=== PATIENT | female | born 1950 | race Caucasian/White ===

== ENCOUNTER → 2017-07-27 14:19 | Outpatient (CLI) | payer MEDICARE, OTHER, SELFPAY ==
[2017-07-27 16:43] LABS: Erythrocyte Sedimentation Rate 9 mm/hr (0-30)
== END ==
PROVIDERS: PCP Physician Assistant; Visit Provider Physician Assistant
DX: R51 Headache (principal)
CPT/HCPCS: 36415; 85651

== ENCOUNTER 2017-08-27 15:01 | Emergency (ER) | payer MEDICARE, OTHER, SELFPAY ==
[2017-08-27 15:06] VITALS: BP 140/91; PULSE 61; RESP 18; TEMP 36.7; O2SAT 97; BMI 26.8
--- NOTE | 2017-08-27 17:52 | HMH.EDGENADL ---
ED Disposition Clinical Impression: Arora's cyst of knee Disposition: Home, Self-Care Condition on Discharge: Fair Additional Instructions: 1- rest. 2- ice. 3- elevation. 4- mobic 5- follow up with zoila on tuesday08/30/17 as scheduled. Prescriptions: Meloxicam [Mobic 7.5mg Tab] 7.5 mg PO BID #15 tab Referrals: Zoila Rose PA [Primary Care Provider] - - Critical Care Critical Care Time: No Attestation: On 08/27/17, the high probability of a clinically significant, sudden or life threatening deterioration of the following system(s) required my full and direct attention, intervention and personal management. The time I documented below is in addition to time spent performing reported procedures but includes the following listed in this critical care notation. Medical Decision Making - Medical Records Medical records reviewed: Yes: I reviewed the patient's medical records. Vital Signs: 08/27/17 15:06 Temperature 98.0 F Temperature Source Oral Pulse Rate [Right Brachial] 61 Respiratory Rate 18 Blood Pressure [Right Arm] 140/91 Blood Pressure Mean [Right Arm] 107 Blood Pressure Source [Right Arm] Automatic Cuff Blood Pressure Position [Right Arm] Sitting 02 Sat by Pulse Oximetry 97 Oxygen Delivery Method Room Air - Jose Inquiry Pt receiving controlled substance: No Jose was queried for this patient: No Medical Decision Making Narrative: I contacted her primary care physician Zoila rose is working the urgent care today. She agrees with my primary impression. She will follow her up as scheduled on Tuesday. General Adult HPI - General Chief complaint: PAIN Stated complaint: AO 2.7.18 Left Leg Injury Mode of Arrival: Ambulatory Limitations: No Limitations Description of Symptoms (Recalled from ER Triage Doc. by RN): swollen area behind knee on left leg - History of Present Illness HPI narrative: 67 years old white female with osteoarthritis of the knees she has been standing up on her feet lately the result of a progressive swelling on the back of the knee 'popliteal fossa'. She wanted to come and be checked. Denies having chest pain palpitations shortness of breath nausea vomiting. As having calf pain dilated veins redness or swelling. Onset (ago): week(s) (Progressive for 1 week.) Radiation: non-radiation Severity: moderate Severity scale (1-10): 5 Consistency: intermittent (It gets better with rest. ) Relieving factors: rest Exacerbating factors: movement Associated symptoms: denies other symptoms Treatments prior to arrival: none - Related Data Home Medications Medication Instructions Recorded Confirmed aspirin 81 mg tablet,delayed 81 mg PO QDAY 07/22/17 release bisoprolol fumarate 5 mg tablet 10 mg PO QDAY 07/22/17 ergocalciferol (vitamin D2) 50,000 50,000 unit PO QWEEK 07/22/17 unit capsule levothyroxine 50 mcg capsule 50 mcg PO QDAY cap 07/22/17 oxybutynin chloride 5 mg tablet 5 mg PO BID 07/22/17 ropinirole 1 mg tablet 1 mg PO QHS tab 07/22/17 Previous Rx's Medication Instructions Recorded citalopram 40 mg tablet 40 mg PO QDAY 90 Days #90 tab 07/27/17 ranitidine 150 mg capsule 300 mg PO QHS 90 Days #180 cap 07/27/17 tramadol 50 mg tablet 50 mg PO TID 90 Days #90 tab 07/27/17 Meloxicam [Mobic 7.5mg Tab] 7.5 mg PO BID #15 tab 08/27/17 Allergies Allergy/AdvReac Type Severity Reaction Status Date / Time No Known Allergies Allergy Unverified 07/27/17 13:24 [facility] [place] History I have reviewed the patient's past medical history: Yes Medical History: Reports:: Hyperlipidemia, Hypertension Denies:: Cancer, Diabetes Mellitus Type 1, Diabetes Mellitus Type 2, MRSA Other Medical History: Reports: Hypothyroidism Laterality Cases: Bilateral: Tonsillectomy Other Surgeries: Yes: Cancer Surgery, Colonoscopy, Tubal Ligation, Other Amputation: No Fractures: No - *Social History Smoking Status: Never smoker Tobacco Type: cig
--- NOTE | 2017-08-27 17:55 | ED_ITS ---
ED Disposition Clinical Impression: Arora's cyst of knee Disposition: Home, Self-Care Condition on Discharge: Fair Additional Instructions: 1- rest. 2- ice. 3- elevation. 4- mobic 5- follow up with zoila on tuesday08/30/17 as scheduled. Prescriptions: Meloxicam [Mobic 7.5mg Tab] 7.5 mg PO BID #15 tab Referrals: Zoila Rose PA [Primary Care Provider] - - Critical Care Critical Care Time: No Attestation: On 08/27/17, the high probability of a clinically significant, sudden or life threatening deterioration of the following system(s) required my full and direct attention, intervention and personal management. The time I documented below is in addition to time spent performing reported procedures but includes the following listed in this critical care notation. Medical Decision Making - Medical Records Medical records reviewed: Yes: I reviewed the patient's medical records. Vital Signs: 08/27/17 15:06 Temperature 98.0 F Temperature Source Oral Pulse Rate [Right Brachial] 61 Respiratory Rate 18 Blood Pressure [Right Arm] 140/91 Blood Pressure Mean [Right Arm] 107 Blood Pressure Source [Right Arm] Automatic Cuff Blood Pressure Position [Right Arm] Sitting 02 Sat by Pulse Oximetry 97 Oxygen Delivery Method Room Air - Jose Inquiry Pt receiving controlled substance: No Jose was queried for this patient: No Medical Decision Making Narrative: I contacted her primary care physician Zoila rose is working the urgent care today. She agrees with my primary impression. She will follow her up as scheduled on Tuesday. General Adult HPI - General Chief complaint: PAIN Stated complaint: AO 2.7.18 Left Leg Injury Mode of Arrival: Ambulatory Limitations: No Limitations Description of Symptoms (Recalled from ER Triage Doc. by RN): swollen area behind knee on left leg - History of Present Illness HPI narrative: 67 years old white female with osteoarthritis of the knees she has been standing up on her feet lately the result of a progressive swelling on the back of the knee 'popliteal fossa'. She wanted to come and be checked. Denies having chest pain palpitations shortness of breath nausea vomiting. As having calf pain dilated veins redness or swelling. Onset (ago): week(s) (Progressive for 1 week.) Radiation: non-radiation Severity: moderate Severity scale (1-10): 5 Consistency: intermittent (It gets better with rest. ) Relieving factors: rest Exacerbating factors: movement Associated symptoms: denies other symptoms Treatments prior to arrival: none - Related Data Home Medications Medication Instructions Recorded Confirmed aspirin 81 mg tablet,delayed 81 mg PO QDAY 07/22/17 release bisoprolol fumarate 5 mg tablet 10 mg PO QDAY 07/22/17 ergocalciferol (vitamin D2) 50,000 50,000 unit PO QWEEK 07/22/17 unit capsule levothyroxine 50 mcg capsule 50 mcg PO QDAY cap 07/22/17 oxybutynin chloride 5 mg tablet 5 mg PO BID 07/22/17 ropinirole 1 mg tablet 1 mg PO QHS tab 07/22/17 Previous Rx's Medication Instructions Recorded citalopram 40 mg tablet 40 mg PO QDAY 90 Days #90 tab 07/27/17 ranitidine 150 mg capsule 300 mg PO QHS 90 Days #180 cap 07/27/17 tramadol 50 mg tablet 50 mg PO TID 90 Days #90 tab 07/27/17
[2017-08-27 18:08] VITALS: BP 133/72; PULSE 85; RESP 18; TEMP 36.7; O2SAT 97
== END 2017-08-27 18:07 | disposition home or self-care (01) ==
PROVIDERS: Emergency Provider Emergency Medicine; PCP Physician Assistant
DX: M71.22 Synovial cyst of popliteal space [Baker], left knee (principal); F32.9 Major depressive disorder, single episode, unspecified; E78.5 Hyperlipidemia, unspecified; I10 Essential (primary) hypertension; E11.9 Type 2 diabetes mellitus without complications
CPT/HCPCS: 99282

== ENCOUNTER → 2017-08-30 10:06 | Outpatient (REF) | payer MEDICARE, OTHER, SELFPAY ==
[2017-08-30 13:44] LABS: Basophils # 0.1 K/mm3 (0-0.2); Basophils % 1.3 % (0.1-2.0); Eosinophils # 0.3 K/mm3 (0.0-0.4); Eosinophils % 7.7 % (0.1-12.0); Hematocrit 39.6 % (37.0-47.0); Hemoglobin 13.1 g/dL (12.2-16.2); Lymphocytes # 1.2 K/mm3 (0.7-4.5); Lymphocytes % 28.9 K/mm3 (10-50); Mean Corpuscular Hemoglobin 30.5 pg (27.0-31.2); Mean Corpuscular Volume 92.3 fl (81-99); Mean Platelet Volume 8.3 fl (7.4-10.4); Monocytes # 0.3 K/mm3 (0.1-1.0); Monocytes % 7.3 % (1.7-9.3); Neutrophils # 2.3 K/mm3 (1.8-7.8); Neutrophils % 54.9 % (37.0-80.0); Platelet Count 191 K/mm3 (142-424); Red Blood Count 4.29 M/mm3 (4.20-5.40); Red Cell Distribution Width 12.7 % (11.5-17.5); White Blood Count 4.2 K/mm3 (4.8-10.8)
[2017-08-30 14:25] LABS: Alanine Aminotransferase 23 U/L (12-78); Albumin Level 3.8 gm/dL (3.4-5.0); Albumin/Globulin Ratio 1.5 (1.1-1.8); Alkaline Phosphatase 92 U/L (46-116); Anion Gap 10.8 mEq/L (5-15); Aspartate Amino Transferase 13 U/L (15-37); Bilirubin,Total 0.4 mg/dL (0.2-1.0); Blood Urea Nitrogen 15 mg/dL (7-18); Calcium 8.8 mg/dL (8.5-10.1); Carbon Dioxide 29 mmol/L (21.0-32.0); Chloride 105 mmol/L (98-107); Chol/HDL Ratio 3.5 (1-3.5); Cholesterol 177 mg/dL (140-200); Estimated Glomerular Filt Rate 50 ml/min (>60); GFR (African American) 60 ML/MIN (>60); Globulin 2.5 gm/dl (1.3-3.2); Glucose 110 mg/dL (74-106); HDL Cholesterol 50 mg/dL (29-89); LDL Cholesterol 107 mg/dL (0-130); Potassium 4.8 mmoL/L (3.5-5.1); Sodium 140 mmol/L (136-145); T4 (Thyroxine) 7.3 ug/dl (4.7-13.3); Thyroid Stimulating Hormone 2.15 uIU/ml (0.358-3.740); Total Protein,Serum 6.3 gm/dL (6.4-8.2); Triglycerides 100 mg/dL (30-200); VLDL Cholesterol 20 mg/dL (0-40)
[2017-08-30 16:45] LABS: Erythrocyte Sedimentation Rate 8 mm/hr (0-30)
[2017-08-31 08:26] LABS: RA Latex Turbid. <10.0 IU/mL (0.0-13.9)
[2017-08-31 12:16] LABS: Anti-Jo-1 <0.2 AI (0.0-0.9); Anti-Smith Antibody <0.2 AI (0.0-0.9); Antichromatin Antibodies <0.2 AI (0.0-0.9); Antiscleroderma-70 Antibodies <0.2 AI (0.0-0.9); RNP Antibodies 0.2 AI (0.0-0.9); Sjogren's Anti-SS-A <0.2 AI (0.0-0.9); Sjogren's Anti-SS-B <0.2 AI (0.0-0.9)
[2017-09-02 12:03] LABS: Anti-Centromere B Antibodies <0.2 AI (0.0-0.9); Anti-DNA (DS) Ab Qn 1 IU/mL (0-9); Folate 13.8 ng/mL (>3.0); Vitamin B12 374 pg/mL (232-1245)
[2017-09-02 12:04] LABS: Anti-Cyclic Citrullinated Pept 2 units (0-19); Vitamin D 25 Hydroxy 19.4 ng/mL (30.0-100.0)
== END ==
LOC: LAB 10:06
PROVIDERS: Visit Provider Physician Assistant
DX: M79.7 Fibromyalgia (principal); I10 Essential (primary) hypertension
CPT/HCPCS: 80053; 80061; 82607; 82652; 82746; 84436; 84443; 85025; 85651; 86038; 86200; 86431

== ENCOUNTER → 2017-10-19 10:54 | Outpatient (REF) | payer MEDICARE, OTHER, SELFPAY ==
[2017-10-19 19:56] LABS: Basophils # 0.1 K/mm3 (0-0.2); Basophils % 1.4 % (0.1-2.0); Eosinophils # 0.4 K/mm3 (0.0-0.4); Eosinophils % 10.6 % (0.1-12.0); Hematocrit 42.5 % (37.0-47.0); Hemoglobin 13.8 g/dL (12.2-16.2); Lymphocytes # 1.2 K/mm3 (0.7-4.5); Lymphocytes % 30.7 K/mm3 (10-50); Mean Corpuscular HGB Conc 32.5 g/dL (31.8-35.4); Mean Corpuscular Hemoglobin 30.7 pg (27.0-31.2); Mean Corpuscular Volume 94.3 fl (81-99); Mean Platelet Volume 8.7 fl (7.4-10.4); Monocytes # 0.3 K/mm3 (0.1-1.0); Monocytes % 7.7 % (1.7-9.3); Neutrophils % 49.7 % (37.0-80.0); Platelet Count 184 K/mm3 (142-424); Red Blood Count 4.51 M/mm3 (4.20-5.40); Red Cell Distribution Width 12.7 % (11.5-17.5)
[2017-10-19 20:47] LABS: Alanine Aminotransferase 19 U/L (12-78); Albumin/Globulin Ratio 1.5 (1.1-1.8); Alkaline Phosphatase 94 U/L (46-116); Anion Gap 13.1 mEq/L (5-15); Aspartate Amino Transferase 16 U/L (15-37); Bilirubin,Total 0.5 mg/dL (0.2-1.0); Blood Urea Nitrogen 16 mg/dL (7-18); Calcium 9.1 mg/dL (8.5-10.1); Carbon Dioxide 29 mmol/L (21.0-32.0); Chloride 103 mmol/L (98-107); Chol/HDL Ratio 3.4 (1-3.5); Cholesterol 191 mg/dL (140-200); Estimated Glomerular Filt Rate 55 ml/min (>60); GFR (African American) 67 ML/MIN (>60); Globulin 2.7 gm/dl (1.3-3.2); Glucose 79 mg/dL (74-106); HDL Cholesterol 56 mg/dL (29-89); LDL Cholesterol 115 mg/dL (0-130); Potassium 4.1 mmoL/L (3.5-5.1); Sodium 141 mmol/L (136-145); T4 (Thyroxine) 7.8 ug/dl (4.7-13.3); Thyroid Stimulating Hormone 3.87 uIU/ml (0.358-3.740); Total Protein,Serum 6.7 gm/dL (6.4-8.2); Triglycerides 98 mg/dL (30-200); VLDL Cholesterol 20 mg/dL (0-40)
== END ==
LOC: LAB 10:54
PROVIDERS: Visit Provider Physician Assistant
DX: I10 Essential (primary) hypertension (principal); R63.5 Abnormal weight gain; G47.10 Hypersomnia, unspecified
CPT/HCPCS: 80053; 80061; 84436; 84443; 85025

== ENCOUNTER → 2018-03-02 11:50 | Outpatient (REF) | payer MEDICARE, OTHER, SELFPAY ==
[2018-03-07 08:30] LABS: Neisseria gonorrhoeae, NAA Negative (Negative)
== END ==
LOC: LAB 11:50
PROVIDERS: Visit Provider Physician Assistant
DX: N89.8 Other specified noninflammatory disorders of vagina (principal); Z20.2 Contact with and (suspected) exposure to infections with a predominantly sexual mode of transmission
CPT/HCPCS: 87491; 87591

== ENCOUNTER → 2018-07-12 16:53 | Outpatient (CLI) | payer MEDICARE, OTHER, SELFPAY ==
[2018-07-12 21:11] LABS: Blood Urea Nitrogen 17 mg/dL (7-18); Calcium 9.2 mg/dL (8.5-10.1); Carbon Dioxide 30 mmol/L (21.0-32.0); Chloride 103 mmol/L (98-107); Estimated Glomerular Filt Rate 41 ml/min (>60); GFR (African American) 49 ML/MIN (>60); Glucose 92 mg/dL (74-106); Sodium 141 mmol/L (136-145)
== END ==
PROVIDERS: Visit Provider Nurse Practitioner Family
DX: I73.9 Peripheral vascular disease, unspecified (principal); I83.893 Varicose veins of bilateral lower extremities with other complications; M79.661 Pain in right lower leg; M79.662 Pain in left lower leg; R06.00 Dyspnea, unspecified; R60.9 Edema, unspecified
CPT/HCPCS: 36415; 80048

== ENCOUNTER → 2018-07-14 11:05 | Outpatient (CLI) | payer MEDICARE, OTHER, SELFPAY ==
--- NOTE | 2018-07-14 11:06 | US_ITS ---
US Arterial Ankle Brachial Ind HISTORY: ITS.REASON: . Claudication. Pain and edema both legs. Previous smoker. Hypertension. TIA, CVA vascular disease history. Rest pain both legs. . TECHNIQUE: Segmental pressures obtained of both right and left leg. These are compared to brachial blood pressure to yield index at each level sampled including summary JAYA. The data sheets from the procedure are available in PACS FINDINGS Rest study only performed today No prior studies available for comparison. Blood pressures reported are in millimeters mercury. Right JAYA = 1.1. Right TBI = 1.0 Brachial BP: 140 Thigh BP: 151 with index 1.08 Calf BP: BP 141 with index 1.01 Ankle PT: BP 159 with index 1.14 Ankle DP : BP 134 with index 0.96 Digit =BP 133 with index 0.9 Left JAYA = 1.1. Left TBI = 0.7 Brachial BPD: 132 Thigh BP: BP 148 with index 1.06 Calf BP: BP 156 with index 1.11 Ankle PT:BP 150 with index 1.07 Ankle DP: BP 136 with index 0.9 Digit = BP 102 with index 0.73 IMPRESSION: Satisfactory values below Right JAYA = 1.1. Right TBI = 1.0 Left JAYA = 1.1. Left TBI = 0.7 Pulses and waveforms: Normal bilaterally
== END ==
PROVIDERS: PCP Physician Assistant; Visit Provider Internal Medicine
DX: I73.9 Peripheral vascular disease, unspecified (principal); I83.893 Varicose veins of bilateral lower extremities with other complications; M79.661 Pain in right lower leg; M79.662 Pain in left lower leg; R06.00 Dyspnea, unspecified; R60.9 Edema, unspecified
CPT/HCPCS: 93922

== ENCOUNTER 2018-07-19 14:27 | Outpatient (RCR) | payer MEDICARE, OTHER, SELFPAY | END 2018-07-31 13:58 | disposition home or self-care (01) | LOC: PT 14:27 | PROVIDERS: Visit Provider Orthopaedic Surgery | DX: M17.11 Unilateral primary osteoarthritis, right knee (principal) | CPT/HCPCS: 97760 ==

== ENCOUNTER → 2018-09-01 08:35 | Outpatient (CLI) | payer MEDICARE, OTHER, SELFPAY ==
--- NOTE | 2018-09-01 08:49 | XR_ITS ---
XR knee RT 4V HISTORY: ITS.REASON: 4 views right knee weightbearing ORDERING PHYSICIAN: Roselia Chambers MD PATIENT AGE: 68 years COMPARISON: 07/27/2018 FINDINGS: Weightbearing views are performed. There are moderate osteoarthritic changes of the medial compartment and patellofemoral joint not significant changed. No fracture or dislocation. No lytic or blastic change. There may be a small suprapatellar effusion. IMPRESSION: No change moderate osteoarthritis of the medial compartment and patellofemoral joint with possible small knee joint effusion
== END ==
PROVIDERS: PCP Physician Assistant; Visit Provider Orthopaedic Surgery
DX: M17.10 Unilateral primary osteoarthritis, unspecified knee (principal)
CPT/HCPCS: 73564

== ENCOUNTER 2018-09-01 13:00 | Outpatient (RCR) | payer MEDICARE, OTHER, SELFPAY ==
--- NOTE | 2018-08-18 14:15 | HMH.PTOPEV ---
PT Outpatient Evaluation Rehab PT Outpatient Evaluation Start: 08/18/18 13:27 Freq: Status: Active Protocol: Document 08/18/18 13:27 LUTHER (Rec: 08/18/18 14:14 LUTHER [id number]) Electronically Signed By Joselo Walker, PT 08/18/18 13:27 Outpatient Therapy Subjective History Subjective History Pt reports insidious onset R knee pain beginning 06/11/18. Pt reports mostly medial and anterior aspect R knee pain, improved with recent fluid removal and steroid injection. Pt reports recent Xrays have revealed OA/DJD in R knee. Chief Complaint Pain Stiff Swelling Weakness Symptom Type Ache Throb Dull Symptoms Relieved By Rest/Positioning Ice Symptoms Aggravated By Standing Walking Prior Functional Limitations Standing Walking Current Functional Limitations Housework Standing Squatting Walking Symptom Description Intermittent Level of pain today (0-10) 1 Pain scale - at its best (0-10) 0 Pain scale - at its worst (0-10) 8 Hip/Knee Eval Gait Observation General Gait Pattern Observation Antalgic Gait Palpation Tenderness right Knee Palpation Finding Tenderness Knee Palpation Overall Comment 3/4 MCL/MEDIAL JT INE MMT bilateral Hip Flexion Strength Grade 4- Good- Hip Abduction Strength Grade 4- Good- Hip Adduction Strength Grade 4- Good- Hip Extension Strength Grade 4 Good Hip External Rotation Strength Grade 4- Good- Hip Internal Rotation Strength Grade 4- Good- Knee Extension Strength Grade 5 Normal Knee Flexion Strength Grade 4 Good ROM Knee Flexion Active Range of Motion ( 0-125 degrees) Effusion joint effusion knee exam standard right Mid - Patellar Circumerential Measure ( 43 cm) Special Tests Knee Valgus Stress Test Negative Left Positive Right Knee Varus Stress Test Negative Left Negative Right Knee Bronwyn Test Negative Left Negative Right Patella Apprehension Test Negative Left Negative Right Patellar Grind Test Nega
== END 2018-09-01 13:35 | disposition home or self-care (01) ==
LOC: PT 13:00
PROVIDERS: Visit Provider Orthopaedic Surgery
DX: M17.11 Unilateral primary osteoarthritis, right knee (principal); M25.561 Pain in right knee
CPT/HCPCS: 97010; 97014; 97035; 97110; 97140; 97163; G0283

== ENCOUNTER → 2018-09-15 17:39 | Outpatient (CLI) | payer MEDICARE, OTHER, SELFPAY ==
[2018-09-15 19:22] LABS: Amphetamine/Metha Screen,Urine Negative ng/mL (<1000); Barbiturates Screen,Urine Negative ng/mL (<200); Benzodiazepines Screen,Urine Negative ng/mL (<200); Cannabinoid Screen,Urine Negative ng/mL (<50); Cocaine Screen,Urine Negative ng/mL (<300); Methadone Screen,Urine Negative ng/mL (<300); Opiate Screen,Urine Negative ng/mL (<300); Phencyclidine Screen,Urine Negative ng/mL (<25)
== END ==
PROVIDERS: Visit Provider Nurse Practitioner Family
DX: Z79.899 Other long term (current) drug therapy (principal)
CPT/HCPCS: 80305

== ENCOUNTER → 2018-10-27 10:30 | Outpatient (CLI) | payer MEDICARE, OTHER, SELFPAY ==
--- NOTE | 2018-10-27 10:51 | XR_ITS ---
XR chest 2V HISTORY: ITS.REASON: HTN ORDERING PHYSICIAN: Roselia Chambers MD PATIENT AGE: 68 years COMPARISON: 09/09/2016 FINDINGS: The cardiomediastinal silhouette and pulmonary vascularity are within normal limits. The lungs are clear without infiltrates, suspicious nodules, or pleural effusions. There are degenerative changes in the thoracic spine as well as the shoulders and AC joints.. IMPRESSION: No change with no acute finding
[2018-10-27 10:53] LABS: Eosinophils # 0.2 K/mm3 (0.0-0.4); Eosinophils % 5.9 % (0.1-12.0); Hemoglobin 13.3 g/dL (12.2-16.2); Lymphocytes # 1.1 K/mm3 (0.7-4.5); Lymphocytes % 28.2 % (10-50); Mean Corpuscular HGB Conc 34.1 g/dL (31.8-35.4); Mean Corpuscular Hemoglobin 30.7 pg (27.0-31.2); Mean Platelet Volume 7.1 fl (7.4-10.4); Monocytes # 0.2 K/mm3 (0.1-1.0); Monocytes % 5.9 % (1.7-9.3); Neutrophils # 2.3 K/mm3 (1.8-7.8); Neutrophils % 59.1 % (37.0-80.0); Platelet Count 228 K/mm3 (142-424); Red Blood Count 4.34 M/mm3 (4.20-5.40); Red Cell Distribution Width 13.2 % (11.5-17.5); White Blood Count 3.9 K/mm3 (4.8-10.8)
[2018-10-27 10:56] LABS: INR 0.98 (0.9-1.1); Prothrombin Time 10.1 seconds (9.4-11.8)
[2018-10-27 11:34] LABS: Alanine Aminotransferase 21 U/L (12-78); Albumin/Globulin Ratio 1.5 (1.1-1.8); Alkaline Phosphatase 117 U/L (46-116); Anion Gap 14.4 mEq/L (5-15); Aspartate Amino Transferase 15 U/L (15-37); Bilirubin,Total 0.7 mg/dL (0.2-1.0); Blood Urea Nitrogen 17 mg/dL (7-18); Calcium 9.1 mg/dL (8.5-10.1); Carbon Dioxide 26 mmol/L (21.0-32.0); Chloride 105 mmol/L (98-107); Creatinine,Serum 1.15 mg/dL (0.55-1.02); Estimated Glomerular Filt Rate 47 ml/min (>60); GFR (African American) 57 ML/MIN (>60); Globulin 2.6 gm/dl (1.3-3.2); Glucose 124 mg/dL (74-106); Potassium 4.4 mmoL/L (3.5-5.1); Sodium 141 mmol/L (136-145); Total Protein,Serum 6.6 gm/dL (6.4-8.2)
== END ==
PROVIDERS: Visit Provider Orthopaedic Surgery
DX: Z01.818 Encounter for other preprocedural examination (principal); M17.11 Unilateral primary osteoarthritis, right knee
CPT/HCPCS: 36415; 71046; 80053; 85025; 85610; 86850; 87081; 93005

== ENCOUNTER 2018-11-07 06:14 | Inpatient (IN) ==
--- NOTE | 2018-11-07 06:48 | Progress Note ---
[facility] Anesthesia Checklist - Patient Identification Patient Identification: Arm Band, Verbal (Name & ) - Structural Data Admitted From: Home Planned Operative Procedure/s: Right TKA Consent for Planned Operative Procedure(s) Verified: Yes Verified Documents: Surgical Consent, History and Physical - NPO Status Verified Time NPO: 00:00 - Chart Verification Results Verified: CBC, BMP - Additional verifications Patient : No Anesthesia Reactions: No - Airway Assessment C-Spine Mobility Assessed: Yes TMJ Mobility Assessed: Yes Dentition: Dentures-good fit (Upper) - Neurological Assessment Level of Consciousness: Awake Hx Seizures: No Numbness or tingling in extremities: No - Anesthesia Plan Anesthesia Risk discussed: Yes Anesthesia Plan: Verified ASA Class: III Anesthesia Type: Spinal [facility] History I have reviewed the patient's past medical history: Yes Medical History: Reports:: Anxiety, Cancer (skin), Depression, Gastroesophageal Reflux Disease(GERD), Hyperlipidemia, Hypertension, Transient Ischemic Attacks (TIA) Denies:: Diabetes Mellitus Type 1, Diabetes Mellitus Type 2, Internal Pacem lloyd, MRSA *Have you ever received a pneumonia vaccine?: No *Have you received a flu vaccine this season?: No Other Medical History: Reports: Fibromyalgia, Hypothyroidism Laterality Cases: Bilateral: Tonsillectomy Other Surgeries: Yes: Cancer Surgery, Colonoscopy, Tubal Ligation, Other (Lumber sx). No: Pacemaker Amputation: No Fractures: Yes (LEFT WRIST,BACK SURGERY) - *Social History Smoking Status: Former smoker Tobacco Type: cigarettes # Packs/Day (cigarettes): 1 Alcohol Intake: never Substance Use Type: denies use *Occupational Status:: retired, employed Housing: house *Travel in the last 8 weeks: None - Psychiatric History Expresses thoughts of harming self/others: None Suicide Plan Description: No Plan Pschychiatric History:: Reports:: Anxiety, Depression Family Hx:: Cancer, Hypertension, Stroke, Heart Attack, Coronary Artery Disease, Hyperlipidemia
--- NOTE | 2018-11-07 11:17 | Progress Note ---
[facility] Anesthesia Record Part I Intake, IV Amount: 1,700 Estimated blood loss (mL): 50 Urine output (mL): 425 Blood Products used (#): none Blood Pressure: 148/102 SaO2: 97 Pulse Rate: 75 Respiratory Rate: 14 Temperature: 98.4 F Patient is:: Awake, Stable Stable to PACU at:: 11:10
--- NOTE | 2018-11-07 11:17 | Progress Note ---
[facility] Anesthesia Record Part II Discharge Time: 11:40 Destination: Medical Surgical Department PACU nurse assessment reviewed?: Yes Patient Condition:: Good Anesthesia Complications:: None Swallowing reflex intact?: Yes Cyanosis?: No
--- NOTE | 2018-11-07 13:15 | Pharmacy Consult Notes ---
[facility] Pharmacy VTE Monitoring - Patient Demographics Admission date: 11/07/18 Report Date: 11/07/18 Time: 13:14 Allergies/Adverse Reactions: Patient Allergies No Known Allergies Allergy (Verified 11/07/18 06:43) Height: 1.65 m Weight: 78.698 kg - VTE Risk Was VTE Risk Assessment Performed: Yes VTE Score: 5 VTE Risk Level: Low Risk Clinical Trial Participant: No - Prophylaxis Types of VTE Prophylaxis: IPCS Knee High Pharmacologic Type: Enoxaparin
--- NOTE | 2018-11-07 17:52 | Operative Note ---
Date of procedure: 11/07/18 Pre-op Diagnosis:: R knee DJD Post-op Diagnosis:: R knee DJD Procedure performed:: R TKA Surgeon:: Roselia Chambers MD Sap Basis(s):: Familia Nicole MD CHIEF BUSINESS OFFICER:: Ricardo Headley Anesthesia: local (joint cocktail per protocol ), spinal, other (propofol sedation) Estimated blood loss (mL): 200 Clinical Note:: 68yo F with significant tricompartmental DJD of the R knee, worst in the medial compartment. She has tried bracing (OTC), ice, activity modification, steroid injection, viscosupplementation, physical therapy, and oral medications (NSAIDs, tramadol, tylenol). The pain has become so severe that it is inhibiting her ability to perform ADLs and is adversely affecting her quality of life. Do discussed surgical options with the patient and have recommended total knee arthroplasty. We discussed at length the surgical technique and expected perioperative course, including length of hospitalization, need for postoperative physical therapy, use of anticoagulants, expected level of pain, and total length of recovery. I also explained the potential risks of surgery, including bleeding, infection, fracture, wound healing complications, need for revision surgery, continued pain post-operatively, DVT/PE, and risks of both general and regional anesthesia, including nerve damage, heart attack, stroke and even . The patient vocalized understanding of these risks and has agreed to proceed with surgery; informed consent was obtained. She was cleared medically by her PCP and pre-op testing, including MRSA nasal swab, were within acceptable limits. Operative findings:: [employer] II BCS TKA system Size 6 femoral component Size 5 tibial component 32 x 7.5mm patellar button 10mm polyethylene Operative note:: The patient was identified in pre-operative holding and the right leg signed by myself with marking pen. Consent was verified with the patient and all questions were answered. Pre-operative labs were confirmed to be within acceptable limits, and MRSA nasal swab negative. The patient was evaluated by anesthesia and they were taken to the OR, placed supine on the operative table and spinal anesthesia administered. 2g Ancef was infused intravenously, tranexamic acid 10mg/kg was given, and the patient sedated with a propofol drip; the patient was not intubated. Once the patient was sedated, a nonsterile tourniquet was placed on the upper right thigh and the leg was prepped and draped in the usual sterile fa shion for knee arthroplasty. Timeout was performed, identifying the correct patient, correct procedure, and correct site. The procedure was begun by exsanguinating the right lower extremity with an E smarch and inflating the tourniquet to 325 mmHg. A longitudinal incision was made down the anterior aspect of the right knee centered over the patella, extending from 2 fingerbreadths superior to the patella to the tibial tubercle. Subcutaneous tissue was incised down to the patellar retinaculum and limited medial and lateral flaps were raised. Median parapatellar arthrotomy was then made and Bovie used to perform a moderate medial release. With the knee in extension, suprapatellar synovium was excised to expose and clear off the anterior distal femoral cortex. Next, the patella was everted and the knee flexed to around 100 degrees. Fat pad was excised and both medial and lateral menisci were excised as well. The ACL and PCL were then excised sharply. The joint was exposed with the retractors medially and laterally. Next the entry reamer was used to find and create the starting point for the distal femoral cutting guide. Through this entry point, intramedullary marybeth component of the distal femoral cutting guide was inserted and the cutting guide pinned into place, set at 6 degrees valgus. This cutting guide was pinned into place, the intramedullary marybeth removed, and oscillating saw used to create distal femoral cut, removing the standard 9 mm from the distal femur. The cutting guide was then removed and pins left in place while a PCL retractor was inserted and used to help expose the proximal tibia. Extra medullary cutting guide was then placed on the patient's lower leg and used to determine the desired level resection for the proximal tibia. The decision was made to take 3 mm off the deficient medial plateau, and the guide was pinned in this position. Oscillating saw was used to make the proximal tibial cut, which was then removed with a flat broad osteotome. Cutting guide was removed and the knee placed in extension. Flexion and extension gaps were then checked with the flexion and extension blocks. The knee was found to be fairly well-balance in both flexion and extension at this resection level, so the blocks were removed and attention returned back to the femur. The femoral component was sized using the sizing guide and a size 6 femur found to be the most appropriate component size. A size 6 5-in-1 cutting block was then placed on the distal femur, set in 3 degrees of external rotation. The saw was then used to make all 5 cuts in this cutting guide and all excised bone removed from the knee. Lamina spreaders were used to check the back of the knee for excess bone and none was found. Lamina nonprofit manager was removed and femoral trial placed on the distal femur. This was seen to fit very well both medially laterally and no notching of the anterior femoral cortex was seen. The femoral notch was then cut with both reamer and box chisel and all excess debris removed from the notch. Attention was then turned to the tibia and a size 5 fit well; there was no overhang medially or laterally. The tibial component was placed in appropriate rotation and pinned in place. Next, a 9mm polyethylene trial component was placed into the knee, but the knee was not well-balanced at this size. A 10mm poly was tried, and this provided the optimal fit. With the knee remaining in extension, the patella was then cut. The decision was made to use a 7.5 mm patellar component. Using the patellar cutting guide, the patella was cut and measured to be at 32. Lug holes were then drilled and 32 trial patella placed. The knee was then taken through range of motion and the patella appeared to be tracking very well. With this configuration of components, a 6 femur, 5 tibia, 10 poly-and 32/7.5 patella, the knee appear to be well balanced with excellent range of motion and was able to be brought to full extension. All components were then removed from the knee, except the tibia, which was given its final prep using reamer and keel punch. After the tibia was punched, it was removed from the knee as well, and the knee was placed into flexion, retractors placed and the knee copiously irrigated with pulsatile lavage. While the knee was irrigated, cement was mixed on the back table. While cement was curing, joint cocktail was injected into the posterior portion of the knee; this was a mixture of Toradol, epinephrine, morphine and bupivacaine, and approximately 30 cc were infused into the posterior capsule and surrounding structures. The bone was then dried well with clean laps, and a small piece of autograft from previously excised bone was used to plug the distal femoral canal. All final components were then cemented into place, starting with the tibia. The tibia was impacted into place and excess cement removed. This was followed by the femoral component and the knee placed into extension with a trial polyethylene component. The patella was cemented into place as well and secured with patellar clamp. As these components were hardening, the knee was kept in extension and gentle downward pressure placed on the thigh to keep the knee extended. During this time the knee was treated with a dilute Betadine soak. After the cement was hardening, Betadine was suctioned from the knee, which was then irrigated. Trial poly was removed from the knee, which was placed into flexion and the tourniquet was dropped. Lamina nonprofit manager was placed into the knee to expose the posterior capsular, and no active bleeding was seen in the posterior aspect of the knee. There was no active bleeding throughout the remainder of the knee either. The knee was irrigated once more, and final 10 mm polyethylene component placed into the knee. The knee was then reduced and placed in extension. The remainder of the joint cocktail was then infiltrated into the periarticular tissues. The knee was copiously irrigated with more pulsatile lavage and closed in a layered fashion, starting with alternating 0 Ethibond and 0 Vicryl in the capsule. The capsule was sutured tightly with the knee in around 20 to 30 degrees flexion. Sub cutaneous tissue was closed in a layered fashion as well, with 2-0 Vicryl on the deeper tissues and Monocryl on the skin. The incision was then sealed with Dermabond and after this dried, Steri-Strips placed. The wound was dressed with a sterile Silverlon dressing and wrapped with webril and Temo wrap from the toes to the upper thigh. The patient was then transferred to PACU in good condition. She did very well throughout this case with no immediate complications. Tourniquet time (min): 90 Condition: stable Disposition: PACU Specimens:: none Complications:: none
--- NOTE | 2018-11-07 18:04 | History & Physical Report ---
*Admission Date: 11/07/18 *Chief complaint: s/p R TKA *History of present illness: 68yo F with significant tricompartmental DJD of the R knee, worst in the medial compartment. She has tried bracing (OTC), ice, activity modification, steroid injection, viscosupplementation, physical therapy, and oral medications (NSAIDs, tramadol, tylenol). The pain has become so severe that it is inhibiting her ability to perform ADLs and is adversely affecting her quality of life. Do discussed surgical options with the patient and have recommended total knee arthroplasty. We discussed at length the surgical technique and expected perioperative course, including length of hospitalization, need for postoperative physical therapy, use of anticoagulants, expected level of pain, and total length of recovery. I also explained the potential risks of surgery, including bleeding, infection, fracture, wound healing complications, need for revision surgery, continued pain post-operatively, DVT/PE, and risks of both general and regional anesthesia, including nerve damage, heart attack, stroke and even . The patient vocalized understanding of these risks and has agreed to proceed with surgery; informed consent was obtained. She was cleared medically by her PCP and pre-op testing, including MRSA nasal swab, were within acceptable limits. [facility] History I have reviewed the patient's past medical history: Yes Medical History: Reports:: Anxiety, Cancer (skin), Depression, Gastroesophageal Reflux Disease(GERD), Hyperlipidemia, Hypertension, Transient Ischemic Attacks (TIA) Denies:: Diabetes Mellitus Type 1, Diabetes Mellitus Type 2, Internal Pacem lloyd, MRSA, Seizures *Have you ever received a pneumonia vaccine?: No *Have you received a flu vaccine this season?: No Other Medical History: Reports: Arthritis, Fibromyalgia, Hypothyroidism, Thyroid Disease. Denies: Blood Transfusion Reaction Laterality Cases: Bilateral: Tonsillectomy Other Surgeries: Yes: Cancer Surgery, Colonoscopy, Tubal Ligation, Other (Lumber sx). No: Pacemaker Amputation: No Fractures: Yes (LEFT WRIST,BACK SURGERY) - *Social History Educational Level: Completed High School Smoking Status: Former smoker Tobacco Type: cigarettes # Packs/Day (cigarettes): 1 #Yrs smoked (if former smoker): 3 Smoking End Date: 22 years ago Alcohol Intake: never Substance Use Type: denies use *Occupational Status:: retired, employed Housing: house Household Members: none *Travel in the last 8 weeks: None - Psychiatric History Expresses thoughts of harming self/others: None Suicide Plan Description: No Plan Pschychiatric History:: Reports:: Anxiety, Depression Family Hx:: Cancer, Hypertension, Stroke, Heart Attack, Coronary Artery Disease, Hyperlipidemia Review of Systems - Review of Systems Review of systems:: pertinent systems reviewed and negative unless documented below Meds Home Medications Medication Instructions Recorded Confirmed Type aspirin 81 mg tablet,delayed 81 mg PO DAILY 07/22/17 11/07/18 History release fluticasone propionate 50 1 spray INTRANASAL BID PRN #47.4 g 01/05/18 11/07/18 Rx mcg/actuation nasal spray,suspension RX: Bisoprolol Fumarate [Zebeta 5 mg PO BID 09/14/18 11/07/18 History 5mg tablet] RX: Cetirizine HCl [All Day 10 mg PO DAILY 09/14/18 11/07/18 History Allergy] RX: Meclizine HCl [Wal-Dram 2] 25 mg PO TID 09/14/18 11/07/18 History RX: hydroCHLOROthiazide [HCTZ 25mg 25 mg PO DAILY 09/14/18 11/07/18 History tab] acetaminophen ER 650 mg 650 mg PO Q8H PRN #90 tab 09/20/18 11/07/18 Rx tablet,extended release RX: Levothyroxine Sodium 75 mcg PO DAILY 11/06/18 11/07/18 History [Levothyroxine 75mcg (0.075mg) Tab] RX: Meloxicam 7.5 mg PO DAILY 11/06/18 11/07/18 History RX: Oxybutynin Chloride [Ditropan 5 mg PO BID 11/06/18 11/07/18 History 5mg tablet] RX: Pregabalin [Lyrica 100mg Cap] 100 mg PO BID 11/06/18 11/07/18 History RX: Venlafaxine HCl [Effexor Xr] 75 mg PO DAILY 11/06/18 11/07/18 History RX: raNITIdine HCl [Ranitidine HCl] 150 mg PO BID 11/06/18 11/07/18 History RX: Ropinirole HCl 1 mg PO BID 11/07/18 11/07/18 History RX: Tramadol HCl [Tramadol 50mg 50 mg PO TID 11/07/18 11/07/18 History Tab] Allergies Allergy/AdvReac Type Severity Reaction Status Date / Time No Known Allergies Allergy Verified 11/07/18 06:43 Exam Vital signs and Labs for Last 24 Hours: Temp Pulse Resp BP Pulse Ox 98.4 F 73 18 111/55 L 97 11/07/18 17:15 11/07/18 17:15 11/07/18 17:15 11/07/18 17:15 11/07/18 17:15 Laboratory Results - last 24 hr 11/07/18 06:54: Blood Type A Positive, Antibody Screen Negative 11/07/18 07:45: Urine Color Yellow, Urine Appearance Clear, Urine pH 5.5, Ur Specific [place] 1.025, Urine Protein Negative, Urine Glucose (UA) Negative, Urine Ketones Negative, Urine Blood Negative, Urine Nitrate Negative, Urine Bilirubin Negative, Urine Urobilinogen 0.2, Ur Leukocyte Esterase Negative, Urine RBC None, Urine WBC None, Ur Squamous Epith Cells None, Urine Bacteria Trace I & O for Last 24 hours: Intake & Output 11/05/18 11/06/18 11/07/18 11/08/18 11:59 11:59 11:59 11:59 Intake Total 1700 / 1700 480 / 480 Output Total 500 / 500 Balance 1700 / 1700 -20 / -20 Weight 170 lb 173 lb 8 oz - *Routine Extremities Exam Comments: in PACU: RLE wrapped with YODIT from toes to upper thigh +DF/PF/EHL RLE sensation diminished from spinal, but starting to return palpable pedal pulses RLE, foot warm R calf non-tender Results - Labs Labs: All other labs normal. - Diagnostic results Knee x-ray: image reviewed (R TKA components well-positioned ) Assessment and Plan (1) Osteoarthritis of right knee Current visit: No Status: Acute Category: Medical Code(s): M17.11 - Unilateral primary osteoarthritis, right knee - Assessment and plan all Dx Assessment and Plan for all problems:: 68yo F POD 0 s/p R TKA -- WBAT RLE, OOB ad betsy with assist/RW -- PT/OT eval -- elevate RLE, keep extended with pillow/bump under ankle -- polar care device PRN to ice knee frequently -- SCDs, IS -- DVT prophy: lovenox to start tomorrow -- d/c keena in am -- am labs tomorrow -- pain control: norco + morphine ordered -- finish 23hour prophy antibiotics -- restart home meds -- Dr. He on consult for med mgmt -- dispo planning; care mgmnt consult placed
[2018-11-08 07:40] LABS: Basophils % 0.4 % (0.1-2.0); Eosinophils # 0.2 K/mm3 (0.0-0.4); Eosinophils % 2.5 % (0.1-12.0); Hematocrit 32.4 % (37.0-47.0); Lymphocytes # 0.8 K/mm3 (0.7-4.5); Lymphocytes % 11.8 % (10-50); Mean Corpuscular HGB Conc 33.8 g/dL (31.8-35.4); Mean Corpuscular Hemoglobin 31.3 pg (27.0-31.2); Mean Corpuscular Volume 92.4 fl (81-99); Monocytes # 0.4 K/mm3 (0.1-1.0); Monocytes % 6.2 % (1.7-9.3); Neutrophils # 5.1 K/mm3 (1.8-7.8); Platelet Count 146 K/mm3 (142-424); Red Blood Count 3.51 M/mm3 (4.20-5.40); Red Cell Distribution Width 13.1 % (11.5-17.5); White Blood Count 6.4 K/mm3 (4.8-10.8)
[2018-11-08 07:59] LABS: Anion Gap 10.2 mEq/L (5-15); Calcium 8.3 mg/dL (8.5-10.1); Potassium 4.2 mmoL/L (3.5-5.1)
--- NOTE | 2018-11-08 12:27 | Consult Report ---
*Admission Date: 11/07/18 *History of present illness: 68yo F with significant tricompartmental DJD of the R knee, worst in the medial compartment. She has tried bracing (OTC), ice, activity modification, steroid injection, viscosupplementation, physical therapy, and oral medications (NSAIDs, tramadol, tylenol). The pain has become so severe that it is inhibiting her ability to perform ADLs and is adversely affecting her quality of life. Do discussed surgical options with the patient and have recommended total knee arthroplasty. We discussed at length the surgical technique and expected perioperative course, including length of hospitalization, need for postoperative physical therapy, use of anticoagulants, expected level of pain, and total length of recovery. I also explained the potential risks of surgery, including bleeding, infection, fracture, wound healing complications, need for revision surgery, continued pain post-operatively, DVT/PE, and risks of both general and regional anesthesia, including nerve damage, heart attack, stroke and even . The patient vocalized understanding of these risks and has agree d to proceed with surgery; informed consent was obtained. She was cleared medically by her PCP and pre-op testing, including MRSA nasal swab, were within acceptable limits. [facility] History I have reviewed the patient's past medical history: Yes Medical History: Reports:: Anxiety, Cancer (skin), Depression, Gastroesophageal Reflux Disease(GERD), Hyperlipidemia, Hypertension, Transient Ischemic Attacks (TIA) Denies:: Diabetes Mellitus Type 1, Diabetes Mellitus Type 2, Internal Pacemaker, MRSA, Seizures *Have you ever received a pneumonia vaccine?: No *Have you received a flu vaccine this season?: No Other Medical History: Reports: Arthritis, Fibromyalgia, Hypothyroidism, Thyroid Disease. Denies: Blood Transfusion Reaction Laterality Cases: Bilateral: Tonsillectomy Other Surgeries: Yes: Cancer Surgery, Colonoscopy, Tubal Ligation, Other (Lumber sx). No: Pacemaker Amputation: No Fractures: Yes (LEFT WRIST,BACK SURGERY) - *Social History Educational Level: Completed High School Smoking Status: Former smoker Tobacco Type: cigarettes # Packs/Day (cigarettes): 1 #Yrs smoked (if former smoker): 3 Smoking End Date: 22 years ago Alcohol Intake: never Substance Use Type: denies use *Occupational Status:: retired, employed Housing: house Household Members: none *Travel in the last 8 weeks: None - Psychiatric History Expresses thoughts of harming self/others: None Suicide Plan Description: No Plan Pschychiatric History:: Reports:: Anxiety, Depression Family Hx:: Cancer, Hypertension, Stroke, Heart Attack, Coronary Artery Disease, Hyperlipidemia Review of Systems - Review of Systems Review of systems:: pertinent systems reviewed and negative unless documented below - Constitutional Denies fever(s) - Eyes Denies discharge - ENT Denies sore throat - *Cardiovascular Denies chest pain at rest - *Respiratory Denies cough - *Gastrointestinal Denies vomiting - *Genitourinary Denies blood in urine - *Musculoskeletal Reports joint pain - Integumentary/Breasts Denies rash - *Neurologic Denies seizure-like activity - Psychiatric Denies anxiety Meds Home Medications Medication Instructions Recorded Confirmed Type aspirin 81 mg tablet,delayed 81 mg PO DAILY 07/22/17 11/07/18 History release fluticasone propionate 50 1 spray INTRANASAL BID PRN #47.4 g 01/05/18 11/07/18 Rx mcg/actuation nasal spray,suspension Bisoprolol Fumarate [Zebeta 5mg 5 mg PO BID 09/14/18 11/07/18 History tablet] Cetirizine HCl [All Day Allergy] 10 mg PO DAILY 09/14/18 11/07/18 History Meclizine HCl [Wal-Dram 2] 25 mg PO TID 09/14/18 11/07/18 History hydroCHLOROthiazide [HCTZ 25mg 25 mg PO DAILY 09/14/18 11/07/18 History tab] acetaminophen ER 650 mg 650 mg PO Q8H PRN #90 tab 09/20/18 11/07/18 Rx tablet,extended release Levothyroxine Sodium 75 mcg PO DAILY 11/06/18 11/07/18 History [Levothyroxine 75mcg (0.075mg) Tab] Meloxicam 7.5 mg PO DAILY 11/06/18 11/07/18 History Oxybutynin Chloride [Ditropan 5mg 5 mg PO BID 11/06/18 11/07/18 History tablet] Pregabalin [Lyrica 100mg Cap] 100 mg PO BID 11/06/18 11/07/18 History Venlafaxine HCl [Effexor Xr] 75 mg PO DAILY 11/06/18 11/07/18 History raNITIdine HCl [Ranitidine HCl] 150 mg PO BID 11/06/18 11/07/18 History Ropinirole HCl 1 mg PO BID 11/07/18 11/07/18 History Tramadol HCl [Tramadol 50mg 50 mg PO TID 11/07/18 11/07/18 History Tab] Allergies Allergy/AdvReac Type Severity Reaction Status Date / Time No Known Allergies Allergy Verified 11/07/18 06:43 Exam Vital signs and Labs for Last 24 Hours: Temp Pulse Resp BP Pulse Ox 98.4 F 75 15 119/62 96 11/08/18 11:34 11/08/18 11:34 11/08/18 11:34 11/08/18 11:34 11/08/18 11:34 Laboratory Results - last 24 hr 11/08/18 07:25: WBC 6.4, RBC 3.51 L, Hgb 11.0 L, Hct 32.4 L, MCV 92.4, MCH 31.3 H, MCHC 33.8, RDW 13.1, Plt Count 146, MPV 7.0 L, Neut % (Auto) 79.0, Lymph % (Auto) 11.8, [place] % (Auto) 6.2, Eos % (Auto) 2.5, Baso % (Auto) 0.4, Neut # (Auto) 5.1, Lymph # (Auto) 0.8, [place] # (Auto) 0.4, Eos # (Auto) 0.2, Baso # (Auto) 0.0 11/08/18 07:25: Sodium 138, Potassium 4.2, Chloride 105, Carbon Dioxide 27, Anion Gap 10.2, BUN 11, Creatinine 1.05 H, Estimated Creat Clear 64, Estimated GFR 52 L, Est GFR ( Amer) 63, Glucose 139 H, Calcium 8.3 L I & O for Last 24 hours: Intake & Output 11/06/18 11/07/18 11/08/18 11/09/18 11:59 11:59 11:59 11:59 Intake Total 1700 / 1700 720 / 720 Output Total 2100 / 2100 Balance 1700 / 1700 -1380 / -1380 Weight 170 lb 175 lb 9 oz - Constitutional no acute distress - *Routine HEENT Exam Head: Present: normocephalic Eye: Present: EOMI, PERRL ENT: Present: mucous membranes dry - *Routine Neck Exam Absent: JVD - *Routine Respiratory Exam Present: CTA bilaterally - *Routine Cardiovascular Exam Present: RRR, murmur - *Routine Abdominal Exam Present: soft - *Routine Extremities Exam Absent: calf tenderness - Routine Back/Spine/Pelvis Exam Comments: s/p rt knee replacement - *Routine Skin Exam Present: intact - *Routine Neurological Exam Present: alert, oriented X3, CN II-XII intact - Routine Psychiatric Exam Present: normal affect Internal Medicine - CN: Reslt - Labs CBC & Chem 7: 11/08/18 07:25 11/08/18 07:25 Labs: Short CBC 11/08/18 Range/Units 07:25 WBC 6.4 (4.8-10.8) K/mm3 Hgb 11.0 L (12.2-16.2) g/dL Hct 32.4 L (37.0-47.0) % Plt Count 146 (142-424) K/mm3 BMP 11/08/18 07:25 Sodium 138 Potassium 4.2 Chloride 105 Carbon Dioxide 27 BUN 11 Creatinine 1.05 H Glucose 139 H Calcium 8.3 L Assessment and Plan (1) Osteoarthritis of right knee Current visit: No Status: Acute Category: Medical Code(s): M17.11 - Unilateral primary osteoarthritis, right knee (2) Anemia Current visit: Yes Status: Acute Qualifiers: Anemia type: unspecified type Qualified Code(s): D64.9 - Anemia, unspecified Category: Medical Code(s): D64.9 - Anemia, unspecified (3) HTN (hypertension) Current visit: Yes Status: Acute Qualifiers: Hypertension type: essential hypertension Qualified Code(s): I10 - Essential (primary) hypertension Category: Medical Code(s): I10 - Essential (primary) hypertension (4) GERD (gastroesophageal reflux disease) Current visit: Yes Status: Acute Qualifiers: Esophagitis presence: without esophagitis Qualified Code(s): K21.9 - Gastro-esophageal reflux disease without esophagitis Category: Medical Code(s): K21.9 - Gastro-esophageal reflux disease without esophagitis (5) Hyperlipidemia Current visit: Yes Status: Acute Qualifiers: Hyperlipidemia type: unspecified Qualified Code(s): E78.5 - Hyperlipidemia, unspecified Category: Medical Code(s): E78.5 - Hyperlipidemia, unspecified (6) History of total knee arthroplasty Current visit: Yes Status: Acute Category: Surgical Code(s): Z96.659 - Presence of unspecified artificial knee joint
--- NOTE | 2018-11-08 16:26 | Progress Note ---
Subjective Date: 11/08/18 Time: 09:00 Principal diagnosis: s/p R TKA Interval history: The patient was seen on rounds this morning, was doing well at that time. She had 2 recorded fevers of 101 this morning with slight lung crackles at lung bases. She has been instructed on incentive spirometry. Denies chest pain or shortness breath. She has been out of bed and walked to the door with therapy. PN: Obj Ex Vital signs: Temp Pulse Resp BP Pulse Ox 98.5 F 80 18 115/65 93 L 11/08/18 15:34 11/08/18 15:34 11/08/18 15:34 11/08/18 15:34 11/08/18 15:34 - Routine Extremities Exam Comments: AAOx3, NAD no audible wheezing, no shortness of breath RLE dressings c/d/i, no strikethrough +DF/PF/EHL RLE SILT distally RLE R calf soft, non-tender, negative Jackie palpable pedal pulses RLE - Urinary Catheter Management Brink Cath placed during this visit: yes Urethral indwelling: No Insertion date: 11/07/18 Insertion time: 07:45 Progress Note: A&P (1) Osteoarthritis of right knee Status: Acute Current Visit: No (2) Anemia Status: Acute Current Visit: Yes (3) HTN (hypertension) Status: Acute Current Visit: Yes (4) GERD (gastroesophageal reflux disease) Status: Acute Current Visit: Yes (5) Hyperlipidemia Status: Acute Current Visit: Yes (6) History of total knee arthroplasty Status: Acute Current Visit: Yes Assessment and Plan for All Diagnoses:: 68yo F POD 1 s/p R TKA -- post-op anemia: will observe -- brink d/c'd this morning -- post-op fever: temp 101 x2, will treat with tylenol and encourage incentive spirometer. most likely atelectasis, but will continue to observe. -- continue to elevate/ice RLE frequently -- continue PT/OT; WBAT RLE -- DVT prophy: lovenox started this morning, continue SCDs -- dispo planning
[2018-11-09 07:04] LABS: Basophils % 0.3 % (0.1-2.0); Eosinophils # 0.1 K/mm3 (0.0-0.4); Eosinophils % 1.2 % (0.1-12.0); Hematocrit 29.9 % (37.0-47.0); Hemoglobin 10.2 g/dL (12.2-16.2); Lymphocytes # 0.8 K/mm3 (0.7-4.5); Lymphocytes % 12.1 % (10-50); Mean Corpuscular HGB Conc 34.1 g/dL (31.8-35.4); Mean Corpuscular Hemoglobin 31.3 pg (27.0-31.2); Mean Corpuscular Volume 91.6 fl (81-99); Mean Platelet Volume 8.3 fl (7.4-10.4); Monocytes # 0.4 K/mm3 (0.1-1.0); Neutrophils # 5.6 K/mm3 (1.8-7.8); Neutrophils % 80.3 % (37.0-80.0); Platelet Count 128 K/mm3 (142-424); Red Blood Count 3.27 M/mm3 (4.20-5.40); Red Cell Distribution Width 13.1 % (11.5-17.5)
[2018-11-09 07:16] LABS: Anion Gap 12.1 mEq/L (5-15); Calcium 8.8 mg/dL (8.5-10.1); Potassium 4.1 mmoL/L (3.5-5.1)
--- NOTE | 2018-11-09 09:37 | Progress Note ---
Internal Medicine - PN: Subj *Date: 11/09/18 *Time: 09:30 Interval history: doing better but has had some sob and palpitations and has depression with fatigue - has been ambulating Exam Vital signs and Labs for Last 24 Hours: Temp Pulse Resp BP Pulse Ox 98.6 F 85 17 135/60 96 11/09/18 07:33 11/09/18 07:33 11/09/18 07:33 11/09/18 07:33 11/09/18 07:33 Laboratory Results - last 24 hr 11/09/18 06:53: WBC 7.0, RBC 3.27 L, Hgb 10.2 L, Hct 29.9 L, MCV 91.6, MCH 31.3 H, MCHC 34.1, RDW 13.1, Plt Count 128 L, MPV 8.3, Neut % (Auto) 80.3 H, Lymph % (Auto) 12.1, [place] % (Auto) 6.0, Eos % (Auto) 1.2, Baso % (Auto) 0.3, Neut # (Auto) 5.6, Lymph # (Auto) 0.8, [place] # (Auto) 0.4, Eos # (Auto) 0.1, Baso # (Auto) 0.0 11/09/18 06:53: Sodium 135 L, Potassium 4.1, Chloride 99, Carbon Dioxide 28, Anion Gap 12.1, BUN 10, Creatinine 0.92, Estimated Creat Clear 68, Estimated GFR 61, Est GFR ( Amer) 73, Glucose 132 H, Calcium 8.8 I & O for Last 24 hours: Intake & Output 11/06/18 11/07/18 11/08/18 11/09/18 11:59 11:59 11:59 11:59 Intake Total 1700 / 1700 720 / 720 720 / 720 Output Total 2100 / 2100 1400 / 1400 Balance 1700 / 1700 -1380 / -1380 -680 / -680 Weight 170 lb 175 lb 9 oz 175 lb 5 oz - Constitutional no acute distress - *Routine HEENT Exam Head: Present: normocephalic Eye: Present: PERRL ENT: Present: mucous membranes dry - *Routine Neck Exam Absent: JVD - *Routine Respiratory Exam Absent: respiratory distress - *Routine Cardiovascular Exam Present: RRR, murmur - *Routine Abdominal Exam Present: soft - *Routine Extremities Exam Absent: Jackie's sign Comments: s/p rt tkp - *Routine Skin Exam Present: intact - *Routine Neurological Exam Present: alert, CN II-XII intact - Routine Psychiatric Exam Present: normal affect Assessment and Plan (1) Osteoarthritis of right knee Current visit: No Status: Acute Category: Medical Code(s): M17.11 - Unilateral primary osteoarthritis, right knee (2) Anemia Current visit: Yes Status: Acute Qualifiers: Anemia type: unspecified type Qualified Code(s): D64.9 - Anemia, unspecified Category: Medical Code(s): D64.9 - Anemia, unspecified (3) HTN (hypertension) Current visit: Yes Status: Acute Qualifiers: Hypertension type: essential hypertension Qualified Code(s): I10 - Essential (primary) hypertension Category: Medical Code(s): I10 - Essential (primary) hypertension (4) GERD (gastroesophageal reflux disease) Current visit: Yes Status: Acute Qualifiers: Esophagitis presence: without esophagitis Qualified Code(s): K21.9 - Gastro-esophageal reflux disease without esophagitis Category: Medical Code(s): K21.9 - Gastro-esophageal reflux disease without esophagitis (5) Hyperlipidemia Current visit: Yes Status: Acute Qualifiers: Hyperlipidemia type: unspecified Qualified Code(s): E78.5 - Hyperlipidemia, unspecified Category: Medical Code(s): E78.5 - Hyperlipidemia, unspecified (6) History of total knee arthroplasty Current visit: Yes Status: Acute Category: Surgical Code(s): Z96.659 - Presence of unspecified artificial knee joint (7) Palpitations Current visit: Yes Status: Acute Category: Medical Code(s): R00.2 - Palpitations
--- NOTE | 2018-11-09 10:07 | Consult Report ---
History of Present Illness Consult date: 11/09/18 Requesting physician: Jorge He Chief complaint: palpitations Additional Medical History:: 1. Palpitations A. GXT Myoview, 2016, no ischemia with normal EF B. Echocardiogram, 2016, normal ejection fraction 2. Hypothyroidism, on replacement 3. Family history of coronary artery disease 4. Right total knee replacement, 10/2018 5. Anxiety/depression 6. Carotid artery stenosis, 2016, less than 20% bilaterally History of present illness: 68-year-old white female admitted for right total knee replacement with subsequent surgery without complications. Patient was seen in consult by Dr. He for medical management and noted to have recent increase in palpitations over the last several weeks. Patient has been seen in the past by Dr. Woodson with cardiology consult for further evaluation of palpitations. Patient denies any chest pain, pressure or tightness. She denies any history of myocardial infarction. Patient denies history of cancer, long-term tobacco use (she smoked for 3 years remotely), hyperlipidemia or seizure activity. She does relate history of a stroke with some right-sided facial weakness that resolved. [facility] History Medical History: Reports:: Anxiety, Cancer (skin), Depression, Gastroesophageal Reflux Disease(GERD), Hyperlipidemia, Hypertension, Transient Ischemic Attacks (TIA) Denies:: Diabetes Mellitus Type 1, Diabetes Mellitus Type 2, Internal Pacemaker, MRSA, Seizures *Have you ever received a pneumonia vaccine?: No *Have you received a flu vaccine this season?: No Other Medical History: Reports: Arthritis, Fibromyalgia, Hypothyroidism, Thyroid Disease. Denies: Blood Transfusion Reaction Laterality Cases: Bilateral: Tonsillectomy Other Surgeries: Yes: Cancer Surgery, Colonoscopy, Tubal Ligation, Other (Lumber sx). No: Pacemaker Amputation: No Fractures: Yes (LEFT WRIST,BACK SURGERY) - *Social History Educational Level: Completed High School Smoking Status: Former smoker Tobacco Type: cigarettes # Packs/Day (cigarettes): 1 #Yrs smoked (if former smoker): 3 Smoking End Date: 22 years ago Alcohol Intake: never Substance Use Type: denies use *Occupational Status:: retired, employed Housing: house Household Members: none *Travel in the last 8 weeks: None - Psychiatric History Expresses thoughts of harming self/others: None Suicide Plan Description: No Plan Pschychiatric History:: Reports:: Anxiety, Depression Family Hx:: Cancer, Hypertension, Stroke, Heart Attack, Coronary Artery Disease, Hyperlipidemia Meds Home Medications Medication Instructions Recorded Confirmed Type aspirin 81 mg tablet,delayed 81 mg PO DAILY 07/22/17 11/07/18 History release fluticasone propionate 50 1 spray INTRANASAL BID PRN #47.4 g 01/05/18 11/07/18 Rx mcg/actuation nasal spray,suspension Bisoprolol Fumarate [Zebeta 5mg 5 mg PO BID 09/14/18 11/07/18 History tablet] Cetirizine HCl [All Day Allergy] 10 mg PO DAILY 09/14/18 11/07/18 History Meclizine HCl [Wal-Dram 2] 25 mg PO TID 09/14/18 11/07/18 History hydroCHLOROthiazide [HCTZ 25mg 25 mg PO DAILY 09/14/18 11/07/18 History tab] acetaminophen ER 650 mg 650 mg PO Q8H PRN #90 tab 09/20/18 11/07/18 Rx tablet,extended release Levothyroxine Sodium 75 mcg PO DAILY 11/06/18 11/07/18 History [Levothyroxine 75mcg (0.075mg) Tab] Meloxicam 7.5 mg PO DAILY 11/06/18 11/07/18 History Oxybutynin Chloride [Ditropan 5mg 5 mg PO BID 11/06/18 11/07/18 History tablet] Pregabalin [Lyrica 100mg Cap] 100 mg PO BID 11/06/18 11/07/18 History Venlafaxine HCl [Effexor Xr] 75 mg PO DAILY 11/06/18 11/07/18 History raNITIdine HCl [Ranitidine HCl] 150 mg PO BID 11/06/18 11/07/18 History Ropinirole HCl 1 mg PO BID 11/07/18 11/07/18 History Tramadol HCl [Tramadol 50mg 50 mg PO TID 11/07/18 11/07/18 History Tab] Allergies Allergy/AdvReac Type Severity Reaction Status Date / Time No Known Allergies Allergy Verified 11/07/18 06:43 Review of Systems - *Cardiovascular Reports rapid, pounding, or irregular heartbeat, Denies chest pain - *Respiratory Denies cough, Denies shortness of breath with activity - *Gastrointestinal Denies abdominal pain, Denies loose stools - *Genitourinary Denies blood in urine, Denies pelvic pain - *Musculoskeletal Reports joint pain, Denies back pain - *Neurologic Denies seizure-like activity Exam Vital signs and Labs for Last 24 Hours: Temp Pulse Resp BP Pulse Ox 98.6 F 85 17 135/60 96 11/09/18 07:33 11/09/18 07:33 11/09/18 07:33 11/09/18 07:33 11/09/18 07:33 Laboratory Results - last 24 hr 11/09/18 06:53: WBC 7.0, RBC 3.27 L, Hgb 10.2 L, Hct 29.9 L, MCV 91.6, MCH 31.3 H, MCHC 34.1, RDW 13.1, Plt Count 128 L, MPV 8.3, Neut % (Auto) 80.3 H, Lymph % (Auto) 12.1, [place] % (Auto) 6.0, Eos % (Auto) 1.2, Baso % (Auto) 0.3, Neut # (Auto) 5.6, Lymph # (Auto) 0.8, [place] # (Auto) 0.4, Eos # (Auto) 0.1, Baso # (Auto) 0.0 11/09/18 06:53: Sodium 135 L, Potassium 4.1, Chloride 99, Carbon Dioxide 28, Anion Gap 12.1, BUN 10, Creatinine 0.92, Estimated Creat Clear 68, Estimated GFR 61, Est GFR ( Amer) 73, Glucose 132 H, Calcium 8.8 I & O for Last 24 hours: Intake & Output 11/06/18 11/07/18 11/08/18 11/09/18 11:59 11:59 11:59 11:59 Intake Total 1700 / 1700 720 / 720 720 / 720 Output Total 2100 / 2100 1400 / 1400 Balance 1700 / 1700 -1380 / -1380 -680 / -680 Weight 170 lb 175 lb 9 oz 175 lb 5 oz - *Routine HEENT Exam Head: Present: normocephalic Eye: Present: EOMI, PERRL ENT: Present: mucous membranes moist - *Routine Neck Exam Present: supple. Absent: JVD, carotid bruit - *Routine Respiratory Exam Present: CTA bilaterally. Absent: accessory muscle use, rales, rhonchi, wheezes - *Routine Cardiovascular Exam Present: RRR. Absent: murmur, gallop, rubs - *Routine Abdominal Exam Present: soft. Absent: tenderness, distended, guarding - *Routine Extremities Exam Absent: edema, calf tenderness Comments: Right knee bandaged from recent surgery. - *Routine Neurological Exam Present: alert, oriented X3, moving all extremities Assessment and Plan (1) Osteoarthritis of right knee Current visit: No Status: Acute Category: Medical Code(s): M17.11 - Unilateral primary osteoarthritis, right knee (2) Anemia Current visit: Yes Status: Acute Qualifiers: Anemia type: unspecified type Qualified Code(s): D64.9 - Anemia, unspecified Category: Medical Code(s): D64.9 - Anemia, unspecified (3) HTN (hypertension) Current visit: Yes Status: Acute Qualifiers: Hypertension type: essential hypertension Qualified Code(s): I10 - Essential (primary) hypertension Category: Medical Code(s): I10 - Essential (primary) hypertension (4) GERD (gastroesophageal reflux disease) Current visit: Yes Status: Acute Qualifiers: Esophagitis presence: without esophagitis Qualified Code(s): K21.9 - Gastro-esophageal reflux disease without esophagitis Category: Medical Code(s): K21.9 - Gastro-esophageal reflux disease without esophagitis (5) Hyperlipidemia Current visit: Yes Status: Acute Qualifiers: Hyperlipidemia type: unspecified Qualified Code(s): E78.5 - Hyperlipidemia, unspecified Category: Medical Code(s): E78.5 - Hyperlipidemia, unspecified (6) History of total knee arthroplasty Current visit: Yes Status: Acute Category: Surgical Code(s): Z96.659 - Presence of unspecified artificial knee joint (7) Palpitations Current visit: Yes Status: Acute Category: Medical Code(s): R00.2 - Palpitations - Assessment and plan all Dx Assessment and Plan for all problems:: 1. We will obtain an echocardiogram to evaluate left ventricular size and function due to complaint of palpitations. 2. Recent TSH was only slightly elevated at 3.87. 3. Recommend cardiac monitoring while an inpatient to evaluate complaint of palpitations.
[2018-11-09 13:52] LABS: ABG Base Excess 1.7 mmol/L (-2.4-2.3); ABG HCO3 25.4 mmhg (22.0-26.0); ABG Oxygen Saturation 94 % (90-100); ABG PCO2 35.4 mmhg (35.0-45.0); ABG PH 7.47 mmol/L (7.35-7.45); ABG PO2 73.3 mmhg (80-100); ABG TCO2 26.4 mmhg (23-27)
[2018-11-09 13:53] LABS: Allen's Test ACCEPTABLE; Oxygen 3LPM %
--- NOTE | 2018-11-09 15:45 | Cardiology Report ---
PROCEDURE: 2-D M-mode and color Doppler study INDICATIONS FOR THE TEST: Chest pain COPD Heart Murmur Tobacco Smoking Palpitations+ Fatigue Syncope Edema Hypertension Diabetes Mellitus Rheumatic Fever SOB + ACE Obesity Hyperlipidemia + Family History HD Additional History PATIENT INFORMATION HEIGHT: 65 WEIGHT:175 GENDER: Female B/P:135/60 2-D/M-MODE INTERPRETATION: 2-D MEASUREMENTS OBSERVED VALUES IN CMS Right Ventricular Dimension (RVDd) 3.4 Interventricular Septum (Thickness)(IVsd) 1.2 Left Ventricular Internal Dimensions(LVIDd) 3.7 Left Ventricular Posterior Wall (Thickness)(LVPWd) 1.2 Aortic Root 3.6 Aortic Cusp Separation 2.2 Left Atrial Dimensions (LAD) 3.5 2D 1. Left atrium is mildly enlarged, left ventricle is normal size, mild concentric left ventricular hypertrophy, visually estimated ejection fraction 55% with no regional wall motion abnormality. 2. The right atrium and right ventricle are mildly enlarged with normal contractility. 3. The aortic valve is minimally thickened and fibrosed. 4. The mitral and tricuspid valvular grossly normal. 5. The pulmonic valve is poorly visualized. 6. No significant pericardial effusion noted. DOPPLER INTERROGATION: Doppler interrogation of the aortic, mitral and tricuspid valvular presence of mild mitral and tricuspid regurgitation, calculated right ventricular systolic pressure is 66 mmHg consistent with moderate pulmonary hypertension, grade 1 diastolic dysfunction seen without tissue Doppler evidence of raised left atrial pressure. CONCLUSION: 1. Mild biatrial enlargement, normal left ventricular size, mild concentric left ventricular hypertrophy, visually estimated ejection fraction 55% with no regional wall motion abnormality. Grade 1 diastolic dysfunction seen without tissue Doppler evidence of raised left atrial pressure. 2. Mildly enlarged right ventricle with normal contractility. 3. Mild mitral and tricuspid regurgitation, calculated right ventricular systolic pressure is 66 mmHg consistent with moderate pulmonary hypertension, inferior vena cava is not well visualized . 4. No significant pericardial effusion noted.
--- NOTE | 2018-11-09 17:28 | Progress Note ---
Subjective Date: 11/09/18 Time: 16:00 Principal diagnosis: s/p R TKA Interval history: The patient was seen this morning and was doing well at that time. Over the course of the morning, she began to develop shortness of breath with exertion, particularly during her morning PT session. O2 sat on room air dropped into the 70's and she became tachypneic, though without diaphoresis or chest pain. Temperature was elevated once this morning as well. CT chest w/PE protocol was ordered STAT, and bilateral pulmonary emboli identified. She has been on prophylactic doses of lovenox since POD 1, 30mg SQ BID, and after the PEs were diagnosed, started on therapeutic lovenox (80mg BID). She has been evaluated by cardiology and is being observed on a hall monitor. The patient denies calf pain, but does report having pain in both legs for the past 6 months. Ultrasound performed in June 2018 failed to identify DVT at time. The patient recalls her grandmother having a blood clot in her groin prior to her , but is unaware of any familial clotting disorders. She denies smoking or use of hormonal supplements. She has a history of TIA but is unaware of this being from an embolic source. PN: Obj Ex Vital signs: Temp Pulse Resp BP Pulse Ox 98.6 F 80 17 120/69 96 11/09/18 16:00 11/09/18 16:00 11/09/18 16:00 11/09/18 16:00 11/09/18 16:00 - Constitutional no acute distress, cooperative - Routine HEENT Exam Head: Present: normocephalic Eye: Present: EOMI, PERRL ENT: Present: mucous membranes moist - Routine Respiratory Exam Present: CTA bilaterally. Absent: accessory muscle use, decreased breath sounds, wheezes, diminished air movement - Routine Cardiovascular Exam Present: RRR - Routine Abdominal Exam Present: soft - Routine Extremities Exam Comments: RLE with surgical dressing intact, no strikethrough +DF/PF/EHL RLE SILT distally RLE palpable pedal pulses RLE, foot warm/well-perfused no calf tenderness BLE, negative Jackie's - Urinary Catheter Management Townsend Cath placed during this visit: yes Urethral indwelling: No Insertion date: 11/07/18 Insertion time: 07:45 Progress Note: A&P (1) Osteoarthritis of right knee Status: Acute Current Visit: No (2) Anemia Status: Acute Current Visit: Yes (3) HTN (hypertension) Status: Acute Current Visit: Yes (4) Palpitations Status: Acute Current Visit: Yes (5) Pulmonary embolism Status: Acute Current Visit: Yes Assessment and Plan for All Diagnoses:: 68yo F POD 2 s/p R TKA -- bilateral PE: continue treating with therapeutic lovenox, will discuss with Dr. He duration of treatment and continuation of weight-based therapeutic lovenox vs transition to oral anticoagulant such as xarelto -- regarding TKA, continue post-op course with PT/OT resuming tomorrow morning, but should patient develop shortness of breath/tachypnea, supplemental O2 to be supplied and patient is to rest. continue WBAT RLE. -- continue to ice the knee frequently with polar care device -- pain control: oral meds seem to be working well, hold IV for severe breakthrough only -- continue home meds; appreciate Dr. He's medical management -- cards on consult for palpitations; appreciate input, will continue hall monitor -- dispo planning: the patient would prefer [place] for rehab, awaiting insurance approval. Not medically appropriate for discharge at this time, will reassess tomorrow and consider transfer tomorrow or Tuesday pending plan for treatment of PE.
[2018-11-10 07:19] LABS: Basophils % 0.4 % (0.1-2.0); Eosinophils # 0.2 K/mm3 (0.0-0.4); Eosinophils % 2.9 % (0.1-12.0); Hematocrit 26.4 % (37.0-47.0); Hemoglobin 9.2 g/dL (12.2-16.2); Lymphocytes # 0.9 K/mm3 (0.7-4.5); Lymphocytes % 14.3 % (10-50); Mean Corpuscular HGB Conc 34.6 g/dL (31.8-35.4); Mean Corpuscular Hemoglobin 30.9 pg (27.0-31.2); Mean Corpuscular Volume 89.3 fl (81-99); Mean Platelet Volume 7.8 fl (7.4-10.4); Monocytes # 0.4 K/mm3 (0.1-1.0); Monocytes % 6.1 % (1.7-9.3); Neutrophils # 4.9 K/mm3 (1.8-7.8); Neutrophils % 76.3 % (37.0-80.0); Platelet Count 147 K/mm3 (142-424); Red Blood Count 2.96 M/mm3 (4.20-5.40); Red Cell Distribution Width 13.1 % (11.5-17.5); White Blood Count 6.4 K/mm3 (4.8-10.8)
[2018-11-10 07:49] LABS: Anion Gap 9.5 mEq/L (5-15); Calcium 8.5 mg/dL (8.5-10.1); Potassium 3.5 mmoL/L (3.5-5.1)
--- NOTE | 2018-11-10 08:17 | Progress Note ---
Subjective Date: 11/10/18 Time: 08:15 Principal diagnosis: s/p R TKA Interval history: 68 yo WF in bedside chair in NAD. No chest pain or pressure. Some SOA and palpitations per patient with telemetry showing NSR without arrhythmias. Exam Vital signs and Labs for Last 24 Hours: Temp Pulse Resp BP Pulse Ox 100.7 F H 79 18 125/65 97 11/10/18 07:25 11/10/18 07:25 11/10/18 07:25 11/10/18 07:25 11/10/18 07:25 Laboratory Results - last 24 hr 11/09/18 13:29: Specimen Source R radial, O2 % 3lpm, ABG pH 7.47 H, ABG pCO2 35.4, ABG pO2 73.3 L, ABG HCO3 25.4, ABG Total CO2 26.4, ABG O2 Saturation 94, ABG Base Excess 1.7, [place] Test Acceptable 11/10/18 07:08: WBC 6.4, RBC 2.96 L, Hgb 9.2 L, Hct 26.4 L, MCV 89.3, MCH 30.9, MCHC 34.6, RDW 13.1, Plt Count 147, MPV 7.8, Neut % (Auto) 76.3, Lymph % (Auto) 14.3, [place] % (Auto) 6.1, Eos % (Auto) 2.9, Baso % (Auto) 0.4, Neut # (Auto) 4.9, Lymph # (Auto) 0.9, [place] # (Auto) 0.4, Eos # (Auto) 0.2, Baso # (Auto) 0.0 11/10/18 07:08: Sodium 135 L, Potassium 3.5, Chloride 98, Carbon Dioxide 31, Anion Gap 9.5, BUN 10, Creatinine 0.96, Estimated Creat Clear 67, Estimated GFR 58 L, Est GFR ( Amer) 70, Glucose 119 H, Calcium 8.5 I & O for Last 24 hours: Intake & Output 11/07/18 11/08/18 11/09/18 11/10/18 11:59 11:59 11:59 11:59 Intake Total 1700 / 1700 720 / 720 720 / 720 480 / 480 Output Total 2100 / 2100 1850 / 1850 2700 / 2700 Balance 1700 / 1700 -1380 / -1380 -1130 / -1130 -2220 / -2220 Weight 170 lb 175 lb 9 oz 175 lb 5 oz 174 lb 6 oz - *Routine HEENT Exam Head: Present: normocephalic Eye: Present: EOMI, PERRL ENT: Present: mucous membranes moist - *Routine Respiratory Exam Present: rales. Absent: accessory muscle use, rhonchi, wheezes - *Routine Cardiovascular Exam Present: RRR. Absent: murmur, gallop, rubs - *Routine Extremities Exam Absent: edema, calf tenderness - *Routine Neurological Exam Present: alert, oriented X3, moving all extremities Progress Note: A&P (1) Osteoarthritis of right knee Status: Acute Current Visit: No (2) Anemia Status: Acute Current Visit: Yes (3) HTN (hypertension) Status: Acute Current Visit: Yes (4) Palpitations Status: Acute Current Visit: Yes (5) Pulmonary embolism Status: Acute Current Visit: Yes Assessment and Plan for All Diagnoses:: 1. Continue lovenox until ok with ortho to switch to Xarelto 15 mg BID for 3 wks total then 20 mg daily thereafter for at least 3 months. 2. Cardiac rhythm stable on bisoprolol 5 mg BID. 3. Echo shows normal LVEF with elevated right heart pressure and pulmonary HTN (likely due to bilateral PE's). 4. Cardiac status stable for discharge when Ortho and PCP ready.
--- NOTE | 2018-11-10 09:09 | Pharmacy Consult Notes ---
[facility] Pharmacy VTE Monitoring - Patient Demographics Admission date: 11/09/18 Report Date: 11/09/18 Time: 15:00 Allergies/Adverse Reactions: Patient Allergies No Known Allergies Allergy (Verified 11/07/18 06:43) Height: 1.65 m Weight: 79.095 kg - VTE Risk Labs: VTE Related Lab Results Hgb 9.2 g/dL (12.2-16.2) L 11/10/18 07:08 Hct 26.4 % (37.0-47.0) L 11/10/18 07:08 Plt Count 147 K/mm3 (142-424) 11/10/18 07:08 BUN 10 mg/dL (7-18) 11/10/18 07:08 Creatinine 0.96 mg/dL (0.55-1.02) 11/10/18 07:08 Estimated Creat Clear 67 mL/min (50-200) 11/10/18 07:08 Was VTE Risk Assessment Performed: Yes VTE Score: 5 VTE Risk Level: Low Risk Clinical Trial Participant: No - Prophylaxis Types of VTE Prophylaxis: Pharmacological Pharmacologic Type: Enoxaparin - VTE Diagnosis Confirmed Treatment or plan recommended: Add Enoxaparin, Add other medication (PATIENT DISCHARGED ON XARELTO)
--- NOTE | 2018-11-10 13:13 | Progress Note ---
Subjective Date: 11/10/18 Time: 11:00 Principal diagnosis: s/p R TKA Interval history: The patient is feeling well this morning. She remains on O2 via nasal cannula but denies chest pain or shortness of breath. With exertion she reports some shortness of breath but no dizziness or chest pain. Pain in the R knee tolerable with medication. No drainage reported from dressings. PN: Obj Ex Vital signs: Temp Pulse Resp BP Pulse Ox 98.5 F 64 17 121/54 L 100 11/10/18 12:00 11/10/18 12:00 11/10/18 12:00 11/10/18 12:00 11/10/18 12:00 - Routine Extremities Exam Comments: RLE with surgical dressing intact, no strikethrough dressings removed, incision c/d/i w/o erythema or drainage +DF/PF/EHL RLE SILT distally RLE palpable pedal pulses RLE, foot warm/well-perfused no calf tenderness BLE, negative Jackie's - Urinary Catheter Management Townsend Cath placed during this visit: yes Urethral indwelling: No Insertion date: 11/07/18 Insertion time: 07:45 Progress Note: A&P (1) Osteoarthritis of right knee Status: Acute Current Visit: No (2) Anemia Status: Acute Current Visit: Yes (3) HTN (hypertension) Status: Acute Current Visit: Yes (4) Palpitations Status: Acute Current Visit: Yes (5) Pulmonary embolism Status: Acute Current Visit: Yes Assessment and Plan for All Diagnoses:: 68yo F POD 3 s/p R TKA -- bilateral PE: will transition to xarelto, which will continue after discharge for 6+ months; will have her follow-up with Dr. He after discharge -- continue PT/OT, WBAT RLE -- continue to ice the knee frequently with polar care device -- pain control: oral meds seem to be working well, hold IV for severe breakthrough only -- continue home meds; appreciate Dr. He's medical management -- cards on consult for palpitations; appreciate input, will continue cardiac care unit nurse -- dispo planning: medically stable for discharge, anticipate transfer to [place] later today
--- NOTE | 2018-11-10 14:15 | Progress Note ---
Internal Medicine - PN: Subj *Date: 11/10/18 *Time: 08:30 Interval history: doing better with hx of bilat pul emboli Exam Vital signs and Labs for Last 24 Hours: Temp Pulse Resp BP Pulse Ox 98.5 F 64 17 121/54 L 100 11/10/18 12:00 11/10/18 12:00 11/10/18 12:00 11/10/18 12:00 11/10/18 12:00 Laboratory Results - last 24 hr 11/10/18 07:08: WBC 6.4, RBC 2.96 L, Hgb 9.2 L, Hct 26.4 L, MCV 89.3, MCH 30.9, MCHC 34.6, RDW 13.1, Plt Count 147, MPV 7.8, Neut % (Auto) 76.3, Lymph % (Auto) 14.3, [place] % (Auto) 6.1, Eos % (Auto) 2.9, Baso % (Auto) 0.4, Neut # (Auto) 4.9, Lymph # (Auto) 0.9, [place] # (Auto) 0.4, Eos # (Auto) 0.2, Baso # (Auto) 0.0 11/10/18 07:08: Sodium 135 L, Potassium 3.5, Chloride 98, Carbon Dioxide 31, Anion Gap 9.5, BUN 10, Creatinine 0.96, Estimated Creat Clear 67, Estimated GFR 58 L, Est GFR ( Amer) 70, Glucose 119 H, Calcium 8.5 I & O for Last 24 hours: Intake & Output 11/08/18 11/09/18 11/10/18 11/11/18 11:59 11:59 11:59 11:59 Intake Total 720 / 720 720 / 720 960 / 960 Output Total 2100 / 2100 1850 / 1850 2700 / 2700 Balance -1380 / -1380 -1130 / -1130 -1740 / -1740 Weight 175 lb 9 oz 175 lb 5 oz 174 lb 6 oz - Constitutional no acute distress - *Routine HEENT Exam Head: Present: normocephalic Eye: Present: EOMI, PERRL ENT: Present: mucous membranes dry - *Routine Neck Exam Present: supple. Absent: JVD - *Routine Respiratory Exam Present: decreased breath sounds - *Routine Cardiovascular Exam Present: RRR, murmur - *Routine Abdominal Exam Present: soft - *Routine Extremities Exam Comments: s/p rt tkp - *Routine Skin Exam Present: intact - *Routine Neurological Exam Present: alert, oriented X3, CN II-XII intact - Routine Psychiatric Exam Present: normal affect Assessment and Plan (1) Osteoarthritis of right knee Current visit: No Status: Acute Category: Medical Code(s): M17.11 - Unilateral primary osteoarthritis, right knee (2) Anemia Current visit: Yes Status: Acute Qualifiers: Anemia type: unspecified type Qualified Code(s): D64.9 - Anemia, unspecified Category: Medical Code(s): D64.9 - Anemia, unspecified (3) HTN (hypertension) Current visit: Yes Status: Acute Qualifiers: Hypertension type: essential hypertension Qualified Code(s): I10 - Essential (primary) hypertension Category: Medical Code(s): I10 - Essential (primary) hypertension (4) Palpitations Current visit: Yes Status: Acute Category: Medical Code(s): R00.2 - Palpitations (5) Pulmonary embolism Current visit: Yes Status: Acute Category: Medical Code(s): I26.99 - Other pulmonary embolism without acute cor pulmonale
--- NOTE | 2018-11-10 14:40 | Discharge Summary ---
General - General Admission date:: 11/07/18 Discharge date: 11/10/18 HPI HPI: 68yo F with significant tricompartmental DJD of the R knee, worst in the medial compartment. She has tried bracing (OTC), ice, activity modification, steroid injection, viscosupplementation, physical therapy, and oral medications (NSAIDs, tramadol, tylenol). The pain has become so severe that it is inhibiting her ability to perform ADLs and is adversely affecting her quality of life. Do discussed surgical options with the patient and have recommended total knee arthroplasty. We discussed at length the surgical technique and expected perioperative course, including length of hospitalization, need for postoperative physical therapy, use of anticoagulants, expected level of pain, and total length of recovery. I also explained the potential risks of surgery, including bleeding, infection, fracture, wound healing complications, need for revision surgery, continued pain post-operatively, DVT/PE, and risks of both general and regional anesthesia, including nerve damage, heart attack, stroke and even . The patient vocalized understanding of these risks and has agreed to proceed with surgery; informed consent was obtained. She was cleared medically by her PCP and pre-op testing, including MRSA nasal swab, were within acceptable limits. Hospital Course Hospital Course: Surgery went well on 11/07/2018; R TKA performed without any immediate complications. Post-operatively the patient was admitted to the [facility] floor and PT initiated; the patient was mobilized the afternoon of surgery. On POD 1 the brink catheter was removed and lovenox started 30mg BID. She had a few isolated fevers of 101 but this improved with tylenol and incentive spirometry. On the morning of POD 2, however, the patient experienced shortness of breath with exertion and CT chest revealed bilateral pulmonary emboli. She was switched from prophylactic doses of lovenox to therapeutic doses, 80mg BID. Cardiology evaluated her for subjective palpitations but no arrythmia was identified. On POD 3 she was deemed medically stable for discharge to SNF. The patient had no complaints of chest pain, dizziness/light-headedness, and had only occasional shortness of breath with exertion. She maintained appropriate oxygen saturation levels on low flow O2 delivered via nasal cannula. Xarelto therapy was started 11/10/2018 and she was discharged with instructions to follow closely with her PCP. Objective Vital signs: Temp Pulse Resp BP Pulse Ox 98.5 F 64 17 121/54 L 100 11/10/18 12:00 11/10/18 12:00 11/10/18 12:00 11/10/18 12:00 11/10/18 12:00 no acute distress - *Routine Respiratory Exam Present: CTA bilaterally. Absent: decreased breath sounds, rhonchi, stridor, distant breath sounds, diminished air movement - *Routine Cardiovascular Exam Present: RRR - *Routine Extremities Exam Comments: RLE with surgical dressing intact, no strikethrough --> incision c/d/i (dressing changed), no erythema or drainage +DF/PF/EHL RLE SILT distally RLE palpable pedal pulses RLE, foot warm/well-perfused no calf tenderness BLE, negative Jackie's Results Completed studies during hospitalization [Text1]: CBC, BMP daily XR R knee in PACU cardiology testing including EKG/echo CT chest PE protocol Labs on day of discharge: Labs from last 24 hours 11/10/18 11/10/18 07:08 07:08 WBC 6.4 RBC 2.96 L Hgb 9.2 L Hct 26.4 L MCV 89.3 MCH 30.9 MCHC 34.6 RDW 13.1 Plt Count 147 MPV 7.8 Neut % (Auto) 76.3 Lymph % (Auto) 14.3 [place] % (Auto) 6.1 Eos % (Auto) 2.9 Baso % (Auto) 0.4 Neut # (Auto) 4.9 Lymph # (Auto) 0.9 [place] # (Auto) 0.4 Eos # (Auto) 0.2 Baso # (Auto) 0.0 Sodium 135 L Potassium 3.5 Chloride 98 Carbon Dioxide 31 Anion Gap 9.5 BUN 10 Creatinine 0.96 Estimated Creat Clear 67 Estimated GFR 58 L Est GFR ( Amer) 70 Glucose 119 H Calcium 8.5 - Imaging and Cardiology CT scan - chest Status: final report (bilateral pulomary emboli) DS: Diagnosis - Discharge Diagnosis (1) Osteoarthritis of right knee Status: Acute (2) Anemia Status: Acute (3) HTN (hypertension) Status: Acute (4) Palpitations Status: Acute (5) Pulmonary embolism Status: Acute Discharge Plan - Patient Discharge Instructions ACTIVITY: Continue current activity, Up with assistance DIET: continue same diet Additional Instructions: -- WBAT RLE, continue PT/OT -- ice knee frequently using Nopsec care device -- may shower, but no tub baths/pools -- change dressing once daily -- elevate RLE, DARIA hose to be used for swelling/compression -- continue home medications per med rec -- Xarelto prescribed for treatment of pulmonary emboli -- Rx for pain medication given -- discharge instruction sheet given to patient -- follow-up with PCP within 7-10 days of discharge -- follow-up with Dr. Chambers at 2 weeks post-op Patient Instructions: DI for Knee Replacement, DI for Surgical Site Infection - Follow up Plan Follow up with: Roselia Chambers MD [Physician] - 10 days Jorge He MD [Primary Care Provider] - 1 week Disposition: [facility] Home Medications: Home Medications Medication Instructions Recorded Confirmed Type fluticasone propionate 50 1 spray INTRANASAL BID PRN #47.4 g 01/05/18 11/07/18 Rx mcg/actuation nasal spray,suspension Bisoprolol Fumarate [Zebeta 5mg 5 mg PO BID 09/14/18 11/07/18 History tablet] Cetirizine HCl [All Day Allergy] 10 mg PO DAILY 09/14/18 11/07/18 History Meclizine HCl [Wal-Dram 2] 25 mg PO TID 09/14/18 11/07/18 History hydroCHLOROthiazide [HCTZ 25mg 25 mg PO DAILY 09/14/18 11/07/18 History tab] Levothyroxine Sodium 75 mcg PO DAILY 11/06/18 11/07/18 History [Levothyroxine 75mcg (0.075mg) Tab] Oxybutynin Chloride [Ditropan 5mg 5 mg PO BID 11/06/18 11/07/18 History tablet] Pregabalin [Lyrica 100mg Cap] 100 mg PO BID 11/06/18 11/07/18 History Venlafaxine HCl [Effexor Xr] 75 mg PO DAILY 11/06/18 11/07/18 History raNITIdine HCl [Ranitidine HCl] 150 mg PO BID 11/06/18 11/07/18 History Ropinirole HCl 1 mg PO BID 11/07/18 11/07/18 History Oxycodone HCl/Acetaminophen 1 - 2 each PO Q4HP PRN #30 tab 11/10/18 Rx [Percocet 5/325mg tablet] Rivaroxaban [Xarelto 15mg tablet] 15 mg PO BIDWM 21 Days #42 tab 11/10/18 Rx Ropinirole HCl [Requip 1mg Tablet] 1 mg PO BID tab 11/10/18 Rx Prescriptions/Medication Reconciliation: New Oxycodone HCl/Acetaminophen [Percocet 5/325mg tablet] 1 - 2 each PO Q4HP PRN #30 tab PRN Reason: Moderate To Severe Pain Ropinirole HCl [Requip 1mg Tablet] 1 mg PO BID tab Rivaroxaban [Xarelto 15mg tablet] 15 mg PO BIDWM 21 Days #42 tab Continued fluticasone propionate 50 mcg/actuation nasal spray,suspension 1 spray INTRANASAL BID PRN #47.4 g PRN Reason: allergy symptoms Meclizine HCl [Wal-Dram 2] 25 mg PO TID hydroCHLOROthiazide [HCTZ 25mg tab] 25 mg PO DAILY Cetirizine HCl [All Day Allergy] 10 mg PO DAILY Bisoprolol Fumarate [Zebeta 5mg tablet] 5 mg PO BID raNITIdine HCl [Ranitidine HCl] 150 mg PO BID Pregabalin [Lyrica 100mg Cap] 100 mg PO BID Oxybutynin Chloride [Ditropan 5mg tablet] 5 mg PO BID Venlafaxine HCl [Effexor Xr] 75 mg PO DAILY Levothyroxine Sodium [Levothyroxine 75mcg (0.075mg) Tab] 75 mcg PO DAILY Ropinirole HCl 1 mg PO BID Discontinued acetaminophen ER 650 mg tablet,extended release 650 mg PO Q8H PRN #90 tab PRN Reason: pain aspirin 81 mg tablet,delayed release 81 mg PO DAILY Meloxicam 7.5 mg PO DAILY Tramadol HCl [Tramadol 50mg Tab] 50 mg PO TID
== END 2018-11-10 16:30 | DRG 470 ==
LOC: OR 06:14 → 2ND 06:14 → OBSVTOIN 12:06 → 2ND 12:23
PROVIDERS: ADMIT Orthopaedic Surgery; ATTEND Orthopaedic Surgery
CPT/HCPCS: 36415; 71010; 71045; 71275; 73560; 80048; 81001; 82803; 85025; 86850; 93306; 94761; 96374; 97110; 97116; 97161; 97166; 97530; 97535; C1713; C1776; J2405; J2704; Q9967

== ENCOUNTER → 2018-11-23 09:31 | Outpatient (CLI) | payer MEDICARE, OTHER, SELFPAY ==
--- NOTE | 2018-11-23 09:37 | XR_ITS ---
XR knee RT 2V HISTORY: Follow-up knee replacement ITS.REASON: AP/lateral weightbearing views ORDERING PHYSICIAN: Roselia Chambers MD PATIENT AGE: 68 years COMPARISON: 11/07/2018 FINDINGS: Status post total knee replacement with good alignment. No evidence of orthopedic complication. There are ribbonlike areas of increased density within the distal shaft of the femur which may be related to the surgical technique. Please correlate with surgical history. IMPRESSION: Good alignment status post knee replacement as described above
== END ==
PROVIDERS: PCP Physician Assistant; Visit Provider Orthopaedic Surgery
DX: Z96.659 Presence of unspecified artificial knee joint (principal)
CPT/HCPCS: 73560

== ENCOUNTER → 2019-02-02 09:02 | Outpatient (CLI) | payer MEDICARE, OTHER, SELFPAY ==
--- NOTE | 2019-02-02 09:13 | XR_ITS ---
XR knee RT 2V HISTORY: Follow-up knee surgery ITS.REASON: AP/Lateral knee TKA ORDERING PHYSICIAN: Roselia Chambers MD PATIENT AGE: 68 years COMPARISON: Right knee 11/23/2018 FINDINGS: The femoral prosthesis is in good alignment and apposition to the tibial plateau prosthesis basely unchanged in appearance from the previous exam. The postsurgical changes of the undersurface of the patella are again noted and are stable. Again noted is a curious somewhat tubular appearing opacities in the distal femoral medullary portion of unknown significance but possibly related to the recent surgery. IMPRESSION: Stable and satisfactory appearance of total knee prosthesis
== END ==
PROVIDERS: PCP Emergency Medicine; Visit Provider Orthopaedic Surgery
DX: M17.11 Unilateral primary osteoarthritis, right knee (principal)
CPT/HCPCS: 73560

== ENCOUNTER → 2019-03-23 17:12 | Outpatient (CLI) | payer MEDICARE, SELFPAY ==
[2019-03-23 19:41] LABS: Free T4 (Free Thyroxine) 1.04 ng/dl (0.76-1.46); Thyroid Stimulating Hormone 1.65 uIU/ml (0.358-3.740)
== END ==
PROVIDERS: Visit Provider Emergency Medicine
DX: E03.9 Hypothyroidism, unspecified (principal)
CPT/HCPCS: 36415; 84439; 84443

== ENCOUNTER → 2019-04-27 17:56 | Outpatient (CLI) | payer MEDICARE, SELFPAY ==
[2019-04-27 18:49] LABS: Basophils # 0.1 K/mm3 (0-0.2); Basophils % 0.9 % (0.1-2.0); Eosinophils # 0.3 K/mm3 (0.0-0.4); Eosinophils % 5.9 % (0.1-12.0); Hematocrit 38.9 % (37.0-47.0); Hemoglobin 12.1 g/dL (12.2-16.2); Lymphocytes # 1.8 K/mm3 (0.7-4.5); Lymphocytes % 34.5 % (10-50); Mean Corpuscular Hemoglobin 28.8 pg (27.0-31.2); Mean Corpuscular Volume 92.7 fl (81-99); Mean Platelet Volume 8.5 fl (7.4-10.4); Monocytes # 0.4 K/mm3 (0.1-1.0); Monocytes % 6.9 % (1.7-9.3); Neutrophils # 2.7 K/mm3 (1.8-7.8); Neutrophils % 51.7 % (37.0-80.0); Platelet Count 239 K/mm3 (142-424); Red Cell Distribution Width 14.5 % (11.5-17.5); White Blood Count 5.3 K/mm3 (4.8-10.8)
[2019-04-27 19:20] LABS: Alanine Aminotransferase 19 U/L (12-78); Albumin Level 3.8 gm/dL (3.4-5.0); Albumin/Globulin Ratio 1.4 (1.1-1.8); Alkaline Phosphatase 113 U/L (46-116); Anion Gap 12.5 mEq/L (5-15); Aspartate Amino Transferase 13 U/L (15-37); Bilirubin,Total 0.3 mg/dL (0.2-1.0); Blood Urea Nitrogen 13 mg/dL (7-18); Calcium 9.2 mg/dL (8.5-10.1); Carbon Dioxide 29 mmol/L (21.0-32.0); Chloride 107 mmol/L (98-107); Creatinine,Serum 1.06 mg/dL (0.55-1.02); Estimated Glomerular Filt Rate 51 ml/min (>60); GFR (African American) 62 ML/MIN (>60); Globulin 2.7 gm/dl (1.3-3.2); Glucose 87 mg/dL (74-106); Potassium 4.5 mmoL/L (3.5-5.1); Sodium 144 mmol/L (136-145); Total Protein,Serum 6.5 gm/dL (6.4-8.2)
[2019-04-30 10:37] LABS: Vitamin D 25 Hydroxy 19.5 ng/mL (30.0-100.0)
== END ==
PROVIDERS: Visit Provider Emergency Medicine
DX: M25.561 Pain in right knee (principal); M79.604 Pain in right leg; M79.605 Pain in left leg; E55.9 Vitamin D deficiency, unspecified
CPT/HCPCS: 80053; 82652; 85025

== ENCOUNTER → 2019-05-11 12:45 | Outpatient (CLI) | payer MEDICARE, SELFPAY ==
--- NOTE | 2019-05-11 12:47 | CA_ITS ---
APPROVED REPORT Bilateral Lower Extremity Venous Study for DVT. Mica Splitter: CT Indications Lower Extremity Pain: Swelling Past History Pulmonary Embolism Medications Aspirin Vein Imaging CFV (R): compressive, spontaneous, phasic, augmentation SFJ (R): compressive, spontaneous, phasic, augmentation FEM (R): compressive, spontaneous, phasic, augmentation POP (R): compressive, spontaneous, phasic, augmentation PTV (R): compressive, spontaneous, phasic, augmentation GSV (R): compressive, spontaneous, phasic, augmentation SSV (R): compressive, spontaneous, phasic, augmentation Peroneals (R):compressive, spontaneous, phasic, augmentation GAS (R): compressive, spontaneous, phasic, augmentation CFV (L): compressive, spontaneous, phasic, augmentation SFJ (L): compressive, spontaneous, phasic, augmentation FEM (L): compressive, spontaneous, phasic, augmentation POP (L): compressive, spontaneous, phasic, augmentation DFV (L): compressive, spontaneous, phasic, augmentation PTV (L): compressive, spontaneous, phasic, augmentation GSV (L): compressive, spontaneous, phasic, augmentation SSV (L): compressive, spontaneous, phasic, augmentation Peroneals (L):compressive, spontaneous, phasic, augmentation GAS (L): compressive, spontaneous, phasic, augmentation Findings Color flow duplex demonstrates no evidence of DVT/SVT of the bilateral lower extremity Veins. 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 Conclusion No evidence of DVT or superficial thrombophlebitis in the veins scanned of the right lower extremity. No evidence of DVT or superficial thrombophlebitis in the veins scanned of the left lower extremity. 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 Electronically signed by : Dashawn Hart MD 05/11/2019 17:31:46
== END ==
PROVIDERS: PCP Emergency Medicine; Visit Provider Emergency Medicine
DX: M79.604 Pain in right leg (principal); M79.605 Pain in left leg; R60.9 Edema, unspecified
CPT/HCPCS: 93970

== ENCOUNTER → 2019-06-08 11:59 | Outpatient (CLI) | payer MEDICARE, SELFPAY ==
--- NOTE | 2019-06-08 12:26 | CT_ITS ---
PROCEDURE: CT ANGIO CHEST CLINCIAL INDICATION: pe protocol The shortness of air, upper extremity swelling, history of pulmonary embolus COMPARISON: [facility] CT angio chest from 11/09/2018 TECHNIQUE: IV Contrast: 70ML OPTIRAY 350 Axial images obtained with sagittal and coronal reformats. All CT scans at the facility use one or more dose reduction, viz: automated exposure control, ma/kV adjustment per patient size (including targeted exams where dose is matched to indication, i.e. head), or iterative reconstruction technique. FINDINGS: No evidence of pulmonary embolus, aortic aneurysm, or aortic dissection.. Previously noted pulmonary emboli are no longer apparent. There is some mild atelectatic or fibrotic changes in the left upper lobe medially. There is evidence of old granulomatous disease. There is a stable 4 mm noncalcified nodule in the left upper lobe anteriorly and a stable subpleural nodular density in the left upper lobe anteriorly and medially at 5 mm. No mediastinal or hilar mass or adenopathy. No lobar consolidation or collapse. No effusions. Upper abdominal images demonstrates a left adrenal nodule not significantly changed measuring 1.8 x 1.3 cm. Right adrenal nodule is also noted at 1.6 x 1.3 cm unchanged. Degenerative changes are present in the thoracic spine. IMPRESSION: 1. No acute finding. No evidence of acute pulmonary embolus. Previously noted pulmonary emboli are no longer apparent. 2. Stable bilateral adrenal nodules. Dictated by: Dashawn Hart MD 06/08/2019 14:04 Electronically signed by Dashawn Hart MD in [place] 06/08/2019 14:04
[2019-06-08 12:31] LABS: Blood Urea Nitrogen 17 mg/dL (7-18); Creatinine,Serum 1.04 mg/dL (0.55-1.02); Estimated Glomerular Filt Rate 53 ml/min (>60); GFR (African American) 64 ML/MIN (>60)
== END ==
PROVIDERS: Visit Provider Internal Medicine Cardiovascular Disease
DX: R06.00 Dyspnea, unspecified (principal); R06.01 Orthopnea; R06.02 Shortness of breath; R53.83 Other fatigue; R60.9 Edema, unspecified
CPT/HCPCS: 36415; 71275; 82565; 83880; 84520; Q9967

== ENCOUNTER → 2019-08-03 09:14 | Outpatient (CLI) | payer MEDICARE, MEDICAID, SELFPAY ==
--- NOTE | 2019-08-03 09:19 | XR_ITS ---
PROCEDURE: XR KNEE RT 4V CLINICAL INDICATION: Rt TKA FU Follow-up total knee replacement COMPARISON: [id number] XR knee RT 3V from 07/14/2018 [id number] XR knee RT 3V from 07/18/2018 [id number] XR knee RT 4V from 09/01/2018 [id number] XR knee RT 2V from 11/23/2018 FINDINGS: Status post total knee replacement. There is good alignment of the prosthesis. There is a vague zone of lucency at the stem of the tibial prosthesis. This is of questionable clinical significance not readily apparent on the previous study however, there is difference in technique. Hyperdense foci are present within the distal femoral shaft area as before. IMPRESSION: Status post total knee replacement with vague zone of lucency at the tibial stem. Consider short-term follow-up to confirm stability Dictated by: Dashawn Hart MD 08/03/2019 11:01 Electronically signed by Dashawn Hart MD in [place] 08/03/2019 11:01
--- NOTE | 2019-08-03 09:19 | XR_ITS ---
PROCEDURE: XR KNEE LT 4V CLINICAL INDICATION: knee pain COMPARISON: [id number] XR knee RT 3V from 07/14/2018 [id number] XR knee RT 3V from 07/18/2018 [id number] XR knee RT 4V from 09/01/2018 [id number] XR knee RT 2V from 11/23/2018 FINDINGS: There are moderate to severe osteoarthritic changes of the medial compartment with mild to moderate osteoarthritis of the lateral compartment and patellofemoral joint. No fracture or dislocation. There is 7 mm lateral subluxation of the tibia. There is osteosclerosis of the medial tibial plateau. No fracture or dislocation Other findings:. IMPRESSION: Moderate to severe osteoarthritic changes Dictated by: Dashawn Hart MD 08/03/2019 10:56 Electronically signed by Dashawn Hart MD in [place] 08/03/2019 10:56
== END ==
PROVIDERS: PCP Emergency Medicine; Visit Provider Orthopaedic Surgery
DX: M25.562 Pain in left knee (principal); M25.561 Pain in right knee
CPT/HCPCS: 73564

== ENCOUNTER → 2019-08-09 16:51 | Outpatient (CLI) | payer MEDICARE, SELFPAY ==
[2019-08-09 17:42] LABS: Basophils # 0.1 K/mm3 (0-0.2); Basophils % 1.2 % (0.1-2.0); Eosinophils # 0.4 K/mm3 (0.0-0.4); Eosinophils % 6.3 % (0.1-12.0); Hematocrit 38.9 % (37.0-47.0); Lymphocytes # 1.8 K/mm3 (0.7-4.5); Lymphocytes % 31.2 % (10-50); Mean Corpuscular HGB Conc 33.4 g/dL (31.8-35.4); Mean Corpuscular Hemoglobin 30.4 pg (27.0-31.2); Mean Corpuscular Volume 90.9 fl (81-99); Monocytes # 0.4 K/mm3 (0.1-1.0); Monocytes % 7.1 % (1.7-9.3); Neutrophils # 3.1 K/mm3 (1.8-7.8); Platelet Count 208 K/mm3 (142-424); Red Blood Count 4.28 M/mm3 (4.20-5.40); Red Cell Distribution Width 13.1 % (11.5-17.5); White Blood Count 5.7 K/mm3 (4.8-10.8)
[2019-08-09 18:17] LABS: Erythrocyte Sedimentation Rate 15 mm/hr (0-30)
[2019-08-09 18:28] LABS: C-Reactive Protein < 0.2 mg/dL (0.0-0.9)
== END ==
PROVIDERS: Visit Provider Orthopaedic Surgery
DX: Z96.659 Presence of unspecified artificial knee joint (principal); M25.561 Pain in right knee
CPT/HCPCS: 36415; 85025; 85651; 86140

== ENCOUNTER → 2019-08-10 12:58 | Outpatient (CLI) | payer MEDICARE, SELFPAY ==
--- NOTE | 2019-08-10 12:58 | CA_ITS ---
APPROVED REPORT EXAM: Comprehensive 2D, Doppler, and color-flow Echocardiogram Rotational Moulding Operator: Qian Caicedo RT(R) Ht: 5 ft 5 in Wt: 176lbs BSA: 1.87 BP: 135/68 mmHg Indications: SOA, HTN,HLP,TIA,DEFINITY GIVEN 2D Dimensions LVOT 1.71 cm (M/F) 1.5-2.5 M-Mode Dimensions RVDd 2.65 cm (0.9-2.6) LVDd 5.52 cm (3.5-5.7) LVDs 4.02 cm (3.5-5.7) IVSd 0.86 cm (0.6-1.1) PWd 0.77 cm (0.6-1.1) EF (Teich) 52.40% FS 27.20% EDV (Teich) 148.70 mL ESV (Teich) 70.80 mL LV Diastology E/A Ratio 0.77 Mitral Valve MV A Velocity 66.00 (40-130 cm/s) Left Ventricle Left atrium is mildly enlarged, left ventricle is normal size, mild concentric left ventricular hypertrophy, visually estimated ejection fraction 55% with no regional wall motion abnormality, Definity contrast was utilized to delineate the endocardial surfaces, there is no left ventricular thrombus seen. Grade 1 diastolic dysfunction seen without tissue Doppler evidence of raise left atrial pressure. Right Ventricle Right atrium and right ventricular normal size and contractility. Aortic Valve Aortic valve is minimally thickened and fibrosed, there is no aortic stenosis aortic insufficiency. Mitral Valve Mitral valve is grossly normal, there is mild mitral regurgitation. Tricuspid Valve Tricuspid valve is grossly normal, there is mild tricuspid regurgitation. Pulmonic Valve Pulmonic valve is poorly visualized. Great Vessels Aortic root is normal size. Pericardium No significant pericardial effusion noted. Conclusion 1. Mildly enlarged left atrium, normal left ventricular size, mild concentric left ventricular hypertrophy, visually estimated ejection fraction 55% with no regional wall motion abnormality, grade 1 diastolic dysfunction seen without tissue Doppler evidence of raise left atrial pressure, Definity contrast was raised to delineate the endocardial surfaces, there is no left ventricular thrombus seen. 2. Mild mitral and tricuspid regurgitation. 3. No significant pericardial effusion noted Electronically signed by : Shakir Woodson, 08/10/2019 15:11:06
== END ==
PROVIDERS: PCP Emergency Medicine; Visit Provider Internal Medicine Cardiovascular Disease
DX: R06.00 Dyspnea, unspecified (principal); R06.01 Orthopnea; R06.02 Shortness of breath
CPT/HCPCS: 93306; Q9957

== ENCOUNTER → 2019-11-20 14:25 | Outpatient (CLI) | payer MEDICARE, MEDICAID, SELFPAY ==
--- NOTE | 2019-11-20 11:35 | MR_ITS ---
PROCEDURE: MR LUMBAR SPINE WO CON CLINICAL INDICATION: BACK PAIN Bilateral leg pain, low back pain with burning in legs COMPARISON: [facility]/O MRI-L-SPINE W/O from 01/14/2016 TECHNIQUE: Standard multiplanar multiecho sequences are performed without contrast. 3-D MIP and myelographic images are also rendered and reviewed FINDINGS: There is normal alignment. The spinal cord ends at the L2 level. Apparently the patient has moved between the sagittal images and the axial images therefore, these do not lying up with the locater handy. The. The levels will therefore be described STIR from the sagittal images. It is recommended that the patient return for repeat MRI without movement between the 2 sets of images at no additional charge. L5-S1: Degenerate disc disease with bulging disc and facet hypertrophy with moderate bilateral foraminal narrowing L4-5: Degenerate disc disease with bulging disc and small central disc protrusion a with facet hypertrophy with severe bilateral foraminal narrowing greater on the right compared to the left. Bilateral lateral recess narrowing also noted. L3-L4: Bulging disc with mild facet and ligamentum hypertrophy with moderate bilateral foraminal narrowing. L2-L3: 3 mm retrolisthesis of L2 with bulging disc and facet and ligamentum hypertrophy with severe bilateral lateral recess narrowing and moderate to severe right foraminal narrowing and severe left foraminal narrowing. Schmorl's nodes are present in both superior and inferior endplate of L2 L1-L2: Mild bulging disc with mild degenerative disc disease. T12-L1: Mild degenerative disc disease. T11-T12: Mild degenerative disc disease No extruded herniated disc. No bony canal stenosis IMPRESSION: 1. Apparent movement between the sagittal and axial images. The imaging sets therefore do not match up on the locater lines. Suggest patient return for repeat imaging for confirmation of the below findings at the correct level. 2. L5-S1: Degenerate disc disease with bulging disc and facet hypertrophy with moderate bilateral foraminal narrowing 3. L4-5: Degenerate disc disease with bulging disc and small central disc protrusion a with facet hypertrophy with severe bilateral foraminal narrowing greater on the right compared to the left. Bilateral lateral recess narrowing also noted. 4. L3-L4: Bulging disc with mild facet and ligamentum hypertrophy with moderate bilateral foraminal narrowing. 5. L2-L3: 3 mm retrolisthesis of L2 with bulging disc and facet and ligamentum hypertrophy with severe bilateral lateral recess narrowing and moderate to severe right foraminal narrowing and severe left foraminal narrowing. Schmorl's nodes are present in both superior and inferior endplate of L2 Dictated by: Dashawn Hart MD 11/30/2019 14:18 Electronically signed by Dashawn Hart MD in [place] 11/30/2019 14:18
== END ==
PROVIDERS: PCP Emergency Medicine; Visit Provider Emergency Medicine
DX: M54.5 Low back pain (principal)
CPT/HCPCS: 72148; 76376

== ENCOUNTER → 2019-11-23 08:15 | Outpatient (CLI) | payer MEDICARE, MEDICAID, SELFPAY | PROVIDERS: PCP Emergency Medicine; Visit Provider Emergency Medicine | DX: Z01.818 Encounter for other preprocedural examination (principal) ==

== ENCOUNTER → 2019-12-07 09:12 | Outpatient (CLI) | payer MEDICARE, MEDICAID, SELFPAY ==
--- NOTE | 2019-12-07 09:18 | XR_ITS ---
PROCEDURE: XR KNEE LT 4V CLINICAL INDICATION: left knee pain COMPARISON: XR KNEE RT 3V from 12/07/2019 FINDINGS: There is prominent joint space narrowing medially. There is prominence of the medial tibial spine. There is mild osteophytic spurring of the medial spur joint space in addition to mild osteophytic spurring of the lateral tibial plateau. There is narrowing of patellofemoral space with spurring of the superior border of the patella. There is no definite effusion. There is no fracture or loose body. IMPRESSION: Moderately prominent osteoarthritic changes as noted Dictated by: Dr. Pierre Valencia MD 12/07/2019 10:[address] Pierre Valencia MD in [place] 12/07/2019 10:16
--- NOTE | 2019-12-07 09:18 | XR_ITS ---
PROCEDURE: XR KNEE RT 3V weight-bearing including sunrise view CLINICAL INDICATION: S/P Rt TKA COMPARISON: XR KNEE RT 4V from 08/03/2019 FINDINGS: The total knee prosthesis is again noted with the femoral prosthesis in good alignment and apposition to the tibial plateau prosthesis. There is no evidence of loosening of either prosthesis. There is a semiopaque plug undersurface of the patella.. There is no effusion. IMPRESSION: Satisfactory appearance total knee prosthesis Dictated by: Dr. Pierre Valencia MD 12/07/2019 10:[address] Pierre Valencia MD in [place] 12/07/2019 10:19
== END ==
PROVIDERS: PCP Emergency Medicine; Visit Provider Orthopaedic Surgery
DX: Z96.659 Presence of unspecified artificial knee joint (principal); M25.562 Pain in left knee
CPT/HCPCS: 73562; 73564

== ENCOUNTER 2019-12-12 20:23 | Emergency (ER) | payer MEDICARE, MEDICAID, SELFPAY ==
[2019-12-12 21:13] VITALS: BP 140/68; PULSE 64; RESP 20; TEMP 36.7; O2SAT 96; BMI 29.6
--- NOTE | 2019-12-12 21:21 | HMH.EDUTC ---
[facility] [place] Disposition Clinical Impression: Chronic knee pain Qualifiers: Laterality: bilateral Qualified Code(s): M25.561 - Pain in right knee Osteoarthritis Qualifiers: Osteoarthritis location: knee Osteoarthritis type: unspecified Laterality: bilateral Qualified Code(s): M17.0 - Bilateral primary osteoarthritis of knee Disposition: Home, Self-Care Condition on Discharge: Good Instructions: DI for Chronic Pain -- Adult Additional Instructions: Follow up with Dr. Rao as scheduled. Start the oral steroids tomorrow. Follow up with Dr. He. GO TO THE ER FOR ANY WORSENING SYMPTOMS OR CONCERNS Prescriptions: methylPREDNISolone [Medrol] 4 mg PO DIRECTED 6 Days #21 [email or web address] Transmission Status: Received by [id number] Referrals: Jorge He MD [Primary Care Provider] - Time of Disposition: : Medical Decision Making - Medical Records Medical records reviewed: No: I reviewed the patient's medical records. - Jose Inquiry Pt receiving controlled substance: No Vital Signs: 12/12/19 21:13 12/12/19 21:32 Temperature 98.0 F 98.0 F Temperature Source Oral Pulse Rate 64 Pulse Rate [Right Brachial] 64 Respiratory Rate 20 20 Blood Pressure 140/68 Blood Pressure [Right Arm] 140/68 Blood Pressure Mean [Right Arm] 92 Blood Pressure Source [Right Arm] Automatic Cuff Blood Pressure Position [Right Arm] Sitting 02 Sat by Pulse Oximetry 96 Oxygen Delivery Method Room Air Orders (Tests/Meds): ED MEDICATIONS Discontinued Medications Generic Name Dose Route Start Last Admin Trade Name Freq PRN Reason Stop Dose Admin Ketorolac Tromethamine 60 mg 12/12/19 21:18 12/12/19 21:25 Toradol 60mg/2ml Vial IM 12/12/19 21:19 60 mg ONCE ONE Administration Methylprednisolone Sodium Succinate 125 mg 12/12/19 21:18 12/12/19 21:25 Solu-Medrol 125mg/2ml Vial IM 12/12/19 21:19 125 mg ONCE ONE Administration [facility] [place] HPI - General Stated complaint: pain all over Time Seen by Provider: 12/12/19 21:05 Mode of Arrival: Ambulatory Source of Information: Patient Limitations: No Limitations Description of Symptoms (Recalled from Triage Doc. by RN): PATIENT C/O CONSTANT PAIN IN BACK, LEFT KNEE, RIGHT HIP AND BILATERAL LEGS X SEVERAL DAYS. STATES SHE NEEDS TO HAVE LEFT KNEE REPLACEMENT, HOWEVER IT IS NOT SCHEDULED. SEE'S DR. RAO FOR PREVIOUS RIGHT KNEE REPLACEMENT. TOOK TRAMADOL AT HOME WITH NO RELIEF. HEENT Symptoms (Recalled from RN notes): No Resp Symptoms (Recalled from RN notes): No Skin Symptoms (Recalled from RN notes): No MS Symptoms (Recalled from RN notes): Yes Functional Status (Recalled from RN notes): WNL - History of Present Illness Provider Complaint: She has a history of chronic bilateral knee pain and low back pain. She denies any recent fall or injury. She is followed by Dr. Rao for her knee pain. She states that over the past 2 days, she has had worsening low back pain and bilateral knee pain. She denies any dysuria, fever, cough, etc. - Related Data Home Medications Medication Instructions Recorded Confirmed hydroCHLOROthiazide [HCTZ 25mg 25 mg PO DAILY 09/14/18 11/09/19 tab] aspirin 325 mg tablet 325 mg PO DAILY 04/27/19 11/09/19 ropinirole 1 mg tablet 1 mg PO BID tab 06/08/19 11/09/19 oxybutynin chloride 5 mg tablet 5 mg PO BID 11/09/19 11/09/19 Previous Rx's Medication Instructions Recorded fluticasone propionate 50 1 spray INTRANASAL BID PRN #47.4 g 01/05/18 mcg/actuation nasal spray,suspension cholecalciferol (vitamin D3) 25 1,000 unit PO DAILY #90 cap 05/01/19 mcg (1,000 unit) capsule ergocalciferol (vitamin D2) 1,250 50,000 unit PO QWEEK 90 Days #12 05/01/19 mcg (50,000 unit) capsule cap cetirizine 10 mg tablet See Rx Instructions .ROUTE 07/23/19 .COMPLEX #90 each levothyroxine 75 mcg tablet See Rx Instructions .ROUTE 08/27/19 .COMPLEX #90 each bisoprolol fumarate 5 mg tablet 5 mg PO
[2019-12-12 21:32] VITALS: BP 140/68; PULSE 64; RESP 20; TEMP 36.7; O2SAT 96
== END 2019-12-12 21:39 | disposition home or self-care (01) ==
PROVIDERS: Emergency Provider Nurse Practitioner Family; PCP Emergency Medicine
DX: M17.0 Bilateral primary osteoarthritis of knee (principal); M54.5 Low back pain; F41.8 Other specified anxiety disorders; K21.9 Gastro-esophageal reflux disease without esophagitis; I10 Essential (primary) hypertension; E78.5 Hyperlipidemia, unspecified; G45.8 Other transient cerebral ischemic attacks and related syndromes; F17.210 Nicotine dependence, cigarettes, uncomplicated; Z79.899 Other long term (current) drug therapy
CPT/HCPCS: G0463; 96372; 99201

== ENCOUNTER 2019-12-14 14:53 | Emergency (ER) | payer MEDICARE, MEDICAID, SELFPAY ==
--- NOTE | 2019-12-14 14:52 | ECG_ITS ---
APPROVED REPORT Exam: Resting ECG HR:57 bpm ECG Measurements Heart Rate 57 AXES QRSd 76 QRS -2 QT 426 T 22 QTc 414 <Conclusion> Normal sinus rhythm Low-voltage QRS complexes O/w normal ECG Electronically signed by : Braden Garrido, 12/24/2019 17:48:07
[2019-12-14 14:53] VITALS: BP 133/71; PULSE 60; RESP 18; TEMP 36.8; O2SAT 97; BMI 29.9
--- NOTE | 2019-12-14 14:55 | HMH.EDGENADL ---
ED Disposition Clinical Impression: Right flank pain Dyspnea Qualifiers: Dyspnea type: shortness of breath Qualified Code(s): R06.02 - Shortness of breath Disposition: Home, Self-Care Condition on Discharge: Good Instructions: DI for Shortness of Breath, DI for Flank Pain Additional Instructions: Follow-up in Dr. He's office on Tuesday or Tuesday at 10 AM. Additional instructions for SHORTNESS OF BREATH: See your physician as soon as possible for further evaluation. Return immediately if worsening shortness of breath or if vomiting, chest pain, fever, coughing of blood, or passing out. Referrals: Jorge He MD [Primary Care Provider] - - Critical Care Critical Care Time: No Attestation: On , the high probability of a clinically significant, sudden or life threatening deterioration of the following system(s) required my full and direct attention, intervention and personal management. The time I documented below is in addition to time spent performing reported procedures but includes the following listed in this critical care notation. Medical Decision Making - Jose Inquiry Pt receiving controlled substance: No Vital Signs: 12/14/19 14:53 Temperature 98.2 F Temperature Source Oral Pulse Rate [Right] 60 Respiratory Rate 18 Blood Pressure [Right Arm] 133/71 Blood Pressure Mean [Right Arm] 91 02 Sat by Pulse Oximetry 97 - Lab Data Lab Results 12/14/19 14:55: WBC 8.0, RBC 4.07 L, Hgb 12.7, Hct 36.9 L, MCV 90.8, MCH 31.2, MCHC 34.4, RDW 13.6, Plt Count 208, MPV 7.9, Neut % (Auto) 72.7, Lymph % (Auto) 20.0, Mellette % (Auto) 6.3, Eos % (Auto) 0.6, Baso % (Auto) 0.4, Neut # (Auto) 5.8, Lymph # (Auto) 1.6, Mellette # (Auto) 0.5, Eos # (Auto) 0.1, Baso # (Auto) 0.0 12/14/19 14:55: Sodium 140, Potassium 4.1, Chloride 104, Carbon Dioxide 30, Anion Gap 10.1, BUN 26 H, Creatinine 1.00, Estimated Creat Clear 68, Estimated GFR 55 L, Est GFR ( Amer) 67, Glucose 87, Calcium 9.6, Total Bilirubin 0.9, AST 28, ALT 20, Alkaline Phosphatase 96, Troponin I < 0.01, Total Protein 6.8, Albumin 4.4, Globulin 2.4, Albumin/Globulin Ratio 1.8 12/14/19 14:55: D-Dimer 265 12/14/19 15:17: Urine Color Straw, Urine Appearance Clear, Urine pH 6.0, Ur Specific Dulzura 1.010, Urine Protein Negative, Urine Glucose (UA) Negative, Urine Ketones Negative, Urine Blood Negative, Urine Nitrate Negative, Urine Bilirubin Negative, Urine Urobilinogen 0.2, Ur Leukocyte Esterase Negative, Ur Transition Epith Cell Occ Result diagrams: 12/14/19 14:55 12/14/19 14:55 Orders (Tests/Meds): ORDERS Category Date Time Status Troponin I Q3H Lab 12/14/19 18:00 Ordered Troponin I Q3H Lab 12/14/19 21:00 Ordered ECG Request by /Janna Stat Y 12/14/19 14:57 Ordered - Radiology Data #1 Image(s): Chest Image Reviewed: Yes I have reviewed radiologist's interpretation PROCEDURE: XR CHEST 2V CLINICAL HISTORY: soa COMPARISON: CXR CHEST(2 VIEWS-NOT PORTABLE) from 09/09/2016 CXR2V XR chest 2V from 10/27/2018 CT ANGIO CHEST from 06/08/2019 FINDINGS: The cardiomediastinal silhouette and pulmonary vascularity are within normal limits. The lungs are clear without infiltrates, suspicious nodules, or pleural effusions. No acute bony abnormalities. There is mild kyphotic curvature of the thoracic spine with multilevel prominent degenerate changes midthoracic spine. IMPRESSION: Prominent osteophytic spurring midthoracic spine otherwise essentially negative chest Dictated by: Dr. Pierre Valencia MD 12/14/2019 15:[address] Pierre Valencia MD in [place] 12/14/2019 15:34 - ECG Data Tracing #1 EKG interpreted by Oz Meade MD: Rhythm: sinus bradycardia Rate: 57 [place]: normal Ectopy: none Conduction: normal ST Segment Changes: none T Wave Changes: none Q Waves: none No evidence of acute ischemia or injury Baseline artifact present, but I consider the EKG adequate for accur
[2019-12-14 15:19] LABS: Basophils % 0.4 % (0.1-2.0); Chloride 104 mmol/L (98-107); Eosinophils # 0.1 K/mm3 (0.0-0.4); Eosinophils % 0.6 % (0.1-12.0); Hematocrit 36.9 % (37.0-47.0); Hemoglobin 12.7 g/dL (12.2-16.2); Lymphocytes # 1.6 K/mm3 (0.7-4.5); Mean Corpuscular HGB Conc 34.4 g/dL (31.8-35.4); Mean Corpuscular Hemoglobin 31.2 pg (27.0-31.2); Mean Corpuscular Volume 90.8 fl (81-99); Mean Platelet Volume 7.9 fl (7.4-10.4); Monocytes # 0.5 K/mm3 (0.1-1.0); Monocytes % 6.3 % (1.7-9.3); Neutrophils # 5.8 K/mm3 (1.8-7.8); Neutrophils % 72.7 % (37.0-80.0); Platelet Count 208 K/mm3 (142-424); Potassium 4.1 mmoL/L (3.5-5.1); Red Blood Count 4.07 M/mm3 (4.20-5.40); Red Cell Distribution Width 13.6 % (11.5-17.5); Sodium 140 mmol/L (136-145)
[2019-12-14 15:22] LABS: Alanine Aminotransferase 20 U/L (12-78); Albumin Level 4.4 g/dl (3.5-5.0); Albumin/Globulin Ratio 1.8 (1.1-1.8); Alkaline Phosphatase 96 U/L (38-126); Anion Gap 10.1 mEq/L (5-15); Aspartate Amino Transferase 28 U/L (14-36); Bilirubin,Total 0.9 mg/dl (0.2-1.3); Blood Urea Nitrogen 26 mg/dl (7-17); Calcium 9.6 mg/dl (8.4-10.2); Carbon Dioxide 30 mmol/L (22.0-30.0); Creatinine Clearance Estimated 68 mL/min (50-200); Estimated Glomerular Filt Rate 55 ml/min (>60); GFR (African American) 67 ML/MIN (>60); Globulin 2.4 g/dL (1.3-3.2); Glucose 87 mg/dl (74-100); Total Protein,Serum 6.8 g/dl (6.3-8.2)
[2019-12-14 15:22] LABS: Appearance,Urine CLEAR (Clear); Bilirubin,Urine Negative (Negative); Blood, Urine Negative (Negative); Color,Urine STRAW (Yellow); Glucose,Urine (UA) Negative (Negative); Ketones,Urine Negative (Negative); Leukocyte Esterase,Urine Negative (Negative); Microscopic, Urine URINE MICROSCOPIC (MICROSCOPIC); Nitrate,Urine Negative (Negative); Protein,Urine Negative (Negative); Urobilinogen,Urine 0.2 EU/dl (0.2)
--- NOTE | 2019-12-14 15:22 | PC.NURSE ---
Pt returned from rad.
[2019-12-14 15:48] LABS: Transitional Epi Cells,Urine OCC #/lpf (0-3)
[2019-12-14 15:50] LABS: Troponin I < 0.01 ng/ml (0.00-0.034)
[2019-12-14 16:14] LABS: D-Dimer 265 ng/mL (0-400)
--- NOTE | 2019-12-14 16:17 | PC.NURSE ---
Called Dr. He, advises he was in with his last patient and they would have him call us back
--- NOTE | 2019-12-14 16:44 | PC.NURSE ---
Dr Meade speaking with Dr He.
[2019-12-14 17:19] VITALS: BP 133/85; PULSE 80; RESP 20; TEMP 36.7; O2SAT 98
== END 2019-12-14 17:19 | disposition home or self-care (01) ==
PROVIDERS: Emergency Provider Emergency Medicine; PCP Emergency Medicine
DX: R06.02 Shortness of breath (principal); R05 Cough; Z96.651 Presence of right artificial knee joint; F41.8 Other specified anxiety disorders; K21.9 Gastro-esophageal reflux disease without esophagitis; I10 Essential (primary) hypertension; E78.5 Hyperlipidemia, unspecified; E03.9 Hypothyroidism, unspecified; M79.7 Fibromyalgia; Z86.711 Personal history of pulmonary embolism; Z79.82 Long term (current) use of aspirin; Z79.899 Other long term (current) drug therapy
CPT/HCPCS: 71046; 80053; 81001; 84484; 85025; 85378; 93005; 99283

== ENCOUNTER → 2019-12-26 08:59 | Outpatient (CLI) | payer MEDICARE, MEDICAID, SELFPAY ==
--- NOTE | 2019-12-26 08:59 | NM_ITS ---
PROCEDURE: NM BONE 3 PHASE CLINICAL INDICATION: RLE to R/O TKA loosening Right knee pain following knee replacement, evaluate for loosening COMPARISON: XR KNEE RT 3V from 12/07/2019 XR KNEE LT 4V from 12/07/2019 TECHNIQUE: Three-phase imaging performed. Dose: 24.7 mCi technetium MDP FINDINGS: Blood flow images show only slight increased blood flow to the right knee at the distal femur region. Blood pool images show photopenic defect of the right knee from the knee prosthesis. There is actually slight increased activity to the left knee at the medial joint space region. Delayed static images show slight increased activity around the knee prosthesis on the right with increased activity of the left knee greater at the medial compartment.. IMPRESSION: The findings are nonspecific with only slight increased blood flow to the right knee. Blood pool and delayed images only show mild periprosthetic activity which is no more than what 1 would expect with a total knee prosthesis. The activity is slightly greater on the left compared to the right. Overall, the findings are not suggestive of loosening or infection of the prosthesis. Dictated by: Dashawn Hart MD 12/27/2019 17:51 Electronically signed by Dashawn Hart MD in [place] 12/27/2019 17:51
== END ==
PROVIDERS: PCP Emergency Medicine; Visit Provider Orthopaedic Surgery
DX: Z96.651 Presence of right artificial knee joint (principal); M17.11 Unilateral primary osteoarthritis, right knee
CPT/HCPCS: 78315; A9503

== ENCOUNTER → 2019-12-31 10:12 | Outpatient (POV) | payer MEDICARE, MEDICAID, SELFPAY ==
[2019-12-31 10:59] VITALS: BP 119/62; PULSE 65; RESP 18; TEMP 36.8; O2SAT 99; BMI 29.1
--- NOTE | 2019-12-31 13:00 | HMH.PMCON ---
Assessment and Plan (1) Postlaminectomy syndrome Current visit: Yes Status: Chronic Category: Medical Code(s): M96.1 - Postlaminectomy syndrome, not elsewhere classified (2) Degenerative joint disease (DJD) of lumbar spine Current visit: Yes Status: Chronic Category: Medical Code(s): M47.816 - Spondylosis without myelopathy or radiculopathy, lumbar region (3) Spinal stenosis, lumbar region with neurogenic claudication Current visit: Yes Status: Chronic Category: Medical Code(s): M48.062 - Spinal stenosis, lumbar region with neurogenic claudication - Assessment and plan all Dx Assessment and Plan for all problems:: We will schedule the patient for an L4-L5 lumbar epidural steroid injection. We will also do an epidurogram to determine if she is a potential mild candidate. I will follow-up with her afterwards reassess her symptoms at that time she has been instructed to call the office if she has any issues prior to her next appointment. She is not on any anticoagulation therapy at this time. Dr. Dominguez has reviewed this note and agrees with this plan of care. This note was dictated using voice recognition software and may contain errors or omissions HPI - Data of Consult Consult date: 12/31/19 Requesting Physician: Soha Galloway APRN Primary Care Provider: Jorge He MD - Consult Narrative Reason for consult: Back pain History of present illness: Ms. Higgins is a 69 year old female who presents today for consultation in regards to her low back and leg pain. Patient rates her pain a 6 out of 10. Patient has an MRI showing disc disease ligamentum flavum hypertrophy and facet arthropathy. She has had surgery in the past by Dr. Batista. Patient states most of her pain is when she is standing and walking she has relief with leaning forward. She has weakness in her legs when she stands for long periods of time. Patient is tried and failed physical therapy, anti-inflammatories, medications. CC: Soha Galloway APRN [facility] History I have reviewed the patient's past medical history: Yes Medical History: Reports:: Anxiety, Depression, Gastroesophageal Reflux Disease(GERD), Hyperlipidemia, Hypertension, Pulmonary Embolism, Transient Ischemic Attacks (TIA) Denies:: Cancer, Diabetes Mellitus Type 1, Diabetes Mellitus Type 2, Internal Pacemaker, MRSA, Seizures *Have you ever received a pneumonia vaccine?: Yes *Have you received a flu vaccine this season?: Yes Other Medical History: Reports: Arthritis, Fibromyalgia, Hypothyroidism, Thyroid Disease. Denies: Blood Transfusion Reaction Laterality Cases: Bilateral: Tonsillectomy Other Surgeries: Yes: Cancer Surgery, Colonoscopy, Tubal Ligation, Other (Lumber sx). No: Pacemaker Amputation: No Fractures: Yes (LEFT WRIST,BACK SURGERY) - *Social History Smoking Status: Never smoker Tobacco Type: cigarettes # Packs/Day (cigarettes): 1 #Yrs smoked (if former smoker): 3 Alcohol Intake: never Substance Use Type: denies use *Occupational Status:: other Housing: house Household Members: other *Travel in the last 8 weeks: None - Psychiatric History Pschychiatric History:: Reports:: Anxiety, Depression Family Hx:: Unable to obtain Review of Systems - Review of Systems ROS General: no recent weight change, no fever, no sleep disturbances Respiratory: no cough, no shortness of air, no recurring pulmonary infections Cardiovascular/Peripheral Vascular: No chest pain, No palpitations, no edema, no shortness of breath. Gastrointestinal: no new onset incontinence, normal bowel movements reported Genitourinary: no new onset incontinence Musculoskeletal: Back pain, leg pain Psychiatric: normal mood/ affect, Neurological: Weakness bilateral lower extremities when standing, [denies new onset balance issues] Meds Home Medications Medication Instructions Recorded Confirmed Type fluticasone propionate 50 1 spray INTRANASAL BID PRN #47.4 g 12/17
== END ==
PROVIDERS: PCP Emergency Medicine; Visit Provider Clinical Nurse Specialist Family Health
DX: M96.1 Postlaminectomy syndrome, not elsewhere classified (principal); M47.816 Spondylosis without myelopathy or radiculopathy, lumbar region; M48.062 Spinal stenosis, lumbar region with neurogenic claudication
CPT/HCPCS: 99202

== ENCOUNTER 2020-01-25 10:54 | Day surgery (SDC) | payer MEDICARE, MEDICAID, SELFPAY ==
[2020-01-25 11:29] VITALS: BP 136/75; PULSE 65; RESP 18; TEMP 36.4; O2SAT 95; BMI 29.1
--- NOTE | 2020-01-25 11:48 | HMH.PMPROC ---
- Procedure Date: 01/25/20 Time: 11:48 Anesthesiologist:: Brayden Dominguez MD Complications:: None Pre-procedure Diagnosis:: Degenerative disc disease of lumbar spine with lumbar radiculopathy symptoms and spinal stenosis with neurogenic claudication symptoms Post-procedure Diagnosis:: Same Indications for Procedure:: This patient is a pleasant 69-year-old white female who we are treating for low back pain with lumbar radiculopathy symptoms and spinal stenosis with neurogenic claudication symptoms. She has increasing pain while standing and walking. We will do lumbar epidural steroid injection today to help her with her pain symptoms and epidurogram to assess levels of stenosis. Procedure Details:: Lumbar epidural Informed consent was obtained and the risk and benefits of the procedure was explained to the patient. The patient was taken to the procedure room. The patient was placed prone on the procedure table. The patient was prepped and draped in sterile fashion. C-arm fluoroscopy was used to view the lumbar spine. Skin and subcutaneous tissues were anesthetized using lidocaine. I placed an 18-gauge epidural needle and advanced into the L4-L5 interspace using fluoroscopic guidance and [id number] to air. After confirmation of needle placement in the epidural space with dye I injected 2 mL of lidocaine 1.5% with Depo-Medrol 80 mg. Patient tolerated the procedure well with no complications. Plan and Disposition:: Based on epidurogram she does have significant stenosis at L3-L4 and L4-L5. She is had previous surgery at L4-L5 however lamina are still intact. She does have thickened ligament at both of these levels. I believe she would benefit significantly from minimally invasive lumbar decompression of L3-4 and L4-5 bilaterally.
[2020-01-25 11:52] VITALS: BP 135/85; BP 140/78; PULSE 82; PULSE 89; RESP 18; O2SAT 99
[2020-01-25 12:00] VITALS: BP 147/73; PULSE 56; RESP 18; O2SAT 95
== END 2020-01-25 12:00 | disposition home or self-care (01) ==
LOC: SC.PAINP 10:57
PROVIDERS: PCP Emergency Medicine; Visit Provider Anesthesiology
DX: M51.16 Intervertebral disc disorders with radiculopathy, lumbar region (principal); M48.062 Spinal stenosis, lumbar region with neurogenic claudication; I10 Essential (primary) hypertension; F41.9 Anxiety disorder, unspecified; F32.9 Major depressive disorder, single episode, unspecified; Z86.73 Personal history of transient ischemic attack (TIA), and cerebral infarction without residual deficits; Z96.659 Presence of unspecified artificial knee joint; Z90.89 Acquired absence of other organs; E78.5 Hyperlipidemia, unspecified; K21.9 Gastro-esophageal reflux disease without esophagitis; I73.9 Peripheral vascular disease, unspecified; M79.7 Fibromyalgia
CPT/HCPCS: 62323; J1040; Q9966

== ENCOUNTER 2020-02-22 14:24 | Outpatient (RCR) | payer MEDICARE, MEDICAID, SELFPAY | END 2020-02-22 15:00 | disposition home or self-care (01) | LOC: PT 14:24 | PROVIDERS: Visit Provider Orthopaedic Surgery | DX: M25.562 Pain in left knee (principal) | CPT/HCPCS: 97760 ==

== ENCOUNTER → 2020-02-26 09:33 | Outpatient (POV) | payer MEDICARE, MEDICAID, SELFPAY | PROVIDERS: PCP Emergency Medicine; Visit Provider Dermatology | DX: Z00.00 Encounter for general adult medical examination without abnormal findings (principal) ==

== ENCOUNTER → 2020-03-06 09:01 | Outpatient (CLI) | payer MEDICARE, MEDICAID, SELFPAY ==
[2020-03-06 09:35] LABS: Basophils # 0.1 K/mm3 (0-0.2); Basophils % 1.3 % (0.1-2.0); Eosinophils # 0.3 K/mm3 (0.0-0.4); Eosinophils % 6.2 % (0.1-12.0); Hematocrit 40.8 % (37.0-47.0); Hemoglobin 14.1 g/dL (12.2-16.2); Lymphocytes % 41.6 % (10-50); Mean Corpuscular HGB Conc 34.5 g/dL (31.8-35.4); Mean Corpuscular Hemoglobin 31.8 pg (27.0-31.2); Mean Corpuscular Volume 92.2 fl (81-99); Mean Platelet Volume 7.5 fl (7.4-10.4); Monocytes # 0.4 K/mm3 (0.1-1.0); Monocytes % 8.6 % (1.7-9.3); Neutrophils % 42.3 % (37.0-80.0); Platelet Count 206 K/mm3 (142-424); Red Blood Count 4.43 M/mm3 (4.20-5.40); White Blood Count 4.7 K/mm3 (4.8-10.8)
[2020-03-06 10:39] LABS: Chloride 106 mmol/L (98-107); Sodium 141 mmol/L (136-145)
[2020-03-06 10:40] LABS: Potassium 4.2 mmoL/L (3.5-5.1)
[2020-03-06 10:42] LABS: Blood Urea Nitrogen 17 mg/dl (7-17); Estimated Glomerular Filt Rate 55 ml/min (>60); GFR (African American) 67 ML/MIN (>60)
[2020-03-06 10:43] LABS: Anion Gap 11.2 mEq/L (5-15); Calcium 9.3 mg/dl (8.4-10.2); Carbon Dioxide 28 mmol/L (22.0-30.0); Glucose 106 mg/dl (74-100)
[2020-03-06 11:11] LABS: Coronavirus 19 IgG Antibody Positive (Negative); Coronavirus 19 IgM Antibody Negative (Negative)
== END ==
PROVIDERS: Visit Provider Anesthesiology
DX: Z01.818 Encounter for other preprocedural examination (principal); M48.062 Spinal stenosis, lumbar region with neurogenic claudication
CPT/HCPCS: 36415; 80048; 85025; 86328

== ENCOUNTER 2020-03-07 08:05 | Day surgery (SDC) | payer MEDICARE, MEDICAID, SELFPAY ==
[2020-03-05 10:19] VITALS: BMI 31.1
[2020-03-07 08:50] VITALS: BP 122/67; PULSE 66; RESP 16; TEMP 36.7; O2SAT 99
[2020-03-07 11:28] VITALS: BP 151/60; PULSE 110; RESP 20; TEMP 36.4; O2SAT 96
--- NOTE | 2020-03-07 11:32 | P.OP_ITS ---
Date of procedure: 03/07/20 Pre-op Diagnosis:: Degenerative disc disease of lumbar spine with lumbar radiculopathy symptoms and spinal stenosis with neurogenic claudication symptoms and postlaminectomy syndrome lumbar spine Post-op Diagnosis:: Same Procedure performed:: Minimally invasive lumbar decompression of L3-L4 and L4-L5 bilateral Surgeon:: Brayden Dominguez MD TRAINING AND DEVELOPMENT REP:: Ricardo Headley Anesthesia: MAC Estimated blood loss (mL): 2 Clinical Note:: Patient is a pleasant 69-year-old white female who we are treating for low back pain with lumbar radiculopathy symptoms and spinal stenosis with neurogenic claudication symptoms. She has had previous surgery to the lumbar spine. She does have significant spinal stenosis based on MRI and epidurogram. Most of her stenosis is at L3-L4 and L4-L5. She has failed all previous conservative treatments she does not get long-term relief with epidural steroid injections and she is not a candidate for any further surgery. We will do minimally invasive lumbar decompression of L3-4 and L4-L5 bilaterally today. Operative findings:: None Operative note:: Informed consent was obtained and the risk and benefits of the procedure was explained to the patient. The patient was taken to the operating room and placed prone on the procedure table. The patient was prepped and draped in sterile fashion. C-arm fluoroscopy was used to view the lumbar spine. The skin and subcutaneous tissues were anesthetized using lidocaine. A epidural needle was inserted and advanced into the L3-L4 interspace. After confirmation of needle placement in the epidural space, dye was injected in a contralateral oblique view. There was an epidurogram seen at L3-L4 and L4-L5. Significant stenosis was seen at L3-L4 and L4-L5. The skin and subcutaneous tissues again were anesthetized using lidocaine. An incision was made and a access trocar was inserted and advanced to contact at the superior aspect of the L4 lamina on the left side. And a contralateral oblique view the side was viewed. Using a bone rongeur and tissue sculptor we debulked bone from the L3-L4 and L4-L5 interspace on the left side. We then used the tissue sculptor to debulk ligament at the L3-L4 and L4-L5 interspace on the left side. We then moved over to the right side and debulked bone and ligament from L3-L4 and L4-L5 on the right side. There is opening of the stenosis at L3-L4 and L4-L5 bilaterally. The access trocar was removed. A total of 3 mL's of dye was used. There is good spread of dye above and below this level as well. We injected 80 mg Depo-Medrol through the epidural needle. The epidural needle was removed and dressings were placed. This encounter for exam is for normal comparison and control in a clinical research program Patient was taken to recovery in stable condition. Patient was discharged home neurologically intact and with good relief of pain symptoms. Plan and disposition: We will follow-up with this patient in 2 weeks. Will reevaluate symptoms at that time. If she does not get relief from that she may be a candidate for spinal cord stimulation or intrathecal therapy given her previous surgery it was difficult to get out adequate lamina and ligament. Condition: stable Disposition: PACU Complications:: None
--- NOTE | 2020-03-07 11:35 | P.PN_ITS ---
[facility] Anesthesia Checklist - Patient Identification Patient Identification: Arm Band, Verbal (Name & ) - Structural Data Admitted From: Home Planned Operative Procedure/s: MILD procedure L3-5 Consent for Planned Operative Procedure(s) Verified: Yes Verified Documents: Surgical Consent, History and Physical - NPO Status Verified Time NPO: 00:00 - Chart Verification Results Verified: CBC, BMP - Additional verifications Anesthesia Reactions: No Hx Blood Transfusions: No Blood Transfusion Reaction: No - Airway Assessment C-Spine Mobility Assessed: Yes TMJ Mobility Assessed: Yes Dentition: Dentures-good fit (Upper denture, no lowers) - Neurological Assessment Level of Consciousness: Awake, Alert, Appropriate, Follows Commands Hx Seizures: No Numbness or tingling in extremities: No - Anesthesia Plan Anesthesia Risk discussed: Yes Anesthesia Plan: Verified ASA Class: III Anesthesia Type: MAC [facility] History I have reviewed the patient's past medical history: Yes Medical History: Reports:: Anxiety, Cancer (skin ca), Depression, Gastroesophageal Reflux Disease(GERD), Hyperlipidemia, Hypertension, Pulmonary Embolism, Transient Ischemic Attacks (TIA) Denies:: Diabetes Mellitus Type 1, Diabetes Mellitus Type 2, Internal Pacemaker, MRSA, Seizures *Have you ever received a pneumonia vaccine?: Yes *Have you received a flu vaccine this season?: Yes Other Medical History: Reports: Arthritis, Fibromyalgia, Hypothyroidism, Thyroid Disease. Denies: Blood Transfusion Reaction Anesthesia experience/problems:: None Laterality Cases: Right: Total Knee Replacement, Bilateral: Tonsillectomy Other Surgeries: Yes: Cancer Surgery, Colonoscopy, Tubal Ligation, Other (Lumber sx). No: Pacemaker Amputation: No Fractures: Yes (LEFT WRIST,BACK SURGERY) - *Social History Last grade of school completed: Some college Smoking Status: Never smoker Tobacco Type: cigarettes # Packs/Day (cigarettes): 1 #Yrs smoked (if former smoker): 3 Alcohol Intake: never Substance Use Type: denies use *Occupational Status:: unemployed Housing: house Household Members: none *Travel in the last 8 weeks: None - Psychiatric History Pschychiatric History:: Reports:: Anxiety, Depression Family Hx:: Unable to obtain
[2020-03-07 11:43] VITALS: BP 116/74; PULSE 104; RESP 18; TEMP 36.7; O2SAT 96
[2020-03-07 11:58] VITALS: BP 134/68; PULSE 101; RESP 18; O2SAT 96
[2020-03-07 12:20] VITALS: BP 123/71; PULSE 103; RESP 18; O2SAT 97
[2020-03-07 12:45] VITALS: BP 128/71; PULSE 99; RESP 18; O2SAT 96
== END 2020-03-07 12:49 | disposition home or self-care (01) ==
PROVIDERS: PCP Emergency Medicine; Visit Provider Anesthesiology
PROC: (CPT 0275T; principal; 2020-03-07 10:00)
DX: M48.062 Spinal stenosis, lumbar region with neurogenic claudication (principal); Z00.6 Encounter for examination for normal comparison and control in clinical research program; M96.1 Postlaminectomy syndrome, not elsewhere classified; M51.16 Intervertebral disc disorders with radiculopathy, lumbar region; I10 Essential (primary) hypertension; I26.99 Other pulmonary embolism without acute cor pulmonale; Z82.49 Family history of ischemic heart disease and other diseases of the circulatory system; F41.9 Anxiety disorder, unspecified; F32.9 Major depressive disorder, single episode, unspecified; K21.9 Gastro-esophageal reflux disease without esophagitis; Z79.899 Other long term (current) drug therapy; Z79.82 Long term (current) use of aspirin
CPT/HCPCS: 0275T; 96374; C1889; J1040; J3370

== ENCOUNTER → 2020-04-03 09:07 | Outpatient (CLI) | payer MEDICARE, MEDICAID, SELFPAY ==
--- NOTE | 2020-04-03 09:11 | XR_ITS ---
PROCEDURE: XR HIP RT 2-3V W/PELVIS CLINICAL INDICATION: hip pain COMPARISON: No exams were available for comparison FINDINGS: Osteoarthritic changes of the right hip. No fracture or dislocation is evident. No lytic or blastic change. There is a small focus of calcification in the soft tissues superior to the greater trochanter nonspecific. IMPRESSION: Mild osteoarthritic change of the right hip Dictated by: Dashawn Hart MD 04/03/2020 11:17 Dashawn Hart MD in [place] 04/03/2020 11:17
== END ==
PROVIDERS: PCP Emergency Medicine; Visit Provider Orthopaedic Surgery
DX: M25.551 Pain in right hip (principal)
CPT/HCPCS: 73502

== ENCOUNTER → 2020-04-08 10:59 | Outpatient (CLI) | payer MEDICARE, MEDICAID, SELFPAY ==
[2020-04-08 11:02] LABS: MANUAL DIFFERENTIAL MANUAL DIFFERENTIAL (MANUAL DIFF)
[2020-04-08 11:43] LABS: Basophils # 0.1 K/mm3 (0-0.2); Basophils % 1.2 % (0.1-2.0); Eosinophils # 0.3 K/mm3 (0.0-0.4); Eosinophils % 5.8 % (0.1-12.0); Hematocrit 42.9 % (37.0-47.0); Hemoglobin 14.3 g/dL (12.2-16.2); Lymphocytes # 1.9 K/mm3 (0.7-4.5); Lymphocytes % 37.8 % (10-50); Mean Corpuscular HGB Conc 33.3 g/dL (31.8-35.4); Mean Corpuscular Hemoglobin 31.7 pg (27.0-31.2); Mean Corpuscular Volume 95.4 fl (81-99); Mean Platelet Volume 8.1 fl (7.4-10.4); Monocytes # 0.3 K/mm3 (0.1-1.0); Monocytes % 6.9 % (1.7-9.3); Neutrophils # 2.4 K/mm3 (1.8-7.8); Neutrophils % 48.3 % (37.0-80.0); Platelet Count 219 K/mm3 (142-424); Red Cell Distribution Width 13.9 % (11.5-17.5); White Blood Count 4.9 K/mm3 (4.8-10.8)
[2020-04-08 12:09] LABS: Chloride 106 mmol/L (98-107); Potassium 3.9 mmoL/L (3.5-5.1); Sodium 142 mmol/L (136-145)
[2020-04-08 12:11] LABS: Blood Urea Nitrogen 15 mg/dl (7-17); Estimated Glomerular Filt Rate 55 ml/min (>60); GFR (African American) 66 ML/MIN (>60)
[2020-04-08 12:12] LABS: Alanine Aminotransferase 18 U/L (12-78); Albumin Level 3.8 g/dl (3.5-5.0); Albumin/Globulin Ratio 1.7 (1.1-1.8); Alkaline Phosphatase 94 U/L (38-126); Anion Gap 10.9 mEq/L (5-15); Aspartate Amino Transferase 24 U/L (14-36); Bilirubin,Total 0.6 mg/dl (0.2-1.3); Calcium 9.4 mg/dl (8.4-10.2); Carbon Dioxide 29 mmol/L (22.0-30.0); Globulin 2.3 g/dL (1.3-3.2); Glucose 135 mg/dl (74-100); Total Protein,Serum 6.1 g/dl (6.3-8.2)
[2020-04-08 12:18] LABS: C-Reactive Protein 1.9 mg/L (0-4)
[2020-04-08 12:43] LABS: Thyroid Stimulating Hormone 2.36 uIU/mL (0.465-4.68)
[2020-04-08 13:08] LABS: Erythrocyte Sedimentation Rate 13 mm/hr (0-30)
[2020-04-08 13:43] LABS: Eosinophils % 4 % (0-3); Lymphocytes % 36 % (10-50); Monocytes % 5 % (2-9); Neutrophils % 55 % (42-76); Platelet Estimate Normal; RBC Morphology Normal; Total Cells Counted 100
== END ==
PROVIDERS: Visit Provider Orthopaedic Surgery
DX: M25.551 Pain in right hip (principal); D64.9 Anemia, unspecified
CPT/HCPCS: 36415; 80053; 84443; 85007; 85014; 85018; 85048; 85049; 85651; 86140

== ENCOUNTER → 2020-04-14 08:57 | Outpatient (POV) | payer MEDICARE, MEDICAID, SELFPAY ==
[2020-04-14 09:10] VITALS: BP 128/78; PULSE 74; RESP 18; O2SAT 98; BMI 31.6
--- NOTE | 2020-04-14 09:25 | HMH.PAINSOAP ---
[facility] Pain Management SOAP Note Subjective:: Patient is a pleasant 70-year-old white female who presents today for follow-up after minimally invasive lumbar decompression at the L3-L4 L4-L5 level. Patient states that she is able to walk much better and stand for much longer. Patient is going to therapy due to some stiffness that she has in her legs. Patient rates her pain a 0 out of 10 today. Patient is on low back which she takes sparingly due to her stomach upset. Patient does have right greater trochanteric bursitis. Patient and I discussed an injection to help with this. We also discussed compounding cream to help with her stiff joints in the morning. ROS General: no recent weight change, no fever, no sleep disturbances Respiratory: no cough, no shortness of air, no recurring pulmonary infections Cardiovascular/Peripheral Vascular: No chest pain, No palpitations, no edema, no shortness of breath. Gastrointestinal: no new onset incontinence, normal bowel movements reported Genitourinary: no new onset incontinence Musculoskeletal: Back pain at times, joint stiffness, right hip pain Psychiatric: normal mood/ affect Neurological: [denies new onset weakness in extremities], [denies new onset balance issues] Objective:: Physical Exam General: Alert and oriented x3, no acute distress, pleasant and cooperative, [on room air] Lungs: Resps E/U, Symmetrical chest expansion, Eyes: PERRL Musculoskeletal: Flexion and extension of lumbar spine somewhat guarded secondary to pain, deep tendon reflexes normal, strength in upper and lower extremities [5/5], slightly antalgic gait noted Neurological: speech clear, community relations director equal, no gross sensory deficits Assessment:: Degenerative disc disease lumbar spine lumbar radiculopathy, spinal stenosis neurogenic claudication, postlaminectomy syndrome, right greater trochanteric bursitis Plan:: We will schedule the patient for right greater trochanteric bursa injection. We will also start her on compounding cream for stiffness. Patient's been instructed to call the office if she has any issues prior to her next appointment. Dr. Dominguez has reviewed this note and agrees with this plan of care. This note was dictated using voice recognition software and may contain errors or omissions [facility] History I have reviewed the patient's past medical history: Yes Medical History: Reports:: Anxiety, Cancer, Depression, Gastroesophageal Reflux Disease(GERD), Hyperlipidemia, Hypertension, Pulmonary Embolism, Transient Ischemic Attacks (TIA) Denies:: Diabetes Mellitus Type 1, Diabetes Mellitus Type 2, Internal Pacemaker, MRSA, Seizures *Have you ever received a pneumonia vaccine?: No *Have you received a flu vaccine this season?: No Other Medical History: Reports: Arthritis, Fibromyalgia, Hypothyroidism, Thyroid Disease. Denies: Blood Transfusion Reaction Laterality Cases: Bilateral: Tonsillectomy Other Surgeries: Yes: Cancer Surgery, Colonoscopy, Tubal Ligation, Other (Lumber sx). No: Pacemaker Amputation: No Fractures: Yes (LEFT WRIST,BACK SURGERY) - *Social History Smoking Status: Never smoker Tobacco Type: cigarettes # Packs/Day (cigarettes): 1 #Yrs smoked (if former smoker): 3 Alcohol Intake: never Substance Use Type: denies use *Occupational Status:: other Housing: house Household Members: none *Travel in the last 8 weeks: None - Psychiatric History Pschychiatric History:: Reports:: Anxiety, Depression Family Hx:: Unable to obtain
== END ==
PROVIDERS: PCP Emergency Medicine; Visit Provider Clinical Nurse Specialist Family Health
DX: M51.16 Intervertebral disc disorders with radiculopathy, lumbar region (principal); M48.062 Spinal stenosis, lumbar region with neurogenic claudication; M96.1 Postlaminectomy syndrome, not elsewhere classified; M70.61 Trochanteric bursitis, right hip
CPT/HCPCS: 99212

== ENCOUNTER 2020-04-21 13:49 | Day surgery (SDC) | payer MEDICARE, MEDICAID, SELFPAY ==
[2020-04-21 14:28] VITALS: BP 116/52; PULSE 60; RESP 18; TEMP 37.1; O2SAT 97; BMI 29.9
[2020-04-21 14:54] VITALS: BP 132/88; PULSE 74; RESP 18
[2020-04-21 14:55] VITALS: BP 133/78; PULSE 85; RESP 18; O2SAT 98
--- NOTE | 2020-04-21 14:59 | P.PCN_ITS ---
- Procedure Date: 04/21/20 Time: 14:59 Anesthesiologist:: Kelin Thomason APRN Complications:: None Pre-procedure Diagnosis:: Right trochanteric bursitis Post-procedure Diagnosis:: Same Indications for Procedure:: Patient is a pleasant 70-year-old white female who presents today for right trochanteric bursitis. She is being treated for chronic low back pain with right side hip pain. We will perform a right trochanteric bursa injection today to see if she gets relief. She rates her pain a 7 out of 10. She has tenderness over her right trochanteric bursa. Physical exam General: Alert and oriented x3, no acute distress, pleasant and cooperative, [on room air] Lungs: Respirations even and unlabored, symmetrical chest expansion Eyes: PERRL Musculoskeletal: Flexion and extension of lumbar spine somewhat guarded secondary to pain, deep tendon reflexes normal, strength in upper and lower extremities [5/5], [abnormal gait noted] Neurological: Speech clear, planetarium sky show technician equal, no gross sensory deficit Procedure Details:: Informed consent was obtained and the risk and benefits of the procedure were explained to the patient. The patient was taken to the procedure room and noninvasive monitors were placed including noninvasive blood pressure cuff and pulse oximeter. The patient was placed prone on the procedure table. The right hip was cleansed using chlorhexidine as a cleansing solution. C-arm fluoroscopy was used to view the right enteric bursa. The skin and subcutaneous tissue were anesthetized using lidocaine 1.5% and 25-gauge needle. After this a 22-gauge spinal needle was inserted under fluoroscopic guidance into the inferior aspect of the right trochanteric bursa. Omnipaque dye was injected and good spread was seen throughout the right trochanteric bursa. After this approximately 5 mils of bupivacaine 0.25% and Depo-Medrol 40 mg were incrementally injected into the sacroiliac joint. The patient tolerated the procedure well with no complications. Plan and Disposition:: We will see the patient back in the clinic in 2 weeks to reassess her symptoms. She has been instructed to contact clinic if she has any concerns before her next appointment. The patient and I specifically discussed risk factors for COVID19. These risks include, but are not limited to age greater than 60, heart or lung disease, diabetes, immunosuppression, and travel. We also discussed NSAIDs may worsen COVID19 infection or symptoms. Patient should not use NSAIDs to treat COVID19 signs or symptoms. Patient was also informed that any type of corticosteroid of any form (oral or injection) will decrease the patient's immune system response and may increase the likelihood of COVID19 infection and symptoms[address] Dr. Dominguez has reviewed this note and agrees with this plan of care. This note was dictated using voice recognition software and make contain errors or omissions.
[2020-04-21 15:11] VITALS: BP 129/69; PULSE 55; RESP 18; O2SAT 97
== END 2020-04-21 15:12 | disposition home or self-care (01) ==
LOC: SC.PAINP 13:51
PROVIDERS: PCP Emergency Medicine; Visit Provider Clinical Nurse Specialist Family Health
DX: M70.61 Trochanteric bursitis, right hip (principal); I10 Essential (primary) hypertension; E78.5 Hyperlipidemia, unspecified; K21.9 Gastro-esophageal reflux disease without esophagitis; E03.9 Hypothyroidism, unspecified; M79.18 Myalgia, other site; M19.90 Unspecified osteoarthritis, unspecified site
CPT/HCPCS: 20610; 77002; J1030

== ENCOUNTER 2020-05-01 13:37 | Emergency (ER) | payer MEDICARE, MEDICAID, SELFPAY ==
[2020-05-01 14:16] VITALS: BP 153/63; PULSE 59; RESP 16; TEMP 36.6; O2SAT 98; BMI 29.9
--- NOTE | 2020-05-01 14:20 | XR_ITS ---
PROCEDURE: XR KNEE LT 3V CLINICAL INDICATION: FALL Posttraumatic pain COMPARISON: No exams were available for comparison FINDINGS: There are tricompartmental osteoarthritic changes worse at the medial compartment and patellofemoral joint. The joint spaces are well-preserved. No significant degenerative/arthritic changes. No erosive changes evident. Other findings:None. IMPRESSION: Osteoarthritis, no acute finding Dictated by: Dashawn Hart MD 05/01/2020 14:48 Dashawn Hart MD in [place] 05/01/2020 14:48
--- NOTE | 2020-05-01 15:20 | HMH.EDUTC ---
[facility] Disposition Clinical Impression: Fall Qualifiers: Encounter type: initial encounter Qualified Code(s): W19.XXXA - Unspecified fall, initial encounter Left knee pain Qualifiers: Chronicity: unspecified Qualified Code(s): M25.562 - Pain in left knee Disposition: Home, Self-Care Condition on Discharge: Good Instructions: DI for Knee Pain Additional Instructions: Rest the extremity, apply ice for 15 minutes as tolerated three or four times per day, Wear the abraham wrap for compression, Elevate the extremity as tolerated while you are resting. Follow up with your orthopedic doctor. I put in a referral but you need to call her office and schedule an appointment. Follow up with your regular doctor. GO TO THE ER FOR ANY WORSENING SYMPTOMS Referrals: Jorge He MD [Primary Care Provider] - Time of Disposition: 15:36 Medical Decision Making - Medical Records Medical records reviewed: No: I reviewed the patient's medical records. - Jose Inquiry Pt receiving controlled substance: No Vital Signs: 05/01/20 14:16 05/01/20 15:54 Temperature 97.9 F 97.9 F Temperature Source Oral Oral Pulse Rate 59 L Pulse Rate [Radial] 59 L Respiratory Rate 16 16 Blood Pressure 153/63 H Blood Pressure [Right Arm] 153/63 H Blood Pressure Mean [Right Arm] 93 Blood Pressure Source Automatic Cuff Blood Pressure Source [Right Arm] Automatic Cuff Blood Pressure Position Sitting Blood Pressure Position [Right Arm] Sitting 02 Sat by Pulse Oximetry 98 Oxygen Delivery Method Room Air Room Air - Radiology Data #1 Image(s): Knee Image Reviewed: Yes I reviewed the patient's radiology image, Yes I have reviewed radiologist's interpretation Preliminary Findings: No Fracture Seen PROCEDURE: XR KNEE LT 3V CLINICAL INDICATION: FALL Posttraumatic pain COMPARISON: No exams were available for comparison FINDINGS: There are tricompartmental osteoarthritic changes worse at the medial compartment and patellofemoral joint. The joint spaces are well-preserved. No significant degenerative/arthritic changes. No erosive changes evident. Other findings:None. IMPRESSION: Osteoarthritis, no acute finding Dictated by: Dashawn Hart MD 05/01/2020 14:48 Dashawn Hart MD in [place] 05/01/2020 14:48 [facility] HPI - General Stated complaint: ao fell 04/30/20 left leg back Time Seen by Provider: 05/01/20 15:20 Mode of Arrival: Ambulatory Source of Information: Patient Limitations: No Limitations Description of Symptoms (Recalled from Triage Doc. by RN): FELL YESTERDAY AND HURT LEFT KNEE, PAIN BEHIND KNEE AND DOWN TO CALF HEENT Symptoms (Recalled from RN notes): No Resp Symptoms (Recalled from RN notes): No Skin Symptoms (Recalled from RN notes): No MS Symptoms (Recalled from RN notes): Yes Functional Status (Recalled from RN notes): WNL - History of Present Illness Provider Complaint: She states that she fell yesterday and came down on her left knee. Since then she has been having left knee pain that is worse with walking and bearing weight. - Related Data Home Medications Medication Instructions Recorded Confirmed aspirin 325 mg tablet 325 mg PO DAILY 04/27/19 04/21/20 ropinirole 1 mg tablet 1 mg PO BID tab 06/08/19 04/21/20 cetirizine 10 mg tablet 10 mg PO DAILY tab 04/10/20 04/21/20 levothyroxine 75 mcg tablet 75 mcg PO DAILY tab 04/10/20 04/21/20 meclizine 25 mg tablet 25 mg PO TID PRN tab 04/10/20 04/21/20 meloxicam 7.5 mg tablet 7.5 mg PO DAILY PRN tab 04/10/20 04/21/20 pregabalin 150 mg capsule 100 mg PO BID cap 04/10/20 04/21/20 Spironolactone [Spironolactone 25 mg PO DAILY 04/21/20 04/21/20 25mg Tablet] Previous Rx's Medication Instructions Recorded fluticasone propionate 50 1 spray INTRANASAL BID PRN #47.4 g 01/05/18 mcg/actuation nasal spray,suspension venlafaxine 150 mg 150 mg PO DAILY #90 cap 02/12/20 capsule,extended release 24 hr famotidine 20 mg tablet 20 mg PO
[2020-05-01 15:54] VITALS: BP 153/63; PULSE 59; RESP 16; TEMP 36.6; O2SAT 98
== END 2020-05-01 16:00 | disposition home or self-care (01) ==
PROVIDERS: Emergency Provider Nurse Practitioner Family; PCP Emergency Medicine
DX: M25.562 Pain in left knee (principal); W01.0XXA Fall on same level from slipping, tripping and stumbling without subsequent striking against object, initial encounter; Y92.019 Unspecified place in single-family (private) house as the place of occurrence of the external cause; F41.8 Other specified anxiety disorders; E78.5 Hyperlipidemia, unspecified; K21.9 Gastro-esophageal reflux disease without esophagitis; E03.9 Hypothyroidism, unspecified; M79.7 Fibromyalgia; F17.210 Nicotine dependence, cigarettes, uncomplicated
CPT/HCPCS: 73562; 99201

== ENCOUNTER → 2020-05-05 11:18 | Outpatient (POV) | payer MEDICARE, MEDICAID, SELFPAY ==
[2020-05-05 11:54] VITALS: BP 132/88; PULSE 85; RESP 18; O2SAT 98; BMI 29.9
--- NOTE | 2020-05-05 12:52 | HMH.PAINSOAP ---
[facility] Pain Management SOAP Note Subjective:: Patient is a very pleasant 70-year-old white female who presents today for follow-up. Patient had a right trochanteric bursa injection and did extremely well with this however she states that she is recently fallen and went to the emergency room due to this fall. Since then she has had back pain and left leg pain. Patient and I discussed options including epidural injection, additional injections, oral anti-inflammatories. She would like to move forward with this. She is prescribed meloxicam however she states she does not take it. I discussed with her starting diclofenac 75 mg 1 p.o. twice daily for several weeks. She would like to move forward with this. ROS General: no recent weight change, no fever, no sleep disturbances Respiratory: no cough, no shortness of air, no recurring pulmonary infections Cardiovascular/Peripheral Vascular: No chest pain, No palpitations, no edema, no shortness of breath. Gastrointestinal: no new onset incontinence, normal bowel movements reported Genitourinary: no new onset incontinence Musculoskeletal: Back pain, leg pain Psychiatric: normal mood/ affect Neurological: [denies new onset weakness in extremities], [denies new onset balance issues] Objective:: Physical Exam General: Alert and oriented x3, no acute distress, pleasant and cooperative, [on room air] Lungs: Resps E/U, Symmetrical chest expansion, Eyes: PERRL Musculoskeletal: Flexion and extension of lumbar spine somewhat guarded secondary to pain, deep tendon reflexes normal, strength in upper and lower extremities [5/5], [abnormal gait noted] Neurological: speech clear, apprentice photographer equal, no gross sensory deficits Assessment:: Degenerative disc disease lumbar spine lumbar radiculopathy, status post mild procedure, spinal stenosis, left leg pain Plan:: You will prescribe diclofenac 75 mg 1 p.o. twice daily we will give her 3 weeks worth of medication. We will see her back in 3 weeks reassess her symptoms at that time she has been instructed to call the office if she has any issues prior to her next appointment. Patient may need an epidural steroid injection if she does not get relief from her oral anti-inflammatories. Dr. Dominguez has reviewed this note and agrees with this plan of care. This note was dictated using voice recognition software and may contain errors or omissions [facility] History I have reviewed the patient's past medical history: Yes Medical History: Reports:: Anxiety, Depression, Gastroesophageal Reflux Disease(GERD), Hyperlipidemia, Hypertension, Pulmonary Embolism, Transient Ischemic Attacks (TIA) Denies:: Cancer, Diabetes Mellitus Type 1, Diabetes Mellitus Type 2, Internal Pacemaker, MRSA, Seizures *Have you ever received a pneumonia vaccine?: Yes *Have you received a flu vaccine this season?: Yes Other Medical History: Reports: Arthritis, Fibromyalgia, Hypothyroidism, Thyroid Disease. Denies: Blood Transfusion Reaction Laterality Cases: Bilateral: Tonsillectomy Other Surgeries: Yes: Cancer Surgery, Colonoscopy, Tubal Ligation, Other (lumbar decompression). No: Pacemaker Amputation: No Fractures: Yes (LEFT WRIST,BACK SURGERY) - *Social History Smoking Status: Never smoker Tobacco Type: cigarettes # Packs/Day (cigarettes): 1 #Yrs smoked (if former smoker): 3 Alcohol Intake: never Substance Use Type: denies use *Occupational Status:: other Housing: house Household Members: other *Travel in the last 8 weeks: None - Psychiatric History Pschychiatric History:: Reports:: Anxiety, Depression Family Hx:: Unable to obtain
== END ==
PROVIDERS: PCP Emergency Medicine; Visit Provider Clinical Nurse Specialist Family Health
DX: Z09 Encounter for follow-up examination after completed treatment for conditions other than malignant neoplasm (principal); M51.16 Intervertebral disc disorders with radiculopathy, lumbar region; M48.062 Spinal stenosis, lumbar region with neurogenic claudication; M79.605 Pain in left leg
CPT/HCPCS: 99212

== ENCOUNTER → 2020-05-08 10:16 | Outpatient (CLI) | payer MEDICARE, MEDICAID, SELFPAY ==
[2020-05-08 11:45] LABS: Anion Gap 12.3 mEq/L (5-15); Blood Urea Nitrogen 20 mg/dl (7-17); Calcium 9.6 mg/dl (8.4-10.2); Carbon Dioxide 27 mmol/L (22.0-30.0); Chloride 107 mmol/L (98-107); Estimated Glomerular Filt Rate 49 ml/min (>60); GFR (African American) 59 ML/MIN (>60); Glucose 116 mg/dl (74-100); Potassium 4.3 mmoL/L (3.5-5.1); Sodium 142 mmol/L (136-145)
[2020-05-08 11:52] LABS: NT Pro Brain Natriuretic Pep. 240 pg/mL (0-125)
== END ==
LOC: LAB 10:17
PROVIDERS: Visit Provider Internal Medicine Cardiovascular Disease
DX: R06.00 Dyspnea, unspecified (principal); R60.9 Edema, unspecified
CPT/HCPCS: 36415; 80048; 83880

== ENCOUNTER → 2020-05-13 17:07 | Outpatient (CLI) | payer MEDICARE, MEDICAID, SELFPAY ==
[2020-05-13 18:43] LABS: Basophils # 0.1 K/mm3 (0-0.2); Basophils % 1.1 % (0.1-2.0); Eosinophils # 0.4 K/mm3 (0.0-0.4); Eosinophils % 5.5 % (0.1-12.0); Hematocrit 44.7 % (37.0-47.0); Hemoglobin 15.1 g/dL (12.2-16.2); Lymphocytes # 1.8 K/mm3 (0.7-4.5); Lymphocytes % 27.9 % (10-50); Mean Corpuscular HGB Conc 33.9 g/dL (31.8-35.4); Mean Corpuscular Hemoglobin 32.5 pg (27.0-31.2); Mean Platelet Volume 8.9 fl (7.4-10.4); Monocytes # 0.5 K/mm3 (0.1-1.0); Monocytes % 7.5 % (1.7-9.3); Neutrophils # 3.8 K/mm3 (1.8-7.8); Platelet Count 251 K/mm3 (142-424); Red Blood Count 4.65 M/mm3 (4.20-5.40); Red Cell Distribution Width 13.9 % (11.5-17.5); White Blood Count 6.6 K/mm3 (4.8-10.8)
[2020-05-13 19:12] LABS: Erythrocyte Sedimentation Rate 11 mm/hr (0-30)
[2020-05-13 19:14] LABS: Chloride 103 mmol/L (98-107); Potassium 4.7 mmoL/L (3.5-5.1); Sodium 140 mmol/L (136-145)
[2020-05-13 19:17] LABS: Alanine Aminotransferase 26 U/L (12-78); Albumin Level 4.7 g/dl (3.5-5.0); Alkaline Phosphatase 119 U/L (38-126); Anion Gap 15.7 mEq/L (5-15); Aspartate Amino Transferase 55 U/L (14-36); Bilirubin,Total 0.8 mg/dl (0.2-1.3); Blood Urea Nitrogen 26 mg/dl (7-17); Calcium 9.8 mg/dl (8.4-10.2); Carbon Dioxide 26 mmol/L (22.0-30.0); Estimated Glomerular Filt Rate 40 ml/min (>60); GFR (African American) 49 ML/MIN (>60); Globulin 2.4 g/dL (1.3-3.2); Glucose 90 mg/dl (74-100); Total Protein,Serum 7.1 g/dl (6.3-8.2)
== END ==
PROVIDERS: Visit Provider Emergency Medicine
DX: M25.561 Pain in right knee (principal); W19.XXXA Unspecified fall, initial encounter
CPT/HCPCS: 80053; 85025; 85651

== ENCOUNTER → 2020-06-04 07:48 | Outpatient (CLI) | payer MEDICARE, MEDICAID, SELFPAY ==
--- NOTE | 2020-06-04 07:48 | MM_ITS ---
PROCEDURE: MM DIG SCREENING MAMM BI W/CAD Digital Breast Tomosynthesis Included CLINICAL INDICATION: screening There is a history of breast cancer in the patient's maternal great aunt. COMPARISON: MG DMDB DIGITAL MAMM-DX BILATERAL from 12/03/2011 MG DMSB DIG MAMM-SCREEN [place] from 02/28/2015 MG DMSB DIG MAMM-SCREEN [place] from 06/07/2016 TECHNIQUE: Standard CC and MLO images and 3D Tomosynthesis was obtained. R2 CAD reviewed. FINDINGS: Third diffuse fibroglandular densities are seen in both breast. Again noted is slightly asymmetric glandular elements upper-outer quadrant right breast. There is a stable asymmetric benign-appearing nodular density upper outer quadrant right breast. There is no suspicious lesion in either breast and no suspicious microcalcifications. IMPRESSION: Moderate breast density with no suspicious lesions seen BI-RAD Category: 2 Benign Finding(s) FOLLOW-UP: 1YR 1 Year Follow-up (A letter has been sent to the patient regarding results of the study.) Dictated by: Dr. Pierre Valencia MD 06/06/2020 13:52 Dr. Pierre Valencia MD in [place] 06/06/2020 13:52
== END ==
PROVIDERS: PCP Emergency Medicine; Visit Provider Emergency Medicine
DX: Z12.31 Encounter for screening mammogram for malignant neoplasm of breast (principal)
CPT/HCPCS: 77063; 77067

== ENCOUNTER → 2020-06-17 06:15 | Outpatient (CLI) | payer MEDICARE, MEDICAID, SELFPAY ==
--- NOTE | 2020-06-17 | CA_ITS ---
APPROVED REPORT Exam: Pharmacologic Technologist: Tanya Hernandez Ht: 5 ft 5 in Wt: 187 lbs BSA: 1.92 m2 HR: 55 bpm BP: 148/82 mmHg Indications: Chest pain Medical History Medications: Levothyroxine,,,,, Aspirin,,,,, Ropinirole,,,,, Tramadol,,,,, Diclofenac,,,,, Famotidine,,,,, BisOPROLOL,,,,, Meclizine,,,,, FluTICASONE,,,,, Venlafaxine,,,,, SpirOnolactone,,,,, Pregabalin,,,,, Stress Test Details Test: LEXISCAN HR Resting HR: 55 bpm Max Heart Rate (APMHR): 150 bpm Max HR Achieved: 82 bpm Target HR (85% APMHR): 127 bpm % of APMHR: 54 Recovery HR: 66 bpm BP Resting BP: 148.0/82.0 mmHg Max BP: 172.0/79.0 mmHg Recovery BP: 124.0/73.0 mmHg ECG Clinical Exercise duration: 04:00 min Highest Stage Achieved: Exercise capacity: 1.0 METs Stress ECG Conclusion Resting EKG: Sinus bradycardia, IVCD, NS T wave abnormalities in V2 Symptoms: Mild shortness of air and malaise. No chest pain. Arrhythmias/Ectopy: None ST-T Changes: NS T wave changes. Conclusion: Unremarkable Lexiscan stress. Myoview images reported separately. Test Summary RECOVERY 03:20 . . 66 . 124/ 73 . . REST 13:13 . . 55 . 148/ 82 . . Stage 1 . . . . . . . Myoview Injected Stage 1 01:00 . . 72 . . . . Stage 2 01:00 . . 79 . 172/ 79 . . Stage 3 01:00 . . 80 . 158/ 83 . . Stage 4 01:00 . . 74 . 154/ 77 . Stop exercise at 04:00 RECOVERY 01:00 . . 75 . 135/ 82 . . RECOVERY 02:00 . . 68 . 135/ 82 . . RECOVERY 03:00 . . 67 . 124/ 73 . . RECOVERY 03:20 . . 66 . 124/ 73 . . Electronically signed by : Shakir Woodson, 06/18/2020 06:24:55
--- NOTE | 2020-06-17 06:16 | NM_ITS ---
APPROVED REPORT Exam: Nuclear Stress Test Indication: Chest pain, Abnormal EKG, Family history Patient Location: Outpatient Stress Tech: Tanya Hernandez NM Tech:Kemi Barbosa, ARRT, RT (R)(N) Ht: 5 ft 5 in Wt: 180 lbs Bra Size: 44D HR: 55 bpm BP: 148/82 mmHg BSA: 1.89 m2 BMI: 29.9 History: Chest pain, Abnormal EKG, Family history Procedure: Patient received a 0.4 mg of intravenous Lexiscan, resting heart rate 55 bpm, resting blood pressure 148/82 mmHg, with Lexiscan maximum heart rate achived was 79 bpm which is Less than 85 % of the maximum predicted heart rate and blood pressure was 158/83 mmHg. With Lexiscan, patient denied any complaint of chest pain. Electrocardiogram Resting electrocardiogram showed sinus rhythm, nonspecific ST-T changes. With Lexiscan there is less than 1.[address] segment depression noted from the baseline EKG. The EKG portion of the Lexiscan Myoview is nondiagnostic. Cardiac Stress and Resting SPECT Images: Cardiac Stress and Resting SPECT images were obtained using technetium 99m Myoview 32.3 mCi stress and 10.77 mCi at rest. Gated SPECT for analysis of segmental wall motion and calculation of the ejection fraction also done. Cardiac stress and resting SPECT images show uniform myocardial activity without segmental perfusion abnormality, computer derived ejection fraction is 57% with no regional wall motion abnormality, right ventricle is normal size and contractility. Conclusion: 1. The EKG portion of the Lexiscan is nondiagnostic. 2. No scintigraphic evidence of reversible ischemia seen, computer derived ejection fraction is 57% with no regional wall motion abnormality, right ventricle is normal size and contractility. 3. Normal Lexiscan Myoview study. Electronically signed by : Shakir Woodson, 06/18/2020 06:37:25
--- NOTE | 2020-06-17 08:15 | HMH.ITSHM ---
Current Home Medications as stated by this patient Mariann Higgins or insurance service representative. []ASA BISOPROLOL CETIRIZINE DICLOFENAC FAMOTIDINE FLUTICASONE VENLAFAXINE LEVOTHYROXINE MECLIZINE PREQABLIN ROPINIROLE SPIRONOLACTONE TRAMADOL
== END ==
PROVIDERS: PCP Emergency Medicine; Visit Provider Emergency Medicine
DX: R07.9 Chest pain, unspecified (principal); R94.31 Abnormal electrocardiogram [ECG] [EKG]
CPT/HCPCS: 78452; 93017; A9502; J2785

== ENCOUNTER → 2020-06-23 11:59 | Outpatient (CLI) | payer MEDICARE, MEDICAID, SELFPAY ==
[2020-06-23 12:02] LABS: Microscopic, Urine URINE MICROSCOPIC (MICROSCOPIC)
[2020-06-23 12:31] LABS: Basophils % 0.8 % (0.1-2.0); Eosinophils # 0.3 K/mm3 (0.0-0.4); Eosinophils % 5.7 % (0.1-12.0); Hematocrit 42.8 % (37.0-47.0); Lymphocytes # 1.6 K/mm3 (0.7-4.5); Lymphocytes % 32.5 % (10-50); Mean Corpuscular HGB Conc 32.7 g/dL (31.8-35.4); Mean Corpuscular Volume 94.8 fl (81-99); Monocytes # 0.4 K/mm3 (0.1-1.0); Monocytes % 7.6 % (1.7-9.3); Neutrophils # 2.6 K/mm3 (1.8-7.8); Neutrophils % 53.4 % (37.0-80.0); Platelet Count 226 K/mm3 (142-424); Red Blood Count 4.52 M/mm3 (4.20-5.40); Red Cell Distribution Width 13.9 % (11.5-17.5); White Blood Count 4.9 K/mm3 (4.8-10.8)
[2020-06-23 13:46] LABS: Albumin Level 4.5 g/dl (3.5-5.0); Anion Gap 12.6 mEq/L (5-15); Blood Urea Nitrogen 16 mg/dl (7-17); Calcium 9.8 mg/dl (8.4-10.2); Carbon Dioxide 28 mmol/L (22.0-30.0); Chloride 103 mmol/L (98-107); Estimated Glomerular Filt Rate 49 ml/min (>60); GFR (African American) 59 ML/MIN (>60); Glucose 110 mg/dl (74-100); Potassium 4.6 mmoL/L (3.5-5.1); Sodium 139 mmol/L (136-145)
[2020-06-23 13:48] LABS: Appearance,Urine CLEAR (Clear); Bilirubin,Urine Negative (Negative); Blood, Urine Negative (Negative); Color,Urine YELLOW (Yellow); Glucose,Urine (UA) Negative (Negative); Ketones,Urine Negative (Negative); Leukocyte Esterase,Urine Negative (Negative); Nitrate,Urine Negative (Negative); PH,Urine 5.5 (5.0-8.5); Protein,Urine Negative (Negative); Urobilinogen,Urine 0.2 EU/dl (0.2)
[2020-06-23 13:54] LABS: Creatinine,Urine Random 115 mg/dL (Not Estab.)
[2020-06-23 13:58] LABS: Intact Parathyroid Hormone 96.2 pg/mL (7.5-53.5)
[2020-06-23 13:59] LABS: WBC,Urine Occasional #/hpf (0-3)
[2020-06-23 14:04] LABS: 25-OH Vitamin D, Total 20.9 ng/mL (30-100)
== END ==
PROVIDERS: Visit Provider Internal Medicine Nephrology
DX: N18.30 Chronic kidney disease, stage 3 unspecified (principal); E55.9 Vitamin D deficiency, unspecified
CPT/HCPCS: 36415; 80069; 81001; 82306; 82570; 83970; 84155; 85025

== ENCOUNTER → 2020-06-30 14:27 | Outpatient (POV) | payer MEDICARE, MEDICAID, SELFPAY | PROVIDERS: Visit Provider Internal Medicine Nephrology | DX: Z00.00 Encounter for general adult medical examination without abnormal findings (principal) ==

== ENCOUNTER → 2020-08-04 08:13 | Outpatient (CLI) | payer MEDICARE, MEDICAID, SELFPAY ==
--- NOTE | 2020-08-04 08:20 | XR_ITS ---
PROCEDURE: XR KNEE RT 3V CLINICAL INDICATION: s/p R TKA 11/07/2018 Follow-up total knee arthroplasty COMPARISON: CR XR KNEE LT 4V from 08/03/2019 CR XR KNEE RT 3V from 12/07/2019 CR XR KNEE LT 4V from 12/07/2019 CR XR KNEE LT 3V from 05/01/2020 FINDINGS: No fracture or dislocation. No lytic or blastic change. There is normal mineralization. Good alignment status post total knee arthroplasty. Other findings:Intramedullary hyperdensities are once again noted not significantly change within the distal femur. IMPRESSION: No change good alignment status post total knee arthroplasty Dictated by: Dashawn Hart MD 08/04/2020 09:31 Dashawn Hart MD in [place] 08/04/2020 09:31
== END ==
PROVIDERS: PCP Emergency Medicine; Visit Provider Orthopaedic Surgery
DX: Z96.651 Presence of right artificial knee joint (principal); M25.561 Pain in right knee
CPT/HCPCS: 73562

== ENCOUNTER → 2020-08-21 08:01 | Outpatient (CLI) | payer MEDICARE, MEDICAID, SELFPAY ==
--- NOTE | 2020-08-21 08:01 | US_ITS ---
PROCEDURE: US GALLBLADDER CLINICAL INDICATION: abdominal pain COMPARISON: No exams were available for comparison FINDINGS: Pancreas: Unremarkable/Not well seen Liver: Unremarkable. There is appropriate direction of blood flow within a non dilated portal vein. Right kidney: Unremarkable appearing. No hydronephrosis. Gallbladder: No stones are evident. There is no gallbladder wall thickening. Common duct is normal in diameter. IMPRESSION: Negative gallbladder ultrasound. No stones evident. Dictated by: Dashawn Hart MD 08/21/2020 17:48 Dashawn Hart MD in [place] 08/21/2020 17:48
== END ==
PROVIDERS: PCP Emergency Medicine; Visit Provider Emergency Medicine
DX: R10.9 Unspecified abdominal pain (principal)
CPT/HCPCS: 76705

== ENCOUNTER → 2020-09-29 09:20 | Outpatient (POV) | payer MEDICARE, MEDICAID, SELFPAY ==
[2020-09-29 09:43] VITALS: BP 135/74; PULSE 72; RESP 18; O2SAT 98; BMI 31.6
--- NOTE | 2020-09-29 09:55 | HMH.PAINSOAP ---
[facility] Pain Management SOAP Note Subjective:: Patient is a pleasant 70-year-old white female who presents today for follow-up. Patient has had injections in the past and has done well until recently. She is having increased pain mostly in her low back and bilateral lower extremities. Patient and I discussed epidural steroid injection she would like to move forward with this. Patient has had pain for over 6 months. She is tried and failed medication management, anti-inflammatories, physical therapy and stretching routine. Patient denies being on any anticoagulation therapy. She rates her pain today 7 out of 10. ROS General: no recent weight change, no fever, no sleep disturbances Respiratory: no cough, no shortness of air, no recurring pulmonary infections Cardiovascular/Peripheral Vascular: No chest pain, No palpitations, no edema, no shortness of breath. Gastrointestinal: no new onset incontinence, normal bowel movements reported Genitourinary: no new onset incontinence Musculoskeletal: Back pain, leg pain Psychiatric: normal mood/ affect Neurological: [denies new onset weakness in extremities], [denies new onset balance issues] Objective:: Physical Exam General: Alert and oriented x3, no acute distress, pleasant and cooperative, [on room air] Lungs: Resps E/U, Symmetrical chest expansion, Eyes: PERRL Musculoskeletal: Flexion and extension of lumbar spine somewhat guarded secondary to pain, deep tendon reflexes normal, strength in upper and lower extremities [5/5], slightly antalgic gait noted Neurological: speech clear, x ray service engineer equal, no gross sensory deficits Assessment:: Degenerative disc disease lumbar spine lumbar radiculopathy, status post mild procedure, spinal stenosis with neurogenic claudication, back pain Plan:: We will schedule the patient for L4-L5 lumbar epidural steroid injection given her symptomology I do believe it would benefit her. She has been instructed to call the office if she has any issues prior to his next appointment. Dr. Dominguez has reviewed this note and agrees with this plan of care. This note was dictated using voice recognition software and may contain errors or omissions [facility] History I have reviewed the patient's past medical history: Yes Medical History: Reports:: Anxiety, Depression, Gastroesophageal Reflux Disease(GERD), Hyperlipidemia, Hypertension, Pulmonary Embolism, Transient Ischemic Attacks (TIA) Denies:: Cancer, Diabetes Mellitus Type 1, Diabetes Mellitus Type 2, Internal Pacemaker, MRSA, Seizures *Have you ever received a pneumonia vaccine?: Yes *Have you received a flu vaccine this season?: Yes Other Medical History: Reports: Arthritis, Fibromyalgia, Hypothyroidism, Thyroid Disease. Denies: Blood Transfusion Reaction Laterality Cases: Bilateral: Tonsillectomy Other Surgeries: Yes: Cancer Surgery, Colonoscopy, Tubal Ligation, Other (lumbar decompression). No: Pacemaker Amputation: No Fractures: Yes (LEFT WRIST,BACK SURGERY) - *Social History Smoking Status: Never smoker Tobacco Type: cigarettes # Packs/Day (cigarettes): 1 #Yrs smoked (if former smoker): 3 Alcohol Intake: never Substance Use Type: denies use *Occupational Status:: other Housing: house Household Members: other *Travel in the last 8 weeks: None - Psychiatric History Pschychiatric History:: Reports:: Anxiety, Depression Family Hx:: Cancer
== END ==
PROVIDERS: PCP Emergency Medicine; Visit Provider Clinical Nurse Specialist Family Health
DX: M51.16 Intervertebral disc disorders with radiculopathy, lumbar region (principal); M48.062 Spinal stenosis, lumbar region with neurogenic claudication; Z98.890 Other specified postprocedural states
CPT/HCPCS: 99212; G0463

== ENCOUNTER 2020-10-17 10:58 | Day surgery (SDC) | payer MEDICARE, MEDICAID, SELFPAY ==
[2020-10-17 12:05] VITALS: BP 135/67; PULSE 60; RESP 18; TEMP 36.4; O2SAT 98; BMI 31.9
--- NOTE | 2020-10-17 12:29 | HMH.PMPROC ---
- Procedure Date: 10/17/20 Time: 12:29 Anesthesiologist:: Brayden Dominguez MD Complications:: None Pre-procedure Diagnosis:: Degenerative disc disease of lumbar spine with lumbar radiculopathy symptoms Post-procedure Diagnosis:: Same Indications for Procedure:: This patient is a pleasant 70-year-old white female who we are treating for low back pain with lumbar radiculopathy symptoms. She does have increasing pain in her low back rating down her legs. She has had minimally invasive lumbar decompression. She still has some residual back pain. We will do a lumbar epidural steroid injection today to help her with her pain symptoms. Procedure Details:: Lumbar epidural steroid injection under fluoroscopy Informed consent was obtained and the risk and benefits of the procedure was explained to the patient. The patient was taken to the procedure room. The patient was placed prone on the procedure table. The patient was prepped and draped in sterile fashion. C-arm fluoroscopy was used to view the lumbar spine. Skin and subcutaneous tissues were anesthetized using lidocaine. I placed an 18-gauge epidural needle and advanced into the L4-L5 interspace using fluoroscopic guidance and [id number] to air. After confirmation of needle placement in the epidural space with dye I injected 2 mL of lidocaine 1.5% with Depo-Medrol 80 mg. Patient tolerated the procedure well with no complications. Plan and Disposition:: We will follow-up with her in 2 weeks. Will reevaluate symptoms at that time.
[2020-10-17 12:32] VITALS: BP 134/89; PULSE 69; RESP 20; O2SAT 98
[2020-10-17 12:33] VITALS: BP 134/81; PULSE 72; RESP 20; O2SAT 96
[2020-10-17 12:50] VITALS: BP 146/83; PULSE 62; RESP 18; O2SAT 98
== END 2020-10-17 12:50 | disposition home or self-care (01) ==
LOC: SC.PAINP 10:59
PROVIDERS: PCP Emergency Medicine; Visit Provider Anesthesiology
DX: M51.16 Intervertebral disc disorders with radiculopathy, lumbar region (principal); I10 Essential (primary) hypertension; E78.5 Hyperlipidemia, unspecified; K21.9 Gastro-esophageal reflux disease without esophagitis; F41.9 Anxiety disorder, unspecified; Z86.73 Personal history of transient ischemic attack (TIA), and cerebral infarction without residual deficits; Z86.711 Personal history of pulmonary embolism; Z82.49 Family history of ischemic heart disease and other diseases of the circulatory system; Z79.899 Other long term (current) drug therapy
CPT/HCPCS: 62323; J1040; Q9966

== ENCOUNTER 2020-10-24 09:44 | Emergency (ER) | payer MEDICARE, MEDICAID, SELFPAY ==
--- NOTE | 2020-10-24 09:41 | ECG_ITS ---
APPROVED REPORT Exam: Resting ECG HR:75 bpm ECG Measurements Heart Rate 75 AXES QRSd 88 QRS 11 QT 372 T 59 QTc 415 Conclusion Atrial fibrillation Low voltage QRS Nonspecific ST abnormality Abnormal ECG Electronically signed by : Braden Garrido, 10/25/2020 08:41:44
[2020-10-24 09:44] VITALS: BP 123/64; PULSE 100; PULSE 99; RESP 14; RESP 20; TEMP 36.6; O2SAT 96; O2SAT 98; BMI 33.3
--- NOTE | 2020-10-24 09:54 | HMH.EDARPALP ---
ED Disposition Clinical Impression: Palpitations, Otitis media Atrial fibrillation Qualifiers: Atrial fibrillation type: longstanding persistent Qualified Code(s): I48.11 - Longstanding persistent atrial fibrillation Disposition: Home, Self-Care Condition on Discharge: Good Additional Instructions: Increase oral hydration and return to the ED for any new or worsening symptoms. Finish the entire course of antibiotics and follow-up with ENT and your primary care for the otitis as well as other symptoms. Prescriptions: Amoxicillin/Potassium Clav [Augmentin 875-125 Tablet] 1 tab PO Q12H 10 Days #20 tab Transmission Status: Pending to [facility] Time of Disposition: 12:18 - Critical Care Critical Care Time: No Attestation: On , the high probability of a clinically significant, sudden or life threatening deterioration of the following system(s) required my full and direct attention, intervention and personal management. The time I documented below is in addition to time spent performing reported procedures but includes the following listed in this critical care notation. Medical Decision Making - Medical Records Medical records reviewed: Yes: I reviewed the patient's medical records. - Jose Inquiry Pt receiving controlled substance: No Vital Signs: 10/24/20 09:44 10/24/20 10:00 10/24/20 10:30 Temperature 98 F Temperature Source Oral Pulse Rate 100 H 88 Pulse Rate [Radial] 99 H Respiratory Rate 14 16 20 Blood Pressure 123/64 108/59 L 118/64 Blood Pressure [Right Arm] 123/64 Blood Pressure Mean [Right Arm] 83 Blood Pressure Position [Right Arm] Sitting 02 Sat by Pulse Oximetry 96 96 96 Oxygen Delivery Method Room Air Room Air Room Air 10/24/20 11:00 Temperature Temperature Source Pulse Rate Pulse Rate [Radial] Respiratory Rate 16 Blood Pressure 113/65 Blood Pressure [Right Arm] Blood Pressure Mean [Right Arm] Blood Pressure Position [Right Arm] 02 Sat by Pulse Oximetry Oxygen Delivery Method - Lab Data Lab Results 10/24/20 09:55: WBC 5.5, RBC 4.68, Hgb 14.3, Hct 42.9, MCV 91.7, MCH 30.5, MCHC 33.3, RDW 13.8, Plt Count 208, MPV 7.4, Neut % (Auto) 57.0, Lymph % (Auto) 27.7, [place] % (Auto) 11.2 H, Eos % (Auto) 3.3, Baso % (Auto) 0.8, Neut # (Auto) 3.1, Lymph # (Auto) 1.5, [place] # (Auto) 0.6, Eos # (Auto) 0.2, Baso # (Auto) 0.0 10/24/20 09:55: Sodium 143, Potassium 3.9, Chloride 108 H, Carbon Dioxide 27, Anion Gap 11.9, BUN 21 H, Creatinine 1.00, Estimated Creat Clear 75, Estimated GFR 55 L, Est GFR ( Amer) 66, Glucose 106 H, Calcium 9.0, Total Bilirubin 0.5, AST 22, ALT 20, Alkaline Phosphatase 105, Troponin I < 0.01, Total Protein 6.6, Albumin 4.1, Globulin 2.5, Albumin/Globulin Ratio 1.6 10/24/20 09:55: Magnesium 2.1, TSH 1.87 10/24/20 09:55: Free T4 1.40 10/24/20 11:25: Urine Color Yellow, Urine Appearance Clear, Urine pH 5.5, Ur Specific [place] >= 1.030, Urine Protein Negative, Urine Glucose (UA) Negative, Urine Ketones Negative, Urine Blood Negative, Urine Nitrate Negative, Urine Bilirubin Negative, Urine Urobilinogen 0.2, Ur Leukocyte Esterase Negative, Urine RBC None, Urine WBC 3-5, Ur Squamous Epith Cells 3-5, Urine Bacteria None Result diagrams: 10/24/20 09:55 10/24/20 09:55 Orders (Tests/Meds): ORDERS Category Date Time Status Troponin I Q3H Lab 10/24/20 13:00 Ordered Troponin I Q3H Lab 10/24/20 16:00 Ordered EKG Request [ECG Request by /Janna] Stat Y 10/24/20 09:55 Ordered - Radiology Data #1 Image(s): Chest Image Reviewed: Yes I reviewed the patient's radiology results, Yes I reviewed the patient's radiology image, Yes I have reviewed radiologist's interpretation Preliminary Findings: Normal/NAD Mild hypoaeration - ECG Data Tracing #1 I reviewed this ECG and interpreted as documented below: Atrial fibrillation appropriately rate controlled. No evidence of ischemia Arrhythmias present: afib Medical Decision Narrativ
--- NOTE | 2020-10-24 09:55 | XR_ITS ---
PROCEDURE: XR CHEST PORTABLE CLINICAL HISTORY: palpitations COMPARISON: CR CXR CHEST(2 VIEWS-NOT PORTABLE) from 09/09/2016 CR CXR2V XR chest 2V from 10/27/[address] ANGIO CHEST from 06/08/2019 CR XR CHEST 2V from 12/14/2019 FINDINGS: This is a somewhat poor inspiratory effort resulting in some crowding of vascular markings at the lung bases. There is minimal scarring or atelectasis at the left costophrenic angle. There is no definite pneumonic infiltrate seen. Cardiac size is normal and there is no vascular congestion. There multilevel degenerate changes of the thoracic spine. There is degenerate spurring of the AC joints of both shoulders. No acute bony abnormalities. IMPRESSION: Poor inspiration, minimal left basilar atelectasis, doubt acute pneumonic infiltrate Dictated by: Dr. Pierre Valencia MD 10/24/2020 12:03 Dr. Pirere Valencia MD in [place] 10/24/2020 12:03
[2020-10-24 10:00] VITALS: BP 108/59; PULSE 88; RESP 16; O2SAT 96
[2020-10-24 10:20] LABS: Basophils % 0.8 % (0.1-2.0); Eosinophils # 0.2 K/mm3 (0.0-0.4); Eosinophils % 3.3 % (0.1-12.0); Hematocrit 42.9 % (37.0-47.0); Hemoglobin 14.3 g/dL (12.2-16.2); Lymphocytes # 1.5 K/mm3 (0.7-4.5); Lymphocytes % 27.7 % (10-50); Mean Corpuscular HGB Conc 33.3 g/dL (31.8-35.4); Mean Corpuscular Hemoglobin 30.5 pg (27.0-31.2); Mean Corpuscular Volume 91.7 fl (81-99); Mean Platelet Volume 7.4 fl (7.4-10.4); Monocytes # 0.6 K/mm3 (0.1-1.0); Monocytes % 11.2 % (1.7-9.3); Neutrophils # 3.1 K/mm3 (1.8-7.8); Platelet Count 208 K/mm3 (142-424); Red Blood Count 4.68 M/mm3 (4.20-5.40); Red Cell Distribution Width 13.8 % (11.5-17.5); White Blood Count 5.5 K/mm3 (4.8-10.8)
[2020-10-24 10:28] LABS: Chloride 108 mmol/L (98-107)
[2020-10-24 10:29] LABS: Potassium 3.9 mmoL/L (3.5-5.1); Sodium 143 mmol/L (136-145)
[2020-10-24 10:30] VITALS: BP 118/64; RESP 20; O2SAT 96
[2020-10-24 10:31] LABS: Alanine Aminotransferase 20 U/L (12-78); Alkaline Phosphatase 105 U/L (38-126); Aspartate Amino Transferase 22 U/L (14-36); Bilirubin,Total 0.5 mg/dl (0.2-1.3); Blood Urea Nitrogen 21 mg/dl (7-17); Creatinine Clearance Estimated 75 mL/min (50-200); Estimated Glomerular Filt Rate 55 ml/min (>60); GFR (African American) 66 ML/MIN (>60)
[2020-10-24 10:32] LABS: Albumin Level 4.1 g/dl (3.5-5.0); Albumin/Globulin Ratio 1.6 (1.1-1.8); Anion Gap 11.9 mEq/L (5-15); Carbon Dioxide 27 mmol/L (22.0-30.0); Globulin 2.5 g/dL (1.3-3.2); Glucose 106 mg/dl (74-100); Magnesium 2.1 mg/dl (1.6-2.3); Total Protein,Serum 6.6 g/dl (6.3-8.2)
[2020-10-24 10:45] LABS: Troponin I < 0.01 ng/ml (0.00-0.034)
[2020-10-24 11:00] VITALS: BP 113/65; RESP 16
[2020-10-24 11:04] LABS: Thyroid Stimulating Hormone 1.87 uIU/mL (0.465-4.68)
[2020-10-24 11:32] LABS: Microscopic, Urine URINE MICROSCOPIC (MICROSCOPIC)
[2020-10-24 11:38] LABS: Appearance,Urine CLEAR (Clear); Bilirubin,Urine Negative (Negative); Blood, Urine Negative (Negative); Color,Urine YELLOW (Yellow); Glucose,Urine (UA) Negative (Negative); Ketones,Urine Negative (Negative); Leukocyte Esterase,Urine Negative (Negative); Nitrate,Urine Negative (Negative); PH,Urine 5.5 (5.0-8.5); Protein,Urine Negative (Negative); Specific Gravity, Urine >= 1.030 (1.005-1.030); Urobilinogen,Urine 0.2 EU/dl (0.2)
[2020-10-24 12:33] VITALS: BP 102/72; PULSE 78; RESP 16; TEMP 36.6; O2SAT 98
== END 2020-10-24 12:35 | disposition home or self-care (01) ==
PROVIDERS: Emergency Provider Student in an Organized Health Care Education/Training Program; PCP Emergency Medicine
DX: R07.89 Other chest pain (principal); R00.2 Palpitations; I48.11 Longstanding persistent atrial fibrillation; H66.92 Otitis media, unspecified, left ear; F41.8 Other specified anxiety disorders; K21.9 Gastro-esophageal reflux disease without esophagitis; E03.9 Hypothyroidism, unspecified; E78.5 Hyperlipidemia, unspecified; I10 Essential (primary) hypertension; G45.8 Other transient cerebral ischemic attacks and related syndromes; M79.7 Fibromyalgia; Z86.711 Personal history of pulmonary embolism; Z79.01 Long term (current) use of anticoagulants; Z79.899 Other long term (current) drug therapy
CPT/HCPCS: 71045; 80053; 81001; 83735; 84439; 84443; 84484; 85025; 93005; 99283

== ENCOUNTER → 2020-10-28 11:30 | Outpatient (CLI) | payer MEDICARE, MEDICAID, SELFPAY | PROVIDERS: PCP Emergency Medicine; Visit Provider Urology | DX: I48.11 Longstanding persistent atrial fibrillation (principal) | CPT/HCPCS: 93270 ==

== ENCOUNTER → 2020-11-20 09:14 | Outpatient (POV) | payer MEDICARE, MEDICAID, SELFPAY ==
[2020-11-20 09:31] VITALS: BP 140/65; PULSE 66; RESP 18; O2SAT 98; BMI 31.9
--- NOTE | 2020-11-20 10:06 | HMH.PAINSOAP ---
[facility] Pain Management SOAP Note Subjective:: Patient is a pleasant 70-year-old white female who we are treating for low back pain with lumbar radiculopathy symptoms. Patient is following up after epidural steroid injection. She got no relief from this. Patient and I discussed intrathecal pain pump trial. Patient was given information by Dr. Kim at her last visit. She is currently wearing a Holter monitor due to recent A. fib issues. She rates her pain a 6 out of 10 mostly in her low back. ROS General: no recent weight change, no fever, no sleep disturbances Respiratory: no cough, no shortness of air, no recurring pulmonary infections Cardiovascular/Peripheral Vascular: No chest pain, No palpitations, no edema, no shortness of breath. Gastrointestinal: no new onset incontinence, normal bowel movements reported Genitourinary: no new onset incontinence Musculoskeletal: Back pain, leg jozef Psychiatric: normal mood/ affect Neurological: [denies new onset weakness in extremities], [denies new onset balance issues] Objective:: Physical Exam General: Alert and oriented x3, no acute distress, pleasant and cooperative, [on room air] Lungs: Resps E/U, Symmetrical chest expansion, Eyes: PERRL Musculoskeletal: Flexion and extension of lumbar spine somewhat guarded secondary to pain, deep tendon reflexes normal, strength in upper and lower extremities [5/5], [abnormal gait noted] Neurological: speech clear, 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 I discussed with her that we will wait until her cardiological work-up is completed prior to making any decisions towards the trial. She is agreeable Dr. Dominguez has reviewed this note and agrees with this plan of care. This note was dictated using voice recognition software and may contain errors or omissions [facility] History I have reviewed the patient's past medical history: Yes Medical History: Reports:: Anxiety, Depression, Gastroesophageal Reflux Disease(GERD), Hyperlipidemia, Hypertension, Pulmonary Embolism, Transient Ischemic Attacks (TIA) Denies:: Cancer, Diabetes Mellitus Type 1, Diabetes Mellitus Type 2, Internal Pacemaker, MRSA, Seizures *Have you ever received a pneumonia vaccine?: Yes *Have you received a flu vaccine this season?: Yes Other Medical History: Reports: Arthritis, Fibromyalgia, Hypothyroidism, Thyroid Disease. Denies: Blood Transfusion Reaction Laterality Cases: Bilateral: Tonsillectomy Other Surgeries: Yes: Cancer Surgery, Colonoscopy, Tubal Ligation, Other (lumbar decompression). No: Pacemaker Amputation: No Fractures: Yes (LEFT WRIST,BACK SURGERY) - *Social History Smoking Status: Never smoker Tobacco Type: cigarettes # Packs/Day (cigarettes): 1 #Yrs smoked (if former smoker): 3 Alcohol Intake: never Substance Use Type: denies use *Occupational Status:: other Housing: house Household Members: other *Travel in the last 8 weeks: None - Psychiatric History Pschychiatric History:: Reports:: Anxiety, Depression Family Hx:: Cancer
== END ==
PROVIDERS: PCP Emergency Medicine; Visit Provider Clinical Nurse Specialist Family Health
DX: M51.16 Intervertebral disc disorders with radiculopathy, lumbar region (principal); M96.1 Postlaminectomy syndrome, not elsewhere classified
CPT/HCPCS: 99212; G0463

== ENCOUNTER 2020-12-09 03:04 | Emergency (ER) | payer MEDICARE, MEDICAID, SELFPAY ==
[2020-12-09 03:16] VITALS: BP 141/94; PULSE 60; RESP 17; TEMP 36.6; O2SAT 98; BMI 31.6
--- NOTE | 2020-12-09 03:25 | CT_ITS ---
PROCEDURE INFORMATION: Exam: CT Abdomen And Pelvis With Contrast Exam date and time: 12/09/2020 3:25 AM Age: 70 years old Clinical indication: Abdominal pain; Right; Prior surgery; Surgery date: 6+ months; Surgery type: Tubal and low back surgery lumbar; Patient HX: Low back and RT flank pain; Additional info: Flank pain, right side and low back pain TECHNIQUE: Imaging protocol: Computed tomography of the abdomen and pelvis with contrast. Radiation optimization: All CT scans at this facility use at least one of these dose optimization techniques: automated exposure control; mA and/or kV adjustment per patient size (includes targeted exams where dose is matched to clinical indication); or iterative reconstruction. Contrast material: ISOVUE; Contrast volume: 75 ml; Contrast route: IV; COMPARISON: CR XR HIP RT 2-3V W/PELVIS 04/03/2020 9:13 AM FINDINGS: Liver: Normal. No mass. Gallbladder and bile ducts: The gallbladder is contracted. Pancreas: Normal. No ductal dilation. Spleen: Multiple benign splenic granulomas are noted. Adrenal glands: Normal. No mass. Kidneys and ureters: No evidence of nephrolithiasis or urolithiasis is noted. Stomach and bowel: Unremarkable. No obstruction. No mucosal thickening. Appendix: No evidence of appendicitis. Intraperitoneal space: Unremarkable. No free air. No significant fluid collection. Vasculature: Unremarkable. No abdominal aortic aneurysm. Lymph nodes: Unremarkable. No enlarged lymph nodes. Urinary bladder: Unremarkable as visualized. Reproductive: Unremarkable as visualized. Bones/joints: Unremarkable. No acute fracture. Soft tissues: Unremarkable. IMPRESSION: No acute process or mass to explain the patient's abdominal pain.
[2020-12-09 03:34] LABS: Microscopic, Urine URINE MICROSCOPIC (MICROSCOPIC)
[2020-12-09 03:42] LABS: Chloride 104 mmol/L (98-107); Sodium 140 mmol/L (136-145)
[2020-12-09 03:43] LABS: Basophils # 0.1 K/mm3 (0-0.2); Basophils % 1.3 % (0.1-2.0); Eosinophils # 0.3 K/mm3 (0.0-0.4); Eosinophils % 5.9 % (0.1-12.0); Hematocrit 41.1 % (37.0-47.0); Hemoglobin 13.8 g/dL (12.2-16.2); Lymphocytes # 1.6 K/mm3 (0.7-4.5); Lymphocytes % 34.4 % (10-50); Mean Corpuscular HGB Conc 33.5 g/dL (31.8-35.4); Mean Corpuscular Hemoglobin 30.7 pg (27.0-31.2); Mean Corpuscular Volume 91.6 fl (81-99); Mean Platelet Volume 7.8 fl (7.4-10.4); Monocytes # 0.4 K/mm3 (0.1-1.0); Monocytes % 7.6 % (1.7-9.3); Neutrophils # 2.4 K/mm3 (1.8-7.8); Neutrophils % 50.9 % (37.0-80.0); Platelet Count 192 K/mm3 (142-424); Red Blood Count 4.48 M/mm3 (4.20-5.40); Red Cell Distribution Width 14.2 % (11.5-17.5); White Blood Count 4.6 K/mm3 (4.8-10.8)
[2020-12-09 03:43] LABS: Appearance,Urine CLEAR (Clear); Bilirubin,Urine Negative (Negative); Blood, Urine Negative (Negative); Color,Urine YELLOW (Yellow); Glucose,Urine (UA) Negative (Negative); Ketones,Urine Negative (Negative); Leukocyte Esterase,Urine Negative (Negative); Nitrate,Urine Negative (Negative); PH,Urine 5.5 (5.0-8.5); Protein,Urine Negative (Negative); Specific Gravity, Urine <= 1.005 (1.005-1.030); Urobilinogen,Urine 0.2 EU/dl (0.2)
[2020-12-09 03:45] LABS: Alanine Aminotransferase 24 U/L (12-78); Alkaline Phosphatase 103 U/L (38-126); Amylase 46 U/L (30-110); Aspartate Amino Transferase 27 U/L (14-36); Bilirubin,Total 0.4 mg/dl (0.2-1.3); Blood Urea Nitrogen 16 mg/dl (7-17); Carbon Dioxide 28 mmol/L (22.0-30.0); Creatinine Clearance Estimated 65 mL/min (50-200); Estimated Glomerular Filt Rate 49 ml/min (>60); GFR (African American) 59 ML/MIN (>60); Lipase 82 U/L (23-300)
[2020-12-09 03:46] LABS: Albumin Level 4.5 g/dl (3.5-5.0); Albumin/Globulin Ratio 1.7 (1.1-1.8); Calcium 9.5 mg/dl (8.4-10.2); Globulin 2.6 g/dL (1.3-3.2); Glucose 123 mg/dl (74-100); Total Protein,Serum 7.1 g/dl (6.3-8.2)
[2020-12-09 03:51] LABS: C-Reactive Protein 3.1 mg/L (0-4)
[2020-12-09 04:03] LABS: Procalcitonin 0.049 ng/mL (0.0-2.0)
[2020-12-09 04:05] LABS: Bacteria,Urine Trace /lpf
[2020-12-09 04:16] LABS: Erythrocyte Sedimentation Rate 15 mm/hr (0-30)
[2020-12-09 04:30] VITALS: BP 134/71; PULSE 60; RESP 16; O2SAT 97
[2020-12-09 05:00] VITALS: BP 159/67; PULSE 59; O2SAT 97
[2020-12-09 05:41] VITALS: BP 159/74; PULSE 59; O2SAT 97
--- NOTE | 2020-12-09 06:18 | HMH.EDNVD ---
ED Disposition Clinical Impression: Lumbar radiculopathy Disposition: Home, Self-Care Condition on Discharge: Good Instructions: DI for Back Pain With Sciatica Additional Instructions: call pcp this am Referrals: Jorge He MD [Primary Care Provider] - - Critical Care Critical Care Time: No Attestation: On 12/09/20, the high probability of a clinically significant, sudden or life threatening deterioration of the following system(s) required my full and direct attention, intervention and personal management. The time I documented below is in addition to time spent performing reported procedures but includes the following listed in this critical care notation. Medical Decision Making - Medical Records Medical records reviewed: Yes: I reviewed the patient's medical records. - Jose Inquiry Pt receiving controlled substance: No Vital Signs: 12/09/20 03:16 12/09/20 04:30 12/09/20 05:00 Temperature 97.8 F Temperature Source Oral Pulse Rate 60 59 L Pulse Rate [Right Brachial] 60 Respiratory Rate 17 16 Blood Pressure 134/71 159/67 H Blood Pressure [Right Arm] 141/94 H Blood Pressure Mean [Right Arm] 109 Blood Pressure Source [Right Arm] Automatic Cuff Blood Pressure Position [Right Arm] Sitting 02 Sat by Pulse Oximetry 98 97 97 Oxygen Delivery Method Room Air Room Air 12/09/20 05:41 Temperature Temperature Source Pulse Rate 59 L Pulse Rate [Right Brachial] Respiratory Rate Blood Pressure 159/74 H Blood Pressure [Right Arm] Blood Pressure Mean [Right Arm] Blood Pressure Source [Right Arm] Blood Pressure Position [Right Arm] 02 Sat by Pulse Oximetry 97 Oxygen Delivery Method - Lab Data Lab results reviewed: Yes: I reviewed the patient's lab results. Lab Results 12/09/20 03:10: Urine Color Yellow, Urine Appearance Clear, Urine pH 5.5, Ur Specific [place] <= 1.005, Urine Protein Negative, Urine Glucose (UA) Negative, Urine Ketones Negative, Urine Blood Negative, Urine Nitrate Negative, Urine Bilirubin Negative, Urine Urobilinogen 0.2, Ur Leukocyte Esterase Negative, Urine Bacteria Trace 12/09/20 03:30: WBC 4.6 L, RBC 4.48, Hgb 13.8, Hct 41.1, MCV 91.6, MCH 30.7, MCHC 33.5, RDW 14.2, Plt Count 192, MPV 7.8, Neut % (Auto) 50.9, Lymph % (Auto) 34.4, [place] % (Auto) 7.6, Eos % (Auto) 5.9, Baso % (Auto) 1.3, Neut # (Auto) 2.4, Lymph # (Auto) 1.6, [place] # (Auto) 0.4, Eos # (Auto) 0.3, Baso # (Auto) 0.1 12/09/20 03:30: Sodium 140, Potassium 4.0, Chloride 104, Carbon Dioxide 28, Anion Gap 12.0, BUN 16, Creatinine 1.10 H, Estimated Creat Clear 65, Estimated GFR 49 L, Est GFR ( Amer) 59, Glucose 123 H, Calcium 9.5, Total Bilirubin 0.4, AST 27, ALT 24, Alkaline Phosphatase 103, C-Reactive Protein 3.1, Total Protein 7.1, Albumin 4.5, Globulin 2.6, Albumin/Globulin Ratio 1.7, Amylase 46, Lipase 82 12/09/20 03:30: ESR 15 12/09/20 03:30: Procalcitonin 0.049 Result diagrams: 12/09/20 03:30 12/09/20 03:30 Orders (Tests/Meds): ED MEDICATIONS Discontinued Medications Generic Name Dose Route Start Last Admin Trade Name Freq PRN Reason Stop Dose Admin Iopamidol 75 ml 12/09/20 04:11 12/09/20 04:13 Iopamidol-370 (76%);100ml Bottle IV 12/09/20 04:12 75 ml ONCE ONE Administration Ketorolac Tromethamine 30 mg 12/09/20 05:25 12/09/20 05:26 Ketorolac 30mg/Ml Vial IV 12/09/20 05:26 30 mg ONCE ONE Administration Sodium Chloride 10 ml 12/09/20 04:11 12/09/20 04:13 Sodium Chloride 0.9% 10ml Syr (Rad Only) IV 12/09/20 04:12 10 ml ONCE ONE Administration - CT Data CT Scan: Abdomen, Pelvis Time Received: 06:[address] Reviewed: Yes: I have viewed the radiologist's interpretation Preliminary Findings: Normal/NAD Medical Decision Narrative: has ongoing back pain followed by dr connolly but has a fib - will need to call pcp this am Nausea/Vomiting/Diarrhea HPI - General Chief complaint: Back Pain/Injury Stated complaint: back pain Time Seen
[2020-12-09 07:03] VITALS: BP 152/69; PULSE 78; RESP 18; TEMP 36.8; O2SAT 98
== END 2020-12-09 07:29 | disposition home or self-care (01) ==
PROVIDERS: Emergency Provider Emergency Medicine; PCP Emergency Medicine
DX: M54.16 Radiculopathy, lumbar region (principal); N18.9 Chronic kidney disease, unspecified; M79.7 Fibromyalgia; F41.8 Other specified anxiety disorders; I10 Essential (primary) hypertension; E03.9 Hypothyroidism, unspecified; K21.9 Gastro-esophageal reflux disease without esophagitis; E78.5 Hyperlipidemia, unspecified; Z79.899 Other long term (current) drug therapy
CPT/HCPCS: 74177; 80053; 81001; 82150; 83690; 84145; 85025; 85651; 86140; 96365; 99283; Q9967

== ENCOUNTER → 2020-12-11 14:16 | Outpatient (CLI) | payer MEDICARE, MEDICAID, SELFPAY ==
--- NOTE | 2020-12-11 14:16 | CT_ITS ---
PROCEDURE: CT HEAD/BRAIN WO CON CLINICAL INDICATION: headache, hx of TIA COMPARISON: CT HDWO CT HEAD W/O CONTRAST from 11/28/2016 TECHNIQUE: Axial images obtained. All CT scans at the facility use one or more dose reduction, viz: automated exposure control, ma/kV adjustment per patient size (including targeted exams where dose is matched to indication, i.e. head), or iterative reconstruction technique. FINDINGS: No midline shift, mass effect, intracranial hemorrhage, hydrocephalus, or extra-axial fluid collection is evident. There is mild generalized atrophy with hypoattenuation of the periventricular white matter consistent with microangiopathic changes. The calvarium has an unremarkable appearance. Prior left mastoidectomy. No sinus air-fluid level. IMPRESSION: No acute intracranial finding Dictated by: Dashawn Hart MD 12/11/2020 18:39 Dashawn Hart MD in [place] 12/11/2020 18:39
== END ==
PROVIDERS: PCP Emergency Medicine; Visit Provider Nurse Practitioner Family
DX: E78.5 Hyperlipidemia, unspecified (principal); I10 Essential (primary) hypertension; K21.9 Gastro-esophageal reflux disease without esophagitis; R06.02 Shortness of breath; R94.31 Abnormal electrocardiogram [ECG] [EKG]; Z86.73 Personal history of transient ischemic attack (TIA), and cerebral infarction without residual deficits; R51.9 Headache, unspecified
CPT/HCPCS: 70450

== ENCOUNTER → 2020-12-12 17:26 | Outpatient (CLI) | payer MEDICARE, MEDICAID, SELFPAY ==
[2020-12-12 17:37] LABS: Microscopic, Urine URINE MICROSCOPIC (MICROSCOPIC)
[2020-12-12 18:01] LABS: Basophils # 0.1 K/mm3 (0-0.2); Basophils % 1.2 % (0.1-2.0); Eosinophils # 0.3 K/mm3 (0.0-0.4); Eosinophils % 5.5 % (0.1-12.0); Hematocrit 40.3 % (37.0-47.0); Hemoglobin 13.4 g/dL (12.2-16.2); Lymphocytes # 1.8 K/mm3 (0.7-4.5); Lymphocytes % 34.8 % (10-50); Mean Corpuscular HGB Conc 33.2 g/dL (31.8-35.4); Mean Corpuscular Hemoglobin 30.9 pg (27.0-31.2); Mean Corpuscular Volume 93.1 fl (81-99); Mean Platelet Volume 8.4 fl (7.4-10.4); Monocytes # 0.4 K/mm3 (0.1-1.0); Neutrophils # 2.6 K/mm3 (1.8-7.8); Neutrophils % 50.5 % (37.0-80.0); Platelet Count 207 K/mm3 (142-424); Red Blood Count 4.33 M/mm3 (4.20-5.40); Red Cell Distribution Width 13.8 % (11.5-17.5); White Blood Count 5.1 K/mm3 (4.8-10.8)
[2020-12-12 18:02] LABS: Basophils # 0.1 K/mm3 (0-0.2); Basophils % 1.1 % (0.1-2.0); Eosinophils # 0.3 K/mm3 (0.0-0.4); Eosinophils % 5.7 % (0.1-12.0); Hematocrit 40.4 % (37.0-47.0); Hemoglobin 13.5 g/dL (12.2-16.2); Lymphocytes # 1.7 K/mm3 (0.7-4.5); Lymphocytes % 34.5 % (10-50); Mean Corpuscular HGB Conc 33.4 g/dL (31.8-35.4); Mean Platelet Volume 8.1 fl (7.4-10.4); Monocytes # 0.4 K/mm3 (0.1-1.0); Monocytes % 7.4 % (1.7-9.3); Neutrophils # 2.6 K/mm3 (1.8-7.8); Neutrophils % 51.3 % (37.0-80.0); Platelet Count 188 K/mm3 (142-424); Red Blood Count 4.34 M/mm3 (4.20-5.40); Red Cell Distribution Width 13.8 % (11.5-17.5); White Blood Count 5.1 K/mm3 (4.8-10.8)
[2020-12-12 18:06] LABS: Appearance,Urine CLEAR (Clear); Bilirubin,Urine Negative (Negative); Blood, Urine Negative (Negative); Color,Urine YELLOW (Yellow); Glucose,Urine (UA) Negative (Negative); Ketones,Urine Negative (Negative); Leukocyte Esterase,Urine Negative (Negative); Nitrate,Urine Negative (Negative); PH,Urine 5.5 (5.0-8.5); Protein,Urine Negative (Negative); Specific Gravity, Urine 1.025 (1.005-1.030); Urobilinogen,Urine 0.2 EU/dl (0.2)
[2020-12-12 18:18] LABS: Creatinine,Urine Random 121 mg/dL (Not Estab.)
[2020-12-12 18:26] LABS: Bacteria,Urine Trace /lpf; Squamous Epithelial Cell,Urine Occasional #/hpf (0-5); WBC,Urine Occasional #/hpf (0-3)
[2020-12-12 18:35] LABS: Albumin Level 4.2 g/dl (3.5-5.0); Anion Gap 8.4 mEq/L (5-15); Blood Urea Nitrogen 11 mg/dl (7-17); Calcium 9.1 mg/dl (8.4-10.2); Carbon Dioxide 30 mmol/L (22.0-30.0); Chloride 106 mmol/L (98-107); Estimated Glomerular Filt Rate 49 ml/min (>60); GFR (African American) 59 ML/MIN (>60); Glucose 86 mg/dl (74-100); Phosphorous 4.1 mg/dl (2.5-4.5); Potassium 4.4 mmoL/L (3.5-5.1); Sodium 140 mmol/L (136-145)
== END ==
PROVIDERS: Nurse Practitioner Family; Visit Provider Internal Medicine Nephrology
DX: N18.30 Chronic kidney disease, stage 3 unspecified (principal)
CPT/HCPCS: 36415; 80069; 81001; 82570; 84155; 85025

== ENCOUNTER 2020-12-17 20:55 | Emergency (ER) | payer MEDICARE, MEDICAID, SELFPAY ==
[2020-12-17 20:57] VITALS: BP 125/76; PULSE 64; RESP 16; TEMP 36.8; O2SAT 98; BMI 31.6
--- NOTE | 2020-12-17 21:22 | HMH.EDUTC ---
[facility] Disposition Clinical Impression: Nausea & vomiting Qualifiers: Vomiting type: unspecified Vomiting Intractability: unspecified Qualified Code(s): R11.2 - Nausea with vomiting, unspecified Disposition: Home, Self-Care Condition on Discharge: Good Instructions: Nausea and Vomiting-Adult, Ondansetron Additional Instructions: Drink extra fluids with and between meals. If you have difficulty drinking, try very small amounts of water or suck on ice chips. ? Avoid fruit juices, as these do not replace minerals and can actually increase diarrhea. ? Children and adults can use sports drinks to replenish electrolytes. Younger children and infants should use products formulated for children, like oral rehydration solutions. ? Eat food in small amounts and let your stomach recover. ? Get lots of rest. You may feel tired or weak. ? No greasy or fried foods for the next 24-48 hours BRAT diet Bananas Rice Apples and [place] ? Make sure to drink plenty of liquids ? Return if needed ? Straight to ER if any life threatening symptoms ? Zofran as prescribed ? Follow up with family doctor in the next 48-72 hours if no improvement or any worsening of symptoms Prescriptions: Ondansetron [Zofran 4mg ODT] 4 mg PO TIDP PRN #6 tab PRN Reason: Vomiting Transmission Status: Pending to [facility] Referrals: Jorge He MD [Primary Care Provider] - As needed Time of Disposition: 21:59 Medical Decision Making - Jose Inquiry Pt receiving controlled substance: No Jose was queried for this patient: No Vital Signs: 12/17/20 20:57 12/17/20 21:42 Temperature 98.2 F 98 F Temperature Source Oral Pulse Rate 68 Pulse Rate [Right] 64 Respiratory Rate 16 14 Blood Pressure 122/79 Blood Pressure [Right Arm] 125/76 Blood Pressure Mean [Right Arm] 92 02 Sat by Pulse Oximetry 98 Orders (Tests/Meds): ED MEDICATIONS Discontinued Medications Generic Name Dose Route Start Last Admin Trade Name Freq PRN Reason Stop Dose Admin Ondansetron HCl 4 mg 12/17/20 21:29 12/17/20 21:30 Ondansetron 4mg Odt SL 12/17/20 21:30 4 mg ONCE ONE Administration Medical Decision Narrative: Patient states that she has taken zofran in the past without complications or reactions [facility] HPI - General Stated complaint: SICK AT STOMACH Time Seen by Provider: 12/17/20 21:22 Mode of Arrival: Ambulatory Source of Information: Patient Limitations: No Limitations Description of Symptoms (Recalled from Triage Doc. by RN): pt states shes had n/v today. she also had diarhea a few days ago. pt c/o chilling. HEENT Symptoms (Recalled from RN notes): No Resp Symptoms (Recalled from RN notes): No Skin Symptoms (Recalled from RN notes): No MS Symptoms (Recalled from RN notes): No Functional Status (Recalled from RN notes): na - History of Present Illness Provider Complaint: Patient states that she thinks she may have a stomach bug State that she had diarrhea a couple days ago and today she has been having nausea and vomiting State that she has been drinking fluids but not kept down any food so she came in to see if she could get something to help with the vomiting - Related Data Home Medications Medication Instructions Recorded Confirmed aspirin 325 mg tablet 325 mg PO DAILY 04/27/19 12/10/20 cetirizine 10 mg tablet 10 mg PO DAILY tab 04/10/20 12/10/20 cholecalciferol (vitamin D3) 1,250 50,000 unit PO WEEKLY cap 08/05/20 12/10/20 mcg (50,000 unit) capsule levothyroxine 75 mcg tablet 75 mcg PO DAILY tab 10/28/20 12/10/20 meclizine 25 mg chewable tablet 25 mg PO TID PRN tab 10/28/20 12/10/20 Ropinirole HCl 1 mg PO BID 12/09/20 12/10/20 bisoproloL fumarate [Bisoprolol See Rx Instructions .ROUTE .COMPLEX 12/09/20 12/10/20 Fumarate] Previous Rx's Medication Instructions Recorded fluticasone propionate 50 1 spray INTRANASAL BID PRN #47.4 g 01/05/18 mcg/actuation nasal spray,suspension famotidine 20 mg tablet 20
[2020-12-17 21:42] VITALS: BP 122/79; PULSE 68; RESP 14; TEMP 36.6
== END 2020-12-17 22:01 | disposition home or self-care (01) ==
PROVIDERS: Emergency Provider Nurse Practitioner; PCP Emergency Medicine
DX: R11.2 Nausea with vomiting, unspecified (principal); R19.7 Diarrhea, unspecified; F41.8 Other specified anxiety disorders; K21.9 Gastro-esophageal reflux disease without esophagitis; E78.5 Hyperlipidemia, unspecified; I10 Essential (primary) hypertension; E03.9 Hypothyroidism, unspecified; M79.7 Fibromyalgia; Z79.899 Other long term (current) drug therapy
CPT/HCPCS: G0463; 99202

== ENCOUNTER → 2021-01-06 10:26 | Outpatient (CLI) | payer MEDICARE, MEDICAID, SELFPAY ==
--- NOTE | 2021-01-06 10:28 | XR_ITS ---
PROCEDURE: XR DEXA AXIAL SKELETON CLINICAL HISTORY: ASYMPTOMATIC MENOPAUSAL STATE COMPARISON: No exams were available for comparison FINDINGS: The right hip BMD is 0.627 with a T-score of -2.0. The left hip BMD is 0.604 with a T-score of -2.2. The lumbar spine BMD is 1.068 with a T-score of 0.2. IMPRESSION: This patient is considered osteopenic according to the World Health Organization criteria. Bone density is between 10 and 25 percent below young normal. Fracture risk is moderate. Treatment is advised. Based on these results a follow-up exam is recommended in 2 year. Dictated by: Dashawn Hart MD 01/08/2021 09:20 Dashawn Hart MD in [place] 01/08/2021 09:20
== END ==
PROVIDERS: PCP Nurse Practitioner Family; Visit Provider Nurse Practitioner Family
DX: Z78.0 Asymptomatic menopausal state (principal)
CPT/HCPCS: 77080

== ENCOUNTER 2021-01-20 09:30 | Emergency (ER) | payer MEDICARE, MEDICAID, SELFPAY ==
[2021-01-20 09:30] VITALS: BP 120/50; PULSE 73; RESP 18; TEMP 36.7; O2SAT 95; BMI 29.9
--- NOTE | 2021-01-20 09:39 | XR_ITS ---
PROCEDURE: XR FOOT LT MIN 3V CLINICAL INDICATION: FALL COMPARISON: No exams were available for comparison FINDINGS: Pain moderate hallux valgus with osteoarthritis at the 1st MTP joint and bunion formation at the distal aspect of the 1st metatarsal. There are osteoarthritic changes at the tarsal metatarsal junction. No fracture or dislocation. Other findings:None. IMPRESSION: Hallux valgus with osteoarthritis and bunion formation at the 1st MTP joint Dictated by: Dashawn Hart MD 01/20/2021 10:58 Dashawn Hart MD in [place] 01/20/2021 10:58
--- NOTE | 2021-01-20 09:39 | XR_ITS ---
PROCEDURE: XR ANKLE LT MIN 3V CLINICAL INDICATION: FALL Posttraumatic pain COMPARISON: No exams were available for comparison FINDINGS: There is a faint 3 mm calcific density at the tip of the lateral malleolus which could be due to small avulsion injury. Soft tissue swelling is present laterally. The joint spaces are well-preserved. No significant degenerative/arthritic changes. No erosive changes evident. Other findings:None. IMPRESSION: Possible small nondisplaced avulsion injury at the tip of the lateral malleolus Dictated by: Dashawn Hart MD 01/20/2021 10:18 Dashawn Hart MD in [place] 01/20/2021 10:18
--- NOTE | 2021-01-20 09:53 | HMH.EDUTC ---
[facility] Disposition Clinical Impression: Avulsion fracture of ankle Qualifiers: Encounter type: initial encounter Fracture type: closed Laterality: left Qualified Code(s): S82.892A - Other fracture of left lower leg, initial encounter for closed fracture Disposition: Home, Self-Care Condition on Discharge: Good Instructions: DI for Avulsion Fracture, How To Perform RICE (Rest, Ice, Compress, Elevate) Additional Instructions: *weight bearing as tolerated with Walking boot *RICE, Rest the extremity, Ice 15-20 minutes 3-4 times daily, Compress- wear the abraham wrap as discussed as much as possible to help reduce swelling and pain, Elevate the extremity when at rest *Walking boot is for support and help control swelling, use it except in the shower. Be sure that is not to tight but not to loose either *Elevate when resting *Ibuprofen every 6-8 hours as needed for pain an inflammation. If need something more can take Tylenol in between doses of Ibuprofen to help Immediately follow up with your family doctor for new or worsening of symptoms, or no noticeable improvement over the next 3-5 days Follow up with Dr Nicole on Tuesday as scheduled at 1245 Follow up with Family Doctor if needed Return if needed Referrals: Irasema England APRN [Primary Care Provider] - As needed Familia Nicole MD [Staff Physician] - 01/23/21 12:45 pm Time of Disposition: 11:38 Medical Decision Making - Jose Inquiry Pt receiving controlled substance: No Jose was queried for this patient: No Vital Signs: 01/20/21 09:30 01/20/21 11:50 Temperature 98.0 F 98.0 F Temperature Source Oral Pulse Rate 73 Pulse Rate [Left Brachial] 73 Respiratory Rate 18 18 Blood Pressure 120/50 L Blood Pressure [Left Arm] 120/50 L Blood Pressure Mean [Left Arm] 73 Blood Pressure Source [Left Arm] Automatic Cuff Blood Pressure Position [Left Arm] Sitting 02 Sat by Pulse Oximetry 95 Oxygen Delivery Method Room Air - Radiology Data #1 Image(s): Ankle Image Reviewed: Yes I have reviewed radiologist's interpretation Possible small nondisplaced avulsion injury at the tip of the lateral malleolus #2 Image(s): Foot/Toes Image Reviewed: Yes I have reviewed radiologist's interpretation Hallux valgus with osteoarthritis and bunion formation at the 1st MTP joint - Physician Consults Physician Consulted: Dr Nicole Time: 10:45 Reason -: Orthopedic Eval/Care Comment/Response: Left message with Dr Nicole office awaiting call back Dr Nicole office called back advised to place patient in walking boot and have patient keep appointment on Tuesday as scheduled Medical Decision Narrative: Spoke with Meghann Nicole office and she advised that she would have Dr Nicole view the xray and call back to the [facility] awaiting call back Dr Nicole office called back advised to place patient in cam walker boot and she has appointment already on TuesdayJanuary 23 at 1245 they would see her then [facility] HPI - General Stated complaint: had a fall and soreness Time Seen by Provider: 01/20/21 09:55 Mode of Arrival: Ambulatory Source of Information: Patient Limitations: No Limitations Description of Symptoms (Recalled from Triage Doc. by RN): PATIENT C/O LEFT ANKLE INJURY AND ABRASION TO LEFT ARM AFTER FALLING 2 DAYS AGO. SWELLING AND BRUISING NOTED TO ANKLE AND FOOT. DENIES HITTING HEAD OR LOC HEENT Symptoms (Recalled from RN notes): No Resp Symptoms (Recalled from RN notes): No Skin Symptoms (Recalled from RN notes): No MS Symptoms (Recalled from RN notes): No Functional Status (Recalled from RN notes): WNL - History of Present Illness Provider Complaint: Patient states that she was wearing some slides and the toe of the shoe folded under and she lost her balance and fell States that she twisted her left ankle and having swelling and bruising in left foot/ankle and has some bruising and scratches on her left forearm State that her forearm doesnt hurt but her ankle has been sore and cont
[2021-01-20 11:50] VITALS: BP 120/50; PULSE 73; RESP 18; TEMP 36.7; O2SAT 95
== END 2021-01-20 12:00 | disposition home or self-care (01) ==
PROVIDERS: Emergency Provider Nurse Practitioner; PCP Nurse Practitioner Family
DX: S82.892A Other fracture of left lower leg, initial encounter for closed fracture (principal); W01.0XXA Fall on same level from slipping, tripping and stumbling without subsequent striking against object, initial encounter; Y92.019 Unspecified place in single-family (private) house as the place of occurrence of the external cause; F41.8 Other specified anxiety disorders; E78.5 Hyperlipidemia, unspecified; M79.7 Fibromyalgia; K21.9 Gastro-esophageal reflux disease without esophagitis; I10 Essential (primary) hypertension; E03.9 Hypothyroidism, unspecified
CPT/HCPCS: 29515; G0463; 73610; 73630; 99202

== ENCOUNTER 2021-01-23 13:44 | Outpatient (RCR) | payer MEDICARE, MEDICAID, SELFPAY | END 2021-01-23 14:25 | disposition home or self-care (01) | LOC: PT 13:44 | PROVIDERS: Visit Provider Orthopaedic Surgery | DX: S82.892A Other fracture of left lower leg, initial encounter for closed fracture (principal) | CPT/HCPCS: 97760 ==

== ENCOUNTER → 2021-02-27 14:15 | Outpatient (CLI) | payer MEDICARE, MEDICAID, SELFPAY ==
--- NOTE | 2021-02-27 14:27 | XR_ITS ---
PROCEDURE: XR ANKLE LT MIN 3V CLINICAL INDICATION: LT ankle fx Follow-up fracture COMPARISON: CR XR FOOT LT MIN 3V from 01/20/2021 CR XR ANKLE LT MIN 3V from 01/20/2021 FINDINGS: There is suggestion of a nondisplaced avulsion at the tip of the lateral malleolus. Please correlate with clinical findings. The joint spaces are well-preserved. No significant degenerative/arthritic changes. No erosive changes evident. Other findings:None. IMPRESSION: Possible nondisplaced avulsion fracture tip of lateral malleolus Dictated by: Dashawn Hart MD 02/27/2021 14:39 Dashawn Hart MD in [place] 02/27/2021 14:39
== END ==
PROVIDERS: PCP Nurse Practitioner Family; Visit Provider Orthopaedic Surgery
DX: S82.892A Other fracture of left lower leg, initial encounter for closed fracture (principal)
CPT/HCPCS: 73610

== ENCOUNTER → 2021-05-04 09:31 | Outpatient (CLI) | payer MEDICARE, MEDICAID, SELFPAY ==
[2021-05-04 09:51] LABS: Basophils # 0.1 K/mm3 (0-0.2); Basophils % 1.4 % (0.1-2.0); Eosinophils # 0.2 K/mm3 (0.0-0.4); Eosinophils % 5.9 % (0.1-12.0); Hematocrit 44.8 % (37.0-47.0); Hemoglobin 14.5 g/dL (12.2-16.2); Lymphocytes # 1.3 K/mm3 (0.7-4.5); Lymphocytes % 33.8 % (10-50); Mean Corpuscular HGB Conc 32.4 g/dL (31.8-35.4); Mean Corpuscular Hemoglobin 31.3 pg (27.0-31.2); Mean Corpuscular Volume 96.6 fl (81-99); Mean Platelet Volume 7.5 fl (7.4-10.4); Monocytes # 0.3 K/mm3 (0.1-1.0); Platelet Count 231 K/mm3 (142-424); Red Blood Count 4.63 M/mm3 (4.20-5.40); Red Cell Distribution Width 13.4 % (11.5-17.5); White Blood Count 3.9 K/mm3 (4.8-10.8)
[2021-05-04 10:41] LABS: Chloride 105 mmol/L (98-107); Potassium 4.4 mmoL/L (3.5-5.1); Sodium 142 mmol/L (136-145)
[2021-05-04 10:43] LABS: Blood Urea Nitrogen 15 mg/dl (7-17); Estimated Glomerular Filt Rate 62 ml/min (>60); GFR (African American) 75 ML/MIN (>60)
[2021-05-04 10:44] LABS: Alanine Aminotransferase 16 U/L (12-78); Albumin/Globulin Ratio 1.6 (1.1-1.8); Alkaline Phosphatase 90 U/L (38-126); Anion Gap 10.4 mEq/L (5-15); Aspartate Amino Transferase 24 U/L (14-36); Bilirubin,Total 0.4 mg/dl (0.2-1.3); Calcium 9.3 mg/dl (8.4-10.2); Carbon Dioxide 31 mmol/L (22.0-30.0); Chol/HDL Ratio 4.5 (1-3.5); Cholesterol 195 mg/dl (140-200); Globulin 2.5 g/dL (1.3-3.2); Glucose 121 mg/dl (74-100); HDL Cholesterol 43 mg/dl (40-60); Total Protein,Serum 6.5 g/dl (6.3-8.2); Triglycerides 120 mg/dl (30-150); VLDL Cholesterol 24 mg/dL (0-40)
[2021-05-04 10:55] LABS: Direct LDL Cholesterol 123.97 mg/dL (100-129)
[2021-05-04 11:14] LABS: Thyroid Stimulating Hormone 2.71 uIU/mL (0.465-4.68)
== END ==
PROVIDERS: Visit Provider Nurse Practitioner Family
DX: Z00.00 Encounter for general adult medical examination without abnormal findings (principal); E03.9 Hypothyroidism, unspecified; I48.0 Paroxysmal atrial fibrillation
CPT/HCPCS: 36415; 80053; 80061; 84443; 85025

== ENCOUNTER → 2021-05-11 10:42 | Outpatient (POV) | payer MEDICARE, MEDICAID, SELFPAY ==
[2021-05-11 10:50] VITALS: BP 147/90; PULSE 61; RESP 18; O2SAT 96; BMI 29.9
--- NOTE | 2021-05-11 10:58 | HMH.PAINSOAP ---
[facility] Pain Management SOAP Note Subjective:: Patient is a 71-year-old white female who presents today for follow-up. Patient was last seen in the clinic on 11/20/2020. Patient reports that she had a recent fall. She is having significant pain in her low back and bilateral lower extremities. She has had epidural steroid injections in the past which gave her no relief. The patient did discuss possible intrathecal therapy at her last visit in November, decided not to proceed with a trial. Patient rates her pain a 7 out of 10. She says that she was walking through her yard and was carrying a box. She says that her left leg gave out causing her to fall. She has had a right knee replacement in the past. She has been told that she will likely need to undergo a left knee replacement as well. She is scheduled to see Dr. Nicole in 1 week. She also reports that she fell in January and pulling a ligament in her left ankle and requiring a boot. Patient says the worst pain is in her bilateral lower extremities with pressure on her legs. She did undergo eye surgery for spinal stenosis in 2011 at [facility]. Patient says she has not had any recent imaging. She has tried and failed conservative therapies of physical therapy for more than 6 weeks in the past along with continued home stretching. Injections have not given the patient any relief at this point. Ice and heat therapy have also not been beneficial for the patient. Patient does take Lyrica as well as tramadol prescribed by Dr. He. This is minimal relief for the patient. Review of Systems General: No recent weight changes, no fever, no sleep disturbances Respiratory: No cough, no shortness of air, no recurring pulmonary infections Cardiovascular/peripheral vascular: No chest pain, no palpitations, no edema, no shortness of breath Gastrointestinal: No new onset incontinence, normal bowel movements reported Genitourinary: No new onset incontinence Musculoskeletal: Low back pain with radiation into bilateral legs-?pressure and pain Psychiatric: [Normal mood/affect] Neurological: Weakness in lower extremities with legs giving out, frequent falls last fall?2 days ago Objective:: Physical exam General: Alert and oriented x3, no acute distress, pleasant and cooperative Lungs: Respirations even and unlabored, symmetrical chest expansion Eyes: PERRL Musculoskeletal: Flexion and extension of lumbar [spine] somewhat guarded secondary to pain, [antalgic gait noted] Neurological: Speech clear, no gross sensory deficit Assessment:: Degenerative disc disease lumbar spine with lumbar radiculopathy symptoms Plan:: We will schedule the patient for an MRI of her lumbar spine. She has not had any recent imaging. She is now having frequent falls. She does have a history per patient of spinal stenosis. She is reporting neurogenic claudication type symptoms. The patient does report feel better when leaning forward. She has tried physical therapy for greater than 6 weeks and continues with home stretching. She is also tried ice and heat therapies. We will see her back after her imaging for reevaluation symptoms. Patient has been instructed to contact the clinic with any concerns before the next appointment. Dr. Dominguez has reviewed this note and agrees with this plan of care. This note was dictated using voice recognition software and make contain errors or omissions. [facility] History I have reviewed the patient's past medical history: Yes Medical History: Reports:: Anxiety, Depression, Gastroesophageal Reflux Disease(GERD), Hyperlipidemia, Hypertension, Pulmonary Embolism, Transient Ischemic Attacks (TIA) Denies:: Cancer, Diabetes Mellitus Type 1, Diabetes Mellitus Type 2, Internal Pacemaker, MRSA, Seizures *Have you ever received a pneumonia vaccine?: Yes *Have you received a flu vaccine this season?: No Other Medical History: Reports: Arthritis, Fibromyalgia, Hypothyroidism, Thyroid Disease. Denies: Blood Transfusi
== END ==
PROVIDERS: Visit Provider Clinical Nurse Specialist Family Health
DX: M51.16 Intervertebral disc disorders with radiculopathy, lumbar region (principal)
CPT/HCPCS: 99212; G0463

== ENCOUNTER → 2021-05-14 16:21 | Outpatient (CLI) | payer MEDICARE, MEDICAID, SELFPAY ==
--- NOTE | 2021-05-14 16:26 | XR_ITS ---
PROCEDURE: XR KNEE LT 4V CLINICAL INDICATION: LEFT KNEE PAIN, WEIGHTBEARING COMPARISON: CR XR KNEE LT 4V from 12/07/2019 FINDINGS: There is marked joint space narrowing medially and there is slight lateral displacement of the tibial plateau in relation to the femoral condyles and this is a new finding not having been seen on the previous study. There is prominent spurring of the tibial spines. There is narrowing of the patellofemoral space with spurring of the superior border of the patella. There is mild spurring of the lateral tibial plateau. There is no definite effusion. IMPRESSION: Interval worsening of degenerate changes of the knee when compared to the previous study now with a basically bone on a bone appearance medial joint space Dictated by: Dr. Pierre Valencia MD 05/15/2021 08:33 Dr. Pierre Valencia MD in [place] 05/15/2021 08:33
== END ==
PROVIDERS: PCP Nurse Practitioner Family; Visit Provider Orthopaedic Surgery
DX: M25.562 Pain in left knee (principal)
CPT/HCPCS: 73564

== ENCOUNTER → 2021-05-27 15:19 | Outpatient (CLI) | payer MEDICARE, MEDICAID, SELFPAY ==
--- NOTE | 2021-05-27 15:22 | MM_ITS ---
PROCEDURE INFORMATION: Exam: MG Bilateral Screening 3D Mammography Exam date and time: 05/27/2021 3:22 PM Age: 71 years old Clinical indication: Screening exam; Family history of breast cancer TECHNIQUE: Imaging protocol: Bilateral screening tomosynthesis and 2D mammography including computer-aided detection (CAD) when performed. COMPARISON: 1. MG MM DIG SCREENING MAMM BI W/CAD 06/04/2020 7:57 AM 2. MG DMSB DIG MAMM-SCREEN [place] 06/07/2016 4:38 PM FINDINGS: MAMMOGRAPHY: Breast composition: The breast tissue is heterogeneously dense, which may obscure small masses. Mass: Partially circumscribed 0.7 cm mass in the middle third of the right upper outer quadrant Architectural distortion: None. Calcifications: No suspicious calcifications. Asymmetric density: None. Skin thickening: None. Axillary adenopathy: None. IMPRESSION: Patient to be recalled for spot compression views of the right breast in the CC and MLO projections, a full 90 degree lateral view, and right breast ultrasound for further evaluation of a right breast mass. ASSESSMENT: BI-RADS Category 0: Incomplete- Need Additional Imaging Evaluation and/or Prior Mammograms for Comparison
== END ==
PROVIDERS: PCP Nurse Practitioner Family; Visit Provider Nurse Practitioner Family
DX: Z12.31 Encounter for screening mammogram for malignant neoplasm of breast (principal)
CPT/HCPCS: 77063; 77067

== ENCOUNTER → 2021-07-01 10:22 | Outpatient (CLI) | payer MEDICARE, MEDICAID, SELFPAY ==
--- NOTE | 2021-07-01 10:26 | MR_ITS ---
PROCEDURE: MR LUMBAR SPINE WO CON CLINICAL INDICATION: LBP COMPARISON: MR INCIDENT RESPONSE ANALYST/O MRI-L-SPINE W/O from 01/14/2016 MR MR LUMBAR SPINE WO CON from 11/20/[address] ABDOMEN PELVIS W CON from 12/09/2020 TECHNIQUE: Standard multiplanar multiecho sequences are performed without contrast. 3-D MIP and myelographic images are also rendered and reviewed FINDINGS: There is normal alignment. The spinal cord ends the L2 level. Degenerative disc disease T11-T12 and T12-L1 with minimal bulging disc. Type 1 endplate changes along superior aspect of T12 anteriorly. L1-L2: Anterior osteophytes. L2-L3: 3 mm retrolisthesis of L2 with circumferential bulging disc along with facet and ligamentum hypertrophy with moderate right and moderate to severe left foraminal narrowing along with bilateral lateral recess narrowing. L3-L4: Mild concentric bulging disc with facet and ligamentum hypertrophy with moderate left and moderate to severe right foraminal narrowing. Postsurgical changes with spinous process removal at L3 and L4. L4-5: Mild bulging disc with moderate facet and ligamentum hypertrophic change with severe right and moderate to severe left-sided foraminal narrowing. L5-S1: Severe degenerative disc disease with bulging disc. Small right foraminal disc osteophyte complex with right-sided foraminal narrowing. No extruded herniated disc.. IMPRESSION: Multilevel lumbar spondylosis. Bulging disc, facet ligamentum hypertrophy with lateral recess and foraminal narrowing. Please see above for detailed description at each level. Overall no significant change from 11/20/2019. No extruded herniated disc. Dictated by: Dashawn Hart MD 07/02/2021 09:58 Dashawn Hart MD in [place] 07/02/2021 09:58
== END ==
PROVIDERS: PCP Nurse Practitioner Family; Visit Provider Clinical Nurse Specialist Family Health
DX: M54.50 Low back pain, unspecified (principal)
CPT/HCPCS: 72148; 76376

== ENCOUNTER → 2021-07-02 14:58 | Outpatient (POV) | payer MEDICARE, MEDICAID, SELFPAY ==
[2021-07-02 15:22] VITALS: BP 134/51; PULSE 68; RESP 18; O2SAT 95; BMI 29.9
--- NOTE | 2021-07-05 14:35 | HMH.PAINSOAP ---
[facility] Pain Management SOAP Note Subjective:: Patient is a 71-year-old white female who is following up today after MRI lumbar spine. She is having pain in her low back area with previous reports of frequent falls and bilateral lower extremity heaviness and weakness. Today, she does report that leaning forward as well as extension and turning and twisting at waist make her pain worse. She rates her pain a 6 out of 10 today. The patient says that she has had injective therapy in the past which is giving her minimal relief. She also says that she has been told in the past that she has spinal stenosis. She does report to have gotten treatment for spinal stenosis at [facility] in the past. Patient is on Xarelto which is prescribed by Dr. Owen's office. She is open to injective therapy and is here today to review her MRI. She has tried home stretching in the past and physical therapy for greater than 6 weeks in the past. She is unable to take anti-inflammatories due to anticoagulation therapy use. Review of Systems General: No recent weight changes, no fever, no sleep disturbances Respiratory: No cough, no shortness of air, no recurring pulmonary infections Cardiovascular/peripheral vascular: No chest pain, no palpitations, no edema, no shortness of breath Gastrointestinal: No new onset incontinence, normal bowel movements reported Genitourinary: No new onset incontinence Musculoskeletal: Low back pain made worse with turning, twisting, extension at waist Psychiatric: [Normal mood/affect] Neurological: [Denies weakness in extremities], [denies balance issues] Objective:: Physical exam General: Alert and oriented x3, no acute distress, pleasant and cooperative Lungs: Respirations even and unlabored, symmetrical chest expansion Eyes: PERRL Musculoskeletal: Flexion and extension of lumbar [spine] somewhat guarded secondary to pain, [antalgic gait noted] Neurological: Speech clear, no gross sensory deficit Assessment:: Degenerative disc disease lumbar spine with facet arthropathy Plan:: Patient is here today to follow-up after an MRI. Per the MRI report, patient has Multilevel lumbar spondylosis. Bulging disc, facet ligamentum hypertrophy with lateral recess and foraminal narrowing . She does have a positive Kemps test today. After further discussion of MRI she would like to proceed with injective therapy. We will schedule her for medial branch block/facet joint injection at L3-L4 L4-L5 bilaterally. The patient is on Xarelto. We will need to contact Dr. Owen's office to get approval for the patient to hold her Xarelto before proceeding with injective therapy. We will follow up with the patient after her injection for further evaluation symptoms. If the patient does get significant relief with the injections, we will proceed with the second round of injections and plan for an RFA. She does understand she will need to get greater than 60% relief with the round of injections. Patient is on Xarelto. She does deny being diabetic. Possible side effects of corticosteroids have been discussed with the patient. Risks and benefits of the procedure have been explained to the patient. Patient would like to proceed with the procedure. Patient has been instructed to contact the clinic with any concerns before the next appointment. Dr. Dominguez has reviewed this note and agrees with this plan of care. This note was dictated using voice recognition software and make contain errors or omissions. [facility] History I have reviewed the patient's past medical history: Yes Medical History: Reports:: Anxiety, Depression, Gastroesophageal Reflux Disease(GERD), Hyperlipidemia, Hypertension, Pulmonary Embolism, Transient Ischemic Attacks (TIA) Denies:: Cancer, Diabetes Mellitus Type 1, Diabetes Mellitus Type 2, Internal Pacemaker, MRSA, Seizures *Have you ever received a pneumonia vaccine?: No *Have you received a flu vaccine this season
== END ==
PROVIDERS: Visit Provider Clinical Nurse Specialist Family Health
DX: M51.36 Other intervertebral disc degeneration, lumbar region (principal); M54.06 Panniculitis affecting regions of neck and back, lumbar region
CPT/HCPCS: 99212; G0463

== ENCOUNTER → 2021-07-16 14:03 | Outpatient (CLI) | payer MEDICARE, MEDICAID, SELFPAY ==
--- NOTE | 2021-07-16 14:06 | MM_ITS ---
PROCEDURE INFORMATION: Exam: US Right Breast, Complete MG Right Diagnostic Breast Tomosynthesis Exam date and time: 07/16/2021 2:06 PM Age: 71 years old Clinical indication: Patient recalled for further evaluation of a questionable right breast mass TECHNIQUE: Imaging protocol: Complete ultrasound of all four quadrants of the Right breast and the retroareolar regions, including ultrasound of the axilla when performed. Right Diagnostic tomosynthesis and 2D mammography including computer-aided detection (CAD) when performed. Unilateral or bilateral exam. COMPARISON: 1. MG MM DIG SCREENING MAMM BI W/CAD 05/27/2021 3:24 PM 2. MG MM DIG SCREENING MAMM BI W/CAD 06/04/2020 7:57 AM FINDINGS: MAMMOGRAPHY: Digital diagnostic spot compression views of the right breast and 90 degree lateral view of right breast demonstrate normal overlapping fibroglandular structures without persistent mass or asymmetry identified. ULTRASOUND: Sonographic images of the right breast including the retroareolar region, all 4 quadrants and the axilla do not demonstrate any solid or cystic masses. No architectural distortion or acoustical shadowing. No skin thickening or axillary adenopathy. IMPRESSION: No mammographic evidence of malignancy. Annual bilateral mammographic screening is recommended unless otherwise clinically indicated. ASSESSMENT: BI-RADS Category 1: Negative
== END ==
PROVIDERS: PCP Nurse Practitioner Family; Visit Provider Nurse Practitioner Family
DX: R92.8 Other abnormal and inconclusive findings on diagnostic imaging of breast (principal)
CPT/HCPCS: 76641; 77061; 77065; G0279

== ENCOUNTER 2021-08-08 11:48 | Emergency (ER) | payer MEDICARE, SELFPAY ==
[2021-08-08 12:02] VITALS: BP 130/70; PULSE 70; RESP 16; TEMP 37.2; O2SAT 95; BMI 25.0
[2021-08-08 13:44] VITALS: BP 130/70; PULSE 70; RESP 16; TEMP 37.2; O2SAT 95; BMI 25.0
--- NOTE | 2021-08-08 13:46 | XR_ITS ---
PROCEDURE INFORMATION: Exam: XR Lumbosacral Spine Exam date and time: 08/08/2021 1:46 PM Age: 71 years old Clinical indication: Injury or trauma; Fall; Blunt trauma (contusions or hematomas); Injury date: 08/07/21; Additional info: Fall, lower back pain TECHNIQUE: Imaging protocol: XR of the lumbosacral spine. Views: 2 or 3 views. COMPARISON: MR LUMBAR SPINE WO CON 07/01/2021 10:35 AM FINDINGS: Bones/joints: No acute skeletal pathology. Moderate multilevel degenerative changes of the spine, as manifested by multilevel anterior osteophytes and multilevel decrease in intervertebral disc space. The spinal canal is patent. Diffuse moderate facet joint hypertrophy. No aggressive osseous lesions. Soft tissues: There is no significant soft tissue swelling. Vasculature: The aorta demonstrates mild atherosclerotic calcification. Other findings: There is no evidence of acutely displaced fractures. There is no evidence of joint dislocation. IMPRESSION: Moderate multilevel degenerative changes without acute skeletal pathology.
--- NOTE | 2021-08-08 13:53 | HMH.EDUTC ---
[facility] [place] Disposition Clinical Impression: Upper respiratory infection, viral Back pain Qualifiers: Back pain location: low back pain Chronicity: acute Back pain laterality: midline Sciatica presence: without sciatica Qualified Code(s): M54.50 - Low back pain, unspecified Disposition: Home, Self-Care Condition on Discharge: Good Instructions: DI for Low Back Pain, DI for Viral Upper Respiratory Infection -- Adult Additional Instructions: covid swab was sent to lab, call tomorrow for results. self isolate until test results are known to be negative No sign of a bacterial infection. Likely viral. Viruses can take 7-14 days to run their course. Nasal saline and bulb syringe or nose Nuvia to remove nasal drainage to help with nasal congestion. Hard to eat, drink, sleep with nasal congestion so important to keep this cleaned out. Monitor temp. Tylenol or Motrin as needed for pain or fever Encourage fluids, water, Gatorade, Powerade, Pedialyte if infant/toddler/child Warm salt water gargles Warm fluids Sore throat lozenges Sleep elevated Humidifier/vaporizer Follow-up immediately for new or worsening symptoms or no noticeable improvement over the next 48-72 hours. Prescriptions: predniSONE [Prednisone 20mg Tab] 20 mg PO BID #10 tab Prescription Printed Referrals: Irasema England APRN [Primary Care Provider] - Time of Disposition: 15:09 Medical Decision Making - Jose Inquiry Pt receiving controlled substance: No Vital Signs: 08/08/21 12:02 08/08/21 13:44 Temperature 98.9 F 98.9 F Temperature Source Oral Oral Pulse Rate [Right] 70 70 Respiratory Rate 16 16 Blood Pressure [Right Arm] 130/70 130/70 Blood Pressure Mean [Right Arm] 90 90 Blood Pressure Source [Right Arm] Automatic Cuff Blood Pressure Position [Right Arm] Sitting 02 Sat by Pulse Oximetry 95 95 Oxygen Delivery Method Room Air Orders (Tests/Meds): ORDERS Category Date Time Status Covid-19 Nasal PCR ([facility]) Routine Lab 08/08/21 13:47 Ordered [facility] [place] HPI - General Chief complaint: Urgent [facility] Stated complaint: AO fall 012, back pain / ear ache, fever, h/a Time Seen by Provider: 08/08/21 13:57 Mode of Arrival: Ambulatory Source of Information: Patient Limitations: No Limitations Description of Symptoms (Recalled from Triage Doc. by RN): pt c/o a JAMES, ears aching, and sweating. pt also states she fell yesterday and is having lower back pain. HEENT Symptoms (Recalled from RN notes): Yes (JAMES and ears aching) Resp Symptoms (Recalled from RN notes): No Skin Symptoms (Recalled from RN notes): No MS Symptoms (Recalled from RN notes): No (lower back pain) Functional Status (Recalled from RN notes): wnl - History of Present Illness Provider Complaint: 71 yr old female presents c/o a JAMES, ears aching, and sweating for 1 week, wants covid test. pt also states she fell yesterday and is having lower back pain. pt states when she fell she landed on bottom at a twist and since then having pain. - Related Data Home Medications Medication Instructions Recorded Confirmed aspirin 325 mg tablet 325 mg PO DAILY 04/27/19 06/30/21 cetirizine 10 mg tablet 10 mg PO DAILY tab 04/10/20 06/30/21 cholecalciferol (vitamin D3) 1,250 50,000 unit PO WEEKLY cap 08/05/20 06/30/21 mcg (50,000 unit) capsule meclizine 25 mg chewable tablet 25 mg PO TID PRN tab 10/28/20 06/30/21 Ropinirole HCl 1 mg PO BID 12/09/20 06/30/21 atorvastatin 20 mg tablet 20 mg PO DAILY 06/30/21 06/30/21 Previous Rx's Medication Instructions Recorded fluticasone propionate 50 1 spray INTRANASAL BID PRN #47.4 g 01/05/18 mcg/actuation nasal spray,suspension ondansetron HCl 4 mg tablet 4 mg PO Q8H PRN #30 tab 05/28/20 clonazepam 0.5 mg tablet 0.5 mg PO BID PRN #30 tab 11/03/20 pregabalin 150 mg capsule 150 mg PO BID #60 cap 11/03/20 tramadol 50 mg tablet 50 mg PO BID #60 tab 11/03/20 spironolactone 25 mg tablet 25 mg PO DAILY #90 tab 11/24/20 Ondansetron [Zof
[2021-08-08 15:13] VITALS: BP 130/70; PULSE 70; RESP 16; TEMP 37.2
== END 2021-08-08 15:13 | disposition home or self-care (01) ==
PROVIDERS: Emergency Provider Nurse Practitioner Family; PCP Nurse Practitioner Family
DX: U07.1 COVID-19 (principal); J06.9 Acute upper respiratory infection, unspecified; F41.8 Other specified anxiety disorders; E03.9 Hypothyroidism, unspecified; K21.9 Gastro-esophageal reflux disease without esophagitis
CPT/HCPCS: G0463; 72100; 99202; C9803; U0003; U0005

== ENCOUNTER → 2021-11-11 14:08 | Outpatient (CLI) | payer MEDICARE, MEDICAID, SELFPAY ==
--- NOTE | 2021-11-11 14:13 | XR_ITS ---
FINAL REPORT CLINICAL HISTORY: knee pain FINDINGS: 4 views of the left knee were obtained. There is no acute fracture or dislocation. There is advanced medial compartment joint space narrowing with subchondral sclerosis. There is osteophyte formation at the medial joint. There is sharpening of the tibial spines. There osteophytes along the undersurface of the patella. The soft tissues are unremarkable. IMPRESSION: Moderately advanced osteoarthritis. Reviewed, Interpreted and Dictated by Jerzy Byrnes MD Transcribed by Hill Marie Authenticated by Jerzy Byrnes MD on 11/11/2021 03:50:33 PM [facility]
== END ==
PROVIDERS: PCP Nurse Practitioner Family; Visit Provider Orthopaedic Surgery
DX: M25.562 Pain in left knee (principal)
CPT/HCPCS: 73564

== ENCOUNTER 2021-12-29 17:24 | Emergency (ER) | payer MEDICARE, MEDICAID, SELFPAY ==
--- NOTE | 2021-12-29 17:37 | ECG_ITS ---
APPROVED REPORT Exam: Resting ECG HR:76 bpm ECG Measurements Heart Rate 76 AXES MD 183 P 46 QRSd 106 QRS -18 QT 401 T 42 QTc 431 Conclusion SINUS RHYTHM MINIMAL ST DEPRESSION [0.025+ mV ST DEPRESSION] BORDERLINE ECG UNCONFIRMED REPORT Electronically signed by : Braden Garrido MD 01/01/2022 18:05:38
--- NOTE | 2021-12-29 17:38 | HMH.EDGENADL ---
ED Disposition Clinical Impression: Heat stress Qualifiers: Encounter type: initial encounter Qualified Code(s): T67.8XXA - Other effects of heat and light, initial encounter Disposition: Home, Self-Care Condition on Discharge: Good Instructions: DI for Heat Exhaustion and Heat Stroke Additional Instructions: follow up PCP, return for worse Referrals: Irasema England APRN [Primary Care Provider] - - Critical Care Critical Care Time: No Attestation: On , the high probability of a clinically significant, sudden or life threatening deterioration of the following system(s) required my full and direct attention, intervention and personal management. The time I documented below is in addition to time spent performing reported procedures but includes the following listed in this critical care notation. Medical Decision Making - Medical Records Medical records reviewed: Yes: I reviewed the patient's medical records. - Jose Inquiry Pt receiving controlled substance: No Vital Signs: 12/29/21 17:39 12/29/21 18:00 12/29/21 18:31 Temperature 99.3 F Temperature Source Oral Pulse Rate 74 77 Pulse Rate [Left Radial] 85 Respiratory Rate 16 Blood Pressure 129/70 121/62 Blood Pressure [Right Arm] 156/83 H Blood Pressure Mean 84 84 Blood Pressure Mean [Right Arm] 107 Blood Pressure Source [Right Arm] Automatic Cuff Blood Pressure Position [Right Arm] Sitting 02 Sat by Pulse Oximetry 96 93 L 93 L Oxygen Delivery Method Room Air - Lab Data Lab Results 12/29/21 17:58: WBC 6.0, RBC 4.23, Hgb 13.3, Hct 39.4, MCV 93.2, MCH 31.5 H, MCHC 33.8, RDW 13.8, Plt Count 234, MPV 8.4, Neut % (Auto) 60.8, Lymph % (Auto) 25.8, [place] % (Auto) 8.2, Eos % (Auto) 4.1, Baso % (Auto) 1.0, Neut # (Auto) 3.6, Lymph # (Auto) 1.6, [place] # (Auto) 0.5, Eos # (Auto) 0.3, Baso # (Auto) 0.1 12/29/21 17:58: Sodium 139, Potassium 3.8, Chloride 106, Carbon Dioxide 25, Anion Gap 11.8, BUN 16, Creatinine 1.20 H, Estimated Creat Clear 25, Estimated GFR 44 L, Est GFR ( Amer) 54 L, Glucose 132 H, Calcium 9.6, Total Bilirubin 0.5, AST 35, ALT 27, Alkaline Phosphatase 96, Troponin I < 0.01, Total Protein 6.6, Albumin 4.1, Globulin 2.5, Albumin/Globulin Ratio 1.6 Result diagrams: 12/29/21 17:58 12/29/21 17:58 Orders (Tests/Meds): ORDERS Category Date Time Status EKG Request [ECG Request by /Janna] Stat Y 12/29/21 17:37 Ordered - ECG Data Tracing #1 I reviewed this ECG and interpreted as documented below: ekg by me nsr, qrs nml, no st elev - Reevaluation(s) Time: 19:02 (reeval, vss, appears well, says she feels better, slight canchola, otherwise ok) General Adult HPI - General Stated complaint: Got too hot heart racing Time Seen by Provider: 12/29/21 17:38 - History of Present Illness HPI narrative: heat wave today, shopping/outside/car without ac, became hot, racing heart h/o afib feels better now in ac inside Onset (ago): hour(s) Radiation: non-radiation Severity: moderate Consistency: constant Relieving factors: other (ac) Exacerbating factors: other (heat) Associated symptoms: denies other symptoms - Related Data Home Medications Medication Instructions Recorded Confirmed aspirin 325 mg tablet 325 mg PO DAILY 04/27/19 06/30/21 cetirizine 10 mg tablet 10 mg PO DAILY tab 04/10/20 06/30/21 cholecalciferol (vitamin D3) 1,250 50,000 unit PO WEEKLY cap 08/05/20 06/30/21 mcg (50,000 unit) capsule meclizine 25 mg chewable tablet 25 mg PO TID PRN tab 10/28/20 06/30/21 Ropinirole HCl 1 mg PO BID 12/09/20 06/30/21 atorvastatin 20 mg tablet 20 mg PO DAILY 06/30/21 06/30/21 Previous Rx's Medication Instructions Recorded fluticasone propionate 50 1 spray INTRANASAL BID PRN #47.4 g 01/05/18 mcg/actuation nasal spray,suspension ondansetron HCl 4 mg tablet 4 mg PO Q8H PRN #30 tab 05/28/20 clonazepam 0.5 mg tablet 0.5 mg PO BID PRN #30 tab 11/03/20 pregabalin 150 mg capsule 150 mg PO B
[2021-12-29 17:39] VITALS: BP 156/83; PULSE 85; RESP 16; TEMP 37.4; O2SAT 96; BMI 13.3
[2021-12-29 18:00] VITALS: BP 129/70; PULSE 74; O2SAT 93
[2021-12-29 18:31] VITALS: BP 121/62; PULSE 77; O2SAT 93
[2021-12-29 18:37] LABS: Alanine Aminotransferase 27 U/L (12-78); Albumin Level 4.1 g/dl (3.5-5.0); Albumin/Globulin Ratio 1.6 (1.1-1.8); Alkaline Phosphatase 96 U/L (38-126); Anion Gap 11.8 mEq/L (5-15); Aspartate Amino Transferase 35 U/L (14-36); Bilirubin,Total 0.5 mg/dl (0.2-1.3); Blood Urea Nitrogen 16 mg/dl (7-17); Calcium 9.6 mg/dl (8.4-10.2); Carbon Dioxide 25 mmol/L (22.0-30.0); Chloride 106 mmol/L (98-107); Creatinine Clearance Estimated 25 mL/min (50-200); Estimated Glomerular Filt Rate 44 ml/min (>60); GFR (African American) 54 ML/MIN (>60); Globulin 2.5 g/dL (1.3-3.2); Glucose 132 mg/dl (74-100); Potassium 3.8 mmoL/L (3.5-5.1); Sodium 139 mmol/L (136-145); Total Protein,Serum 6.6 g/dl (6.3-8.2)
[2021-12-29 18:40] LABS: Basophils # 0.1 K/mm3 (0-0.2); Eosinophils # 0.3 K/mm3 (0.0-0.4); Eosinophils % 4.1 % (0.1-12.0); Hematocrit 39.4 % (37.0-47.0); Hemoglobin 13.3 g/dL (12.2-16.2); Lymphocytes # 1.6 K/mm3 (0.7-4.5); Lymphocytes % 25.8 % (10-50); Mean Corpuscular HGB Conc 33.8 g/dL (31.8-35.4); Mean Corpuscular Hemoglobin 31.5 pg (27.0-31.2); Mean Corpuscular Volume 93.2 fl (81-99); Mean Platelet Volume 8.4 fl (7.4-10.4); Monocytes # 0.5 K/mm3 (0.1-1.0); Monocytes % 8.2 % (1.7-9.3); Neutrophils # 3.6 K/mm3 (1.8-7.8); Neutrophils % 60.8 % (37.0-80.0); Platelet Count 234 K/mm3 (142-424); Red Blood Count 4.23 M/mm3 (4.20-5.40); Red Cell Distribution Width 13.8 % (11.5-17.5)
[2021-12-29 18:50] LABS: Troponin I < 0.01 ng/ml (0.00-0.034)
[2021-12-29 19:39] VITALS: BP 119/80; PULSE 79; RESP 16; TEMP 37.1; O2SAT 98
== END 2021-12-29 19:43 | disposition home or self-care (01) ==
PROVIDERS: Emergency Provider Emergency Medicine; PCP Nurse Practitioner Family
DX: T67.8XXA Other effects of heat and light, initial encounter (principal); R94.31 Abnormal electrocardiogram [ECG] [EKG]; M54.16 Radiculopathy, lumbar region; R51.9 Headache, unspecified; I10 Essential (primary) hypertension; I25.2 Old myocardial infarction; I48.91 Unspecified atrial fibrillation; K21.9 Gastro-esophageal reflux disease without esophagitis; E78.5 Hyperlipidemia, unspecified; E03.9 Hypothyroidism, unspecified; M79.7 Fibromyalgia; M19.90 Unspecified osteoarthritis, unspecified site; G47.00 Insomnia, unspecified; Z79.1 Long term (current) use of non-steroidal anti-inflammatories (NSAID); Z79.51 Long term (current) use of inhaled steroids; Z79.52 Long term (current) use of systemic steroids; Z79.82 Long term (current) use of aspirin; Z79.899 Other long term (current) drug therapy; Z86.711 Personal history of pulmonary embolism; Z87.891 Personal history of nicotine dependence; Z80.8 Family history of malignant neoplasm of other organs or systems
CPT/HCPCS: 80053; 84484; 85025; 93005; 99284

== ENCOUNTER → 2022-02-09 10:29 | Outpatient (CLI) | payer MEDICARE, MEDICAID, SELFPAY ==
--- NOTE | 2022-02-09 10:40 | XR_ITS ---
FINAL REPORT CLINICAL HISTORY: SOB COMPARISON: October 24, 2020 FINDINGS: PA and lateral views of the chest were obtained. The cardiac and mediastinal silhouettes are within normal limits. There is left lower lobe opacity favored to be atelectasis. There may be a trace left pleural effusion. There is no pneumothorax. No acute osseous abnormality is identified. IMPRESSION: Left lower lobe opacity, favor atelectasis. Possible trace left pleural effusion. No pneumothorax. Reviewed, Interpreted and Dictated by Maricruz Caro MD Transcribed by Kelin Baeza Authenticated and [facility]
--- NOTE | 2022-02-09 10:40 | XR_ITS ---
FINAL REPORT CLINICAL HISTORY: LT RIB PAIN FINDINGS: LEFT RIB SERIES Three views of the left ribs show an age-indeterminate posterior left 3rd rib deformity. There is no other left rib abnormality. There is no pneumothorax or pleural fluid collection. IMPRESSION: Age indeterminate posterior left 3rd rib deformity. No pneumothorax. Reviewed, Interpreted and Dictated by Maricruz Caro MD Transcribed by Kelin Baeza Authenticated and [facility]
== END ==
PROVIDERS: PCP Nurse Practitioner Family; Visit Provider Nurse Practitioner Family
DX: R06.02 Shortness of breath (principal); R07.81 Pleurodynia
CPT/HCPCS: 71046; 71100

== ENCOUNTER 2022-03-08 11:46 | Emergency (ER) | payer MEDICARE, MEDICAID, SELFPAY ==
[2022-03-08 13:07] VITALS: BP 137/80; PULSE 59; RESP 18; TEMP 36.6; O2SAT 99; BMI 30.7
--- NOTE | 2022-03-08 13:16 | HMH.EDUTC ---
[facility] [place] Disposition Clinical Impression: Low back pain Qualifiers: Chronicity: unspecified Back pain laterality: unspecified Sciatica presence: with sciatica Sciatica laterality: sciatica laterality unspecified Qualified Code(s): M54.40 - Lumbago with sciatica, unspecified side Leg weakness Qualifiers: Laterality: bilateral Qualified Code(s): R29.898 - Other symptoms and signs involving the musculoskeletal system Disposition: Home, Self-Care Condition on Discharge: Good Instructions: DI for Muscle Weakness Additional Instructions: Drink plenty of fluids. Take tylenol for pain or fever. Take the medications as directed. Follow up with your regular doctor. GO TO THE ER FOR ANY WORSENING SYMPTOMS Prescriptions: methylPREDNISolone [Medrol] 4 mg PO DIRECTED 6 Days #21 packet Transmission Status: Received by [facility] Referrals: Irasema England APRN [Primary Care Provider] - Time of Disposition: 13:27 Medical Decision Making - Medical Records Medical records reviewed: No: I reviewed the patient's medical records. - Jose Inquiry Pt receiving controlled substance: No Vital Signs: 03/08/22 13:07 03/08/22 13:34 Temperature 97.9 F 97.9 F Temperature Source Oral Pulse Rate 59 L Pulse Rate [Right Brachial] 59 L Respiratory Rate 18 18 Blood Pressure 137/80 Blood Pressure [Right Arm] 137/80 Blood Pressure Mean [Right Arm] 99 Blood Pressure Source [Right Arm] Automatic Cuff Blood Pressure Position [Right Arm] Sitting 02 Sat by Pulse Oximetry 99 Oxygen Delivery Method Room Air - Lab Data Lab Results 03/08/22 13:42: POC Glucose 99 [facility] [place] HPI - General Stated complaint: leg pain pain, chills, cold sweat Time Seen by Provider: 03/08/22 13:16 Mode of Arrival: Ambulatory Source of Information: Patient Limitations: No Limitations Description of Symptoms (Recalled from Triage Doc. by RN): PATIENT C/O LEG PAIN, COLD SWEATS, BODY ACHES, AND CAN'T STAND FOR LONG PERIODS OF TIME. SHE STATES SHE WAS SEEN BY PCP 2 WEEKS AGO, BUT TOLD HER IT WAS AGE-RELATED HEENT Symptoms (Recalled from RN notes): No Resp Symptoms (Recalled from RN notes): No Skin Symptoms (Recalled from RN notes): No MS Symptoms (Recalled from RN notes): Yes Functional Status (Recalled from RN notes): WNL - History of Present Illness Provider Complaint: She c/o feeling bad and leg weakness. Her symptoms have been ongoing for the past couple of months. She denies any fever. - Related Data Home Medications Medication Instructions Recorded Confirmed aspirin 325 mg tablet 325 mg PO DAILY 04/27/19 06/30/21 cetirizine 10 mg tablet 10 mg PO DAILY tab 04/10/20 06/30/21 cholecalciferol (vitamin D3) 1,250 50,000 unit PO WEEKLY cap 08/05/20 06/30/21 mcg (50,000 unit) capsule meclizine 25 mg chewable tablet 25 mg PO TID PRN tab 10/28/20 06/30/21 Ropinirole HCl 1 mg PO BID 12/09/20 06/30/21 atorvastatin 20 mg tablet 20 mg PO DAILY 06/30/21 06/30/21 Previous Rx's Medication Instructions Recorded fluticasone propionate 50 1 spray INTRANASAL BID PRN #47.4 g 01/05/18 mcg/actuation nasal spray,suspension ondansetron HCl 4 mg tablet 4 mg PO Q8H PRN #30 tab 05/28/20 clonazepam 0.5 mg tablet 0.5 mg PO BID PRN #30 tab 11/03/20 pregabalin 150 mg capsule 150 mg PO BID #60 cap 11/03/20 tramadol 50 mg tablet 50 mg PO BID #60 tab 11/03/20 spironolactone 25 mg tablet 25 mg PO DAILY #90 tab 11/24/20 Ondansetron [Zofran 4mg ODT] 4 mg PO TIDP PRN #6 tab 12/17/20 levothyroxine 75 mcg tablet See Rx Instructions .ROUTE 05/20/21 .COMPLEX #90 tab famotidine 20 mg tablet 20 mg PO DAILY #90 tab 05/21/21 venlafaxine 150 mg See Rx Instructions .ROUTE 07/31/21 capsule,extended release 24 hr .COMPLEX #90 cap apixaban 5 mg tablet 5 mg PO BID #60 tab 08/03/21 predniSONE [Prednisone 20mg 20 mg PO BID #10 tab 08/08/21 Tab] bisoprolol fumarate 5 mg tablet 5 mg PO BID #60 tab 02/02/22 methylPREDNISolone [Medrol] 4 m
[2022-03-08 13:34] VITALS: BP 137/80; PULSE 59; RESP 18; TEMP 36.6; O2SAT 99
[2022-03-08 13:51] LABS: POC Glucose,Bedside 99 (70-110)
== END 2022-03-08 13:47 | disposition home or self-care (01) ==
PROVIDERS: Emergency Provider Nurse Practitioner Family; PCP Nurse Practitioner Family
DX: M54.40 Lumbago with sciatica, unspecified side (principal)
CPT/HCPCS: 82962; 99212; G0463

== ENCOUNTER → 2022-03-29 07:23 | Outpatient (CLI) | payer MEDICARE, MEDICAID, SELFPAY ==
--- NOTE | 2022-03-29 | CA_ITS ---
APPROVED REPORT Exam: Pharmacologic Technologist: Caro Bell, Ht: 5 ft 5 in Wt: 185 lbs BSA: 1.91 m2 HR: 54 bpm BP: 131/64 mmHg Rhythm: SR/sinus amish Medical History Medical History: HTN, Hyperlipidemia Medications: Levothyroxine,,,,, Ropinirole,,,,, Tramadol,,,,, Famotidine,,,,, KloNOPIN,,,,, ElIQUIS,,,,, Venlafaxine,,,,, SpirOnolactone,,,,, Pregabalin,,,,, Zofran,,,,, AtorvaASTATIN,,,,, MeLIZINE,,,,, Cardiac Risk Factors: HTN, Hyperlipidemia Stress Test Details Test: LEXISCAN HR Resting HR: 55 bpm Max Heart Rate (APMHR): 148.665141 bpm Max HR Achieved: 74 bpm Target HR (85% APMHR): 125.546140 bpm % of APMHR: 50.00 Recovery HR: 66 bpm BP Resting BP: 131/64 mmHg Max BP: 142/80 mmHg Recovery BP: 137.0/74.0 mmHg ECG Resting ECG: SR/sinus amish Clinical Exercise duration: 04:00 min Highest Stage Achieved: Stress ECG Conclusion During lexiscan pt experinced SOA with lexiscan infusion. No CP noted. PVCs noted after lexiscan and in recovery. <1.5mm ST segment depression. Test Summary . . . . . Stop exercise at 04:00 . . . Electronically signed by : Shakir Woodson MD 03/29/2022 14:07:55
--- NOTE | 2022-03-29 07:23 | NM_ITS ---
APPROVED REPORT Exam: Nuclear Stress Test Indication: SOB, Abnormal EKG, HTN, High cholesterol, Family history Patient Location: Outpatient Stress Tech: Caro BA Tech:Kemi Barbosa, ARRT, RT (R)(N) Ht: 5 ft 5 in Wt: 185 lbs Bra Size: 42D HR: 55 bpm BP: 131/64 mmHg BSA: 1.91 m2 TID: 1.06 BMI: 30.7 History: SOB, Abnormal EKG, HTN, High cholesterol, Family history Procedure: Patient received a 0.4 mg of intravenous Lexiscan, resting heart rate 55 bpm, resting blood pressure 131/64 mmHg, with Lexiscan maximum heart rate achived was 74 bpm which is Less than 85 % of the maximum predicted heart rate and blood pressure was 142/80 mmHg. With Lexiscan, patient denied any complaint of chest pain. Electrocardiogram Resting electrocardiogram showed sinus rhythm, with Lexiscan there is less than 1.[address] segment depression noted from the baseline EKG. The EKG portion of the Lexiscan is nondiagnostic. Cardiac Stress and Resting SPECT Images: Cardiac Stress and Resting SPECT images were obtained using technetium 99m Myoview 32.4 mCi stress and 10.74 mCi at rest. Gated SPECT analysis of segmental wall motion and calculation of the ejection fraction also done, prone images were also obtained. Cardiac stress and rest SPECT images show uniform myocardial activity without segmental perfusion abnormality, computer derived ejection fraction is 63% with no regional wall motion abnormality, right ventricle is normal size and contractility. Conclusion: 1. The EKG portion of the Lexiscan is nondiagnostic. 2. No scintigraphic evidence of reversible ischemia seen, computer derived ejection fraction is 63% with no regional wall motion abnormality, right ventricle is normal size and contractility. 3. Normal Lexiscan Myoview study. Electronically signed by : Shakir Woodson MD 03/29/2022 14:10:20
--- NOTE | 2022-03-29 09:01 | CA_ITS ---
APPROVED REPORT EXAM: Comprehensive 2D, Doppler, and color-flow Echocardiogram Furnace Firer: Alanna Doan, IZZY, RVS Ht: 5 ft 5 in Wt: 185lbs BSA: 1.91 BP: 132/66 mmHg Indications: Pre-op, Abn EKG, HTN, A-fib, HLD 2D Dimensions IVSd 1.13 cm LVEF (Visual) 53.70 % PWd 1.00 cm LA Volume 59.00 mL LVDd 4.36 cm LA Volume Index 30.943568 mL/m2 (M/F) 16-34 LVDs 3.16 cm Aortic Root 3.37 cm Left Atrium 3.17 cm LVOT 1.85 cm (M/F) 1.5-2.5 M-Mode Dimensions LA Diam 3.55 cm (1.9-4.0) Ao Diam 3.35 cm (2.0-3.7) EPSs 0.77 cm TAPSE 1.79 (<1.7) LV Diastology E Decel Time 223.00 (160-240 msec) E/A Ratio 0.93 MED E' 6.20 (< 7 cm/sec) MED A' 13.20 cm/s E'/MED E' Ratio 10.23 (>14) LAT E' 7.60 (<10 cm/sec) LAT A' 10.80 cm/s E/LAT E' Ratio 8.34 (>14) Aortic Valve LVOT Max 60.00 (70-110 cm/s) LVOT VTI 13.82 cm AoV Peak Monroe. 120.00 (50-130 cm/s) AO Peak GR. 5.80 mmHg AO Mean GR. 3.00 (<5 mmHg) AO VTI 28.68 (18-25 cm) KRYSTAL (VTI) 1.30 (2.5-4.5 cm2) Mitral Valve MV E Max Monroe. 63.00 (40-130 cm/s) MV A Velocity 68.00 (40-130 cm/s) E/A Ratio 0.93 MV Decel. Time 223.00 (160-240 ms) MV PHT 65.00 ms Pulmonary Valve PV Peak Velocity 63.00 (50-150 cm/s) CT End VMAX 137.00 cm/s Tricuspid Valve TR P. Velocity 158.00 cm/s RAP Estimate 10.00 mmHg RVSP 20.00 mmHg Left Ventricle Atrium is mildly enlarged, left ventricle normal size mild concentric left ventricular hypertrophy, estimated ejection fraction 55% with no regional wall motion abnormality, diastolic dysfunction seen without tissue Doppler evidence of raise left atrial pressure. Right Ventricle Right atrium and right ventricle are mildly enlarged with normal contractility. Aortic Valve Aortic valve is minimally thickened and fibrosed there is no aortic stenosis aortic insufficiency. Mitral Valve Mitral valve grossly normal, there is trace mitral regurgitation. Tricuspid Valve Tricuspid valve grossly normal, there is trace tricuspid regurgitation, tricuspid regurgitation jet velocity is inadequate for calculation of the right ventricular systolic pressure. Pulmonic Valve Pulmonic valve is poorly visualized. Great Vessels Aortic root is normal size. Inferior vena cava is poorly visualized. Pericardium No significant pericardial effusion noted. Conclusion 1. Mild biatrial normal, normal left ventricular size, mild concentric left ventricular hypertrophy, estimated ejection fraction 55% with no regional wall motion abnormality, grade 1 diastolic dysfunction seen without tissue Doppler evidence of raise left atrial pressure. 2. Trace mitral and tricuspid regurgitation. 3. No significant pericardial effusion noted. 4. Inferior vena cava is poorly visualized. Electronically signed by : Shakir Woodson MD 03/29/2022 15:37:37
--- NOTE | 2022-03-29 09:03 | HMH.ITSHM ---
Current Home Medications as stated by this patient Mariann Higgins or pharmacy sales representative. []VENLAFAXINE TRAMADOL SPIRONOLACTONE ROPINIROLE PREGABALIN ONDANSETRON MECLIZINE LEVOTHYROXINE FLUTICASONE FAMOTIDINE CLONAZEPAM CETIRIZINE ATORVASTATIN APIXABAN
== END ==
PROVIDERS: PCP Nurse Practitioner Family; Visit Provider Nurse Practitioner
DX: E78.2 Mixed hyperlipidemia (principal); I10 Essential (primary) hypertension; I48.0 Paroxysmal atrial fibrillation; R06.02 Shortness of breath; R94.31 Abnormal electrocardiogram [ECG] [EKG]; Z01.810 Encounter for preprocedural cardiovascular examination
CPT/HCPCS: 78452; 93017; 93306; A9502; J2785

== ENCOUNTER → 2022-03-31 14:48 | Outpatient (CLI) | payer MEDICARE, MEDICAID, SELFPAY ==
[2022-03-31 16:08] LABS: Basophils # 0.1 K/mm3 (0-0.2); Basophils % 1.1 % (0.1-2.0); Eosinophils # 0.3 K/mm3 (0.0-0.4); Eosinophils % 4.4 % (0.1-12.0); Hematocrit 42.1 % (37.0-47.0); Hemoglobin 13.7 g/dL (12.2-16.2); Lymphocytes # 1.7 K/mm3 (0.7-4.5); Lymphocytes % 27.7 % (10-50); Mean Corpuscular HGB Conc 32.6 g/dL (31.8-35.4); Mean Corpuscular Volume 95.2 fl (81-99); Mean Platelet Volume 8.1 fl (7.4-10.4); Monocytes # 0.4 K/mm3 (0.1-1.0); Monocytes % 6.6 % (1.7-9.3); Neutrophils # 3.6 K/mm3 (1.8-7.8); Neutrophils % 60.2 % (37.0-80.0); Platelet Count 251 K/mm3 (142-424); Red Blood Count 4.42 M/mm3 (4.20-5.40); Red Cell Distribution Width 13.4 % (11.5-17.5)
[2022-03-31 16:25] LABS: Hemoglobin A1C 5.2 % (4.0-6.0)
[2022-03-31 16:45] LABS: Chloride 104 mmol/L (98-107)
[2022-03-31 16:46] LABS: Potassium 4.2 mmoL/L (3.5-5.1); Sodium 142 mmol/L (136-145)
[2022-03-31 16:48] LABS: Alanine Aminotransferase 19 U/L (12-78); Aspartate Amino Transferase 29 U/L (14-36); Blood Urea Nitrogen 13 mg/dl (7-17); Estimated Glomerular Filt Rate 55 ml/min (>60); GFR (African American) 66 ML/MIN (>60)
[2022-03-31 16:49] LABS: Albumin Level 4.2 g/dl (3.5-5.0); Alkaline Phosphatase 112 U/L (38-126); Anion Gap 12.2 mEq/L (5-15); Bilirubin,Total 0.3 mg/dl (0.2-1.3); Calcium 8.7 mg/dl (8.4-10.2); Carbon Dioxide 30 mmol/L (22.0-30.0); Chol/HDL Ratio 3.4 (1-3.5); Cholesterol 129 mg/dl (140-200); Globulin 2.1 g/dL (1.3-3.2); Glucose 104 mg/dl (74-100); HDL Cholesterol 38 mg/dl (40-60); Total Protein,Serum 6.3 g/dl (6.3-8.2); Triglycerides 199 mg/dl (30-150); VLDL Cholesterol 40 mg/dL (0-40)
[2022-03-31 17:00] LABS: Direct LDL Cholesterol 63.75 mg/dL (100-129)
[2022-03-31 17:19] LABS: Thyroid Stimulating Hormone 1.91 uIU/mL (0.465-4.68)
== END ==
PROVIDERS: PCP Nurse Practitioner Family; Visit Provider Nurse Practitioner Family
DX: I48.0 Paroxysmal atrial fibrillation (principal); E78.5 Hyperlipidemia, unspecified; M17.12 Unilateral primary osteoarthritis, left knee; Z79.899 Other long term (current) drug therapy
CPT/HCPCS: 36415; 80053; 80061; 83036; 84443; 85025

== ENCOUNTER 2022-04-03 12:03 | Emergency (ER) | payer MEDICARE, MEDICAID, SELFPAY ==
[2022-04-03 12:22] VITALS: BP 120/71; PULSE 72; RESP 16; TEMP 36.8; O2SAT 96; BMI 30.6
[2022-04-03 12:30] LABS: Apearance,Urine Cloudy (Clear); Bilirubin,Urine 1+ (Negative); Blood, Urine 1+ (Negative); Color,Urine Dark Yellow (Yellow); Glucose,Urine (UA) Negative (Negative); Ketones,Urine Negative (Negative); PH,Urine 5.5 (5.0-8.5); Protein,Urine 1+ (Negative); UTC Leukocyte Esterase,Urine Negative (Negative); UTC Nitrate,Urine Negative (Negative); Urobilinogen,Urine 0.2 EU/dl (0.2)
--- NOTE | 2022-04-03 12:30 | EXP.UTC ---
Discharge Plan Disposition Patient Disposition: Home, Self-Care Condition: Good Prescriptions Prescriptions: New loratadine 10 mg tablet 10 mg PO DAILY Qty: 30 2RF Rx Instructions: Do not take Zyrtec while taking this medication. benzonatate 100 mg capsule 100 mg PO TID PRN (Reason: cough) Qty: 30 0RF No Action fluticasone propionate [Flonase Allergy Relief] 50 mcg/actuation spray,suspension 1 spray INTRANASAL BID PRN (Reason: allergy symptoms) Qty: 47.4 0RF Rx Instructions: administer into each nostril clonazepam [Klonopin] 0.5 mg tablet 0.5 mg PO BID PRN (Reason: anxiety) Qty: 30 2RF pregabalin 150 mg capsule 150 mg PO BID Qty: 60 2RF tramadol 50 mg tablet 50 mg PO BID Qty: 60 2RF methocarbamol 500 mg tablet 500 mg PO HS PRN atorvastatin 20 mg tablet 20 mg PO DAILY ondansetron HCl [Zofran] 4 mg tablet 4 mg PO Q8H PRN (Reason: nausea and vomiting) Qty: 30 0RF spironolactone 25 mg tablet 25 mg PO DAILY Qty: 90 3RF levothyroxine 75 mcg tablet See Rx Instructions .ROUTE .COMPLEX Qty: 90 0RF Dose Instruction: TAKE 1 TABLET BY MOUTH ONCE DAILY Rx Instructions: TAKE 1 TABLET BY MOUTH ONCE DAILY famotidine 20 mg tablet 20 mg PO DAILY Qty: 90 0RF venlafaxine 150 mg capsule,extended release 24hr See Rx Instructions .ROUTE .COMPLEX Qty: 90 0RF Dose Instruction: TAKE 1 CAPSULE BY MOUTH ONCE DAILY Rx Instructions: TAKE 1 CAPSULE BY MOUTH ONCE DAILY Eliquis 5 mg tablet 5 mg PO BID Qty: 60 5RF cetirizine 10 mg tablet 10 mg PO DAILY meclizine [Travel Sickness (meclizine)] 25 mg tablet,chewable 25 mg PO TID PRN (Reason: .) ropinirole 1 MG tablet 1 mg PO BID Referrals Follow up/Referrals: Irasema England APRN [Primary Care Provider] - See instructions Activity Restrictions/Add. Instructions Additional Instructions/Restrictions: Stop Zyrtec and start Loratadine. Consider getting a bedside potty while getting treatment for knee. Follow up with PCP. Self quarantine until Covid results are known. Clinical Impressions Clinical Impression: Upper respiratory infection, viral Instructions Patient Instructions: DI for Viral Upper Respiratory Infection -- Adult, Preventing the Spread of Coronavirus Discharge Instructions Discharge ED Provider: Linda Gardiner [facility] General Stated complaint: runny nose, cold sweat, sore throat, sob Mode of Arrival: Ambulatory Source of Information: Patient Limitations: No Limitations Time Seen by Provider: 04/03/22 12:29 Description of Symptoms (Recalled from Triage Doc. by RN): pt comes in with c/o upper respiratory issues, cough, sneezing, cold sweats since yesterday. pt also states that she is unable to control her bladder at night. HEENT Symptoms (Recalled from RN notes): Yes Resp Symptoms (Recalled from RN notes): Yes Skin Symptoms (Recalled from RN notes): No MS Symptoms (Recalled from RN notes): No Functional Status (Recalled from RN notes): n/a History of Present Illness Provider Complaint: Pt relates that she feels just like she did in July when she got Covid. She has had clear sinus drainage, dry cough, and chills. She denies fever. Pt also relates that her bathroom is downstairs and when she gets up to go to the bathroom she can't make it to the bathroom as she will void before making it to the bathroom. She states that she has a bad knee and that is part of the problem. Related Data Home Medications Medication Instructions Recorded Confirmed cetirizine 10 mg tablet 10 mg PO DAILY allergies 04/10/20 03/31/22 meclizine 25 mg chewable tablet 25 mg PO TID PRN . 10/28/20 03/31/22 (Travel Sickness (meclizine)) ropinirole 1 mg tablet 1 mg PO BID rls 12/09/20 03/31/22 atorvastatin 20 mg tablet 20 mg PO DAILY 06/30/21 03/31/22 methocarbamol 500 mg tablet 500 mg PO HS PRN 03/31/22 03/31/22 Previous Rx's Medication Instructions
[2022-04-03 12:48] VITALS: BP 120/71; PULSE 72; RESP 16; TEMP 36.8
== END 2022-04-03 12:48 | disposition home or self-care (01) ==
PROVIDERS: Emergency Provider Nurse Practitioner Family; PCP Nurse Practitioner Family
DX: J02.9 Acute pharyngitis, unspecified (principal); J06.9 Acute upper respiratory infection, unspecified; R06.02 Shortness of breath; R94.31 Abnormal electrocardiogram [ECG] [EKG]; R51.9 Headache, unspecified; R11.2 Nausea with vomiting, unspecified; Z20.822 Contact with and (suspected) exposure to COVID-19; K21.9 Gastro-esophageal reflux disease without esophagitis; M79.7 Fibromyalgia; E03.9 Hypothyroidism, unspecified; E53.8 Deficiency of other specified B group vitamins; F32.A Depression, unspecified; F41.9 Anxiety disorder, unspecified; Z79.01 Long term (current) use of anticoagulants; Z79.51 Long term (current) use of inhaled steroids; Z79.899 Other long term (current) drug therapy
CPT/HCPCS: 81003; 99213; C9803; G0463; U0003; U0005

== ENCOUNTER → 2022-05-07 14:54 | Outpatient (CLI) | payer MEDICARE, MEDICAID, SELFPAY ==
--- NOTE | 2022-05-07 | XR_ITS ---
FINAL REPORT CLINICAL HISTORY: MIDLINE BACKPAIN FINDINGS: 5 views of the lumbar spine were obtained. There is no evidence of fracture or dislocation. The vertebral alignment is normal. There are moderate degenerative changes with multilevel osteophytes and facet arthropathy. No paraspinous soft tissue abnormalities identified. IMPRESSION: Degenerative changes without acute bony abnormality. Reviewed, Interpreted and Dictated by Chan Torres III, MD Transcribed by Steffany Mckay Authenticated and [facility]
[2022-05-07 15:02] LABS: Microscopic, Urine URINE MICROSCOPIC (MICROSCOPIC)
[2022-05-07 15:35] LABS: Basophils # 0.1 K/mm3 (0-0.2); Basophils % 1.7 % (0.1-2.0); Eosinophils # 0.4 K/mm3 (0.0-0.4); Eosinophils % 7.6 % (0.1-12.0); Hematocrit 43.9 % (37.0-47.0); Hemoglobin 14.3 g/dL (12.2-16.2); Lymphocytes # 1.9 K/mm3 (0.7-4.5); Lymphocytes % 33.9 % (10-50); Mean Corpuscular HGB Conc 32.7 g/dL (31.8-35.4); Mean Corpuscular Hemoglobin 30.6 pg (27.0-31.2); Mean Corpuscular Volume 93.6 fl (81-99); Mean Platelet Volume 7.9 fl (7.4-10.4); Monocytes # 0.3 K/mm3 (0.1-1.0); Monocytes % 5.6 % (1.7-9.3); Neutrophils # 2.9 K/mm3 (1.8-7.8); Neutrophils % 51.2 % (37.0-80.0); Platelet Count 260 K/mm3 (142-424); Red Blood Count 4.69 M/mm3 (4.20-5.40); Red Cell Distribution Width 13.4 % (11.5-17.5); White Blood Count 5.7 K/mm3 (4.8-10.8)
[2022-05-07 15:41] LABS: INR 0.94 (0.9-1.1); Prothrombin Time 10.2 seconds (10.1-12.5)
[2022-05-07 16:06] LABS: Appearance,Urine CLEAR (Clear); Bilirubin,Urine Negative (Negative); Blood, Urine Negative (Negative); Color,Urine YELLOW (Yellow); Glucose,Urine (UA) Negative (Negative); Ketones,Urine Negative (Negative); Leukocyte Esterase,Urine Negative (Negative); Nitrate,Urine Negative (Negative); PH,Urine 5.5 (5.0-8.5); Protein,Urine Negative (Negative); Specific Gravity, Urine >= 1.030 (1.005-1.030); Urobilinogen,Urine 0.2 EU/dl (0.2)
[2022-05-07 16:17] LABS: Bacteria,Urine Trace /lpf; WBC,Urine Occasional #/hpf (0-3)
[2022-05-07 16:21] LABS: Alanine Aminotransferase 22 U/L (12-78); Albumin Level 4.3 g/dl (3.5-5.0); Albumin/Globulin Ratio 1.8 (1.1-1.8); Alkaline Phosphatase 139 U/L (38-126); Anion Gap 15.7 mEq/L (5-15); Aspartate Amino Transferase 28 U/L (14-36); Bilirubin,Total 0.6 mg/dl (0.2-1.3); Blood Urea Nitrogen 13 mg/dl (7-17); Calcium 9.5 mg/dl (8.4-10.2); Carbon Dioxide 31 mmol/L (22.0-30.0); Chloride 100 mmol/L (98-107); Estimated Glomerular Filt Rate 55 ml/min (>60); GFR (African American) 66 ML/MIN (>60); Globulin 2.4 g/dL (1.3-3.2); Glucose 103 mg/dl (74-100); Potassium 4.7 mmoL/L (3.5-5.1); Sodium 142 mmol/L (136-145); Total Protein,Serum 6.7 g/dl (6.3-8.2)
== END ==
PROVIDERS: Orthopaedic Surgery; PCP Nurse Practitioner Family; Visit Provider Internal Medicine Adolescent Medicine
DX: M17.12 Unilateral primary osteoarthritis, left knee (principal); R60.0 Localized edema; R00.2 Palpitations; M54.50 Low back pain, unspecified; M53.9 Dorsopathy, unspecified
CPT/HCPCS: 36415; 72110; 80053; 81001; 85025; 85610; 86850

== ENCOUNTER 2022-05-18 14:55 | Emergency (ER) | payer MEDICARE, MEDICAID, SELFPAY ==
[2022-05-18 15:32] VITALS: BP 138/47; PULSE 65; RESP 16; TEMP 36.9; O2SAT 96; BMI 30.7
--- NOTE | 2022-05-18 16:22 | XR_ITS ---
PROCEDURE INFORMATION: Exam: XR Left Hip Exam date and time: 05/18/2022 4:31 PM Age: 72 years old Clinical indication: Injury or trauma; Fall; Blunt trauma (contusions or hematomas); Injury details: Patient fell 3 weeks ago, left hip pain. TECHNIQUE: Imaging protocol: Radiologic exam of the Left hip. Views: 2 or 3 views hip with pelvis when performed. COMPARISON: CT ABDOMEN PELVIS W CON 12/09/2020 4:00 AM FINDINGS: Bones/joints: Osteopenia. Soft tissues: Unremarkable. IMPRESSION: No evidence of acute osseous injury.
--- NOTE | 2022-05-18 16:22 | XR_ITS ---
PROCEDURE INFORMATION: Exam: XR Lumbosacral Spine Exam date and time: 05/18/2022 4:30 PM Age: 72 years old Clinical indication: Injury or trauma; Fall; Blunt trauma (contusions or hematomas); Patient HX: Patient fell 3 weeks ago, left hip and low back pain. TECHNIQUE: Imaging protocol: Radiologic exam of the lumbosacral spine. Views: 2 or 3 views. COMPARISON: CR XR LUMBAR SPINE MIN 4V 05/07/2022 3:28 PM FINDINGS: Bones/joints: Osteopenia. Lumbar spondylosis. Multilevel disc degeneration. Degenerative facet hypertrophy stable. Soft tissues: Unremarkable. IMPRESSION: 1. No evidence of acute abnormality. 2. Lumbar spondylosis with multilevel disc degeneration.
--- NOTE | 2022-05-18 16:22 | EXP.UTC ---
Discharge Plan Disposition Patient Disposition: Home, Self-Care Condition: Good Prescriptions Prescriptions: No Action fluticasone propionate [Flonase Allergy Relief] 50 mcg/actuation spray,suspension 1 spray INTRANASAL BID PRN (Reason: allergy symptoms) Qty: 47.4 0RF Rx Instructions: administer into each nostril clonazepam [Klonopin] 0.5 mg tablet 0.5 mg PO BID PRN (Reason: anxiety) Qty: 30 2RF pregabalin 150 mg capsule 150 mg PO BID Qty: 60 2RF tramadol 50 mg tablet 50 mg PO BID Qty: 60 2RF methocarbamol 500 mg tablet 500 mg PO HS PRN atorvastatin 20 mg tablet 20 mg PO DAILY mupirocin 2 % ointment 1 applic topical TID Qty: 15 0RF ondansetron HCl [Zofran] 4 mg tablet 4 mg PO Q8H PRN (Reason: nausea and vomiting) Qty: 30 0RF spironolactone 25 mg tablet 25 mg PO DAILY Qty: 90 3RF levothyroxine 75 mcg tablet See Rx Instructions .ROUTE .COMPLEX Qty: 90 0RF Dose Instruction: TAKE 1 TABLET BY MOUTH ONCE DAILY Rx Instructions: TAKE 1 TABLET BY MOUTH ONCE DAILY famotidine 20 mg tablet 20 mg PO DAILY Qty: 90 0RF venlafaxine 150 mg capsule,extended release 24hr See Rx Instructions .ROUTE .COMPLEX Qty: 90 0RF Dose Instruction: TAKE 1 CAPSULE BY MOUTH ONCE DAILY Rx Instructions: TAKE 1 CAPSULE BY MOUTH ONCE DAILY Eliquis 5 mg tablet 5 mg PO BID Qty: 60 5RF cetirizine 10 mg tablet 10 mg PO DAILY meclizine [Travel Sickness (meclizine)] 25 mg tablet,chewable 25 mg PO TID PRN (Reason: .) ropinirole 1 MG tablet 1 mg PO BID loratadine 10 mg tablet 10 mg PO DAILY Qty: 30 2RF Rx Instructions: Do not take Zyrtec while taking this medication. benzonatate 100 mg capsule 100 mg PO TID PRN (Reason: cough) Qty: 30 0RF Referrals Follow up/Referrals: Irasema England APRN [Primary Care Provider] - See instructions Activity Restrictions/Add. Instructions Additional Instructions/Restrictions: Continue Mobic and tramadol. Contact your primary care provider for further care. Clinical Impressions Clinical Impression: Acute pain of left hip Instructions Patient Instructions: DI for Hip Pain Discharge ED Provider: Oz Meade [facility] [place] General Chief complaint: PAIN Stated complaint: pain in back, Lt leg Mode of Arrival: Ambulatory Limitations: No Limitations Time Seen by Provider: 05/18/22 17:30 Description of Symptoms (Recalled from Triage Doc. by RN): Pt c/o Lower back for approx 3 weeks. Pt reports has had xrays ordered by pcp and is now on mobic for pain. States she told pcp she couldnt do PT because soon to be having her knee replaced. Pt reports pain today started radiating into L hip area. History of Present Illness Provider Complaint: She is here to follow up over her back pain and left hip since her fall around 2 weeks ago. She states that she has had worsening pain since then instead of getting better. She had x-rays right after the fall that did not show any fractures. She is worried that something is broke and it got missed on the first set of x-rays. Related Data Home Medications Medication Instructions Recorded Confirmed cetirizine 10 mg tablet 10 mg PO DAILY allergies 04/10/20 05/07/22 meclizine 25 mg chewable tablet 25 mg PO TID PRN . 10/28/20 05/07/22 (Travel Sickness (meclizine)) ropinirole 1 mg tablet 1 mg PO BID rls 12/09/20 05/07/22 atorvastatin 20 mg tablet 20 mg PO DAILY 06/30/21 05/07/22 methocarbamol 500 mg tablet 500 mg PO HS PRN 03/31/22 05/07/22 Previous Rx's Medication Instructions Recorded fluticasone propionate 50 1 spray intranasal BID PRN allergy 01/05/18 mcg/actuation nasal symptoms #47.4 grams spray,suspension (Flonase Allergy Relief) ondansetron HCl 4 mg tablet 4 mg PO Q8H PRN nausea and 05/28/20 (Zofran) vomiting #30 tabs clonazepam 0.5 mg tablet (Klonopin) 0.5 mg PO BID PRN anxiety #30 tabs 11/03/20 pregabalin 150 mg ca
[2022-05-18 16:24] VITALS: BP 137/56; PULSE 60; RESP 16; TEMP 36.7; O2SAT 96; BMI 30.7
[2022-05-18 17:25] VITALS: BP 144/65; PULSE 60; RESP 16; TEMP 36.7; O2SAT 95; BMI 30.8
[2022-05-18 17:31] VITALS: BP 130/52; PULSE 58; O2SAT 93
--- NOTE | 2022-05-18 17:36 | HMH.EDGENADL ---
Discharge Plan Disposition Patient Disposition: Home, Self-Care Condition: Good Prescriptions Prescriptions: No Action fluticasone propionate [Flonase Allergy Relief] 50 mcg/actuation spray,suspension 1 spray INTRANASAL BID PRN (Reason: allergy symptoms) Qty: 47.4 0RF Rx Instructions: administer into each nostril clonazepam [Klonopin] 0.5 mg tablet 0.5 mg PO BID PRN (Reason: anxiety) Qty: 30 2RF pregabalin 150 mg capsule 150 mg PO BID Qty: 60 2RF tramadol 50 mg tablet 50 mg PO BID Qty: 60 2RF methocarbamol 500 mg tablet 500 mg PO HS PRN atorvastatin 20 mg tablet 20 mg PO DAILY mupirocin 2 % ointment 1 applic topical TID Qty: 15 0RF ondansetron HCl [Zofran] 4 mg tablet 4 mg PO Q8H PRN (Reason: nausea and vomiting) Qty: 30 0RF spironolactone 25 mg tablet 25 mg PO DAILY Qty: 90 3RF levothyroxine 75 mcg tablet See Rx Instructions .ROUTE .COMPLEX Qty: 90 0RF Dose Instruction: TAKE 1 TABLET BY MOUTH ONCE DAILY Rx Instructions: TAKE 1 TABLET BY MOUTH ONCE DAILY famotidine 20 mg tablet 20 mg PO DAILY Qty: 90 0RF venlafaxine 150 mg capsule,extended release 24hr See Rx Instructions .ROUTE .COMPLEX Qty: 90 0RF Dose Instruction: TAKE 1 CAPSULE BY MOUTH ONCE DAILY Rx Instructions: TAKE 1 CAPSULE BY MOUTH ONCE DAILY Eliquis 5 mg tablet 5 mg PO BID Qty: 60 5RF cetirizine 10 mg tablet 10 mg PO DAILY meclizine [Travel Sickness (meclizine)] 25 mg tablet,chewable 25 mg PO TID PRN (Reason: .) ropinirole 1 MG tablet 1 mg PO BID loratadine 10 mg tablet 10 mg PO DAILY Qty: 30 2RF Rx Instructions: Do not take Zyrtec while taking this medication. benzonatate 100 mg capsule 100 mg PO TID PRN (Reason: cough) Qty: 30 0RF Referrals Follow up/Referrals: Irasema England APRN [Primary Care Provider] - See instructions Activity Restrictions/Add. Instructions Additional Instructions/Restrictions: Continue Mobic and tramadol. Contact your primary care provider for further care. Clinical Impressions Clinical Impression: Acute pain of left hip Instructions Patient Instructions: DI for Hip Pain Discharge ED Provider: Oz Meade [facility] HPI General Chief complaint: PAIN Stated complaint: pain in back, Lt leg Time Seen by Provider: 05/18/22 17:30 Mode of Arrival: Ambulatory Limitations: No Limitations Description of Symptoms (Recalled from ER Triage Doc. by RN): Pt c/o Lower back for approx 3 weeks. Pt reports has had xrays ordered by pcp and is now on mobic for pain. States she told pcp she couldnt do PT because soon to be having her knee replaced. Pt reports pain today started radiating into L hip area History of Present Illness HPI narrative: The patient is sent from the urgent treatment center. States that she has been having problems with low back pain for about 3 weeks. Her back pain is in her lower lumbar midline. She says that she had x-rays performed by her primary care provider. She is on Mobic for pain. Today when she woke up she also had some pain in her left hip which she locates as the area between her trochanter and her iliac crest. She is able to ambulate. No injury recalled. No fever or other signs of systemic illness. No new numbness or weakness. States she also has chronic left knee pain and needs a left knee replacement. She has previously already had a right knee replacement. She says that because of her knee pain sometimes her leg feels weak, but this is not a new symptom. She takes tramadol for pain. Related Data Home Medications Medication Instructions Recorded Confirmed cetirizine 10 mg tablet 10 mg PO DAILY allergies 04/10/20 05/07/22 meclizine 25 mg chewable tablet 25 mg PO TID PRN . 10/28/20 05/07/22 (Travel Sickness (meclizine)) ropinirole 1 mg tablet 1 mg PO BID rls 12/09/20 05/07/22 atorvastatin 20 mg tablet 20 mg PO DAILY 06/17
[2022-05-18 17:48] VITALS: BP 130/72; PULSE 65; RESP 18; TEMP 36.7; O2SAT 98
== END 2022-05-18 17:50 | disposition home or self-care (01) ==
LOC: UTC 15:35 → ER 17:11
PROVIDERS: Emergency Provider Emergency Medicine; PCP Nurse Practitioner Family
DX: M25.562 Pain in left knee (principal); Z87.39 Personal history of other diseases of the musculoskeletal system and connective tissue; Z79.899 Other long term (current) drug therapy; Z88.8 Allergy status to other drugs, medicaments and biological substances; F41.9 Anxiety disorder, unspecified; F32.A Depression, unspecified; E03.9 Hypothyroidism, unspecified; M51.16 Intervertebral disc disorders with radiculopathy, lumbar region; K21.9 Gastro-esophageal reflux disease without esophagitis
CPT/HCPCS: 72100; 73502; 99283

== ENCOUNTER → 2022-06-28 11:25 | Outpatient (CLI) | payer MEDICARE, MEDICAID, SELFPAY ==
--- NOTE | 2022-06-28 11:34 | ECG_ITS ---
APPROVED REPORT Exam: Resting ECG HR:71 bpm ECG Measurements Heart Rate 71 AXES OK 166 P 73 QRSd 109 QRS 6 QT 391 T 56 QTc 413 Conclusion SINUS RHYTHM Old anterior changes BORDERLINE ECG UNCONFIRMED REPORT Electronically signed by : Braden Garrido MD 06/28/2022 19:55:23
[2022-06-28 11:49] LABS: Microscopic, Urine URINE MICROSCOPIC (MICROSCOPIC)
--- NOTE | 2022-06-28 12:02 | XR_ITS ---
FINAL REPORT CLINICAL HISTORY: pre op for tkr tomorrow COMPARISON: 02/09/2022 FINDINGS: 2 views of the chest were obtained . The heart is normal in size. The mediastinum is within normal limits. The lungs are clear. There is no pneumothorax. Osseous structures are unremarkable. IMPRESSION: No acute cardiopulmonary process. Reviewed, Interpreted and Dictated by Chan Torres III, MD Transcribed by Steffany Mckay Authenticated and [facility]
[2022-06-28 12:20] LABS: Basophils # 0.1 K/mm3 (0-0.2); Eosinophils # 0.5 K/mm3 (0.0-0.4); Eosinophils % 7.6 % (0.1-12.0); Hemoglobin 14.9 g/dL (12.2-16.2); Lymphocytes # 1.5 K/mm3 (0.7-4.5); Lymphocytes % 25.6 % (10-50); Mean Corpuscular HGB Conc 32.4 g/dL (31.8-35.4); Mean Corpuscular Volume 95.6 fl (81-99); Mean Platelet Volume 8.2 fl (7.4-10.4); Monocytes # 0.4 K/mm3 (0.1-1.0); Monocytes % 6.1 % (1.7-9.3); Neutrophils # 3.5 K/mm3 (1.8-7.8); Neutrophils % 58.7 % (37.0-80.0); Platelet Count 277 K/mm3 (142-424); Red Blood Count 4.82 M/mm3 (4.20-5.40); Red Cell Distribution Width 13.5 % (11.5-17.5)
[2022-06-28 12:21] LABS: Appearance,Urine CLEAR (Clear); Bilirubin,Urine Negative (Negative); Blood, Urine Negative (Negative); Color,Urine YELLOW (Yellow); Glucose,Urine (UA) Negative (Negative); Ketones,Urine Negative (Negative); Leukocyte Esterase,Urine Negative (Negative); Nitrate,Urine Negative (Negative); PH,Urine 5.5 (5.0-8.5); Protein,Urine Negative (Negative); Specific Gravity, Urine 1.025 (1.005-1.030); Urobilinogen,Urine 0.2 EU/dl (0.2)
[2022-06-28 12:34] LABS: Bacteria,Urine Trace /lpf; Squamous Epithelial Cell,Urine Occasional #/hpf (0-5)
[2022-06-28 12:42] LABS: INR 0.93 (0.9-1.1); Prothrombin Time 10.1 seconds (10.1-12.5)
[2022-06-28 13:07] LABS: Chloride 103 mmol/L (98-107); Potassium 5.1 mmoL/L (3.5-5.1); Sodium 140 mmol/L (136-145)
[2022-06-28 13:09] LABS: Blood Urea Nitrogen 16 mg/dl (7-17); Estimated Glomerular Filt Rate 49 ml/min (>60); GFR (African American) 59 ML/MIN (>60)
[2022-06-28 13:10] LABS: Alanine Aminotransferase 19 U/L (12-78); Albumin Level 4.8 g/dl (3.5-5.0); Albumin/Globulin Ratio 2.2 (1.1-1.8); Alkaline Phosphatase 127 U/L (38-126); Anion Gap 14.1 mEq/L (5-15); Aspartate Amino Transferase 24 U/L (14-36); Bilirubin,Total 0.3 mg/dl (0.2-1.3); Calcium 10.3 mg/dl (8.4-10.2); Carbon Dioxide 28 mmol/L (22.0-30.0); Globulin 2.2 g/dL (1.3-3.2); Glucose 131 mg/dl (74-100)
== END ==
PROVIDERS: PCP Nurse Practitioner Family; Visit Provider Orthopaedic Surgery
DX: M17.12 Unilateral primary osteoarthritis, left knee (principal); Z01.818 Encounter for other preprocedural examination
CPT/HCPCS: 36415; 71046; 80053; 81001; 85025; 85610; 86850; 93005

== ENCOUNTER 2022-06-29 10:18 | Observation (INO) | payer MEDICARE, MEDICAID, SELFPAY ==
[2022-06-28 09:31] VITALS: BMI 30.1
[2022-06-29] VITALS (20 sets, daily range): BP systolic 88–139; BP diastolic 53–82; PULSE 64–84; RESP 15–18; TEMP 36.2–43; O2SAT 92–99
--- NOTE | 2022-06-29 07:12 | EXP.ANES.CKL ---
[facility] Disclaimer: The information contained in this section may have been updated after the patient was seen, as this information can be updated by other users. Medical History (Updated 06/29/22 @ 06:58 by Marcela England RN) Abnormal EKG Allergies Anxiety Atrial fibrillation Bronchitis Daytime somnolence Depression Edema Falling episodes Fibromyalgia GERD (gastroesophageal reflux disease) Headache History of cataract History of COVID-19 Hyperlipidemia Hypertension Hypothyroidism Lumbar disc disease with radiculopathy Lumbar disc disease with radiculopathy Restless sleeper Skin cancer Tonsillectomy planned Vitamin D deficiency Surgical History (Updated 06/29/22 @ 06:58 by Marcela England RN) H/O adenoidectomy H/O tubal ligation History of back surgery History of colonoscopy History of right knee joint replacement History of surgery Family History (Updated 06/29/22 @ 06:58 by Marcela England RN) Mother Family history of cervical cancer Father Family history of myocardial infarction Other Cancer Social History (Updated 06/29/22 @ 06:58 by Marcela England RN) Smoking Status: Former smoker pack-years: 3 years smoked: 4 smoking status stop date: 1997 second hand exposure: Yes alcohol intake: never substance use type: denies use current occupational status: retired Travel in the last 8 weeks: None household members: other housing: house number of children: 3 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 [facility] Anesthesia Checklist Patient Identification Patient Identification: Verbal (Name & ) Structural Data Admitted From: Home Planned Operative Procedure/s: l TKA Consent for Planned Operative Procedure(s) Verified: Yes NPO Status Verified Time NPO: 00:00 Additional verifications Anesthesia Reactions: No Hx Blood Transfusions: No Blood Transfusion Reaction: No Airway Assessment C-Spine Mobility Assessed: Yes TMJ Mobility Assessed: Yes Dentition: Good Dentition Neurological Assessment Level of Consciousness: Awake, Alert and Appropriate Anesthesia Plan Anesthesia Risk discussed: Yes Anesthesia Plan: Verified ASA Class: III Anesthesia Type: MAC w/Block
--- NOTE | 2022-06-29 07:41 | HMH.PHAINT1 ---
Pharmacy Intervention Comments: Medication reconciliation completed via chart review and external fill history. -Pavithra Jorge, PharmD Candidate 2022
[2022-06-29 08:01] LABS: Coronavirus 19, PCR Not Detected (NotDetected); Influenza A, PCR Not Detected (NotDetected); Influenza B, PCR Not Detected (NotDetected)
--- NOTE | 2022-06-29 09:40 | EXP.OP.NOTE ---
Date of procedure: 06/29/22 Pre-op Diagnosis:: Left knee osteoarthritis Post-op Diagnosis:: Left knee osteoarthritis Procedure performed:: Left total knee arthroplasty Surgeon:: Michael Castellon MD Halver Machine Operator(s):: KOREY Curry ASSISTANT NURSE MANAGER:: Gary Otoole Anesthesia: regional, local and spinal Estimated blood loss (mL): 5 Clinical Note:: Jemima is a very pleasant 72-year-old female with activity limiting left knee pain secondary to osteoarthritis. She has failed exhaustive conservative treatment measures including injections, physical therapy and medication. History of a right knee replacement a few years ago by Dr. Chambers. She had a PE after this surgery for which she takes Eliquis. She stopped her Eliquis 2 days ago in anticipation of her left knee replacement. After discussing all the risks, benefits and alternatives to surgery she agreed to proceed with a left total knee replacement and consent form was signed. Operative findings:: Left knee severe tricompartmental degenerative changes with varus deformity Operative note:: The patient was seen in the preoperative holding area. Left knee was marked to confirm the correct operative site. She received Ancef 2 g IV prophylactic antibiotics within 1 hour of incision time. She was brought back to the OR. Spinal was performed and she was given sedation throughout the case. She was placed in the supine position and a bump was placed underneath the left hip. Nonsterile tourniquet applied to the left thigh. Left lower extremity prepped and draped in the usual sterile fashion. Timeout performed to confirm left total knee arthroplasty on patient Mariann Higgins. The left lower extremity was exsanguinated with an Esmarch. Tourniquet was inflated to 300 mmHg. With the knee flexed a midline incision was made with a 10 blade scalpel. Full-thickness medial and lateral flaps elevated. Using a fresh scalpel we made a medial parapatellar arthrotomy. The patella was everted. Patella fat pad and anterior femoral fat pads were excised. Marginal osteophytes were removed. Medial release was performed performed for this varus knee with Bovie electrocautery. Z retractors placed medially and laterally. Distal femur was then drilled and intramedullary distal femoral cutting guide was pinned in place set at a 5 degree valgus cut removing approximately a centimeter from the distal femur. This cut was made with the oscillating saw. The femur was then sized to a size 5 set at 3 degrees of external rotation. 4-in-1 cutting guide was pinned in place. Anterior and posterior cuts were made as were the chamfer cuts. Cut bone was removed. We then turned our attention to the tibia. The tibia was subluxed anteriorly and PCL retractor was placed as were medial and lateral Hohmann retractors. Using the extra medullary tibial cutting guide set at a 3 degree posterior slope we removed 5 mm of bone from the low medial side and a centimeter from the high lateral side. Medial and lateral menisci were then excised. With a 9 mm block flexion extension gaps were stable achieving full extension with excellent alignment. The tibia was then sized to a size 4 tibial tray centered off the medial third of the tibial tubercle. The tray was pinned in place and we impacted the tibial fins. We then trialed with a size 5 femur. We made the box cut with the reamer and punch. With the size [address] along with the 4 tibia and 9 poly we achieved full extension and flexion with excellent alignment and stable throughout. We then made the patellar cut. The patella was sized to 22 mm in thickness. We made a 9 mm patellar cut with the reciprocal saw. A 29 trial was placed and drill holes were made. With the trial button in place there was excellent tracking. Trial components were then removed. Final components opened on the back table. Posterior capsule was injected with 20 cc of half percent Naropin and 5 mg of morphine. Cement
--- NOTE | 2022-06-29 09:43 | EXP.ANES.I ---
[facility] Anesthesia Record Part I Anesthesia Record I Intake, IV Amount: 1,000 Estimated blood loss (mL): 25 Urine output (mL): 0 Blood Pressure: 88/66 SaO2: 92 Pulse Rate: 78 Respiratory Rate: 17 Temperature: 97.1 F Patient is:: Drowsy Stable to PACU at:: 09:34
--- NOTE | 2022-06-29 09:46 | XR_ITS ---
FINAL REPORT CLINICAL HISTORY: postop knee replacement COMPARISON: October 2021 FINDINGS: 2 views of the left knee were obtained. There is left knee arthroplasty. There is associated soft tissue air. There is no evidence of complication. IMPRESSION: Post arthroplasty changes without evidence of hardware complication. Reviewed, Interpreted and Dictated by Chan Torres III, MD Transcribed by Hill Marie Authenticated and [facility]
--- NOTE | 2022-06-29 10:00 | PC.NURSE ---
Took report on patient from OR at this time.
--- NOTE | 2022-06-29 13:15 | PC.NURSE ---
Orthopedic provider rounding on patient at this time. Report given. No new orders at this time.
--- NOTE | 2022-06-29 13:45 | HMH.OTEV ---
OT Inpatient Evaluation Rehab OT IP Evaluation Start: 06/29/22 09:51 Freq: ONCE Status: Active Protocol: Document 06/29/22 13:36 [facility] (Rec: 06/29/22 13:44 [facility] [id number]) Rehab OT IP Assessment Subjective History Pt oriented x 3 on arrival. Pt agreeable to engage in therapy evaluation. Today, pt had a Left total knee arthroplasty. Prior to being in the hospital, pt lived at home alone. Pt reports she was independent with all ADLs and IADLS. Pt did not use a walker during ambulation. Pt was still driving. Subjective I was able to do most everything I needed to, but my knee hurt. Objective Patient Orientation Person,Place,Birthday,Year Upper Extremity Gross ROM WFL Bed Mobility bed mobility-scooting,bed mobility - supine/sit,bed mobility - rolling Assist Level Minimal x 1 (25% assist) Transfer Training Sit/Stand Transfer Assist Level Minimal x 1 (25% assist) Chair Transfer Ability Minimal x 1 (25% assist) Chair Transfer Technique Sit to/from Ambulatory Chair Transfer Assistive Devices Rolling Walker Rehab OT IP prob,goals,plan Problems Date of Evaluation: 06/29/22 OT IP Problems Bed Mobility,Transfers,Balance ,Self care,Safety Rehab Potential Rehab Potential Good Equipment Needs Assistive Devices Rolling / Wheeled Walker Plan OT intervention Plan Bed Mobility,Transfers,Balance ,Self care,Safety,Therapeutic Exercise OT Plan Frequency BID Duration LOS Discharge Goals Bed Mobility Ability Standby Assistance Sit to Stand Chair Transfer Ability Contact Guard/Hand Hold Chair Transfer Ability Contact Guard/Hand Hold Chair Transfer Technique Sit to/from Ambulatory Chair Transfer Assistive Devices Rolling Walker Feeding Ability Assist with Tray Set Up Lower Body Dressing Ability Assistance X1 Upper Body Dressing Ability Standby Assistance Bathing Ability Assistance x1 Performing Toilet Hygiene Ability Assistance X1 Overall Commode/Toilet Transfer Ability Standby Assistance Commode/Toilet Transfer Technique Sit to/from Ambulatory Discharge Plan OT Discharge Plan Pt will continue to be seen
--- NOTE | 2022-06-29 13:47 | HMH.PTEV ---
Physical Therapy Evaluation Rehab PT IP Evaluation Start: 06/29/22 09:51 Freq: ONCE Status: Active Protocol: Document 06/29/22 13:43 PHORNE (Rec: 06/29/22 13:47 PHORNE [id number]) Subjective/History History History 72 yowf adm to [facility] for L TKA. She reports hx of prior R TKA, lives alone, is generally independent with all mobility at baseline. Subjective Subjective Currently reports c/o pain in the L LE and has a headache. Rehab PT IP Eval Objective Appearance Patient Behavior Appropriate Patient Orientation Person,Place,Time Difficulty following instructions none Speech Pattern Clear Ambulation Patient Able to Ambulate Yes Ambulation Observation IP General Gait Pattern Observation Antalgic Gait Ambulation Distance (feet) 15 Ambulation Assistive Device Standard Walker Ambulation Ability Minimal x 1 (25% assist) Balance Ability to Arise Able, uses arms to help Sitting Balance Steady, safe Standing Balance Steady, wide stance Dynamic Sitting Balance Ability Good Dynamic Standing Balance Ability Fair Transfers Bed Transfer Ability Minimal x 1 (25% assist) Chair Transfer Ability Minimal x 1 (25% assist) Sit to Stand Bed Transfer Ability Minimal x 1 (25% assist) Sit to Stand Chair Transfer Ability Minimal x 1 (25% assist) Rehab PT IP prob,goals,plan Problems Date of Evaluation: 06/29/22 PT IP Problems Bed Mobility,Transfers,Gait Rehab Potential Rehab Potential Good Plan PT Intervention Plan Bed Mobility,Transfers,Gait, Therapeutic Exercise PT Plan Frequency BID Duration LOS Discharge Goals Bed Transfer Ability Contact Guard/Hand Hold Sit to Stand Chair Transfer Ability Contact Guard/Hand Hold Ambulation Assistive Device Standard Walker,Rolling Walker Ambulation Distance (feet) 30 Discharge Plan PT Discharge Plan Pt is most appropriate for rehab placement once medically stable. G -code Required No Eval Complexity Eval Charge Codes 42940 - Moderate Complexity PHYSICIAN CERTIFICATION: I certify the specified therapy services for Jemima Higgins are required, authorized, and reviewed every 30 days.
--- NOTE | 2022-06-29 13:48 | SW/DCPLANNER ---
Addendum entered by [facility] 07/02/22 08:26: Per [facility] this patient has been approved for SNF level of care. COVID swab will need to be collected prior to discharge. Addendum entered by [facility] 07/01/22 14:25: Precert is still pending at this time. Addendum entered by [facility] 07/01/22 07:54: Sarita Bryant stated that she can accept this patient pending precert. Precert has been started this AM. I will follow up with Bren at [facility]. Patient is medically stable for discharge. Addendum entered by [facility] 06/30/22 15:33: Patient has called back stating that she is now interested in placement at [facility]. I did speak with Bren at [facility] and they have female beds available. Patient information has been faxed at this time. I did inform Bren that patient will be medically stable for discharge in the AM pending no setbacks. I will follow up with MD, patient and [facility] tomorrow morning. Addendum entered by [facility] 06/30/22 14:43: Sarita root/ Rk Bryant stated that she is unable to start precert at this time due to waiting on answers from home office. I spoke with patient and she was interested in [facility] however [facility] w/ [facility] stated that she has no female beds available at this time. Patient is ambulating well and has decided to return home w/ home health services. Patient is aware that she will be ready for discharge tomorrow pending no setbacks. Addendum entered by [facility] 06/30/22 11:35: Updated patient information has been faxed to Sarita Bryant. Original Note: I spoke with this patient regarding discharge plans once medically stable for discharge. PT/OT evaluated patient and stated that she could benefit from SNF level of care. Patient stated that she has been to [facility] in the past and would prefer to return there SNF level of care. Discharge date is unknown at this time. Patient information has been faxed to Sarita Bryant.
--- NOTE | 2022-06-29 14:44 | EXP.HP ---
History of Present Illness *Admission Date: 06/29/22 *Reason for visit:: Left knee TKA *History of present illness: Ms. Higgins is a pleasant 72-year-old female with severe left knee pain secondary to osteoarthritis. It limits her mobility and activity. She has been following with orthopedics and failed conservative treatment in the outpatient setting including therapy, medications, injections. Decision made to have left knee electively replaced. Right knee was replaced few years ago by Dr. Webber. 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 Eliquis has been held in preparation for left knee arthroplasty. Orthopedics consulted medicine for admission to manage comorbidities. Patient otherwise stable on her home regimen of medications and cleared for surgery prior to admission. Evaluated after arriving to the floor post knee replacement. States her pain is fairly well controlled using ice pack and oral pain medication. Has already been up twice out of bed to get to the bathroom with the assistance of nursing. Denies any nausea, chest pain, shortness of breath, confusion. Neurovascularly intact distal to surgery. Family at bedside updated of plan. Additional comorbidities include hypertension, fatigue, anemia, GERD, hyperlipidemia, history of PE, degenerative joint disease of spine, hypothyroidism, anxiety/mood disorder PFSH [facility] Disclaimer: The information contained in this section may have been updated after the patient was seen, as this information can be updated by other users. Medical History Abnormal EKG Allergies Anxiety Atrial fibrillation Bronchitis Daytime somnolence Depression Edema Falling episodes Fibromyalgia GERD (gastroesophageal reflux disease) Headache History of cataract History of COVID-19 Hyperlipidemia Hypertension Hypothyroidism Lumbar disc disease with radiculopathy Lumbar disc disease with radiculopathy Restless sleeper Skin cancer Tonsillectomy planned Vitamin D deficiency Surgical History H/O adenoidectomy H/O tubal ligation History of back surgery History of colonoscopy History of right knee joint replacement History of surgery Family History Family history of cervical cancer Mother Family history of myocardial infarction Father Cancer Social History Smoking Status: Former smoker pack-years: 3 years smoked: 4 smoking status stop date: 1997 second hand exposure: Yes alcohol intake: never substance use type: denies use current occupational status: retired Travel in the last 8 weeks: None household members: other housing: house number of children: 3 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 Review of Systems Review of Systems Review of systems (narrative): 14 point review of systems performed, pertinent positives and negatives as per HPI Meds Home Medications and Allergies Home Medications Medication Instructions Recorded Confirmed Type fluticasone propionate 50 1 spray intranasal BID PRN allergy 01/05/18 06/29/22 Rx mcg/actuation nasal symptoms #47.4 grams spray,suspension (Flonase Allergy Relief) cetirizine 10 mg tablet 10 mg PO DAILY allergies 04/10/20 06/29/22 History meclizine 25 mg chewable tablet 25 mg PO TID PRN Nausea 10/28/20 06/29/22 History (Travel Sickness (meclizine)) clonazepam 0.5 mg tablet (Klonopin) 0.5 mg PO BID PRN anxiety #30 tabs 11/03/20 06/29/22 Rx pregabalin 150 mg capsule 150 mg PO BID Pain #60 caps 11/03/20 06/29/22 Rx spironolactone 25 mg tablet 25 mg PO DAILY Fluid #90 tabs 11/24/20 06/29/22 Rx ropinirole 1 mg tablet 1 mg PO BID Restless leg 12/09/20 06/29/22 History famotidine 20 mg tablet 20 mg PO DAILY acid reflux
--- NOTE | 2022-06-29 16:00 | PC.NURSE ---
Patient resting in bed at this time. Resp even and nonlabored. No s/s of distress noted at this time. Call light within reach of patient, instructed to notify staff of any needs.
--- NOTE | 2022-06-29 16:14 | PC.NURSE ---
All charting and pt care for this shift completed by Pavel Bennett RN under my direct supervision.
--- NOTE | 2022-06-29 19:05 | PC.NURSE ---
Patient resting in bed at this time. Resp even and nonlabored. No s/s of distress noted at this time. Patient voices no needs at this time. Call light within reach of patient, instructed to notify staff of any needs. Report given to oncoming shift.
[2022-06-30] VITALS: BP 131/60; PULSE 91; RESP 18; TEMP 36.8; O2SAT 94
[2022-06-30 04:39] VITALS: BP 114/57; PULSE 84; RESP 16; TEMP 36.8; O2SAT 95
--- NOTE | 2022-06-30 04:45 | PC.NURSE ---
Patient has gotten some rest this RN's shift. Patient has been placed on 2LNC while sleeping due to oxygen saturation dropping down to 82-84% while asleep. Patient lung sounds remain clear throughout and respirations are spontaneous and unlabored. Patient's dressing remains intact with no drainage noted. Patient has been doing well with pain management through the night with tylenol, toradol and oxycodone. Patient has ambulated with the walker and assistance x2 to the bedside commode. SCUD remains in place on the right leg and patient is tolerating that well.
[2022-06-30 08:22] LABS: Chloride 102 mmol/L (98-107); Potassium 4.1 mmoL/L (3.5-5.1); Sodium 136 mmol/L (136-145)
[2022-06-30 08:23] LABS: Basophils # 0.1 K/mm3 (0-0.2); Basophils % 0.7 % (0.1-2.0); Eosinophils # 0.4 K/mm3 (0.0-0.4); Eosinophils % 5.1 % (0.1-12.0); Hemoglobin 12.4 g/dL (12.2-16.2); Lymphocytes # 1.4 K/mm3 (0.7-4.5); Mean Corpuscular HGB Conc 33.5 g/dL (31.8-35.4); Mean Corpuscular Hemoglobin 31.4 pg (27.0-31.2); Mean Corpuscular Volume 93.8 fl (81-99); Mean Platelet Volume 8.4 fl (7.4-10.4); Monocytes # 0.6 K/mm3 (0.1-1.0); Monocytes % 8.9 % (1.7-9.3); Neutrophils # 4.5 K/mm3 (1.8-7.8); Neutrophils % 65.2 % (37.0-80.0); Platelet Count 185 K/mm3 (142-424); Red Blood Count 3.94 M/mm3 (4.20-5.40); Red Cell Distribution Width 13.7 % (11.5-17.5)
[2022-06-30 08:25] LABS: Anion Gap 10.1 mEq/L (5-15); Blood Urea Nitrogen 13 mg/dl (7-17); Calcium 8.8 mg/dl (8.4-10.2); Carbon Dioxide 28 mmol/L (22.0-30.0); Creatinine Clearance Estimated 60 mL/min (50-200); Estimated Glomerular Filt Rate 49 ml/min (>60); GFR (African American) 59 ML/MIN (>60); Glucose 122 mg/dl (74-100)
[2022-06-30 08:40] VITALS: RESP 20; O2SAT 100
[2022-06-30 08:45] VITALS: BP 114/58; PULSE 83; RESP 20; TEMP 36.7; O2SAT 100
--- NOTE | 2022-06-30 10:08 | EXP.ORTH.PN ---
Subjective *Date: 06/30/22 *Time: 10:39 Interval history: Mrs. Higgins is a 72 year old female patient who underwent an uneventful left primary total knee arthroplasty performed by Dr. Castellon yesterday 06/29/2022. Today the patient is postop day #1. This morning the patient is lying comfortably in bed. She reports some left knee pain as to be expected but states that it is well controlled with as needed pain medication and rest. She states that she has been ambulating weightbearing as tolerated without much difficulty. She has been eating and drinking well and denies any episodes of nausea or vomiting. No history of any distal tingling/numbness, fevers, chills, or rigors. She denies any other symptoms or concerns at this time. Ortho Exam (Inpt) Vital signs and Labs for Last 24 Hours: Temp Pulse Resp BP Pulse Ox 98.2 F 84 16 114/57 L 95 06/30/22 04:39 06/30/22 04:39 06/30/22 04:39 06/30/22 04:39 06/30/22 04:39 Laboratory Results - last 24 hr 06/30/22 07:40: WBC 7.0, RBC 3.94 L, Hgb 12.4, Hct 37.0, MCV 93.8, MCH 31.4 H, MCHC 33.5, RDW 13.7, Plt Count 185 D, MPV 8.4, Neut % (Auto) 65.2, Lymph % (Auto) 20.0, [place] % (Auto) 8.9, Eos % (Auto) 5.1, Baso % (Auto) 0.7, Neut # (Auto) 4.5, Lymph # (Auto) 1.4, [place] # (Auto) 0.6, Eos # (Auto) 0.4, Baso # (Auto) 0.1 06/30/22 07:40: Sodium 136, Potassium 4.1, Chloride 102, Carbon Dioxide 28, Anion Gap 10.1, BUN 13, Creatinine 1.10 H, Estimated Creat Clear 60, Estimated GFR 49 L, Est GFR ( Amer) 59, Glucose 122 H, Calcium 8.8 I & O for Labs for Last 24 Hours: Intake & Output 06/27/22 06/28/22 06/29/22 06/30/22 23:59 23:59 23:59 23:59 Intake Total 1000 / 1000 279 / 279 Output Total 375 / 375 550 / 550 Balance 625 / 625 -271 / -271 Weight 181 lb Head: Present normocephalic and atraumatic Eyes: Present as per HPI ENT: Present normal exam Neck: Present normal inspection, full ROM and trachea midline; Absent lymphadenopathy Respiratory: Present normal respiratory effort, able to speak in complete sentences and symmetric chest movement; Absent accessory muscle use Cardiac: Present Reg Rate and Rhythm GI: Present soft; Absent tenderness Comment:: Upon examination of the lower extremities: The limb lengths are grossly equal. Upon examination of the left knee: Dressings present over the left knee are clean, dry, and intact. Out of the dressings, the surgical incision appears healthy and is healing well. No erythema, induration, purulent drainage, bleeding, or other signs of infection noted. There is a Dermabond Prineo skin closure system in place. Attempted movements of the left knee are somewhat painful. Thigh and calf are soft nontender; Homans' sign is negative. No clinical evidence of DVT or compartment syndrome noted. Posterior tibial pulse 2+; capillary refill is brisk. Sensation to light touch is grossly intact throughout. Patient is actively mobilizing the foot, ankle, and toes. Diagnostic imaging: Postoperative x-ray performed at [facility] on 06/29/2022 reviewed along with radiologist report. X-ray of the left knee demonstrates a total knee arthroplasty with orthopedic components in satisfactory alignment and fixation. No evidence of orthopedic complications noted. Radiologist report is as follows: FINDINGS: 2 views of the left knee were obtained. There is left knee arthroplasty. There is associated soft tissue air. There is no evidence of complication. IMPRESSION: Post arthroplasty changes without evidence of hardware complication. Reviewed, Interpreted and Dictated by Chan Torres III, MD Transcribed by Hill Marie Authenticated and [facility] Skin: Present intact, warm and normal turgor; Absent cyanosis, erythema, lesions or jaundice Neuro: Present Cranial Nerve 2-12 Intact, Motor Function Intact, Sensory Function Intact, alert, awake, oriented x 3
[2022-06-30 12:00] VITALS: BP 121/56; PULSE 75; RESP 18; TEMP 37.1; O2SAT 96
--- NOTE | 2022-06-30 13:33 | EXP.ACUTE.PN ---
Subjective *Date: 06/30/22 *Time: 13:33 Interval history: Pain tolerable overnight. Postsurgical bandage off this morning on rounds. Has gotten up with therapy and walked to the bathroom. Poor appetite, but denies any vomiting. Drinking well. No shortness of breath, chest pain, cough, headache or confusion. Medical Exam Vital signs and Labs for Last 24 Hours: Vital Signs Temp Pulse Resp BP Pulse Ox 06/30/22 12:00 98.7 F 75 18 121/56 L 96 06/30/22 08:45 98.1 F 83 20 114/58 L 100 06/30/22 08:40 20 100 06/30/22 04:39 98.2 F 84 16 114/57 L 95 06/30/22 00:00 98.2 F 91 H 18 131/60 94 L 06/29/22 20:00 98.3 F 84 15 112/57 L 92 L 06/29/22 20:24 92 L 06/29/22 18:00 98.1 F 79 18 118/54 L 99 06/29/22 16:20 74 18 139/71 97 06/29/22 14:20 98.2 F 64 18 135/61 98 Intake and Output 06/29/22 06/30/22 06/30/22 23:59 07:59 15:59 Intake Total 279 / 279 Output Total 375 / 375 550 / 550 Balance -375 / 625 -271 / -271 Intake: Intake, Total IV Amount 279 / 279 0.9 % Sodium Chloride 1,000 ml 181 / 181 @ 75 mls/hr IV .[id number] [facility] Rx# :[id number] Cefazolin Sodium 1 gm In 0.9 % 98 / 98 Sodium Chloride 50 ml @ 100 mls /hr IV Q6H [facility] Rx#:[id number] Output: Output, Urine Amount 375 / 375 550 / 550 Laboratory Results - last 24 hr 06/30/22 07:40: WBC 7.0, RBC 3.94 L, Hgb 12.4, Hct 37.0, MCV 93.8, MCH 31.4 H, MCHC 33.5, RDW 13.7, Plt Count 185 D, MPV 8.4, Neut % (Auto) 65.2, Lymph % (Auto) 20.0, [place] % (Auto) 8.9, Eos % (Auto) 5.1, Baso % (Auto) 0.7, Neut # (Auto) 4.5, Lymph # (Auto) 1.4, [place] # (Auto) 0.6, Eos # (Auto) 0.4, Baso # (Auto) 0.1 06/30/22 07:40: Sodium 136, Potassium 4.1, Chloride 102, Carbon Dioxide 28, Anion Gap 10.1, BUN 13, Creatinine 1.10 H, Estimated Creat Clear 60, Estimated GFR 49 L, Est GFR ( Amer) 59, Glucose 122 H, Calcium 8.8 I & O for Labs for Last 24 Hours: Intake & Output 06/27/22 06/28/22 06/29/22 06/30/22 23:59 23:59 23:59 23:59 Intake Total 1000 / 1000 279 / 279 Output Total 375 / 375 550 / 550 Balance 625 / 625 -271 / -271 Weight 82.1 kg Constitutional: Present no acute distress and obese Head: Present atraumatic and normocephalic ENT: Present normal exam Neck: Present normal inspection Respiratory: Present normal respiratory effort; Absent accessory muscle use, rhonchi, wheezes or crackles Cardiac: Present Reg Rate and Rhythm GI: Present soft and normal bowel sounds; Absent distention or tenderness Extremities: Present normal inspection Comment:: Left knee in postsurgical brace. Surgical incision clean dry and intact. Mild tenderness along border. No drainage. Skin: Present intact; Absent erythema Neuro: Present Grossly Intact, alert, awake, oriented x 3 and moves all extremities Assessment and Plan *Assessment and plan (1) History of arthroplasty of left knee: Status: Acute Category: Surgical Code(s): Z96.652 - Presence of left artificial knee joint (2) HTN (hypertension): Status: Chronic Qualifiers: Hypertension type: primary hypertension Qualified Code(s): I10 - Essential (primary) hypertension Category: Medical Code(s): I10 - Essential (primary) hypertension (3) Restless leg: Status: Chronic Category: Medical Code(s): G25.81 - Restless legs syndrome (4) GERD (gastroesophageal reflux disease): Status: Chronic Qualifiers: Esophagitis presence: without esophagitis Qualified Code(s): K21.9 - Gastro-esophageal reflux disease without esophagitis Category: Medical Code(s): K21.9 - Gastro-esophageal reflux disease without esophagitis (5) Hyperlipidemia: Status: Chronic Qualifiers: Hyperlipidemia type: mixed hyperlipidemia Qualified Code(s): E78.2 - Mixed hyperlipidemia Category: Medical Code(s): E78.5 - Hyperlipidemia, unspecified (
--- NOTE | 2022-06-30 15:21 | PC.NURSE ---
NO CHANGES NOTED IN PREVIOUS ASSESSMENT. LUNGS CTA AND BOWEL HYPOACTIVE. PT REPORTS NO BM SINCE TUESDAY. REPORTS PASSING GAS. PULSES 2+. PATIENT HAS DONE WELL AMBULATING. LEFT KNEE INCISION RN OPERATING ROOM- NO S/S/ OF INFECTION. PULSES TO LEFT FOOT 2+, CAP REFILL <3 SECONDS. nO OTHER SKIN ISSUES NOTED. PAIN CONTROLLED WITH MOTRIN AND TYLENOL. NO NEEDS AT THIS TIME.
[2022-06-30 20:29] VITALS: BP 128/87; PULSE 78; RESP 16; TEMP 37.7; O2SAT 95
--- NOTE | 2022-06-30 22:48 | PC.NURSE ---
Patient requests to have polar pack removed at this time.
[2022-07-01 03:29] VITALS: BP 132/76; PULSE 71; RESP 17; TEMP 36.9; O2SAT 96
--- NOTE | 2022-07-01 03:40 | PC.NURSE ---
Patient has done well this RN's shift. Patient has ambulated to the bathroom with standby assistance. Patient reports feeling the need to have a BM but has been unable to do so thus far. Patient's pain has been minimal and controlled with tylenol and ibuprofen. Patient's oxygen levels have remained stable through the night and has remained on room air. Patient has rested well.
[2022-07-01 05:00] VITALS: BMI 30.5
[2022-07-01 06:52] LABS: Basophils % 0.7 % (0.1-2.0); Eosinophils # 0.3 K/mm3 (0.0-0.4); Eosinophils % 4.3 % (0.1-12.0); Hematocrit 36.9 % (37.0-47.0); Hemoglobin 12.3 g/dL (12.2-16.2); Lymphocytes # 1.1 K/mm3 (0.7-4.5); Lymphocytes % 16.5 % (10-50); Mean Corpuscular HGB Conc 33.4 g/dL (31.8-35.4); Mean Corpuscular Hemoglobin 31.3 pg (27.0-31.2); Mean Corpuscular Volume 93.5 fl (81-99); Mean Platelet Volume 7.9 fl (7.4-10.4); Monocytes # 0.5 K/mm3 (0.1-1.0); Monocytes % 7.5 % (1.7-9.3); Neutrophils # 4.8 K/mm3 (1.8-7.8); Neutrophils % 71.1 % (37.0-80.0); Platelet Count 183 K/mm3 (142-424); Red Blood Count 3.94 M/mm3 (4.20-5.40); Red Cell Distribution Width 13.4 % (11.5-17.5); White Blood Count 6.7 K/mm3 (4.8-10.8)
[2022-07-01 07:23] LABS: Chloride 105 mmol/L (98-107); Sodium 139 mmol/L (136-145)
[2022-07-01 07:27] LABS: Blood Urea Nitrogen 12 mg/dl (7-17); Calcium 9.3 mg/dl (8.4-10.2); Carbon Dioxide 29 mmol/L (22.0-30.0); Creatinine Clearance Estimated 66 mL/min (50-200); Estimated Glomerular Filt Rate 62 ml/min (>60); GFR (African American) 74 ML/MIN (>60); Glucose 110 mg/dl (74-100)
--- NOTE | 2022-07-01 07:54 | EXP.DC.SUM ---
General Admission date:: 06/29/22 Discharge date: 07/02/22 HPI HPI HPI: Ms. Higgins is a carolyn 72-year-old female with severe left knee pain secondary to osteoarthritis. It limits her mobility and activity. She has been following with orthopedics and failed conservative treatment in the outpatient setting including therapy, medications, injections. Decision made to have left knee electively replaced. Right knee was replaced few years ago by Dr. Webber. 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 Eliquis has been held in preparation for left knee arthroplasty. Orthopedics consulted medicine for admission to manage comorbidities. Patient otherwise stable on her home regimen of medications and cleared for surgery prior to admission. Evaluated after arriving to the floor post knee replacement. States her pain is fairly well controlled using ice pack and oral pain medication. Has already been up twice out of bed to get to the bathroom with the assistance of nursing. Denies any nausea, chest pain, shortness of breath, confusion. Neurovascularly intact distal to surgery. Family at bedside updated of plan. Additional comorbidities include hypertension, fatigue, anemia, GERD, hyperlipidemia, history of PE, degenerative joint disease of spine, hypothyroidism, anxiety/mood disorder Hospital Course Hospital Course Hospital Course: Carolyn 72-year-old female with multiple comorbidities admitted for medical management after elective left knee TKA.? Patient stable with good pain control.? Resuming home medications for chronic conditions.? We will have PT/OT evaluate, will likely need placement for rehab as she lives by herself.? Problems addressed as follows: Left knee arthroplasty Osteoarthritis of left knee -Elective outpatient left total knee arthroplasty. Tolerated surgery well. After surgery, patient had minimal pain medication needs. Has done well working with physical therapy while admitted and using ice/polar pack for pain control. 1-2 doses of opiates daily. DVT prophylaxis included resuming her Eliquis at half dose. She is okay at this time to resume regular dose Eliquis at this time. Patient has been accepted by [facility] for continued fpc and PT/OT eval and treatment. Stable for discharge. Goal to get back home complicated by patient having more than 12 steps to get upstairs to her bedroom. Of note, has a history of DVT and PE with her previous knee replacement on the right side. She therefore needs long-term anticoagulant as discussed above. -Continue ropinirole and home pregabalin for restless leg and additional pain management. Essential hypertension Atrial fibrillation - continue bisoprolol, apixaban spironolactone Mood disorder: Continue home venlafaxine, clonazepam Hyperlipidemia: Continue home statin Hypothyroid: Continue home levothyroxine She will be seen for her first postoperative follow-up in approximately 3 weeks on 07/21/[address] Castellon for x-ray and wound inspection. Exam Data for Last 24 hours Vital signs and Labs for Last 24 Hours: Temp Pulse Resp BP Pulse Ox 98.4 F 71 17 132/76 96 07/01/22 03:29 07/01/22 03:29 07/01/22 03:29 07/01/22 03:29 07/01/22 03:29 Laboratory Results - last 24 hr 06/30/22 07:40: WBC 7.0, RBC 3.94 L, Hgb 12.4, Hct 37.0, MCV 93.8, MCH 31.4 H, MCHC 33.5, RDW 13.7, Plt Count 185 D, MPV 8.4, Neut % (Auto) 65.2, Lymph % (Auto) 20.0, [place] % (Auto) 8.9, Eos % (Auto) 5.1, Baso % (Auto) 0.7, Neut # (Auto) 4.5, Lymph # (Auto) 1.4, [place] # (Auto) 0.6, Eos # (Auto) 0.4, Baso # (Auto) 0.1 06/30/22 07:40: Sodium 136, Potassium 4.1, Chloride 102, Carbon Dioxide 28, Anion Gap 10.1, BUN 13, Creatinine 1.10 H, Estimated Creat Clear 60, Estimated GFR 49 L, Est GFR ( Amer) 59, Glucose 122 H, Calcium 8.8 07/01/22 06:36: WBC 6.7, RBC 3.94 L, Hgb 12.3, Hct 36.9 L, MCV 93.5, MCH 31.3 H, MCHC 33.4, RDW 13.4, Plt Count 183, MPV 7.9, Ne
[2022-07-01 08:00] VITALS: BP 120/73; PULSE 79; RESP 18; TEMP 36.9; O2SAT 98; O2SAT 99
--- NOTE | 2022-07-01 08:26 | PC.NURSE ---
Physical therapy in room working with patient.
--- NOTE | 2022-07-01 08:30 | PC.NURSE ---
07:45 ASSISTED PT TO BATHROOM AND TO CHAIR. PT TOLERATED WELL.
--- NOTE | 2022-07-01 08:56 | EXP.ORTH.PN ---
Subjective *Date: 07/01/22 *Time: 08:45 Interval history: Mrs. Higgins is a 72 year old female patient who underwent an uneventful left primary total knee arthroplasty performed by Dr. Castellon on 06/29/2022. Today the patient is postop day #2. This morning the patient is sitting comfortably in a chair at the bedside She reports some left knee pain as to be expected but states that it is well controlled with as needed pain medication and rest. She states that she has been ambulating weightbearing as tolerated and participating in physical therapy. No history of any distal tingling/numbness, fevers, chills, or rigors. She denies any other symptoms or concerns at this time. Ortho Exam (Inpt) Vital signs and Labs for Last 24 Hours: Temp Pulse Resp BP Pulse Ox 98.4 F 71 17 132/76 98 07/01/22 03:29 07/01/22 03:29 07/01/22 03:29 07/01/22 03:29 07/01/22 08:00 Laboratory Results - last 24 hr 07/01/22 06:36: WBC 6.7, RBC 3.94 L, Hgb 12.3, Hct 36.9 L, MCV 93.5, MCH 31.3 H, MCHC 33.4, RDW 13.4, Plt Count 183, MPV 7.9, Neut % (Auto) 71.1, Lymph % (Auto) 16.5, [place] % (Auto) 7.5, Eos % (Auto) 4.3, Baso % (Auto) 0.7, Neut # (Auto) 4.8, Lymph # (Auto) 1.1, [place] # (Auto) 0.5, Eos # (Auto) 0.3, Baso # (Auto) 0.0 07/01/22 06:36: Sodium 139, Potassium 4.0, Chloride 105, Carbon Dioxide 29, Anion Gap 9.0, BUN 12, Creatinine 0.90, Estimated Creat Clear 66, Estimated GFR 62, Est GFR ( Amer) 74 D, Glucose 110 H, Calcium 9.3 I & O for Labs for Last 24 Hours: Intake & Output 06/28/22 06/29/22 06/30/22 07/01/22 23:59 23:59 23:59 23:59 Intake Total 1000 / 1000 279 / 279 120 / 120 Output Total 375 / 375 1650 / 1650 850 / 850 Balance 625 / 625 -1371 / -1371 -730 / -730 Weight 181 lb Head: Present normocephalic and atraumatic Eyes: Present as per HPI ENT: Present normal exam Neck: Present normal inspection, full ROM and trachea midline; Absent lymphadenopathy Respiratory: Present normal respiratory effort, able to speak in complete sentences and symmetric chest movement; Absent accessory muscle use Cardiac: Present Reg Rate and Rhythm GI: Present soft; Absent tenderness Comment:: Upon examination of the lower extremities: The limb lengths are grossly equal. Upon examination of the left knee: The surgical incision appears healthy and is healing well. No erythema, induration, purulent drainage, bleeding, or other signs of infection noted. There is a Dermabond Prineo skin closure system in place. Attempted movements of the left knee are somewhat painful. Thigh and calf are soft nontender; Homans' sign is negative. No clinical evidence of DVT or compartment syndrome noted. Posterior tibial pulse 2+; capillary refill is brisk. Sensation to light touch is grossly intact throughout. Patient is actively mobilizing the foot, ankle, and toes. Skin: Present intact, warm and normal turgor; Absent cyanosis, erythema, lesions or jaundice Neuro: Present Cranial Nerve 2-12 Intact, Motor Function Intact, Sensory Function Intact, alert, awake, oriented x 3, tone normal and moves all extremities; Absent Numbness or Tingling Assessment and Plan *Assessment and plan (1) Status post total left knee replacement: Status: Acute Category: Surgical Code(s): Z96.652 - Presence of left artificial knee joint Plan I have discussed the clinical findings and progress with the patient. Overall she is doing well from an orthopedic standpoint this morning and may be discharged when medically appropriate. There is a Dermabond Prineo skin closure system in place, I have given the patient appropriate care instructions. Plan to continue PT/OT; patient may ambulate weightbearing as tolerated on the left lower extremity. Continue DVT prophylaxis with Eliquis 2.5 mg BID for 3 days postoperatively, thereafter patient may resume her normal home dose of Eliquis. Continue rest, ice, elevation, activity modification, and pain medication as needed. She will be
--- NOTE | 2022-07-01 12:32 | EXP.ACUTE.PN ---
Subjective *Date: 07/01/22 *Time: 12:32 Interval history: Patient did well overnight. Stable on room air. Continues to ambulate with assistance. Working with therapy. No chest pain, nausea, vomiting, diarrhea. Pain stable in left knee. Tolerating p.o. intake. Medical Exam Vital signs and Labs for Last 24 Hours: Vital Signs Temp Pulse Resp BP Pulse Ox 07/01/22 08:00 98.5 F 79 18 120/73 99 07/01/22 08:00 98 07/01/22 03:29 98.4 F 71 17 132/76 96 06/30/22 20:29 99.9 F H 78 16 128/87 95 06/30/22 20:29 95 Intake and Output 06/30/22 07/01/22 07/01/22 23:59 07:59 15:59 Intake Total 120 / 120 Output Total 1100 / 1650 550 / 850 300 / 850 Balance -1100 / -1371 -550 / -730 -180 / -730 Intake: Intake, Oral Amount 120 / 120 Output: Output, Urine Amount 1100 / 1650 550 / 850 300 / 850 Other: Number of Unmeasured Voids 1 Laboratory Results - last 24 hr 07/01/22 06:36: WBC 6.7, RBC 3.94 L, Hgb 12.3, Hct 36.9 L, MCV 93.5, MCH 31.3 H, MCHC 33.4, RDW 13.4, Plt Count 183, MPV 7.9, Neut % (Auto) 71.1, Lymph % (Auto) 16.5, White % (Auto) 7.5, Eos % (Auto) 4.3, Baso % (Auto) 0.7, Neut # (Auto) 4.8, Lymph # (Auto) 1.1, White # (Auto) 0.5, Eos # (Auto) 0.3, Baso # (Auto) 0.0 07/01/22 06:36: Sodium 139, Potassium 4.0, Chloride 105, Carbon Dioxide 29, Anion Gap 9.0, BUN 12, Creatinine 0.90, Estimated Creat Clear 66, Estimated GFR 62, Est GFR ( Amer) 74 D, Glucose 110 H, Calcium 9.3 I & O for Labs for Last 24 Hours: Intake & Output 06/28/22 06/29/22 06/30/2207/01/22 23:59 23:59 23:59 23:59 Intake Total 1000 / 1000 279 / 279 120 / 120 Output Total 375 / 375 1650 / 1650 850 / 850 Balance 625 / 625 -1371 / -1371 -730 / -730 Weight 82.1 kg Constitutional: Present no acute distress and obese Head: Present atraumatic and normocephalic ENT: Present normal exam Neck: Present normal inspection Respiratory: Present normal respiratory effort; Absent accessory muscle use, rhonchi, wheezes or crackles Cardiac: Present Reg Rate and Rhythm GI: Present soft and normal bowel sounds; Absent distention or tenderness Extremities: Present normal inspection Comment:: Left knee in postsurgical brace. Surgical incision clean dry and intact. Mild tenderness along border. No drainage. Skin: Present intact; Absent erythema Neuro: Present Grossly Intact, alert, awake, oriented x 3 and moves all extremities Assessment and Plan *Assessment and plan (1) History of arthroplasty of left knee: Status: Acute Category: Surgical Code(s): Z96.652 - Presence of left artificial knee joint (2) HTN (hypertension): Status: Chronic Qualifiers: Hypertension type: primary hypertension Qualified Code(s): I10 - Essential (primary) hypertension Category: Medical Code(s): I10 - Essential (primary) hypertension (3) Restless leg: Status: Chronic Category: Medical Code(s): G25.81 - Restless legs syndrome (4) GERD (gastroesophageal reflux disease): Status: Chronic Qualifiers: Esophagitis presence: without esophagitis Qualified Code(s): K21.9 - Gastro-esophageal reflux disease without esophagitis Category: Medical Code(s): K21.9 - Gastro-esophageal reflux disease without esophagitis (5) Hyperlipidemia: Status: Chronic Qualifiers: Hyperlipidemia type: mixed hyperlipidemia Qualified Code(s): E78.2 - Mixed hyperlipidemia Category: Medical Code(s): E78.5 - Hyperlipidemia, unspecified (6) Pulmonary embolism: Status: Chronic Qualifiers: Pulmonary embolism type: other Chronicity: unspecified Acute cor pulmonale presence: without acute cor pulmonale Qualified Code(s): I26.99 - Other pulmonary embolism without acute cor pulmonale Category: Medical Code(s): I26.99 - Other pulmonary embolism without acute cor pulmonale (7) Chronic renal failure, stage
[2022-07-01 16:00] VITALS: BP 118/60; PULSE 69; RESP 18; TEMP 36.9; O2SAT 96
--- NOTE | 2022-07-01 16:30 | PC.NURSE ---
Reassessment completed at this time- no changes. lungs cta and bowel sounds hypoactive x4. no bowel movement reported. reports no numbness/tingling. left knee- incision without redness/signs of infection. cap refill <3 in left toes, pulses 2+. pt doing well ambulating. pain meds per mar
[2022-07-01 20:36] VITALS: BP 116/56; PULSE 68; RESP 15; TEMP 36.7; O2SAT 98
[2022-07-02 04:40] VITALS: BP 122/59; PULSE 65; RESP 15; TEMP 36.7; O2SAT 98
--- NOTE | 2022-07-02 04:47 | PC.NURSE ---
Patient has been tearful a few times during this RN's shift. Patient is concerned about rehab and states I cannot go home, there are too many steps to get to the bedroom . Patient was reassured that, care management is working on discharge plans. Patient has ambulated well with assistance to and from the bathroom. Patient was able to shower with assistance from nursing staff. Lungs remain clear throughout on reassessment and remains on room air. Patient's incision remains unremarkable upon exam and bilateral pulses are +2 and capillary refill is less than 3 seconds. Prineo mesh remains intact and no drainage noted to incision. Patient has not still not had a bowel movement thus far but reports passing flatulence. Patient requesting prune juice for in the morning.
[2022-07-02 04:55] VITALS: BMI 30.3
--- NOTE | 2022-07-02 07:22 | EXP.ORTH.PN ---
Subjective *Date: 07/02/22 *Time: 07:05 Interval history: Mrs. Higgins is a 72 year old female patient who underwent an uneventful left primary total knee arthroplasty performed by Dr. Castellon on 06/29/2022. Today the patient is postop day #3. This morning the patient is resting comfortably in bed. She reports some left knee pain as to be expected but states that it is well controlled with as needed pain medication and rest. She states that her knee was more swollen yesterday evening following physical therapy, but is better this morning. No history of any distal tingling/numbness, fevers, chills, or rigors. She denies any other symptoms or concerns at this time. Ortho Exam (Inpt) Vital signs and Labs for Last 24 Hours: Temp Pulse Resp BP Pulse Ox 98.1 F 65 15 122/59 L 98 07/02/22 04:40 07/02/22 04:40 07/02/22 04:40 07/02/22 04:40 07/02/22 04:40 Laboratory Results - last 24 hr 07/01/22 06:36: Sodium 139, Potassium 4.0, Chloride 105, Carbon Dioxide 29, Anion Gap 9.0, BUN 12, Creatinine 0.90, Estimated Creat Clear 66, Estimated GFR 62, Est GFR ( Amer) 74 D, Glucose 110 H, Calcium 9.3 I & O for Labs for Last 24 Hours: Intake & Output 06/29/22 06/30/22 07/01/22 07/02/22 23:59 23:59 23:59 23:59 Intake Total 1000 / 1000 279 / 279 120 / 120 Output Total 375 / 375 1650 / 1650 1050 / 1050 200 / 200 Balance 625 / 625 -1371 / -1371 -930 / -930 -200 / -200 Weight 183 lb 7 oz 182 lb 4 oz Head: Present normocephalic and atraumatic Eyes: Present as per HPI ENT: Present normal exam Neck: Present normal inspection, full ROM and trachea midline; Absent lymphadenopathy Respiratory: Present normal respiratory effort, able to speak in complete sentences and symmetric chest movement; Absent accessory muscle use Cardiac: Present Reg Rate and Rhythm GI: Present soft; Absent tenderness Comment:: Upon examination of the lower extremities: The limb lengths are grossly equal. Upon examination of the left knee: The surgical incision appears healthy and is healing well. No erythema, induration, purulent drainage, bleeding, or other signs of infection noted. There is a Dermabond Prineo skin closure system in place. Attempted movements of the left knee are somewhat painful. Thigh and calf are soft nontender; Homans' sign is negative. No clinical evidence of DVT or compartment syndrome noted. Posterior tibial pulse 2+; capillary refill is brisk. Sensation to light touch is grossly intact throughout. Patient is actively mobilizing the foot, ankle, and toes. Skin: Present intact, warm and normal turgor; Absent cyanosis, erythema, lesions or jaundice Neuro: Present Cranial Nerve 2-12 Intact, Motor Function Intact, Sensory Function Intact, alert, awake, oriented x 3, tone normal and moves all extremities; Absent Numbness or Tingling Assessment and Plan *Assessment and plan (1) Status post total left knee replacement: Status: Acute Category: Surgical Code(s): Z96.652 - Presence of left artificial knee joint Plan I have discussed the clinical findings and progress with the patient. Overall she is doing well from an orthopedic standpoint and may be discharged when medically appropriate. There is a Dermabond Prineo skin closure system in place, I have given the patient appropriate care instructions. Plan to continue PT/OT; patient may ambulate weightbearing as tolerated on the left lower extremity. Continue DVT prophylaxis with Eliquis 2.5 mg BID for 3 days postoperatively, thereafter patient may resume her normal home dose of Eliquis. Continue rest, ice, elevation, activity modification, and pain medication as needed. She will be seen for her first postoperative follow-up in approximately 3 weeks on 07/21/[address] Castellon for x-ray and wound inspection. Case management team coordinating discharge planning; patient is interested in placement for short-term rehabilitation as she lives alone and has an upstairs bedroom. Continue
[2022-07-02 07:51] LABS: Chloride 102 mmol/L (98-107)
[2022-07-02 07:52] LABS: Potassium 3.9 mmoL/L (3.5-5.1); Sodium 137 mmol/L (136-145)
[2022-07-02 07:55] LABS: Anion Gap 9.9 mEq/L (5-15); Blood Urea Nitrogen 14 mg/dl (7-17); Calcium 9.1 mg/dl (8.4-10.2); Carbon Dioxide 29 mmol/L (22.0-30.0); Creatinine Clearance Estimated 66 mL/min (50-200); Estimated Glomerular Filt Rate 62 ml/min (>60); GFR (African American) 74 ML/MIN (>60); Glucose 96 mg/dl (74-100)
[2022-07-02 07:57] LABS: Basophils # 0.1 K/mm3 (0-0.2); Basophils % 0.8 % (0.1-2.0); Eosinophils # 0.4 K/mm3 (0.0-0.4); Eosinophils % 7.3 % (0.1-12.0); Hematocrit 34.9 % (37.0-47.0); Hemoglobin 11.8 g/dL (12.2-16.2); Lymphocytes # 1.3 K/mm3 (0.7-4.5); Lymphocytes % 22.7 % (10-50); Mean Corpuscular HGB Conc 33.7 g/dL (31.8-35.4); Mean Corpuscular Hemoglobin 31.4 pg (27.0-31.2); Mean Platelet Volume 8.2 fl (7.4-10.4); Monocytes # 0.4 K/mm3 (0.1-1.0); Monocytes % 6.4 % (1.7-9.3); Neutrophils # 3.7 K/mm3 (1.8-7.8); Neutrophils % 62.8 % (37.0-80.0); Platelet Count 190 K/mm3 (142-424); Red Blood Count 3.75 M/mm3 (4.20-5.40); Red Cell Distribution Width 13.4 % (11.5-17.5); White Blood Count 5.9 K/mm3 (4.8-10.8)
[2022-07-02 08:15] VITALS: BP 108/73; PULSE 66; RESP 18; TEMP 36.5; O2SAT 96
[2022-07-02 08:49] LABS: Coronavirus 19, PCR Not Detected (NotDetected); Influenza A, PCR Not Detected (NotDetected); Influenza B, PCR Not Detected (NotDetected)
--- NOTE | 2022-07-02 11:43 | EXP.ANES.II ---
[facility] Anesthesia Record Part II Anesthesia Record Part II Discharge Time: 10:04 Destination: Second Floor PACU nurse assessment reviewed?: Yes Patient Condition:: Good Anesthesia Complications:: None Swallowing reflex intact?: Yes Cyanosis?: No Blood Pressure: 113/53 Pulse Rate: 70 Temperature: 97.7 F Mental Status: Alert & Oriented Pain level:: 0 Nausea and/or vomitting:: None Intake, IV Amount: 1,500
[2022-07-02 11:44] VITALS: BP 113/53; PULSE 70; TEMP 36.5
--- NOTE | 2022-07-02 12:45 | PC.NURSE ---
PATIENT WAITING ON RIDE TO GET HERE. PATIENT HAS DONE WELL ON MY SHIFT. AMBULATING WITH WALKER WELL. PAIN WELL MANAGED WITH ORDERED PAIN MEDS. IV WAS D/C AT THIS TIME.
--- NOTE | 2022-07-02 13:00 | PC.NURSE ---
PT HAS HAD ADEQUATE URINE OUTPUT TODAY- BUT NO BM SINCE 06/28/2022.
== END 2022-07-02 13:30 ==
LOC: OB 10:21
PROVIDERS: Admitting Provider Orthopaedic Surgery; PCP Nurse Practitioner Family; Visit Provider Internal Medicine Adolescent Medicine
PROC: (CPT 27447; principal; 2022-06-29 07:30)
DX: M17.12 Unilateral primary osteoarthritis, left knee (principal); I10 Essential (primary) hypertension; G25.81 Restless legs syndrome; K21.9 Gastro-esophageal reflux disease without esophagitis; E78.2 Mixed hyperlipidemia; Z20.822 Contact with and (suspected) exposure to COVID-19
CPT/HCPCS: 27447; G0378; 36415; 73560; 80048; 85025; 96374; 97110; 97116; 97162; 97166; 97530; 97535; C1713; C1776; C9803; J2405; U0003; U0005

== ENCOUNTER 2022-07-18 13:18 | Emergency (ER) | payer MEDICARE, MEDICAID, SELFPAY ==
--- NOTE | 2022-07-18 13:18 | ECG_ITS ---
APPROVED REPORT Exam: Resting ECG HR:89 bpm ECG Measurements Heart Rate 89 AXES QRSd 102 QRS 0 QT 362 T 61 QTc 409 Conclusion ATRIAL FIBRILLATION MODERATE ST DEPRESSION [0.05+ mV ST DEPRESSION] ABNORMAL ECG UNCONFIRMED REPORT Electronically signed by : Braden Garrido MD 07/19/2022 20:03:58
[2022-07-18 13:22] VITALS: BP 125/77; PULSE 85; RESP 12; TEMP 36.8; O2SAT 98; BMI 29.9
--- NOTE | 2022-07-18 13:28 | XR_ITS ---
PROCEDURE INFORMATION: Exam: XR Chest Exam date and time: 07/18/2022 1:51 PM Age: 72 years old Clinical indication: Shortness of breath; Patient HX: Chest pain, SOA TECHNIQUE: Imaging protocol: Radiologic exam of the chest. Views: 1 view. COMPARISON: CR XR CHEST 2V 06/28/2022 12:04 PM FINDINGS: Lungs: There is interval development of indistinct the nodular opacity left lower lobe in the due to focal pneumonitis. Remaining lung zeng aerated and clear. Pleural spaces: Unremarkable. No pleural effusion. No pneumothorax. Heart/Mediastinum: Unremarkable. No cardiomegaly. Bones/joints: Unremarkable for age. IMPRESSION: Developing indistinct nodular opacity left lower lobe possibly infectious in nature. Continued follow-up advised.
[2022-07-18 13:37] LABS: Coronavirus 19, PCR Not Detected (NotDetected); Influenza A, PCR Not Detected (NotDetected); Influenza B, PCR Not Detected (NotDetected)
[2022-07-18 13:37] LABS: Basophils # 0.1 K/mm3 (0-0.2); Basophils % 1.1 % (0.1-2.0); Eosinophils # 0.3 K/mm3 (0.0-0.4); Hematocrit 38.8 % (37.0-47.0); Hemoglobin 12.9 g/dL (12.2-16.2); Lymphocytes # 1.4 K/mm3 (0.7-4.5); Lymphocytes % 25.4 % (10-50); Mean Corpuscular HGB Conc 33.4 g/dL (31.8-35.4); Mean Corpuscular Hemoglobin 31.1 pg (27.0-31.2); Mean Corpuscular Volume 93.2 fl (81-99); Mean Platelet Volume 7.6 fl (7.4-10.4); Monocytes # 0.5 K/mm3 (0.1-1.0); Monocytes % 8.1 % (1.7-9.3); Neutrophils # 3.3 K/mm3 (1.8-7.8); Neutrophils % 60.4 % (37.0-80.0); Platelet Count 455 K/mm3 (142-424); Red Blood Count 4.16 M/mm3 (4.20-5.40); Red Cell Distribution Width 13.6 % (11.5-17.5); White Blood Count 5.5 K/mm3 (4.8-10.8)
--- NOTE | 2022-07-18 13:40 | PC.NURSE ---
mobile service rv technician @ [facility] chest x-ray
[2022-07-18 13:44] LABS: Chloride 103 mmol/L (98-107); Potassium 3.9 mmoL/L (3.5-5.1); Sodium 140 mmol/L (136-145)
[2022-07-18 13:46] LABS: Alanine Aminotransferase 19 U/L (12-78); Aspartate Amino Transferase 27 U/L (14-36); Blood Urea Nitrogen 13 mg/dl (7-17); Creatinine Clearance Estimated 66 mL/min (50-200); Estimated Glomerular Filt Rate 55 ml/min (>60); GFR (African American) 66 ML/MIN (>60)
[2022-07-18 13:47] LABS: Albumin Level 3.8 g/dl (3.5-5.0); Albumin/Globulin Ratio 1.3 (1.1-1.8); Alkaline Phosphatase 119 U/L (38-126); Anion Gap 13.9 mEq/L (5-15); Bilirubin,Total 0.7 mg/dl (0.2-1.3); Carbon Dioxide 27 mmol/L (22.0-30.0); Glucose 123 mg/dl (74-100); Total Protein,Serum 6.8 g/dl (6.3-8.2)
[2022-07-18 14:02] LABS: Troponin I < 0.01 ng/ml (0.00-0.034)
--- NOTE | 2022-07-18 14:02 | PC.NURSE ---
Cultures and lactic drawn and sent to lab
[2022-07-18 14:13] LABS: Lactic Acid 1.5 mmol/L (0.7-2.1)
--- NOTE | 2022-07-18 15:07 | PC.NURSE ---
Went in to check on patient when she yelled out. Readjusted patient and placed call light within reach.
--- NOTE | 2022-07-18 15:45 | HMH.EDGENADL ---
Discharge Plan Disposition Patient Disposition: Home, Self-Care Condition: Good Chief Complaint: Shortness of Breath/Dyspnea Prescriptions Prescriptions: No Action fluticasone propionate [Flonase Allergy Relief] 50 mcg/actuation spray,suspension 1 spray INTRANASAL BID PRN (Reason: allergy symptoms) Qty: 47.4 0RF Rx Instructions: administer into each nostril methocarbamol 500 mg tablet 500 mg PO HS PRN (Reason: Sleep) atorvastatin 20 mg tablet 20 mg PO DAILY spironolactone 25 mg tablet 25 mg PO DAILY Qty: 90 3RF famotidine 20 mg tablet 20 mg PO DAILY Qty: 90 0RF cetirizine 10 mg tablet 10 mg PO DAILY ropinirole 1 MG tablet 1 mg PO BID venlafaxine 150 mg capsule,extended release 24hr 150 mg PO DAILY levothyroxine 75 mcg tablet 75 mcg PO DAILY Rx Instructions: TAKE 1 TABLET BY MOUTH ONCE DAILY Eliquis 5 mg tablet 5 mg PO BID acetaminophen 650 mg Tablet Extended Release 1,300 mg PO Q12H PRN (Reason: Pain) Label Comments: PT REPORTS TAKING 2 650MG TABLETS 06/28/22 AT 2230. Kenny ZHANG GUIDE [employer] NOTIFIED. bisoprolol fumarate 5 mg tablet 5 mg PO DAILY sennosides [Senna Lax] 8.6 mg Tablet 8.6 mg PO HS 15 Days Qty: 15 0RF docusate sodium 100 mg Capsule 100 mg PO HS 15 Days Qty: 15 0RF oxycodone-acetaminophen 5-325 mg tablet 1 tab PO Q6H PRN (Reason: pain) 3 Days Qty: 10 0RF clonazepam [Klonopin] 0.5 mg tablet 0.5 mg PO BID PRN (Reason: anxiety) 10 Days Qty: 20 2RF tramadol 50 mg tablet 50 mg PO BID 10 Days Qty: 20 0RF pregabalin 150 mg capsule 150 mg PO BID 10 Days Qty: 20 2RF Referrals Follow up/Referrals: Provider,Referral, MD [Primary Care Provider] - See instructions Activity Restrictions/Add. Instructions Additional Instructions/Restrictions: Continue current medications. See Dr. St in his office tomorrow morning at 9 AM. Clinical Impressions Clinical Impression: Paroxysmal atrial fibrillation Instructions Patient Instructions: DI for Atrial Fibrillation Discharge ED Provider: Oz Meade Adult [facility] General Chief complaint: Shortness of Breath/Dyspnea Stated complaint: heart palpitations Time Seen by Provider: 07/18/22 15:44 Mode of Arrival: EMS Source of Information: Patient, EMS and Medical Record Limitations: No Limitations Description of Symptoms (Recalled from ER Triage Doc. by RN): Per EMS pt was toned out for soa and A-FIB. Pt states that since last night she has been having soa all the time but more with activity. Pt just was released from [facility] on Tuesday07/10/22 after a week stay from her left knee sx. Hx of A-fib. History of Present Illness HPI narrative: Patient complains of A. fib . She says that her heart has been beating too fast for the past 2 to 3 days. States that she has a history of paroxysmal A. fib. She says that she recently had left knee surgery and was in [place] afterwards for rehab. She says she had a spell while she was in [place] and they had to contact Dr. St. She is now at home. Denies chest pain. She does have some shortness of breath. States she is compliant with her medications. Related Data Home Medications Medication Instructions Recorded Confirmed cetirizine 10 mg tablet 10 mg PO DAILY allergies 04/10/20 06/29/22 ropinirole 1 mg tablet 1 mg PO BID Restless leg 12/09/20 06/29/22 atorvastatin 20 mg tablet 20 mg PO DAILY Cholesterol 06/30/21 06/29/22 methocarbamol 500 mg tablet 500 mg PO HS PRN Sleep 03/31/22 06/29/22 apixaban 5 mg tablet (Eliquis) 5 mg PO BID afib 06/28/22 06/29/22 levothyroxine 75 mcg tablet 75 mcg PO DAILY thyroid 06/28/22 06/29/22 venlafaxine 150 mg 150 mg PO DAILY mood 06/28/22 06/29/22 capsule,extended release 24 hr acetaminophen 650 mg 1,300 mg PO Q12H PRN Pain 06/29/22 06/29/22 tablet,extended release bisoprolol fumarate 5 mg tablet 5 mg PO DAILY rate control 06/17
--- NOTE | 2022-07-18 16:23 | PC.NURSE ---
has been paged
--- NOTE | 2022-07-18 16:24 | PC.NURSE ---
on the phone with
[2022-07-18 16:42] LABS: Thyroid Stimulating Hormone 1.91 uIU/mL (0.465-4.68)
[2022-07-18 17:02] VITALS: BP 101/63; PULSE 86; RESP 17; TEMP 36.7; O2SAT 99
[2022-07-18 17:25] LABS: Troponin I < 0.01 ng/ml (0.00-0.034)
== END 2022-07-18 17:04 | disposition home or self-care (01) ==
PROVIDERS: Emergency Provider Emergency Medicine
DX: I48.0 Paroxysmal atrial fibrillation (principal); R00.2 Palpitations; R06.02 Shortness of breath; R06.00 Dyspnea, unspecified; F41.9 Anxiety disorder, unspecified; M79.7 Fibromyalgia; I10 Essential (primary) hypertension; M54.16 Radiculopathy, lumbar region; Z86.16 Personal history of COVID-19; Z85.828 Personal history of other malignant neoplasm of skin; Z87.891 Personal history of nicotine dependence; Z20.822 Contact with and (suspected) exposure to COVID-19
CPT/HCPCS: 36415; 71045; 80053; 83605; 84443; 84484; 85025; 87040; 93005; 99285; C9803; U0003; U0005

== ENCOUNTER → 2022-07-19 09:35 | Outpatient (CLI) | payer MEDICARE, MEDICAID, SELFPAY | PROVIDERS: PCP Nurse Practitioner Family; Visit Provider Physician Assistant | DX: R07.89 Other chest pain (principal); I48.0 Paroxysmal atrial fibrillation | CPT/HCPCS: 93225; 93226 ==

== ENCOUNTER → 2022-07-21 10:42 | Outpatient (CLI) | payer MEDICARE, MEDICAID, SELFPAY ==
--- NOTE | 2022-07-21 10:45 | XR_ITS ---
FINAL REPORT CLINICAL HISTORY: S/p TKA FINDINGS: LEFT KNEE 3 views of the left knee were obtained. There are postoperative changes from knee arthroplasty. The hardware is unremarkable. There is no acute fracture or dislocation. Visualized joint spaces are normally aligned. There is a moderate joint effusion. There is soft tissue swelling. IMPRESSION: Postoperative changes with no acute bony abnormality. Reviewed, Interpreted and Dictated by Khoa Phillips MD Transcribed by Samreen Rogers Authenticated and [facility]
== END ==
PROVIDERS: PCP Nurse Practitioner Family; Visit Provider Orthopaedic Surgery
DX: Z96.652 Presence of left artificial knee joint (principal); M25.562 Pain in left knee
CPT/HCPCS: 73562

== ENCOUNTER → 2022-08-07 11:21 | Outpatient (CLI) | payer MEDICARE, MEDICAID, SELFPAY ==
[2022-08-07 11:24] VITALS: BP 139/49; PULSE 104; RESP 16; TEMP 37.1; O2SAT 98
[2022-08-07 11:54] VITALS: BMI 28.4
[2022-08-07 12:09] LABS: Basophils # 0.1 K/mm3 (0-0.2); Basophils % 0.6 % (0.1-2.0); Eosinophils # 0.2 K/mm3 (0.0-0.4); Hematocrit 42.3 % (37.0-47.0); Lymphocytes # 1.5 K/mm3 (0.7-4.5); Lymphocytes % 19.7 % (10-50); Mean Corpuscular HGB Conc 33.1 g/dL (31.8-35.4); Mean Corpuscular Hemoglobin 30.7 pg (27.0-31.2); Mean Platelet Volume 8.3 fl (7.4-10.4); Monocytes # 0.5 K/mm3 (0.1-1.0); Monocytes % 6.6 % (1.7-9.3); Neutrophils # 5.3 K/mm3 (1.8-7.8); Neutrophils % 70.1 % (37.0-80.0); Platelet Count 359 K/mm3 (142-424); Red Blood Count 4.55 M/mm3 (4.20-5.40); Red Cell Distribution Width 14.1 % (11.5-17.5); White Blood Count 7.6 K/mm3 (4.8-10.8)
[2022-08-07 12:11] LABS: Magnesium 2.1 mg/dl (1.6-2.3)
[2022-08-07 14:20] LABS: Microscopic, Urine URINE MICROSCOPIC (MICROSCOPIC)
[2022-08-07 14:53] LABS: Chloride 104 mmol/L (98-107); Sodium 140 mmol/L (136-145)
[2022-08-07 14:56] LABS: Alanine Aminotransferase 21 U/L (12-78); Albumin Level 4.3 g/dl (3.5-5.0); Albumin/Globulin Ratio 1.4 (1.1-1.8); Alkaline Phosphatase 121 U/L (38-126); Aspartate Amino Transferase 39 U/L (14-36); Bilirubin,Total 0.8 mg/dl (0.2-1.3); Blood Urea Nitrogen 13 mg/dl (7-17); Carbon Dioxide 26 mmol/L (22.0-30.0); Creatinine Clearance Estimated 62 mL/min (50-200); Estimated Glomerular Filt Rate 55 ml/min (>60); GFR (African American) 66 ML/MIN (>60); Total Protein,Serum 7.3 g/dl (6.3-8.2)
[2022-08-07 14:57] LABS: Calcium 9.3 mg/dl (8.4-10.2); Glucose 129 mg/dl (74-100)
[2022-08-07 15:10] LABS: Appearance,Urine CLEAR (Clear); Bilirubin,Urine Negative (Negative); Blood, Urine Negative (Negative); Color,Urine YELLOW (Yellow); Glucose,Urine (UA) Negative (Negative); Ketones,Urine Negative (Negative); Leukocyte Esterase,Urine Negative (Negative); Nitrate,Urine Negative (Negative); PH,Urine 5.5 (5.0-8.5); Protein,Urine Negative (Negative); Urobilinogen,Urine 0.2 EU/dl (0.2)
[2022-08-07 15:15] LABS: Bacteria,Urine Trace /lpf; Squamous Epithelial Cell,Urine Occasional #/hpf (0-5)
[2022-08-07 16:30] VITALS: BP 118/68; PULSE 102; RESP 18; TEMP 37; O2SAT 98
== END ==
PROVIDERS: Visit Provider Internal Medicine Adolescent Medicine
DX: E86.0 Dehydration (principal); Z45.2 Encounter for adjustment and management of vascular access device
CPT/HCPCS: 80053; 81001; 83735; 85025; 96360; 96361; G0463

== ENCOUNTER 2022-08-16 16:00 | Outpatient (RCR) | payer MEDICARE, MEDICAID, SELFPAY ==
--- NOTE | 2022-08-11 14:46 | HMH.PTOPEV ---
PT Outpatient Evaluation Rehab PT Outpatient Evaluation Start: 08/11/22 13:04 Freq: Status: Active Protocol: Document 08/11/22 13:04 ADRIAN (Rec: 08/11/22 13:55 ADRIAN [id number]) E-signed By Rosie Lyons, PT Outpatient Therapy Subjective History Subjective History Pt is a 72 y/o female that presents to PT 6 weeks s/p L TKA performed 06/29/23. Pt denies post-operative complications and states she stayed in the hospital for 5 days waiting on placement for [facility]. Pt states she stayed at [facility] for 1 week for initial rehabilitation then had 1 month of home health physical therapy. Pt states she has not continued to do her HEP independently since home health ended. Pt states she had a followup with her surgeon at the beginning of the month where they took xrays with good report. Pt reports pain still comes and goes but is getting better overall. Pt reports she takes Tylenol arthritis which does help with pain. 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 Pt also states her knee still feels numb on the lateral side. Pt reports most of the time she does not feel the need to use an AD but does have a cane/walker for prolonged ambulation. Pt reports she fell out of the bed [place] Samantha night but denies recent falls. Pt reports she has 12 steps upstairs to her bedroom which she is doing well navigating. Pt reports she has a followup with her surgeon 08/18/22. Medical History: Hypertension, Afib Surgical Hx: R TKA 2018
== END 2022-10-26 11:09 | disposition home or self-care (01) ==
LOC: PT 16:00
PROVIDERS: PCP Nurse Practitioner Family; Visit Provider Orthopaedic Surgery
DX: M25.562 Pain in left knee (principal); Z96.652 Presence of left artificial knee joint
CPT/HCPCS: 97010; 97014; 97110; 97140; 97163; G0283

== ENCOUNTER → 2022-08-18 10:40 | Outpatient (CLI) | payer MEDICARE, MEDICAID, SELFPAY ==
--- NOTE | 2022-08-18 10:48 | XR_ITS ---
FINAL REPORT CLINICAL HISTORY: s/p lt knee COMPARISON: 07/21/2022 FINDINGS: LEFT KNEE Three views of the left knee demonstrate postoperative changes from knee arthroplasty, stable. Alignment is normal. There is no evidence of joint effusion. No localized soft tissue abnormality is seen. IMPRESSION: Postoperative changes as above with no acute abnormality. Reviewed, Interpreted and Dictated by Chan Torres III, MD Transcribed by Samreen Rogers Authenticated and [facility]
== END ==
PROVIDERS: PCP Nurse Practitioner Family; Visit Provider Nurse Practitioner Family
DX: Z96.652 Presence of left artificial knee joint (principal); M25.562 Pain in left knee
CPT/HCPCS: 73562

== ENCOUNTER → 2022-11-17 11:03 | Outpatient (CLI) | payer MEDICARE, MEDICAID, SELFPAY ==
--- NOTE | 2022-11-17 11:08 | XR_ITS ---
FINAL REPORT CLINICAL HISTORY: right knee pain COMPARISON: 08/04/2020 FINDINGS: Three views of the right knee were obtained. Total joint prosthesis is noted. There is an abnormal sclerosis in the distal femoral diaphysis which may be related to enchondroma or bone infarct. There is no soft tissue abnormality. IMPRESSION: No acute process. Reviewed, Interpreted and Dictated by Jerzy Byrnes MD Transcribed by Zenobia Castillo Authenticated and [facility]
--- NOTE | 2022-11-17 11:08 | XR_ITS ---
FINAL REPORT CLINICAL HISTORY: left knee pain COMPARISON: 08/18/2022 FINDINGS: LEFT KNEE 3 views of the left knee were obtained. There is no acute fracture or dislocation. Total joint prosthesis is noted. There is a small joint effusion. Soft tissues are unremarkable. IMPRESSION: Small joint effusion with no acute bony abnormality. Reviewed, Interpreted and Dictated by Jerzy Byrnes MD Transcribed by Zenobia Castillo Authenticated and [facility]
== END ==
PROVIDERS: PCP Nurse Practitioner Family; Visit Provider Orthopaedic Surgery
DX: M25.561 Pain in right knee (principal); Z96.652 Presence of left artificial knee joint; M25.562 Pain in left knee
CPT/HCPCS: 73562

== ENCOUNTER → 2022-11-22 14:17 | Outpatient (CLI) | payer MEDICARE, MEDICAID, SELFPAY | LOC: RT 14:17 | PROVIDERS: PCP Nurse Practitioner Family; Visit Provider Nurse Practitioner Family | DX: R09.89 Other specified symptoms and signs involving the circulatory and respiratory systems (principal); M79.604 Pain in right leg; M79.605 Pain in left leg | CPT/HCPCS: 93923 ==

== ENCOUNTER 2023-02-16 13:03 | Emergency (ER) | payer MEDICARE, MEDICAID, SELFPAY ==
[2023-02-16 13:13] VITALS: BP 151/86; PULSE 69; RESP 16; TEMP 36.7; O2SAT 95; BMI 30.7
--- NOTE | 2023-02-16 13:24 | EXP.UTC ---
Discharge Plan Disposition Patient Disposition: Home, Self-Care Condition: Good Prescriptions Prescriptions: New methylprednisolone 4 mg Tablets,Dose Pack 4 mg PO DIRECTED Qty: 21 0RF No Action fluticasone propionate [Flonase Allergy Relief] 50 mcg/actuation spray,suspension 1 spray INTRANASAL BID PRN (Reason: allergy symptoms) Qty: 47.4 0RF Rx Instructions: administer into each nostril methocarbamol 500 mg tablet 500 mg PO HS PRN (Reason: Sleep) atorvastatin 20 mg tablet 20 mg PO DAILY bisoprolol fumarate 5 mg tablet 5 mg PO BID Qty: 180 3RF duloxetine 20 mg capsule,delayed release(DR/EC) 20 mg PO DAILY spironolactone 25 mg tablet 25 mg PO DAILY Qty: 90 3RF famotidine 20 mg tablet 20 mg PO DAILY Qty: 90 0RF Eliquis 5 mg tablet 5 mg PO BID Qty: 180 1RF cetirizine 10 mg tablet 10 mg PO DAILY ropinirole 1 MG tablet 1 mg PO BID venlafaxine 150 mg capsule,extended release 24hr 150 mg PO DAILY levothyroxine 75 mcg tablet 75 mcg PO DAILY Rx Instructions: TAKE 1 TABLET BY MOUTH ONCE DAILY acetaminophen 650 mg Tablet Extended Release 1,300 mg PO Q12H PRN (Reason: Pain) Patient Comments: PT REPORTS TAKING 2 650MG TABLETS 06/28/22 AT 2230. Kenny ZHANG SENIOR MANAGER [employer] NOTIFIED. tramadol 50 mg tablet 50 mg PO BID 10 Days Qty: 20 0RF pregabalin 150 mg capsule 150 mg PO BID 10 Days Qty: 20 2RF sennosides [Senna Lax] 8.6 mg tablet 8.6 mg PO HS docusate sodium 100 mg capsule 100 mg PO HS Referrals Follow up/Referrals: Irasema England APRN [Primary Care Provider] - See instructions Activity Restrictions/Add. Instructions Additional Instructions/Restrictions: Go home and rest. It would be best if you rested tomorrow too. No heavy lifting. No twisting. Take the oral medications as directed. Don't start the oral steroids (medrol dose pack) until tomorrow, since you had the shots in here today. Follow up with your regular doctor. GO TO THE ER FOR ANY WORSENING SYMPTOMS OR CONCERN, ESPECIALLY BOWEL OR BLADDER ISSUES, SADDLE AREA NUMBNESS, FEVER, ETC Clinical Impressions Clinical Impression: Lumbar disc disease with radiculopathy Instructions Patient Instructions: Low Back Pain, Methylprednisolone Injection, Ketorolac Injection Discharge ED Provider: Melvin Damon [facility] General Stated complaint: hip/leg/back pain, no accident Mode of Arrival: Ambulatory Source of Information: Patient Limitations: No Limitations Time Seen by Provider: 02/16/23 13:24 Description of Symptoms (Recalled from Triage Doc. by RN): Lower back pain radiating down right leg HEENT Symptoms (Recalled from RN notes): No Resp Symptoms (Recalled from RN notes): No Skin Symptoms (Recalled from RN notes): No MS Symptoms (Recalled from RN notes): Yes Functional Status (Recalled from RN notes): no History of Present Illness Provider Complaint: She states that for the past 2 days she has had low back pain that radiates down her left leg with bending and twisting. She denies any recent injury, falls, or mva. She does have a history of having flare ups of these symptoms in the past. She denies any urinary complaints. She denies any bowel issues. She denies any saddle area numbness. Related Data Home Medications Medication Instructions Recorded Confirmed cetirizine 10 mg tablet 10 mg PO DAILY allergies 04/10/20 02/16/23 ropinirole 1 mg tablet 1 mg PO BID Restless leg 12/09/20 02/16/23 atorvastatin 20 mg tablet 20 mg PO DAILY Cholesterol 06/30/21 02/16/23 methocarbamol 500 mg tablet 500 mg PO HS PRN Sleep 03/31/22 02/16/23 levothyroxine 75 mcg tablet 75 mcg PO DAILY thyroid 06/28/22 02/16/23 venlafaxine 150 mg 150 mg PO DAILY mood 06/28/22 02/16/23 capsule,extended release 24 hr acetaminophen 650 mg 1,300 mg PO Q12H PRN Pain 06/29/22 02/16/23 tablet,extended release duloxetine 20 mg capsule,delayed 20 mg PO
[2023-02-16 13:47] VITALS: BP 151/86; PULSE 69; RESP 18; TEMP 36.7; O2SAT 95
== END 2023-02-16 13:49 | disposition home or self-care (01) ==
PROVIDERS: Emergency Provider Nurse Practitioner Family; PCP Nurse Practitioner Family
DX: M51.16 Intervertebral disc disorders with radiculopathy, lumbar region (principal); G47.19 Other hypersomnia; K21.9 Gastro-esophageal reflux disease without esophagitis; E78.5 Hyperlipidemia, unspecified; I10 Essential (primary) hypertension; E03.9 Hypothyroidism, unspecified; E55.9 Vitamin D deficiency, unspecified; G25.81 Restless legs syndrome; J30.9 Allergic rhinitis, unspecified; F41.9 Anxiety disorder, unspecified; F32.A Depression, unspecified; Z87.891 Personal history of nicotine dependence
CPT/HCPCS: 96372; 99212; 99214; G0463

== ENCOUNTER → 2023-03-17 10:32 | Outpatient (CLI) | payer MEDICARE, MEDICAID, SELFPAY ==
[2023-03-17 13:05] LABS: Alanine Aminotransferase 20 U/L (12-78); Albumin Level 4.3 g/dl (3.5-5.0); Alkaline Phosphatase 125 U/L (38-126); Anion Gap 16.4 mEq/L (5-15); Aspartate Amino Transferase 23 U/L (14-36); Bilirubin,Indirect 0.6 mg/dL (0.0-0.9); Bilirubin,Total 0.6 mg/dl (0.2-1.3); Bilirubin,Unconjugated 0.6 mg/dL (0.0-1.1); Blood Urea Nitrogen 18 mg/dl (7-17); Calcium 9.3 mg/dl (8.4-10.2); Carbon Dioxide 27 mmol/L (22.0-30.0); Chloride 104 mmol/L (98-107); Chol/HDL Ratio 3.3 (1-3.5); Cholesterol 102 mg/dl (140-200); Estimated Glomerular Filt Rate 55 ml/min (>60); GFR (African American) 66 ML/MIN (>60); Glucose 114 mg/dl (74-100); HDL Cholesterol 31 mg/dl (40-60); Potassium 4.4 mmoL/L (3.5-5.1); Sodium 143 mmol/L (136-145); Total Protein,Serum 6.5 g/dl (6.3-8.2); Triglycerides 89 mg/dl (30-150); VLDL Cholesterol 18 mg/dL (0-40)
[2023-03-17 13:17] LABS: Direct LDL Cholesterol 56.76 mg/dL (100-129)
[2023-03-17 13:21] LABS: Free T4 (Free Thyroxine) 1.23 ng/dl (0.78-2.19)
[2023-03-17 13:37] LABS: Thyroid Stimulating Hormone 1.65 uIU/mL (0.465-4.68)
== END ==
PROVIDERS: Visit Provider Nurse Practitioner Family
DX: R06.00 Dyspnea, unspecified; E78.2 Mixed hyperlipidemia; I11.9 Hypertensive heart disease without heart failure; I48.0 Paroxysmal atrial fibrillation; I73.9 Peripheral vascular disease, unspecified; K21.9 Gastro-esophageal reflux disease without esophagitis; M79.604 Pain in right leg; M79.605 Pain in left leg; G47.9 Sleep disorder, unspecified; E11.9 Type 2 diabetes mellitus without complications; Z86.73 Personal history of transient ischemic attack (TIA), and cerebral infarction without residual deficits; Z79.899 Other long term (current) drug therapy
CPT/HCPCS: 36415; 80048; 80061; 80076; 84439; 84443

== ENCOUNTER → 2023-04-15 14:02 | Outpatient (POV) | payer MEDICARE, MEDICAID, SELFPAY ==
--- NOTE | 2023-04-15 14:57 | EXP.PAIN.OV ---
HPI Data of Consult Patient: new to practice Consult date: 04/15/23 Requesting Physician: Crow Harp CRNA Primary Care Provider: Irasema England APRN Consult Narrative Reason for consult: Lumbar back pain. Lumbar radiculopathy. Chronic right knee pain. Fibromy History of present illness: Ms. Higgins is a 73 year old female who comes our office today for initial consultation regarding chronic low back pain she describes as constant, dull, aching. Bilateral hip and leg radiculopathy at times. Chronic right knee pain post total knee replacement September 2019. History of fibromyalgia. Patient's main complaint today is right knee pain. She describes his knee pain as constant, dull, aching, sharp and stabbing at times. She rates the pain 7/10. Patient had right total knee replacement September 2019. Patient reports pain since surgery. Orthopedic surgery has confirmed knee components are in good place. Patient also complained of low back pain she describes as constant, dull, aching. I recommend we concentrate on what is causing the most pain. She would like contrary on the right knee at this time. Patient takes Lyrica 150 mg 1 p.o. twice daily and tramadol 50 mg 1 p.o. twice daily from her PCP. Patient's Jose #[id number] has been reviewed and appropriate. Patient's lumbar MRI from 07/01/2021 reveals multilevel spondylosis. Multilevel facet hypertrophy. Degenerative disc lumbar spine multiple levels. Disc bulge lumbar spine L4-5 and L5-S1. CC: Crow Harp CRNA [facility] Disclaimer: The information contained in this section may have been updated after the patient was seen, as this information can be updated by other users. Medical History Abnormal EKG Allergies Anxiety Atrial fibrillation Bronchitis Chest pressure Daytime somnolence Depression Edema Falling episodes Fibromyalgia GERD (gastroesophageal reflux disease) Headache History of cataract History of COVID-19 Hyperlipidemia Hypertension Hypothyroidism Lumbar disc disease with radiculopathy Lumbar disc disease with radiculopathy Restless sleeper Skin cancer Tonsillectomy planned Vitamin D deficiency Surgical History H/O adenoidectomy H/O tubal ligation History of back surgery History of colonoscopy History of right knee joint replacement History of surgery LEFT WRIST SURGERY - PLATE / SCREWS Family History Mother Family history of cervical cancer Father Family history of myocardial infarction Other Cancer Social History (Updated 04/15/23 @ 14:08 by Alyssa Logan RN) Smoking Status: Former smoker pack-years: 3 years smoked: 4 smoking status stop date: 1997 second hand exposure: Yes alcohol intake: never substance use type: denies use current occupational status: retired Travel in the last 8 weeks: None housing: house number of children: 3 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 Meds Home Medications and Allergies Home Medications Medication Instructions Recorded Confirmed Type fluticasone propionate 50 1 spray intranasal BID PRN allergy 01/05/18 03/10/23 Rx mcg/actuation nasal symptoms #47.4 grams spray,suspension (Flonase Allergy Relief) cetirizine 10 mg tablet 10 mg PO DAILY allergies 04/10/20 03/10/23 History spironolactone 25 mg tablet 25 mg PO DAILY Fluid #90 tabs 11/24/20 03/10/23 Rx ropinirole 1 mg tablet 1 mg PO BID Restless leg 12/09/20 03/10/23 History famotidine 20 mg tablet 20 mg PO DAILY acid reflux #90 tabs 05/21/21 03/10/23 Rx atorvastatin 20 mg tablet 20 mg PO DAILY Cholesterol 06/30/21 03/10/23 History methocarbamol 500 mg tablet 500 mg PO HS PRN Sleep 03/31/22 03/10/23 History levothyroxine 75 mcg tablet 75 mcg PO DAILY thyroid 06/28/22 03/10/23 History venlafax
[2023-04-15 15:11] VITALS: BP 138/77; PULSE 66; RESP 18; O2SAT 94; BMI 29.9
== END ==
PROVIDERS: PCP Nurse Practitioner Family; Visit Provider Nurse Anesthetist, Certified Registered
DX: M25.561 Pain in right knee; M25.562 Pain in left knee; G89.29 Other chronic pain; Z96.651 Presence of right artificial knee joint; M47.26 Other spondylosis with radiculopathy, lumbar region; M51.16 Intervertebral disc disorders with radiculopathy, lumbar region
CPT/HCPCS: 99202; G0463

== ENCOUNTER 2023-05-03 10:47 | Day surgery (SDC) | payer MEDICARE, MEDICAID, SELFPAY ==
[2023-05-03 11:27] VITALS: BP 145/75; BP 155/88; PULSE 58; PULSE 67; RESP 20; TEMP 36.4; O2SAT 94; BMI 29.9
--- NOTE | 2023-05-03 12:05 | EXP.PAIN.PRO ---
Procedure Date: 05/03/23 Time: 11:45 Anesthesiologist:: Crow Harp CRNA Complications:: None Pre-procedure Diagnosis:: Chronic right knee pain. Status post right knee replacement 2019. Post-procedure Diagnosis:: Same. Indications for Procedure:: Very pleasant 73-year-old female comes our clinic today for right knee genicular nerve block. Patient is status post right knee replacement 2019. She continues to having pain since surgery. She rates pain 7/10. Patient scribes right knee pain as constant, dull, aching, sharp, stabbing at times. Patient have difficulty with ambulation secondary to pain. Procedure Details:: Informed consent was obtained and the risk and benefits of the procedure was explained to the patient. The patient was taken to the procedure room. The right knee was prepped using ChloraPrep. I placed 22-gauge needles into the area of the right superior medial genicular nerve, right superior lateral genicular nerve and right inferior medial genicular nerve. Needle placement was confirmed in AP and lateral views with dye. We then injected bupivacaine 0.25% 3 mL's and Depo-Medrol 25 mg into each area of the right superior medial genicular nerve, right superior lateral genicular nerve and right inferior medial genicular nerve. Patient tolerated the procedure well with no complications. Plan and Disposition:: Patient was discharged without incident. Patient was reevaluated 10 minutes post procedure. She reports minimal to no pain in the right knee with ambulation.
[2023-05-03 12:08] VITALS: BP 153/97; PULSE 62; RESP 18; O2SAT 97
[2023-05-03 12:09] VITALS: BP 153/97; PULSE 62; RESP 18; O2SAT 97
== END 2023-05-03 12:05 | disposition home or self-care (01) ==
PROVIDERS: PCP Nurse Practitioner Family; Visit Provider Nurse Anesthetist, Certified Registered
DX: M25.561 Pain in right knee (principal); Z96.651 Presence of right artificial knee joint; G89.29 Other chronic pain
CPT/HCPCS: 64454; J1040

== ENCOUNTER → 2023-06-08 11:28 | Outpatient (POV) | payer MEDICARE, MEDICAID, SELFPAY ==
[2023-06-08 11:39] VITALS: BP 151/75; PULSE 54; RESP 18; O2SAT 97; BMI 29.9
--- NOTE | 2023-06-08 11:40 | EXP.PAIN.SOA ---
[facility] Pain Management SOAP Note Subjective:: Patient is a pleasant 73-year-old female who presents today for follow-up of right genicular nerve block on 05/03/2023. We are currently treating the patient for degenerative disc disease of lumbar spine with lumbar radiculopathy symptoms, chronic knee pain, status post right knee replacement. Today she rates her pain a 1 out of 10. Patient denies any new trauma or injury. She states that she has had at least 70% improvement from this injection and that it is still continuing to provide additional relief. She states that initially it took a couple days to kick in and then she had several days of 100% relief. She states she has been able to increase her activity and do more cleaning around the house with decreased pain. She states ambulating is also better. Patient is currently managed with Lyrica 150 mg twice a day and tramadol 50 mg twice a day from her primary care provider. She denies any side effects from this medication. Her Jose has been reviewed and is appropriate. Review of Systems: General: No recent weight changes, no fever, no sleep disturbances Respiratory: No cough, no shortness of air, no recurring pulmonary infections Cardiovascular/peripheral vascular: No chest pain, no palpitations, no edema, no shortness of breath Gastrointestinal: No new onset incontinence, normal bowel movements reported Genitourinary: No new onset incontinence Musculoskeletal: Right knee pain Psychiatric: [Normal mood/affect] Neurological: [Denies weakness in extremities], [denies balance issues] Objective:: Physical Exam: General: Alert and oriented x3, no acute distress, pleasant and cooperative Lungs: Respirations even and unlabored, symmetrical chest expansion Eyes: PERRL Musculoskeletal: Flexion and extension of right knee somewhat guarded secondary to pain Neurological: Speech clear, no gross sensory deficit Assessment:: Degenerative disc disease of lumbar spine with lumbar radiculopathy symptoms, chronic knee pain, status post right knee replacement Plan:: Patient has had significant improvement following her first diagnostic genicular nerve block and does not require any additional injection therapy at this time. I have discussed with the patient in future when the pain starts being more bothersome again we will plan on doing a second genicular nerve block and possibly ablation at a future date. Patient will return to clinic in 1 month for reevaluation of symptoms and plan of care. Patient has been instructed to contact the clinic with any concerns before the next appointment. Dr. Dominguez has reviewed this note and agrees with this plan of care. This note was dictated using voice recognition software and make contain errors or omissions. [facility] Disclaimer: The information contained in this section may have been updated after the patient was seen, as this information can be updated by other users. Medical History Abnormal EKG Allergies Anxiety Atrial fibrillation Bronchitis Chest pressure Daytime somnolence Depression Edema Falling episodes Fibromyalgia GERD (gastroesophageal reflux disease) Headache History of cataract History of COVID-19 Hyperlipidemia Hypertension Hypothyroidism Lumbar disc disease with radiculopathy Lumbar disc disease with radiculopathy Restless sleeper Skin cancer Tonsillectomy planned Vitamin D deficiency Surgical History H/O adenoidectomy H/O tubal ligation History of back surgery History of colonoscopy History of right knee joint replacement History of surgery LEFT WRIST SURGERY - PLATE / SCREWS Family History Mother Family history of cervical cancer Father Family history of myocardial infarction Other Cancer Social History (Updated 05/03/23 @ 11:28 by Mckayla Friedman RN) Smoking St
== END ==
PROVIDERS: PCP Nurse Practitioner Family; Visit Provider Nurse Practitioner Family
DX: M51.16 Intervertebral disc disorders with radiculopathy, lumbar region (principal); M25.561 Pain in right knee; Z96.651 Presence of right artificial knee joint
CPT/HCPCS: 99212; G0463

== ENCOUNTER 2023-06-14 07:57 | Day surgery (SDC) | payer MEDICARE, MEDICAID, SELFPAY ==
[2023-06-10 09:28] VITALS: BMI 30.7
[2023-06-14] VITALS (7 sets, daily range): BP systolic 122–143; BP diastolic 65–89; PULSE 56–60; RESP 16–18; TEMP 36.2–36.3; O2SAT 93–99
== END 2023-06-14 10:00 | disposition home or self-care (01) ==
PROVIDERS: PCP Nurse Practitioner Family; Visit Provider Ophthalmology
PROC: (CPT 66984; principal; 2023-06-14 10:00)
DX: H25.811 Combined forms of age-related cataract, right eye (principal)
CPT/HCPCS: 66984; V2632

== ENCOUNTER 2023-06-28 08:08 | Day surgery (SDC) | payer MEDICARE, MEDICAID, SELFPAY ==
[2023-06-24 12:15] VITALS: BMI 30.7
[2023-06-28] VITALS (8 sets, daily range): BP systolic 132–147; BP diastolic 64–94; PULSE 51–57; RESP 16–18; TEMP 36.3–36.4; O2SAT 96–100
== END 2023-06-28 10:40 | disposition home or self-care (01) ==
PROVIDERS: PCP Nurse Practitioner Family; Visit Provider Ophthalmology
PROC: (CPT 66984; principal; 2023-06-28 10:00)
DX: H25.812 Combined forms of age-related cataract, left eye (principal)
CPT/HCPCS: 66984; V2632

== ENCOUNTER → 2023-07-04 12:00 | Outpatient (POV) | payer MEDICARE, MEDICAID, SELFPAY ==
[2023-07-04 12:11] VITALS: BP 154/89; PULSE 65; RESP 18; O2SAT 98; BMI 29.7
--- NOTE | 2023-07-04 12:11 | EXP.PAIN.SOA ---
[facility] Pain Management SOAP Note Subjective:: Patient is a pleasant 73-year-old female who presents today for follow-up. We are currently treating the patient for degenerative disc disease of lumbar spine with lumbar radiculopathy symptoms, chronic knee pain/osteoarthritis, status post bilateral knee replacement. Today she rates her pain an 8 out of 10. Patient denies any new trauma or injury. Patient does state that she is experiencing some low back pain however her knees are what is bothering her the most. Patient describes this as a constant aching, throbbing sensation that is worse with increased activity or ambulation. Patient does state that the pain interferes with her ability perform activities of daily living such as cooking or cleaning. Patient did previously have a right genicular nerve block in April that did provide 70% improvement however due to insurance changing the regulations they no longer cover this injection. Patient has had replacements in the past however continues to have the chronic pain. Patient is currently managed with Lyrica 150 mg twice a day and tramadol 50 mg twice a day from her primary care provider. Patient denies any side effects from this medication. Patient does state that she is scheduled to see an arthritis doctor at the end of July. Her Jose has been reviewed and is appropriate. Review of Systems: General: No recent weight changes, no fever, no sleep disturbances Respiratory: No cough, no shortness of air, no recurring pulmonary infections Cardiovascular/peripheral vascular: No chest pain, no palpitations, no edema, no shortness of breath Gastrointestinal: No new onset incontinence, normal bowel movements reported Genitourinary: No new onset incontinence Musculoskeletal: Bilateral knee pain Psychiatric: [Normal mood/affect] Neurological: [Denies weakness in extremities], [denies balance issues] Objective:: Physical Exam: General: Alert and oriented x3, no acute distress, pleasant and cooperative Lungs: Respirations even and unlabored, symmetrical chest expansion Eyes: PERRL Musculoskeletal: Flexion and extension of left knee somewhat guarded secondary to pain, [antalgic gait noted] Neurological: Speech clear, no gross sensory deficit Assessment:: Degenerative disc disease of lumbar spine with lumbar radiculopathy symptoms, chronic knee pain/osteoarthritis, status post bilateral knee replacement Plan:: Patient continues to experience significant pain in her bilateral knees however she states that her left knee is the worst knee. Patient did have limited range of motion of this joint during today's visit. I have discussed with the patient that she may benefit from trigger point injections of this joint. Risk and benefits were discussed with the patient and she would like to proceed forward with this plan of care. I have counseled the patient if she does get successful relief in the left knee we will plan on repeating the trigger point injections to her right knee. Patient will be scheduled for left knee trigger point injections. Patient has been instructed to contact the clinic with any concerns before the next appointment. Dr. Dominguez has reviewed this note and agrees with this plan of care. This note was dictated using voice recognition software and make contain errors or omissions. [facility] Disclaimer: The information contained in this section may have been updated after the patient was seen, as this information can be updated by other users. Medical History Abnormal EKG Allergies Anxiety Atrial fibrillation Bronchitis Chest pressure Daytime somnolence Depression Edema Falling episodes Fibromyalgia GERD (gastroesophageal reflux disease) Headache History of cataract History of COVID-19 Hyperlipidemia Hypertension Hypothyroidism Lumbar disc disease with radiculopathy Lumbar disc disease with radiculopathy Restless sleeper Skin cancer To
== END ==
PROVIDERS: PCP Nurse Practitioner Family; Visit Provider Nurse Practitioner Family
DX: M51.16 Intervertebral disc disorders with radiculopathy, lumbar region (principal); M17.0 Bilateral primary osteoarthritis of knee; M25.561 Pain in right knee; M25.562 Pain in left knee; Z96.653 Presence of artificial knee joint, bilateral
CPT/HCPCS: 99212; G0463

== ENCOUNTER 2023-07-26 10:42 | Day surgery (SDC) | payer MEDICARE, MEDICAID, SELFPAY ==
[2023-07-26 11:02] VITALS: BP 152/82; PULSE 61; RESP 16; O2SAT 95; BMI 30.7
[2023-07-26 11:07] VITALS: BP 133/68; PULSE 59; RESP 16; O2SAT 95
--- NOTE | 2023-07-26 11:15 | EXP.PAIN.PRO ---
Procedure Date: 07/26/23 Time: 11:00 Anesthesiologist:: Crow Harp CRNA Complications:: None Pre-procedure Diagnosis:: DJD left knee. Chronic left knee pain. Myofascial pain distal quadriceps. Left knee patella tendinitis. Post-procedure Diagnosis:: Same.. Indications for Procedure:: Patient is a very pleasant 73-year-old female comes our clinic today for a trigger point injection of the left distal quadriceps tendon as well as the proximal tibia at tendon. Patient had similar issue on the right knee. Trigger point injections of the right knee significantly improved her overall right knee symptoms. She is requesting the same procedure for the left knee. She describes the pain of the left knee as constant, dull, aching. She rates pain 7/10. Procedure Details:: Details of the procedure explained to the patient. Patient taken the procedure room placed in the sitting position. The area over the left knee was cleansed using chlorhexidine as a cleansing solution. Using a 25-gauge inch and half needle the distal quadriceps tendon was injected into separate places medially and laterally. 3 cc of 1% lidocaine +10 mg of Depo-Medrol was injected on each side. The same procedure was carried out over the proximal patella tendon anteriorly. Patient tolerated procedure without difficulty. No complications. Plan and Disposition:: Patient was discharged without incident.
[2023-07-26] MEDS: methylPREDNISolone ACETATE 80MG/ML VIAL 80 MG (12:00)
[2023-07-26 12:01] VITALS: BP 141/51; PULSE 61; RESP 18; O2SAT 97
[2023-07-26] MEDS: LIDOCAINE 1% 5ML PF VIAL 5 ML (12:01)
[2023-07-26] MEDS: BUPIVACAINE 0.25% 10ML INJ 25 MG IJ (12:01)
[2023-07-26 12:02] VITALS: BP 141/51; PULSE 61; RESP 18; O2SAT 97
== END 2023-07-26 11:07 | disposition home or self-care (01) ==
PROVIDERS: PCP Nurse Practitioner Family; Visit Provider Nurse Anesthetist, Certified Registered
DX: M17.12 Unilateral primary osteoarthritis, left knee (principal); M25.562 Pain in left knee; G89.29 Other chronic pain; M79.18 Myalgia, other site; M76.52 Patellar tendinitis, left knee
CPT/HCPCS: 20551; J1040

== ENCOUNTER → 2023-08-15 11:20 | Outpatient (POV) | payer MEDICARE, MEDICAID, SELFPAY ==
--- NOTE | 2023-08-15 11:49 | EXP.PAIN.SOA ---
[facility] Pain Management SOAP Note Subjective:: Patient is a pleasant 73-year-old female who presents today for follow-up of trigger point injections of her left knee on 07/26/2023. We are currently treating the patient for degenerative disc disease of lumbar spine with lumbar radiculopathy symptoms, chronic knee pain/osteoarthritis, status post bilateral knee replacement. Today she rates her pain an 8 out of 10. Patient denies any new trauma or injury. She does state that she has had 90% improvement in her left knee symptoms following this injection. Patient states it is still currently providing additional improvement and has given overall decreased pain and improved function on a day-to-day basis. Today she does state that her right knee is causing worsening pain. Patient does state the pain is all along her right lateral side of her knee. She describes this as a constant aching sensation that is tender to touch and does affect her range of motion. Patient does state the pain interferes with her ability perform activities of daily living such as cooking and cleaning. Patient is currently managed with Lyrica 150 mg twice a day and tramadol 50 mg twice a day from her PCP. She denies any side effects from this medication. Her Jose has been reviewed and is appropriate. Review of Systems: General: No recent weight changes, no fever, no sleep disturbances Respiratory: No cough, no shortness of air, no recurring pulmonary infections Cardiovascular/peripheral vascular: No chest pain, no palpitations, no edema, no shortness of breath Gastrointestinal: No new onset incontinence, normal bowel movements reported Genitourinary: No new onset incontinence Musculoskeletal: Right knee pain Psychiatric: [Normal mood/affect] Neurological: [Denies weakness in extremities], [denies balance issues] Objective:: Physical Exam: General: Alert and oriented x3, no acute distress, pleasant and cooperative Lungs: Respirations even and unlabored, symmetrical chest expansion Eyes: PERRL Musculoskeletal: Flexion and extension of right knee somewhat guarded secondary to pain, [antalgic gait noted] point tenderness along lateral right knee Neurological: Speech clear, no gross sensory deficit Assessment:: Degenerative disc disease of lumbar spine with lumbar radiculopathy symptoms, chronic pain bilateral knees/osteoarthritis, status post bilateral knee replacement Plan:: Patient did have significant improvement following her left knee trigger point injections however is experiencing worsening pain in her right knee with point tenderness and limited range of motion. I have discussed with the patient that she may benefit from trigger point injections at this joint. Risk and benefits were discussed with the patient and she would like to proceed forward with this plan of care. I will also order the patient a compounded cream. Patient will be scheduled for right knee trigger point injections along the lateral side. Patient has been instructed to contact the clinic with any concerns before the next appointment. Dr. Dominguez has reviewed this note and agrees with this plan of care. This note was dictated using voice recognition software and make contain errors or omissions. [facility] Disclaimer: The information contained in this section may have been updated after the patient was seen, as this information can be updated by other users. Medical History Abnormal EKG Allergies Anxiety Atrial fibrillation Bronchitis Chest pressure Daytime somnolence Depression Edema Falling episodes Fibromyalgia GERD (gastroesophageal reflux disease) Headache History of cataract History of COVID-19 Hyperlipidemia Hypertension Hypothyroidism Lumbar disc disease with radiculopathy Lumbar disc disease with radiculopathy Restless sleeper Skin cancer Tonsillectomy planned Vitamin D deficiency Surgical History H/O adenoidectomy H/O tubal ligation History of back surgery History of colonoscopy History of left knee replacement History of right knee joint replacement History of surgery Family History Mother Family history of cervical cancer Father Family history of myocardial infarction Other Cancer Social History Smoking Status: Former smoker tobacco type: cigarettes packs per day: 1 years smoked: 4 smoking status stop date: 1997 second hand exposure: Yes alcohol intake: never substance use type: denies use current occupational status: retired Travel in the last 8 weeks: None housing: house number of children: 3 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
[2023-08-15 12:11] VITALS: BP 119/69; PULSE 63; RESP 18; O2SAT 96; BMI 13.4
== END ==
LOC: SC.PAIN 11:21
PROVIDERS: PCP Nurse Practitioner Family; Visit Provider Nurse Practitioner Family
DX: M51.16 Intervertebral disc disorders with radiculopathy, lumbar region (principal); M17.0 Bilateral primary osteoarthritis of knee; M25.561 Pain in right knee; M25.562 Pain in left knee; Z96.653 Presence of artificial knee joint, bilateral
CPT/HCPCS: 99212; G0463

== ENCOUNTER 2023-08-29 12:46 | Emergency (ER) | payer MEDICARE, MEDICAID, SELFPAY ==
[2023-08-29 13:40] VITALS: BP 141/51; PULSE 54; RESP 22; TEMP 36.7; O2SAT 95; BMI 29.9
--- NOTE | 2023-08-29 14:00 | EXP.UTC ---
Discharge Plan Disposition Patient Disposition: Home, Self-Care Condition: Good Prescriptions Prescriptions: No Action fluticasone propionate [Flonase Allergy Relief] 50 mcg/actuation spray,suspension 1 spray INTRANASAL BID PRN (Reason: allergy symptoms) Qty: 47.4 0RF Rx Instructions: administer into each nostril methocarbamol 500 mg tablet 500 mg PO HS PRN (Reason: Sleep) atorvastatin 20 mg tablet 20 mg PO DAILY duloxetine 20 mg capsule,delayed release(DR/EC) 20 mg PO DAILY spironolactone 25 mg tablet 25 mg PO DAILY Qty: 90 3RF famotidine 20 mg tablet 20 mg PO DAILY Qty: 90 0RF Eliquis 5 mg tablet 5 mg PO BID Qty: 180 1RF bisoprolol fumarate 5 mg tablet 5 mg PO BID Qty: 180 3RF cetirizine 10 mg tablet 10 mg PO DAILY ropinirole 1 MG tablet 1 mg PO BID venlafaxine 150 mg capsule,extended release 24hr 150 mg PO DAILY levothyroxine 75 mcg tablet 75 mcg PO DAILY Rx Instructions: TAKE 1 TABLET BY MOUTH ONCE DAILY acetaminophen 650 mg Tablet Extended Release 1,300 mg PO Q12H PRN (Reason: Pain) Patient Comments: PT REPORTS TAKING 2 650MG TABLETS 06/28/22 AT 2230. Kenny ZHANG OPERATIONAL RISK MANAGER NOTIFIED. tramadol 50 mg tablet 50 mg PO BID 10 Days Qty: 20 0RF pregabalin 150 mg capsule 150 mg PO BID 10 Days Qty: 20 2RF sennosides [Senna Lax] 8.6 mg tablet 8.6 mg PO HS docusate sodium 100 mg capsule 100 mg PO HS Referrals Follow up/Referrals: Irasema England APRN [Primary Care Provider] - See instructions Activity Restrictions/Add. Instructions Additional Instructions/Restrictions: Continue your home medications as prescribed Follow up with your Family Doctor if symptoms persist or get worse Straight to ER if any life threatening symptoms Clinical Impressions Clinical Impression: Sciatica Qualifiers: Laterality: right Qualified Code(s): M54.31 - Sciatica, right side Instructions Patient Instructions: DI for Sciatica, DI for Chronic Pain -- Adult, DI for Back Pain With Sciatica Discharge ED Provider: Brenda Millard [facility] General Stated complaint: back pain Mode of Arrival: Ambulatory Source of Information: Patient Limitations: No Limitations Time Seen by Provider: 08/29/23 14:00 Description of Symptoms (Recalled from Triage Doc. by RN): PATIENT C/O UPPER AND LOWER BACK PAIN THAT RADIATES INTO RIGHT SIDE THAT STARTED TUESDAY, NO KNOWN INJURY HEENT Symptoms (Recalled from RN notes): No Resp Symptoms (Recalled from RN notes): No Skin Symptoms (Recalled from RN notes): No MS Symptoms (Recalled from RN notes): Yes Functional Status (Recalled from RN notes): WNL History of Present Illness Provider Complaint: Patient states that she has a hx of sciatica and thinks it is acting up States that she has been having pain in her lower back/right buttock area that comes around to her upper leg States that pain is worse with sitting on that side or laying on that side like she has with sciatica Related Data Home Medications Medication Instructions Recorded Confirmed cetirizine 10 mg tablet 10 mg PO DAILY allergies 04/10/20 08/15/23 ropinirole 1 mg tablet 1 mg PO BID Restless leg 12/09/20 08/15/23 atorvastatin 20 mg tablet 20 mg PO DAILY Cholesterol 06/30/21 08/15/23 methocarbamol 500 mg tablet 500 mg PO HS PRN Sleep 03/31/22 08/15/23 levothyroxine 75 mcg tablet 75 mcg PO DAILY thyroid 06/28/22 08/15/23 venlafaxine 150 mg 150 mg PO DAILY mood 06/28/22 08/15/23 capsule,extended release 24 hr acetaminophen 650 mg 1,300 mg PO Q12H PRN Pain 06/29/22 08/15/23 tablet,extended release duloxetine 20 mg capsule,delayed 20 mg PO DAILY Depression 11/11/22 08/15/23 release docusate sodium 100 mg capsule 100 mg PO HS Constipation 02/16/23 08/15/23 sennosides 8.6 mg tablet (Senna 8.6 mg PO HS Constipation 02/16/23 08/15/23 Lax) Previous Rx's Medication Instructions Recorded fluticasone propionate 50 1 spray intranasal BID PRN allergy 01/05/18 mcg/actuation nasal symptoms #47.4 grams spray,suspension (Flonase Allergy Relief) spironolactone 25 mg tablet 25 mg PO DAILY Fluid #90 tabs 11/24/20 famotidine 20 mg tablet 20 mg PO DAILY acid reflux #90 tabs 11/04/21 pregabalin 150 mg capsule 150 mg PO BID Pain 10 days #20 caps 07/02/22 tramadol 50 mg tablet 50 mg PO BID Pain 10 days #20 tabs 07/02/22 apixaban 5 mg tablet (Eliquis) 5 mg PO BID afib #180 tabs 06/28/23 bisoprolol fumarate 5 mg tablet 5 mg PO BID rate control #180 tabs 08/02/23 Allergies Allergy/AdvReac Type Severity Reaction Status Date / Time loratadine [From Claritin] Allergy Other Verified 07/26/23 11:02 Worker's Comp Is this a Worker's Comp case?: No [facility] Disclaimer: The information contained in this section may have been updated after the patient was seen, as this information can be updated by other users. Medical History (Updated 08/29/23 @ 14:15 by Brenda Millard APRN) Abnormal EKG Allergies Anxiety Atrial fibrillation Bronchitis Chest pressure Daytime somnolence Depression Edema Falling episodes Fibromyalgia GERD (gastroesophageal reflux disease) Headache History of cataract History of COVID-19 Hyperlipidemia Hypertension Hypothyroidism Lumbar disc disease with radiculopathy Lumbar disc disease with radiculopathy Restless sleeper Skin cancer Tonsillectomy planned Vitamin D deficiency Surgical History H/O adenoidectomy H/O tubal ligation History of back surgery History of colonoscopy History of left knee replacement History of right knee joint replacement History of surgery Family History Mother Family history of cervical cancer Father Family history of myocardial infarction Other Cancer Social History Smoking Status: Former smoker tobacco type: cigarettes packs per day: 1 years smoked: 4 smoking status stop date: 1997 second hand exposure: Yes alcohol intake: never substance use type: denies use current occupational status: retired Travel in the last 8 weeks: None housing: house number of children: 3 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 ROS Obtained: Yes All systems reviewed & no additional complaints except as documented and Yes Systems reviewed as appropriate & no additional complaints except as documented Constitutional Constitutional: Reports system reviewed and no additional complaints, except as documented, Reports as per HPI, Denies body ache, Denies chills and Denies fever(s) ENT Ears, Nose, Mouth, and Throat: Reports system reviewed and no additional complaints, except as documented and Reports as per HPI Cardiovascular Cardiovascular: Reports system reviewed and no additional complaints, except as documented and Reports as per HPI Respiratory Respiratory: Reports system reviewed and no additional complaints, except as documented and Reports as per HPI Gastrointestinal Gastrointestingal: Reports system reviewed and no additional complaints, except as documented and as per HPI Genitourinary Female Genitourinary: Reports system reviewed and no additional complaints, except as documented and Reports as per HPI Musculoskeletal Musculoskeletal: Reports system reviewed and no additional complaints, except as documented, Reports as per HPI and Reports other Comments: pain in lower back that goes into right buttock and upper leg like she has with sciatica Denies known injury or loss of control of bowel or bladder Physical Exam General General appearance: alert and in no apparent distress ENT ENT exam: Present mucous membranes moist Respiratory Respiratory exam: Present normal lung sounds bilaterally; Absent respiratory distress or wheezes Cardiovascular Cardiovascular exam: Present regular rate and normal heart sounds; Absent normal rhythm Abdominal Exam Abdominal exam: Present soft and normal bowel sounds; Absent distention or tenderness Back Exam Back 1 view image: 1. report achy like pain that goes from lower back into buttock and upper leg like she has when she has sciatica Denies known injury denies loss of control of bowel or bladder Neurological Exam Neurological exam: Present alert, oriented X3 and normal gait Medical Decision Making Jose Inquiry Pt receiving controlled substance: No Jose was queried for this patient: No Vital Signs: 08/29/23 13:40 Temperature 98.1 F Temperature Source Oral Pulse Rate [Left Brachial] 54 L Respiratory Rate 22 Blood Pressure [Left Arm] 141/51 H Blood Pressure Mean [Left Arm] 81 Blood Pressure Source [Left Arm] Automatic Cuff Blood Pressure Position [Left Arm] Sitting 02 Sat by Pulse Oximetry 95 Oxygen Delivery Method Room Air Medical Decision Narrative: Discussed xray and patient declined Medication discussed with pharmacy
[2023-08-29] MEDS: METHYLPREDNISOLONE SOD SUCC 125MG VIAL 125 MG IM (14:16)
[2023-08-29 14:20] VITALS: BP 141/51; PULSE 54; RESP 22; TEMP 36.7; O2SAT 95
== END 2023-08-29 14:27 | disposition home or self-care (01) ==
PROVIDERS: Emergency Provider Nurse Practitioner; PCP Nurse Practitioner Family
DX: M54.31 Sciatica, right side (principal); K21.9 Gastro-esophageal reflux disease without esophagitis; I10 Essential (primary) hypertension; E78.5 Hyperlipidemia, unspecified; E03.9 Hypothyroidism, unspecified; Z87.891 Personal history of nicotine dependence
CPT/HCPCS: 96372; 99212; 99214; G0463

== ENCOUNTER 2023-09-21 11:12 | Outpatient (CLI) | payer MEDICARE, MEDICAID, SELFPAY ==
[2023-09-21 11:49] LABS: Basophils # 0.1 K/mm3 (0-0.2); Basophils % 1.7 % (0.1-2.0); Eosinophils # 0.4 K/mm3 (0.0-0.4); Eosinophils % 7.5 % (0.1-12.0); Hematocrit 40.8 % (37.0-47.0); Hemoglobin 13.6 g/dL (12.2-16.2); Lymphocytes # 1.6 K/mm3 (0.7-4.5); Lymphocytes % 32.5 % (10-50); Mean Corpuscular HGB Conc 33.3 g/dL (31.8-35.4); Mean Corpuscular Hemoglobin 32.6 pg (27.0-31.2); Mean Corpuscular Volume 97.8 fl (81-99); Mean Platelet Volume 8.5 fl (7.4-10.4); Monocytes # 0.5 K/mm3 (0.1-1.0); Monocytes % 10.8 % (1.7-9.3); Neutrophils # 2.4 K/mm3 (1.8-7.8); Neutrophils % 47.5 % (37.0-80.0); Platelet Count 195 K/mm3 (142-424); Red Blood Count 4.17 M/mm3 (4.20-5.40)
[2023-09-21 12:17] LABS: Alanine Aminotransferase 21 U/L (12-78); Albumin Level 4.2 g/dl (3.5-5.0); Alkaline Phosphatase 99 U/L (38-126); Anion Gap 9.5 mEq/L (5-15); Aspartate Amino Transferase 27 U/L (14-36); Bilirubin,Direct 0.2 mg/dl (0.0-0.4); Bilirubin,Indirect 0.3 mg/dL (0.0-0.9); Bilirubin,Total 0.5 mg/dl (0.2-1.3); Bilirubin,Unconjugated 0.3 mg/dL (0.0-1.1); Blood Urea Nitrogen 19 mg/dl (7-17); Calcium 9.2 mg/dl (8.4-10.2); Carbon Dioxide 28 mmol/L (22.0-30.0); Chloride 108 mmol/L (98-107); Chol/HDL Ratio 4.4 (1-3.5); Cholesterol 131 mg/dl (140-200); Estimated Glomerular Filt Rate 54 ml/min (>60); GFR (African American) 66 ML/MIN (>60); Glucose 98 mg/dl (74-100); HDL Cholesterol 30 mg/dl (40-60); Potassium 4.5 mmoL/L (3.5-5.1); Sodium 141 mmol/L (136-145); Total Protein,Serum 6.2 g/dl (6.3-8.2); Triglycerides 296 mg/dl (30-150); VLDL Cholesterol 59 mg/dL (0-40)
[2023-09-21 12:29] LABS: Direct LDL Cholesterol 65.06 mg/dL (100-129)
[2023-09-21 12:34] LABS: Free T4 (Free Thyroxine) 1.12 ng/dl (0.78-2.19)
[2023-09-21 12:47] LABS: Thyroid Stimulating Hormone 0.88 uIU/mL (0.465-4.68)
== END 2023-09-21 23:59 ==
LOC: LAB 11:13
PROVIDERS: PCP Nurse Practitioner Family; Visit Provider Nurse Practitioner
DX: R06.02 Shortness of breath; R06.00 Dyspnea, unspecified; I11.9 Hypertensive heart disease without heart failure; I48.0 Paroxysmal atrial fibrillation; E78.2 Mixed hyperlipidemia; K21.9 Gastro-esophageal reflux disease without esophagitis; E11.9 Type 2 diabetes mellitus without complications; G47.9 Sleep disorder, unspecified; Z86.73 Personal history of transient ischemic attack (TIA), and cerebral infarction without residual deficits; Z79.899 Other long term (current) drug therapy
CPT/HCPCS: 36415; 80048; 80061; 80076; 84439; 84443; 85025

== ENCOUNTER 2023-09-26 10:41 | Outpatient (CLI) | payer MEDICARE, MEDICAID, SELFPAY ==
--- NOTE | 2023-09-26 10:49 | XR_ITS ---
FINAL REPORT CLINICAL HISTORY: cough, dyspnea, wheezing COMPARISON: 08/17/2022 FINDINGS: Two views of the chest were obtained. The heart size and pulmonary vascularity are within normal limits. The mediastinum is normal. Small bibasilar opacities are present, atelectasis or scar. There is no pneumothorax. The bony thorax is intact. IMPRESSION: Small bibasilar opacities are present, atelectasis or scar. Reviewed, Interpreted and Dictated by Chan Torres III, MD Transcribed by Rossy Brown Authenticated and . [facility]
== END 2023-09-26 23:59 ==
LOC: LAB 10:42
PROVIDERS: PCP Nurse Practitioner Family; Visit Provider Nurse Practitioner Family
DX: R06.02 Shortness of breath; R05.9 Cough, unspecified; R06.2 Wheezing; I48.91 Unspecified atrial fibrillation
CPT/HCPCS: 71046; 93270

== ENCOUNTER 2023-10-13 07:56 | Outpatient (CLI) | payer MEDICARE, MEDICAID, SELFPAY ==
--- NOTE | 2023-10-13 | CA_ITS ---
APPROVED REPORT Exam: Pharmacologic Technologist: Caro Bell, Ht: 5 ft 5 in Wt: 198 lbs BSA: 1.97 m2 HR: 52 bpm BP: 144/63 mmHg Rhythm: sinus amish, cannot R/O old anterior [place] Medical History Medications: Levothyroxine,,,,, Atorvastatin,,,,, Buspirone,,,,, Tylenol,,,,, MeLOXICAM,,,,, Famotidine,,,,, DulOXETINE,,,,, BisOPROLOL Fumarate,,,,, Pregabalin,,,,, Methocarbamol,,,,, CetIRIZINE,,,,, ElIQIS,,,,, Cardiac Risk Factors: Hyperlipidemia, FHX of CAD Stress Test Details Test: LEXISCAN HR Resting HR: 53 bpm Max Heart Rate (APMHR): 147 bpm Max HR Achieved: 66 bpm Target HR (85% APMHR): 125 bpm % of APMHR: 45 Recovery HR: 60 bpm BP Resting BP: 144/63 mmHg Max BP: 144/63 mmHg Recovery BP: 138.0/63.0 mmHg ECG Resting ECG: Sinus amish, cannot R/O old anterior [place] Stress ECG: No significant ST changes Arrhythmia: None Clinical Exercise duration: 04:05 min Highest Stage Achieved: Exercise capacity: 1.0 METs Stress ECG Conclusion During lexiscan pt experinced SOA, no CP noted. No arrhythmias noted. No significant ST changes. Conclusion: Unremarkable lexiscan stress. Myoview images reported separately. Test Summary REST . . . . . . . Sitting REST 04:11 . . 53 . 144/ 63 . . Stage 1 01:00 . . 57 . . . . Stage 2 01:00 . . 65 . . . . Stage 3 01:00 . . 63 . 124/ 66 . . Stage 4 01:00 . . 62 . 125/ 68 . . Stage 4 01:05 . . 61 . 125/ 68 . Stop exercise at 04:05 RECOVERY 01:00 . . 62 . 138/ 63 . . RECOVERY 02:00 . . 59 . 138/ 63 . . RECOVERY 03:00 . . 59 . 134/ 90 . . RECOVERY 03:15 . . 60 . 134/ 90 . . Electronically signed by : Nuzhat Sotomayor MD 10/17/2023 10:46:20
--- NOTE | 2023-10-13 07:57 | NM_ITS ---
APPROVED REPORT Exam: Nuclear Stress Test Indication: HTN, HYPERLIPIDEMIA, FM HX, SOB, PALPATATIONS, FATIGUE, A-FIB Patient Location: Outpatient Stress Tech: Caro Bell NM Tech:Kemi Barbosa, ARRT, RT (R)(N) Ht: 5 ft 5 in Wt: 185 lbs Bra Size: 40D HR: 53 bpm BP: 144/63 mmHg BSA: 1.91 m2 TID: 1.15 BMI: 30.7 History: HTN, HYPERLIPIDEMIA, FM HX, SOB, PALPATATIONS, FATIGUE, A-FIB Procedure: Patient received 0.4 mg of intravenous Lexiscan, resting heart rate 53 bpm, resting blood pressure 144/63 mmHg, with Lexiscan maximum heart rate achieved was 66 bpm which is % of the maximum predicted heart rate and blood pressure was 144/63 mmHg. Cardiac Stress and Resting SPECT Images: Cardiac Stress and Resting SPECT images were obtained using technetium 99m Myoview 31.6 mCi stress and 10.55 mCi at rest. Resting and stress imaging in supine and prone positions demonstrate no evidence of fixed or reversible perfusion defects. Gated imaging demonstrates normal global and regional LV systolic function. LVEF is calculated at 61%. Conclusion: No evidence of fixed or reversible perfusion defects. Gated imaging demonstrates normal global and regional LV systolic function. LVEF is calculated at 61%. Electronically signed by : Nuzhat Sotomayor MD 10/19/2023 12:54:41
--- NOTE | 2023-10-13 09:08 | CA_ITS ---
APPROVED REPORT EXAM: Comprehensive 2D, Doppler, and color-flow Echocardiogram Training And Development Director: Alanna Doan, IZZY, RVS Ht: 5 ft 4 in Wt: 198lbs BSA: 1.95 BP: 124/76 mmHg Rhythm: Atrial Fibrillation Indications: afib, abn ekg, Hx-TIA, HTN, ACE, Obesity, HLD, Edema 2D Dimensions IVSd 0.73 cm F: 0.6-1.0 LVEF (Visual) 70.00 % PWd 0.77 cm F: 0.6 - 1.0 LA Volume 75.60 mL LVDd 5.20 cm F: 3.9 - 5.3 LA Volume Index 38.77 mL/m2 (M/F) 16-34 LVDs 3.13 cm F: 2.2 - 3.5 Left Atrium 5.07 cm F: 2.7 - 3.8 M-Mode Dimensions LA Diam 3.81 cm (1.9-4.0) EPSs 0.34 cm TAPSE 1.60 (<1.7) LV Diastology E Decel Time 237 (160-240 msec) E/A Ratio 0.76 MED A' 13.10 cm/s LAT A' 10.00 cm/s Aortic Valve KRYSTAL Index 0.98 cm2/m2 AoV Peak Monroe. 128.0 (50-130 cm/s) AO Peak GR. 6.50 mmHg AO Mean GR. 3.50 (<5 mmHg) AO VTI 31.7 (18-25 cm) KRYSTAL (VTI) 1.96 (2.5-4.5 cm2) Mitral Valve MV A Velocity 86.0 (40-130 cm/s) E/A Ratio 0.76 Pulmonary Valve PV Peak Velocity 75.0 (50-150 cm/s) UT End VMAX 174.0 cm/s Tricuspid Valve TR P. Velocity 199.00 cm/s RAP Estimate 10.00 mmHg RVSP 25.90 mmHg Left Ventricle The left ventricle is normal size. The left ventricular systolic function is normal. The left ventricular ejection fraction is within the normal range. There is increased LV wall thickness. There is normal LV segmental wall motion. The left ventricular diastolic function is normal. LVEF is 55%. Right Ventricle The right ventricle is normal size. The right ventricular systolic function is normal. Atria The left atrium is mildly dilated. Right atrium is mildly dilated. There is no Doppler evidence of interatrial shunt. Aortic Valve The aortic valve is mildly thickened. There is no aortic valvular stenosis. Trace aortic regurgitation. Mitral Valve Mild mitral annular calcification. The mitral valve leaflets are mildly thickened. No evidence of mitral valve stenosis. Trace mitral regurgitation. Tricuspid Valve The tricuspid valve leaflets are thin and pliable. Trace tricuspid regurgitation. There is insufficient TR jet to estimate RVSP. Pulmonic Valve The pulmonary valve is normal in structure. Mild pulmonic regurgitation. Great Vessels The aortic root is normal in size. The ascending aorta is not well-visualized. IVC is normal in size and collapses >50% with inspiration. Pericardium There is no pericardial effusion. Other Information Study Quality: Fair Conclusion Normal biventricular systolic function. Mild biatrial dilation. Mild PI. Electronically signed by : Nuzhat Sotomayor MD 10/16/2023 23:45:26
[2023-10-13] MEDS: REGADENOSON 0.4MG/5ML SYRINGE 0.400000000000000022 MG IV (10:07)
[2023-10-13] MEDS: ISOTOPE MYOVIEW (PER STUDY) 1 DOSE IV (10:07)
[2023-10-13] MEDS: SODIUM CHLORIDE 0.9% 10ML SYR (RAD ONLY) 10 ML IV ×2 (10:08)
== END 2023-10-13 23:59 ==
LOC: RAD 07:56
PROVIDERS: PCP Nurse Practitioner Family; Visit Provider Nurse Practitioner
DX: R06.02 Shortness of breath (principal); G47.9 Sleep disorder, unspecified; R40.0 Somnolence; I48.0 Paroxysmal atrial fibrillation; E78.2 Mixed hyperlipidemia; K21.9 Gastro-esophageal reflux disease without esophagitis; Z86.73 Personal history of transient ischemic attack (TIA), and cerebral infarction without residual deficits
CPT/HCPCS: 78452; 93017; 93018; 93306; A9502; J2785

== ENCOUNTER 2023-11-10 09:10 | Emergency (ER) | payer MEDICARE, SELFPAY ==
[2023-11-10 09:25] VITALS: BP 151/60; PULSE 62; RESP 18; TEMP 36.5; O2SAT 97; BMI 29.9
--- NOTE | 2023-11-10 09:37 | ED_ITS ---
Discharge Plan Disposition Patient Disposition: Home, Self-Care Condition: Good Prescriptions Prescriptions: New amoxicillin 875 mg tablet 875 mg PO Q12H Qty: 20 0RF benzonatate 100 mg capsule 100 mg PO TIDP PRN (Reason: Cough) Qty: 30 0RF methylprednisolone 4 mg Tablets,Dose Pack 4 mg PO DIRECTED 6 Days Qty: 21 0RF Rx Instructions: Take 1 pack as directed for 6 days No Action fluticasone propionate [Flonase Allergy Relief] 50 mcg/actuation spray,suspension 1 spray INTRANASAL BID PRN (Reason: allergy symptoms) Qty: 47.4 0RF Rx Instructions: administer into each nostril methocarbamol 500 mg tablet 500 mg PO HS PRN (Reason: Sleep) atorvastatin 20 mg tablet 20 mg PO DAILY buspirone 5 mg tablet 5 mg PO DAILY meloxicam 7.5 mg tablet 7.5 mg PO DAILY duloxetine 30 mg capsule,delayed release(DR/EC) 30 mg PO DAILY famotidine 20 mg tablet 20 mg PO DAILY Qty: 90 0RF Eliquis 5 mg tablet 5 mg PO BID Qty: 180 1RF bisoprolol fumarate 5 mg tablet 5 mg PO BID Qty: 180 3RF spironolactone [Aldactone] 25 mg tablet 25 mg PO DAILY Qty: 30 2RF cetirizine 10 mg tablet 10 mg PO DAILY ropinirole 1 MG tablet 1 mg PO BID venlafaxine 150 mg capsule,extended release 24hr 150 mg PO DAILY levothyroxine 75 mcg tablet 75 mcg PO DAILY Rx Instructions: TAKE 1 TABLET BY MOUTH ONCE DAILY acetaminophen 650 mg Tablet Extended Release 1,300 mg PO Q12H PRN (Reason: Pain) Patient Comments: PT REPORTS TAKING 2 650MG TABLETS 06/28/22 AT 2230. Kenny ZHANG ROOF TECHNICIAN NOTIFIED. tramadol 50 mg tablet 50 mg PO BID 10 Days Qty: 20 0RF pregabalin 150 mg capsule 150 mg PO BID 10 Days Qty: 20 2RF Referrals Follow up/Referrals: Irasema England APRN [Primary Care Provider] - See instructions Activity Restrictions/Add. Instructions Additional Instructions/Restrictions: Drink plenty of fluids. Take tylenol or ibuprofen for pain or fever. Take the medications as directed. Follow up with your regular doctor. GO TO THE ER FOR ANY WORSENING SYMPTOMS Clinical Impressions Clinical Impression: Otitis media, Sinusitis Instructions Patient Instructions: Middle Ear Infection, DI for Sinusitis Discharge ED Provider: Melvin Damon [facility] [place] HPI General Stated complaint: pain in left side of face and ear Time Seen by Provider: 11/10/23 09:35 History of Present Illness Provider Complaint: She states that for the past 1 week she has had worsening left ear pain and left sided facial pressure. Related Data Home Medications Medication Instructions Recorded Confirmed cetirizine 10 mg tablet 10 mg PO DAILY allergies 04/10/20 10/26/23 ropinirole 1 mg tablet 1 mg PO BID Restless leg 12/09/20 10/26/23 atorvastatin 20 mg tablet 20 mg PO DAILY Cholesterol 06/30/21 10/26/23 methocarbamol 500 mg tablet 500 mg PO HS PRN Sleep 03/31/22 10/26/23 levothyroxine 75 mcg tablet 75 mcg PO DAILY thyroid 06/28/22 10/26/23 venlafaxine 150 mg 150 mg PO DAILY mood 06/28/22 10/26/23 capsule,extended release 24 hr acetaminophen 650 mg 1,300 mg PO Q12H PRN Pain 06/29/22 10/26/23 tablet,extended release buspirone 5 mg tablet 5 mg PO DAILY 09/26/23 10/26/23 duloxetine 30 mg capsule,delayed 30 mg PO DAILY 09/26/23 10/26/23 release meloxicam 7.5 mg tablet 7.5 mg PO DAILY 09/26/23 10/26/23 Previous Rx's Medication Instructions Recorded fluticasone propionate 50 1 spray intranasal BID PRN allergy 01/05/18 mcg/actuation nasal symptoms #47.4 grams spray,suspension (Flonase Allergy Relief) famotidine 20 mg tablet 20 mg PO DAILY acid reflux #90 tabs 05/21/21 pregabalin 150 mg capsule 150 mg PO BID Pain 10 days #20 caps 07/02/22 tramadol 50 mg tablet 50 mg PO BID Pain 10 days #20 tabs 07/02/22 apixaban 5 mg tablet (Eliquis) 5 mg PO BID afib #180 tabs 06/28/23 bisoprolol fumarate 5 mg tablet 5 mg PO BID rate control #180 tabs 08/02/23 spironolactone 25 mg tablet 25 mg PO DAILY #30 tabs 10/05/23 (Aldactone) amoxicillin 875 mg tablet 875 mg PO Q12H #20 tabs 11/10/23 benzonatate 100 mg capsule 100 mg PO TIDP PRN Cough #30 caps 11/10/23 methylprednisolone 4 mg tablets in 4 mg PO DIRECTED 6 days #21 tabs 11/10/23 a dose pack Allergies Allergy/AdvReac Type Severity Reaction Status Date / Time loratadine [From Claritin] Allergy Other Verified 11/10/23 09:40 [facility] Disclaimer: The information contained in this section may have been updated after the patient was seen, as this information can be updated by other users. Medical History Wheezing Cough Chest pressure History of COVID-19 Bronchitis Allergies History of cataract Hyperlipidemia Hypertension Edema Tonsillectomy planned Skin cancer Atrial fibrillation Falling episodes Daytime somnolence Abnormal EKG Restless sleeper Lumbar disc disease with radiculopathy Anxiety Headache Hypothyroidism Vitamin D deficiency Fibromyalgia Lumbar disc disease with radiculopathy Depression GERD (gastroesophageal reflux disease) Surgical History History of left knee replacement H/O tubal ligation History of surgery LEFT WRIST SURGERY - PLATE / SCREWS H/O adenoidectomy History of back surgery History of colonoscopy History of right knee joint replacement Family History Mother Family history of cervical cancer Father Family history of myocardial infarction Other Cancer Social History Smoking Status: Former smoker tobacco type: cigarettes packs per day: 1 years smoked: 4 smoking status stop date: 1997 second hand exposure: Yes alcohol intake: never substance use type: denies use current occupational status: retired Travel in the last 8 weeks: None housing: house number of children: 3 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 ROS Obtained: Yes All systems reviewed & no additional complaints except as documented Constitutional Constitutional: Denies chills, Reports fever(s) and Reports poor appetite Eyes Eyes: Denies eye discharge ENT Ears, Nose, Mouth, and Throat: Denies ear discharge, Reports otalgia, Denies hearing loss, Denies sinus pain and Reports sore throat Cardiovascular Cardiovascular: Denies chest pain and Denies dyspnea Respiratory Respiratory: Denies chest congestion, Reports cough and Denies dyspnea Gastrointestinal Gastrointestingal: Denies abdominal pain, diarrhea, nausea or vomiting Musculoskeletal Musculoskeletal: Denies arthralgias Integumentary/Breasts Skin/Breast: Denies rash Physical Exam General General appearance: alert and in no apparent distress Head Head exam: atraumatic, normocephalic and normal inspection Eye Eye exam: Present normal appearance; Absent PERRL or EOMI ENT ENT exam: Present mucous membranes moist and normal external ear exam Expanded ENT Exam TM/Canal exam: Bilateral TM: erythema, bulging and effusion Nose exam: Absent sinus tenderness Nasal speculum exam: Bilateral: normal Mouth exam: Present normal external inspection and other; Absent drooling Teeth exam: Present normal inspection Throat exam: Present tonsillar erythema and tonsillomegaly Neck Neck exam: Present normal inspection, full ROM and trachea midline; Absent tenderness, meningismus or lymphadenopathy Chest Chest inspection: Present normal inspection and symmetric chest wall rise; Absent tenderness Respiratory Respiratory exam: Present normal lung sounds bilaterally; Absent respiratory dis tress, wheezes or stridor Cardiovascular Cardiovascular exam: Present regular rate, normal rhythm and normal heart sounds; Absent tachycardia or irregular rhythm Abdominal Exam Abdominal exam: Present soft and normal bowel sounds; Absent distention, tenderness, guarding, rebound or rigidity Extremities Exam Extremities exam: Present normal inspection and normal capillary refill; Absent tenderness, joint swelling or calf tenderness Back Exam Back exam: Present normal inspection and full ROM; Absent tenderness, CVA tenderness (R) or CVA tenderness (L) Neurological Exam Neurological exam: Present alert, oriented X3, CN II-XII intact, normal gait and reflexes normal; Absent motor sensory deficit Psychiatric Psychiatric exam: Present normal affect and normal mood Skin Skin exam: Present warm, dry, intact and normal color Lymphatic Lymphatic Findings: no adenopathy Medical Decision Making Medical Records Medical records reviewed: No I reviewed the patient's medical records. Jose Inquiry Pt receiving controlled substance: No
[2023-11-10 10:21] VITALS: BP 151/60; PULSE 62; RESP 18; TEMP 36.5; O2SAT 97
== END 2023-11-10 10:21 | disposition home or self-care (01) ==
PROVIDERS: Emergency Provider Nurse Practitioner Family; PCP Nurse Practitioner Family
DX: H66.93 Otitis media, unspecified, bilateral (principal); J01.90 Acute sinusitis, unspecified
CPT/HCPCS: 99212; 99214; G0463

== ENCOUNTER 2023-12-09 08:18 | Emergency (ER) | payer MEDICARE, SELFPAY ==
[2023-12-09 08:50] VITALS: BP 133/74; PULSE 61; RESP 20; TEMP 36.5; O2SAT 95; BMI 30.7
--- NOTE | 2023-12-09 08:53 | XR_ITS ---
FINAL REPORT CLINICAL HISTORY: low back pain COMPARISON: 05/18/2022 FINDINGS: 3 views of the lumbar spine were obtained. There is no evidence of fracture. There is no malalignment. There is moderate disc space narrowing at L5-S1. There is moderate facet sclerosis in the lower lumbar spine. No paraspinous soft tissue abnormalities identified. IMPRESSION: Moderate degenerative changes without acute bony abnormality. Reviewed, Interpreted and Dictated by Jerzy Byrnes MD Transcribed by Zenobia Castillo Authenticated and [facility]
--- NOTE | 2023-12-09 09:15 | ED_ITS ---
Discharge Plan Disposition Patient Disposition: Home, Self-Care Condition: Good Prescriptions Prescriptions: New lidocaine [Lidocaine Pain Relief] 4 % adhesive patch,medicated 1 patch topical DAILY PRN (Reason: pain) Qty: 10 0RF Rx Instructions: Apply patch for 12 hours then remove for 12 hours No Action fluticasone propionate [Flonase Allergy Relief] 50 mcg/actuation spray,suspension 1 spray INTRANASAL BID PRN (Reason: allergy symptoms) Qty: 47.4 0RF Rx Instructions: administer into each nostril methocarbamol 500 mg tablet 500 mg PO HS PRN (Reason: Sleep) atorvastatin 20 mg tablet 20 mg PO DAILY buspirone 5 mg tablet 5 mg PO DAILY meloxicam 7.5 mg tablet 7.5 mg PO DAILY duloxetine 30 mg capsule,delayed release(DR/EC) 30 mg PO DAILY famotidine 20 mg tablet 20 mg PO DAILY Qty: 90 0RF Eliquis 5 mg tablet 5 mg PO BID Qty: 180 1RF bisoprolol fumarate 5 mg tablet 5 mg PO BID Qty: 180 3RF spironolactone [Aldactone] 25 mg tablet 25 mg PO DAILY Qty: 30 2RF cetirizine 10 mg tablet 10 mg PO DAILY ropinirole 1 MG tablet 1 mg PO BID venlafaxine 150 mg capsule,extended release 24hr 150 mg PO DAILY levothyroxine 75 mcg tablet 75 mcg PO DAILY Rx Instructions: TAKE 1 TABLET BY MOUTH ONCE DAILY acetaminophen 650 mg Tablet Extended Release 1,300 mg PO Q12H PRN (Reason: Pain) Patient Comments: PT REPORTS TAKING 2 650MG TABLETS 06/28/22 AT 2230. 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 tramadol 50 mg tablet 50 mg PO BID 10 Days Qty: 20 0RF pregabalin 150 mg capsule 150 mg PO BID 10 Days Qty: 20 2RF amoxicillin 875 mg tablet 875 mg PO Q12H Qty: 20 0RF benzonatate 100 mg capsule 100 mg PO TIDP PRN (Reason: Cough) Qty: 30 0RF methylprednisolone 4 mg Tablets,Dose Pack 4 mg PO DIRECTED 6 Days Qty: 21 0RF Rx Instructions: Take 1 pack as directed for 6 days Referrals Follow up/Referrals: Irasema England APRN [Primary Care Provider] - See instructions Activity Restrictions/Add. Instructions Additional Instructions/Restrictions: *Ibuprofen jennifer 6 hours with meal as needed for pain/inflammation if you can take it *Not additional anti-inflammatory like motrin, aleve, advil with the above amount of ibuprofen. You can still take Tylenol every 4 hours as needed if you need something else for pain *Ice 20 minutes every 2 hours for the first 48 hours after the initial injury followed by moist heat every 20 minutes 3-4 times a day to affected area Use topical patch as directed, place on area leave in place for 12 hours then remove it for 12 hours *Keep this area active, no movement leads to more stiffness, However take it easy and avoid heavy lifting pushing or pulling *Follow up with you family doctor if no improvement for further treatment ? Clinical Impressions Clinical Impression: Low back pain Qualifiers: Chronicity: unspecified Back pain laterality: unspecified Sciatica presence: w ithout sciatica Qualified Code(s): M54.50 - Low back pain, unspecified Instructions Patient Instructions: DI for Low Back Pain, DI for Chronic Pain -- Adult Discharge ED Provider: Brenda Millard [facility] General Stated complaint: Lower back pain Mode of Arrival: Ambulatory Source of Information: Patient Limitations: No Limitations Time Seen by Provider: 12/09/23 09:21 Description of Symptoms (Recalled from Triage Doc. by RN): PATIENT C/O LOWER BACK PAIN X 3 DAYS. SHE STATES PAIN STARTED SHORTLY AFTER SHE PICKED UP A BAG OF MULCH Tuesday. SHE REPORTS PAIN IS WORSE AT NIGHT AND WITH MOVEMENT HEENT Symptoms (Recalled from RN notes): No Resp Symptoms (Recalled from RN notes): No Skin Symptoms (Recalled from RN notes): No MS Symptoms (Recalled from RN notes): Yes Functional Status (Recalled from RN notes): WNL History of Present Illness Provider Complaint: Patient state that she has been working outside and she picked up a bag of mulch on Tuesday and felt like she felt something pull in her back states that she feels stiff worse at night and with certain movements so today when she wasnt feeling any better she came in to get checked Denies loss of control of bowel or bladder Related Data Home Medications Medication Instructions Recorded Confirmed cetirizine 10 mg tablet 10 mg PO DAILY allergies 04/10/20 10/26/23 ropinirole 1 mg tablet 1 mg PO BID Restless leg 12/09/20 10/26/23 atorvastatin 20 mg tablet 20 mg PO DAILY Cholesterol 06/30/21 10/26/23 methocarbamol 500 mg tablet 500 mg PO HS PRN Sleep 03/31/22 10/26/23 levothyroxine 75 mcg tablet 75 mcg PO DAILY thyroid 06/28/22 10/26/23 venlafaxine 150 mg 150 mg PO DAILY mood 06/28/22 10/26/23 capsule,extended release 24 hr acetaminophen 650 mg 1,300 mg PO Q12H PRN Pain 06/29/22 10/26/23 tablet,extended release buspirone 5 mg tablet 5 mg PO DAILY 09/26/23 10/26/23 duloxetine 30 mg capsule,delayed 30 mg PO DAILY 09/26/23 10/26/23 release meloxicam 7.5 mg tablet 7.5 mg PO DAILY 09/26/23 10/26/23 Previous Rx's Medication Instructions Recorded fluticasone propionate 50 1 spray intranasal BID PRN allergy 01/05/18 mcg/actuation nasal symptoms #47.4 grams spray,suspension (Flonase Allergy Relief) famotidine 20 mg tablet 20 mg PO DAILY acid reflux #90 tabs 05/21/21 pregabalin 150 mg capsule 150 mg PO BID Pain 10 days #20 caps 07/02/22 tramadol 50 mg tablet 50 mg PO BID Pain 10 days #20 tabs 07/02/22 apixaban 5 mg tablet (Eliquis) 5 mg PO BID afib #180 tabs 06/28/23 bisoprolol fumarate 5 mg tablet 5 mg PO BID rate control #180 tabs 08/02/23 spironolactone 25 mg tablet 25 mg PO DAILY #30 tabs 10/05/23 (Aldactone) amoxicillin 875 mg tablet 875 mg PO Q12H #20 tabs 11/10/23 benzonatate 100 mg capsule 100 mg PO TIDP PRN Cough #30 caps 11/10/23 methylprednisolone 4 mg tablets in 4 mg PO DIRECTED 6 days #21 tabs 11/10/23 a dose pack lidocaine 4 % topical patch 1 patch topical DAILY PRN pain #10 12/09/23 (Lidocaine Pain Relief) ea Allergies Allergy/AdvReac Type Severity Reaction Status Date / Time loratadine [From Claritin] Allergy Other Verified 11/10/23 09:40 Worker's Comp Is this a Worker's Comp case?: No [facility] Disclaimer: The information contained in this section may have been updated after the patient was seen, as this information can be updated by other users. Medical History Wheezing Cough Chest pressure History of COVID-19 Bronchitis Allergies History of cataract Hyperlipidemia Hypertension Edema Tonsillectomy planned Skin cancer Atrial fibrillation Falling episodes Daytime somnolence Abnormal EKG Restless sleeper Lumbar disc disease with radiculopathy Anxiety Headache Hypothyroidism Vitamin D deficiency Fibromyalgia Lumbar disc disease with radiculopathy Depression GERD (gastroesophageal reflux disease) Surgical History History of left knee replacement H/O tubal ligation History of surgery LEFT WRIST SURGERY - PLATE / SCREWS H/O adenoidectomy History of back surgery History of colonoscopy History of right knee joint replacement Family History Mother Family history of cervical cancer Father Family history of myocardial infarction Other Cancer Social History Smoking Status: Former smoker tobacco type: cigarettes packs per day: 1 years smoked: 4 smoking status stop date: 1997 second hand exposure: Yes alcohol intake: never substance use type: denies use current occupational status: retired Travel in the last 8 weeks: None housing: house number of children: 3 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 ROS Obtained: Yes All systems reviewed & no additional complaints except as documented and Yes Systems reviewed as appropriate & no additional complaints except as documented Constitutional Constitutional: Reports system reviewed and no additional complaints, except as documented and Reports as per HPI Eyes Eyes: Reports system reviewed and no additional complaints, except as documented and Reports as per HPI ENT Ears, Nose, Mouth, and Throat: Reports system reviewed and no additional complaints, except as documented and Reports as per HPI Cardiovascular Cardiovascular: Reports system reviewed and no additional complaints, except as documented and Reports as per HPI Respiratory Respiratory: Reports system reviewed and no additional complaints, except as documented and Reports as per HPI Gastrointestinal Gastrointestingal: Reports system reviewed and no additional complaints, except as documented and as per HPI Musculoskeletal Musculoskeletal: Reports system reviewed and no additional complaints, except as documented, Reports as per HPI and Reports back pain Physical Exam General General appearance: alert and in no apparent distress ENT ENT exam: Present mucous membranes moist Respiratory Respiratory exam: Present normal lung sounds bilaterally; Absent respiratory distress or wheezes Cardiovascular Cardiovascular exam: Present regular rate, normal rhythm and normal heart sounds Back Exam Back exam: Present muscle spasm Back 1 view image: 2 1. pain in lower back worse with movement and at night Denies loss of control of bowel or bladder Neurological Exam Neurological exam: Present alert, oriented X3 and normal gait Medical Decision Making Jose Inquiry Pt receiving controlled substance: No Jose was queried for this patient: No Vital Signs: 12/09/23 08:50 Temperature 97.7 F Temperature Source Oral Pulse Rate [Left Brachial] 61 Respiratory Rate 20 Blood Pressure [Left Arm] 133/74 Blood Pressure Mean [Left Arm] 93 Blood Pressure Source [Left Arm] Automatic Cuff Blood Pressure Position [Left Arm] Sitting 02 Sat by Pulse Oximetry 95 Oxygen Delivery Method Room Air Orders (Tests/Meds): ORDERS Category Date Time Status Lumbar spine XR 2-3 views [XR lumbar spine 2-3V] Stat Exams 12/09/23 08:53 Taken Radiology Data #1: Image(s): L-Spine Image Reviewed: Yes I have reviewed radiologist's interpretation IMPRESSION: Moderate degenerative changes without acute bony abnormality.
[2023-12-09] MEDS: METHYLPREDNISOLONE SOD SUCC 125MG VIAL 125 MG IM (10:17)
[2023-12-09 10:22] VITALS: BP 133/74; PULSE 61; RESP 20; TEMP 36.5; O2SAT 95
== END 2023-12-09 10:33 | disposition home or self-care (01) ==
PROVIDERS: Emergency Provider Nurse Practitioner; PCP Nurse Practitioner Family
DX: M54.50 Low back pain, unspecified (principal); X50.0XXA Overexertion from strenuous movement or load, initial encounter
CPT/HCPCS: 72100; 96372; 99212; 99214; G0463

== ENCOUNTER 2024-02-01 13:05 | Outpatient (CLI) | payer MEDICARE, SELFPAY ==
--- NOTE | 2024-02-01 | MR_ITS ---
FINAL REPORT TECHNIQUE: Multiplanar and multisequence imaging of the lumbar spine was obtained without contrast. CLINICAL HISTORY: .chronic lbp COMPARISON: None FINDINGS: There is normal alignment of the lumbar vertebral bodies. Vertebral body height is preserved. There is retrolisthesis of L2 on L3. The spinal cord ends at the level of L1. There is normal signal intensity within the substance of the distal spinal cord. No acute bone marrow edema or pathologic marrow replacement. No acute paraspinal abnormality is identified. L1-2: An annular bulge is present without facet osteoarthropathy or canal stenosis. No neural foraminal narrowing is present. L2-3: An annular bulge is present with facet osteoarthropathy and osteophytes. There is mild to moderate central canal stenosis, and severe bilateral neural foraminal narrowing. L3-4: An annular bulge is present with facet osteoarthropathy and osteophytes. There is moderate to severe bilateral neural foraminal narrowing. L4-5: An annular bulge is present with facet osteoarthropathy and osteophytes, with a superimposed central disc protrusion. There is mild canal stenosis and severe bilateral neural foraminal narrowing. L5-S1: An annular bulge is present with facet osteoarthropathy and osteophytes. There is moderate right greater than left neural foraminal narrowing. IMPRESSION: Multilevel lumbar degenerative change as described, with multilevel moderate to severe bilateral neural foraminal narrowing and mild canal stenosis at the L2-3 and L4-5 levels. Reviewed, Interpreted and Dictated by Maricruz Caro MD Transcribed by Rossy Brown Authenticated and [facility]
== END 2024-02-01 23:59 | disposition home or self-care (01) ==
LOC: RAD 13:06
PROVIDERS: PCP Nurse Practitioner Family; Visit Provider Nurse Practitioner Family
DX: M54.50 Low back pain, unspecified (principal); M25.50 Pain in unspecified joint
CPT/HCPCS: 72148

== ENCOUNTER 2024-02-17 11:14 | Emergency (ER) | payer MEDICARE, SELFPAY ==
--- OUTSIDE RECORDS SUMMARY | 2024-02-17 11:23 | XMS_ITS ---
Care Plan - [facility], [facility] Created on: February 17, 2024 Mariann Higgins : 1950 Sex: Female Author Organization [facility] , [facility] Address [address] [place] [id number] Phone Care Team Providers Care Adjuster And Inspector Name Role Phone Yoel Batista MD Unavailable [phone]
--- OUTSIDE RECORDS SUMMARY | 2024-02-17 11:23 | XMS_ITS ---
Author Organization [facility] , [facility] Address [address] [place] [address] Phone Care Team Providers Care Implementation Coordinator Name Role Phone Lester OLIVEIRA, Yoel Vernon Unavailable [phone] Plan of Treatment Future Appointments Date Time Location Provi peña Physician Specified 02/23/2024 11:30AM [facility] Yoel Batista MD Last Documented On 9:04AM ; [facility] Assessments Includes: Assessments for all patient encounters No Assessments Recorded Medical Equipment - Implanted Devices Includes: Current and historical Devices No Medical Equipment Recorded Medications Administered Includes: Administered Medications in patient's chart No Administered Medications Recorded Results Includes: Results from 02/16/2023 through 02/17/2024 No Results Recorded For Specified Dates History of Present Illness History of Present Illness not supported for this document type No History of Present Illness Recorded Social History No Social History Recorded - Smoking Status Unknown Medical History Includes: Medical History in patient's chart No Medical History Recorded Family History Includes: Family History in patient's chart No Family History Recorded Review of Systems Review of Systems not supported for this document type No Review of Systems Recorded Mental Status No Mental Status Recorded Functional Status No Functional Status Recorded Physical Exam Physical Exam not supported for this document type No Physical Exam Recorded Insurance Includes: Active Insurance Policies Plan Name Member ID Group # Subscriber Relationship Effect glen Dates 1 - [facility] [id number] Mariann Higgins Self Clinical Notes Includes: Signed Clinical Notes starting from 07/01/2022 No Clinical Notes Recorded
[2024-02-17 11:25] VITALS: BP 131/59; PULSE 80; RESP 20; TEMP 36.8; O2SAT 94; BMI 30.7
--- NOTE | 2024-02-17 11:34 | ED_ITS ---
Discharge Plan Disposition Patient Disposition: Home, Self-Care Condition: Good Prescriptions Prescriptions: New amoxicillin 875 mg tablet 875 mg PO BID 10 Days Qty: 20 0RF benzonatate 100 mg capsule 100 mg PO TID PRN (Reason: cough) Qty: 30 0RF No Action buspirone 5 mg tablet 5 mg PO DAILY atorvastatin 20 mg tablet 20 mg PO DAILY ropinirole 1 mg tablet 1 mg PO DAILY cetirizine 10 mg tablet 10 mg PO DAILY tramadol 50 mg tablet 50 mg PO DAILY levothyroxine 75 mcg tablet 75 mcg PO DAILY famotidine 20 mg tablet 20 mg PO DAILY duloxetine 30 mg capsule,delayed release(DR/EC) 30 mg PO DAILY pregabalin 150 mg capsule 150 mg PO DAILY Eliquis 5 mg tablet 5 mg PO DAILY Referrals Follow up/Referrals: Irasema England APRN [Primary Care Provider] - See instructions Activity Restrictions/Add. Instructions Additional Instructions/Restrictions: If Covid results are negative may start antibiotics. Increase fluids and rest. If symptoms persist or worsen, follow up with PCP. Clinical Impressions Clinical Impression: Upper respiratory tract infection Qualifiers: URI type: unspecified URI Qualified Code(s): J06.9 - Acute upper respiratory infection, unspecified Instructions Patient Instructions: DI for Viral Upper Respiratory Infection -- Adult Print Language Print Language: Arabic Discharge ED Provider: Linda Gardiner [facility] General Stated complaint: SOA, cough, loss of voice, Mode of Arrival: Ambulatory Source of Information: Patient Limitations: No Limitations Time Seen by Provider: 02/17/24 11:19 Description of Symptoms (Recalled from Triage Doc. by RN): PATIENT C/O BODY ACHES, SORE THROAT, CHILLS, COUGH AND HEADACHE X 3 DAYS HEENT Symptoms (Recalled from RN notes): Yes Resp Symptoms (Recalled from RN notes): Yes Skin Symptoms (Recalled from RN notes): No MS Symptoms (Recalled from RN notes): No Functional Status (Recalled from RN notes): WNL History of Present Illness Provider Complaint: Pt states that she has had chills, cough, body aches, hoarseness, and headache for the last 3 days. She reports that she [facility]. She states that she has an appointment with her doctor tomorrow, but states that she felt so bad she wanted to be seen today. She denies taking anything for her symptoms. Related Data Home Medications ?Medication ?Instructions ?Recorded ?Confirmed apixaban 5 mg tablet (Eliquis) 5 mg PO DAILY 02/17/24 02/17/24 atorvastatin 20 mg tablet 20 mg PO DAILY 02/17/24 02/17/24 buspirone 5 mg tablet 5 mg PO DAILY 02/17/24 02/17/24 cetirizine 10 mg tablet 10 mg PO DAILY 02/17/24 02/17/24 duloxetine 30 mg capsule,delayed 30 mg PO DAILY 02/17/24 02/17/24 release famotidine 20 mg tablet 20 mg PO DAILY 02/17/24 02/17/24 levothyroxine 75 mcg tablet 75 mcg PO DAILY 02/17/24 02/17/24 pregabalin 150 mg capsule 150 mg PO DAILY 02/17/24 02/17/24 ropinirole 1 mg tablet 1 mg PO DAILY 02/17/24 02/17/24 tramadol 50 mg tablet 50 mg PO DAILY 02/17/24 02/17/24 Previous Rx's ?Medication ?Instructions ?Recorded amoxicillin 875 mg tablet 875 mg PO BID 10 days #20 tabs 02/17/24 benzonatate 100 mg capsule 100 mg PO TID PRN cough #30 caps 02/17/24 Allergies Allergy/AdvReac Type Severity Reaction Status Date / Time loratadine [From Claritin] Allergy Other Verified 11/10/23 09:40 Worker's Comp Is this a Worker's Comp case?: No [facility] Disclaimer: The information contained in this section may have been updated after the patient was seen, as this information can be updated by other users. Medical History Wheezing Cough Chest pressure History of COVID-19 Bronchitis Allergies History of cataract Hyperlipidemia Hypertension Edema Tonsillectomy planned Skin cancer Atrial fibrillation Falling episodes Daytime somnolence Abnormal EKG Restless sleeper Lumbar disc disease with radiculopathy Anxiety Headache Hypothyroidism Vitamin D deficiency Fibromyalgia Lumbar disc disease with radiculopathy Depression GERD (gastroesophageal reflux disease) Surgical History History of left knee replacement H/O tubal ligation History of surgery LEFT WRIST SURGERY - PLATE / SCREWS H/O adenoidectomy History of back surgery History of colonoscopy History of right knee joint replacement Family History Mother Family history of cervical cancer Father Family history of myocardial infarction Other Cancer Social History Smoking Status: Former smoker tobacco type: cigarettes packs per day: 1 years smoked: 4 smoking status stop date: 1997 second hand exposure: Yes alcohol intake: never substance use type: denies use current occupational status: retired Travel in the last 8 weeks: None housing: house number of children: 3 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 ROS Obtained: Yes All systems reviewed & no additional complaints except as documented Constitutional Constitutional: Reports system reviewed and no additional complaints, except as documented, Reports body ache, Reports chills, Reports fatigue, Reports headache (s) and Reports malaise Eyes Eyes: Reports system reviewed and no additional complaints, except as documented ENT Ears, Nose, Mouth, and Throat: Reports system reviewed and no additional complaints, except as documented, Reports headache(s), Reports nasal congestion, Reports odynophagia, Reports post nasal drip and Reports sore throat Cardiovascular Cardiovascular: Reports system reviewed and no additional complaints, except as documented Respiratory Respiratory: Reports system reviewed and no additional complaints, except as documented and Reports non-productive cough Gastrointestinal Gastrointestingal: Reports system reviewed and no additional complaints, except as documented and odynophagia Genitourinary Female Genitourinary: Reports system reviewed and no additional complaints, except as documented Musculoskeletal Musculoskeletal: Reports system reviewed and no additional complaints, except as documented Integumentary/Breasts Skin/Breast: Reports system reviewed and no additional complaints, except as documented Neurologic Neurologic: Reports system reviewed and no additional complaints, except as documented and Reports headache(s) Endocrine Endocrine: Reports system reviewed and no additional complaints, except as documented and Reports fatigue Hematologic/Lymphatic Henatologic/Lymphatic: Reports system reviewed and no additional complaints, except as documented Allergic/Immunologic Allergic/Immunologic: Reports system reviewed and no additional complaints, except as documented Physical Exam General General appearance: alert Comment: ill appearing Head Head exam: atraumatic and normocephalic Eye Eye exam: Present normal appearance Expanded ENT Exam External ear exam: Present normal external inspection Nasal speculum exam: Bilateral: other (edematous mucosa) Mouth exam: Present normal external inspection Teeth exam: Present normal inspection Throat exam: Present tonsillar erythema Comment: hoarseness noted Neck Neck exam: Present normal inspection; Absent lymphadenopathy Chest Chest inspection: Present normal inspection and symmetric chest wall rise Respiratory Respiratory exam: Present other (course sounds throughout) Cardiovascular Cardiovascular exam: Present regular rate, normal rhythm and normal heart sounds Abdominal Exam Abdominal exam: Present soft and normal bowel sounds Extremities Exam Extremities exam: Present normal inspection Back Exam Back exam: Present normal inspection Neurological Exam Neurological exam: Present alert and oriented X3 Psychiatric Psychiatric exam: Present normal affect and normal mood Skin Skin exam: Present warm, dry and intact Lymphatic Lymphatic Findings: no adenopathy Medical Decision Making Jsoe Inquiry Pt receiving controlled substance: No Jose was queried for this patient: No Vital Signs: 02/17/24 11:25 Temperature 98.2 F Temperature Source Oral Pulse Rate [Left Brachial] 80 Respiratory Rate 20 Blood Pressure [Left Arm] 131/59 L Blood Pressure Mean [Left Arm] 83 Blood Pressure Source [Left Arm] Automatic Cuff Blood Pressure Position [Left Arm] Sitting 02 Sat by Pulse Oximetry 94 L Oxygen Delivery Method Room Air
[2024-02-17 11:43] LABS: UTC Strep Screen (Rapid) Negative (Negative)
[2024-02-17 12:09] VITALS: BP 131/59; PULSE 80; RESP 20; TEMP 36.8; O2SAT 94
== END 2024-02-17 12:12 | disposition home or self-care (01) ==
PROVIDERS: Emergency Provider Nurse Practitioner Family; PCP Nurse Practitioner Family
DX: R05.9 Cough, unspecified (principal); R51.9 Headache, unspecified; R07.0 Pain in throat; R68.83 Chills (without fever); J06.9 Acute upper respiratory infection, unspecified
CPT/HCPCS: 87880; 99212; 99214; G0463

== ENCOUNTER 2024-02-29 11:24 | Outpatient (POV) | payer MEDICARE, SELFPAY ==
--- OUTSIDE RECORDS SUMMARY | 2024-02-29 11:29 | XMS_ITS | Clinical Summary ---
Author Organization [facility] , [facility] Address [address] [place] [address] Phone Care Team Providers Care Approver Name Role Phone Irasema England APRN Unavailable Sobia arlyn Batista MD, Yoel Vernon Unavailable [phone] Reason for Visit and Chief Complaint The Chief Complaint is: low back pain Problems Includes: Problems addressed during this encounter and other active Problems Current Visit Onset Date Resolved Date Provider Cayden yip Status Lower Back Pain 02/23/2024 Yoel Batista MD Act glen Last Documented On 11:49AM ; [facility] Plan of Treatment - Patient screened for future fall risk: documentation of any fall with injury in past year - Last Documented On 02/23/2024 12:34PM ; [facility] Fall Risk Assessment: This patient has been identified as a fall risk. Balance/gait along with postural blood pressure, vision and home fall hazards have been assessed. Medications have been reviewed, and recommendations made with regard to contributing factors for future falls. Plan of care: Consideration of vitamin D supplementation along with balance and strength training with consideration for formal physical therapy has been discussed with the patient. - Last Documented On 02/23/2024 12:34PM ; [facility] Patient was seen by myself and Dr. Lester Rogers PA-C. Patient will follow up with us as needed there is no surgery needed for her. We would recommend she see Dr. Dominguez and talk about a spinal cord stimulator we will for a PT also. - Last Documented On 02/23/2024 12:34PM ; [facility] Pending Tests Order Diagnosis Results Due Ordering P rovider Therapy - Physical Therapy Lumbar Low back pain, unspecified 02/23/24 Yoel Batista MD Last Documented On 4 12:23PM ; [facility], [facility] Instructions to patient Lose weight Last Documented On 4 12:03PM ; [facility] Assessments Includes: Assessments from this encounter Findings - Overweight - Last Documented On 02/23/2024 12:34PM ; [facility] Lumbar spine MRIs show no new stenosis - Last Documented On 02/23/2024 12:34PM ; [facility] Instructions Includes: Instructions from this encounter Instructions to patient Lose weight Last Documented On 4 12:03PM ; [facility] Medical Equipment - Implanted Devices Includes: Current Devices No Medical Equipment Recorded Medications Includes: Medications discussed during this encounter and other current Medications Discontinued / Stopped on this date Irasema England APRN on 01/30/2024 methylPREDNISolone 4 MG Oral Tablet Therapy Pack Provider: Irasema caraballo APRN Diagnosis: Last Documented On 4 12:00PM By Inessa Guzman ; [facility], [facility] Current Medications (continue as prescribed) Bisoprolol Fumarate 5 MG Oral Tablet 02/23/2024 Prov ider: Diagnosis: Last Documented On 4 12:35PM By Inessa Guzman ; [facility], [facility] Tylenol 8 Hour Arthritis Domingo n 650 MG Oral Tablet Extended Release 02/23/2024 Provider: Diagnosis: Last Documented On 4 12:37PM By Inessa Guzman ; [facility], [facility] Cefdinir 300 MG Oral Capsule 02/21/2024 Provider: Diagnosis: Last Documented On 4 12:00PM By Inessa Guzman ; [facility] Benzonatate 100 MG Oral Capsule 02/17/2024 Provider: Diagnosis: Last Documented On 4 12:00PM By Inessa Guzman ; [facility] Atorvastatin Calcium 20 MG O ral Tablet 02/17/2024 Provider: Irasema caraballo APRN Diagnosis: Last Documented On 4 12:00PM By Inessa Guzman ; [facility] Pregabalin 150 MG Oral Capsule 02/11/2024 Provider: MOSES GOTTI MD Diagnosis: Last Documented On 4 12:00PM By Inessa Guzman ; [facility] Cetirizine HCl 10 MG Oral Tablet 02/03/2024 Provider : Irasema England APRN Diagnosis: Last Documented On 4 12:00PM By Inessa Guzman ; [facility] DULoxetine HCl 30 MG Oral Ca psule Delayed Release Particles 02/03/2024 Provider: Irasema England APRN Diagnosis: Last Documented On 4 12:00PM By Inessa Guzman ; [facility] traMADol HCl 50 MG Oral Tablet 02/02/2024 Provider: MOSES GOTTI MD Diagnosis: Last Documented On 4 12:00PM By Inessa Guzman ; [facility] Famotidine 20 MG Oral Tablet 02/02/2024 Provider: Irasema England APRN Diagnosis: Last Documented On 4 12:00PM By Inessa Guzman ; [facility] Eliquis 5 MG Oral Tablet 02/02/2024 Provider: Diagnosis: Last Documented On 4 12:00PM By Inessa Guzman ; [facility] busPIRone HCl 5 MG Oral Tablet 01/30/2024 Provider: Irasema England APRN Diagnosis: Last Documented On 4 12:00PM By Inessa Guzman ; [facility] Methocarbamol 500 MG Oral Tablet 01/26/2024 Provider : Irasema England APRN Diagnosis: Last Documented On 4 12:00PM By Inessa Guzman ; [facility] rOPINIRole HCl 1 MG Oral Tablet 01/23/2024 Provider: Irasema England APRN Diagnosis: Last Documented On 4 12:00PM By Inessa Guzman ; [facility] Meloxicam 7.5 MG Oral Tablet 01/05/2024 Provider: Irasema England APRN Diagnosis: Last Documented On 4 12:00PM By Inessa Guzman ; [facility] Levothyroxine Sodium 75 MCG Oral Tablet 12/22/2023 Provider: Irasema caraballo APRN Diagnosis: Last Documented On 4 12:00PM By Inessa Guzman ; [facility] Lidocaine Pain Relief 4% External Patch 12/09/2023 P gladisder: Diagnosis: Last Documented On 4 12:00PM By Inessa Guzman ; [facility] Spironolactone 25 MG Oral Tablet 10/05/2023 Provider : Diagnosis: Last Documented On 4 12:36PM By Inessa Guzman ; [facility] Ketorolac Tromethamine 0.4% Ophthalmic Solution 06/06/2023 Provider: PRATEEK CASTAÑEDA MD Diagnosis: Last Documented On 4 12:00PM By Inessa Guzman ; [facility], [facility] Medications Administered Includes: Administered Medications from this encounter No Administered Medications Recorded Vital Signs Includes: Vital Signs from this encounter Vital Name 02/23/2024 12:01P Height (in) 65 Weight (lb) 186.2 Body Mass Index 31 Body Surface Area 1.9 Pain Level 0 Note: lc Last Documented: On 02/23/2024 12:01P M ; [facility], [facility] Results Includes: Results discussed during this encounter No Results Recorded For Specified Dates History of Present Illness Includes: History of Present Illness from this encounter REGINA Higgins is a 73 year old female. - Symptoms propping feet up makes the pain better prolonged standing makes the pain worse. - Allergy list reviewed - Problem list reviewed - Medication list reviewed - Previous history of new onset pain Injury is not work related or an automotive accident - Sharp pain Symptoms - Pain is constant (100% of the time) - Pain is throbbing - Patient pain level from 1-10: was 0 0 - Yes, previous treatment. PCP Dr. Dominguez - - Review of medications documented Patient is here today complaining of back brain she has had a previous lumbar lamine[place] [address] Batista her biggest complaint is back pain it especially with prolonged standing or bending occasionally some pain down both legs. She does not work. She is scheduled to see pain management with Dr. Dominguez in the near future. She is on Eliquis. She denies any bowel or bladder issues with this. Social History Description Last Updated Caffeine use 02/23/2024 Last Documented On 4 12:32PM ; [facility] No recent change in diet 02/23/2024 Last Documented On 4 12:32PM ; [facility] Not a current smoker. 02/23/2024 Last Documented On 4 12:32PM ; [facility] Not exercising regularly 02/23/2024 Last Documented On 4 12:32PM ; [facility] Not using alcohol 02/23/2024 Last Documented On 4 12:32PM ; [facility] Not using drugs 02/23/2024 Last Documented On 4 12:32PM ; [facility] Smoking Status Unknown Procedures and Surgical History Includes: Procedures from this encounter Procedures Code Diagnosis Performing Provider Service L ocation Service Date an MRI was performed 02/01/2024 [facility] [id number] Last Documented On 4 12:02PM ; [facility], [facility] Surgical History Last Updated History of Previous Fractures Wrist 02/2024 Last Documented On 4 12:32PM ; [facility] History of total knee arthroplasty Bilat eral 02/23/2024 Last Documented On 4 12:32PM ; [facility] Medical History Includes: Medical History addressed during this encounter Description Last Updated History of arthritis 02/23/2024 Last Documented On 4 12:32PM ; [facility] History of depression 02/23/2024 Last Documented On 4 12:32PM ; [facility] History of heart disease 02/23/2024 Last Documented On 4 12:32PM ; [facility] History of Heartburn / Acid Reflux 02/22 Last Documented On 4 12:32PM ; [facility] History of History of Blood Clots 2023 Last Documented On 4 12:32PM ; [facility] History of History of Cancer Skin 2023 Last Documented On 4 12:32PM ; [facility] History of Hypertension 02/23/2024 Last Documented On 4 12:32PM ; [facility] History of Thyroid Disease 02/23/2024 Last Documented On 4 12:32PM ; [facility] Family History Includes: Family History addressed during this encounter Description Last Updated Family history of cancer 02/23/2024 Last Documented On 4 12:32PM ; [facility] Family history of heart disease 02/23/20 24 Last Documented On 4 12:32PM ; [facility] Family history of rheumatoid arthritis 0 02/23/2024 Last Documented On 4 12:32PM ; [facility] Review of Systems Includes: Review of Systems from this encounter Systemic: Feeling tired. No recent weight loss. Recent weight gain. Head: No headache. Sinus pain. Eyes: No vision problems. Cataracts. No Glasses/Contacts and no Glaucoma. Otolaryngeal: Hearing loss and tinnitus. Cardiovascular: No chest pain or discomfort, no palpitations, and no Hypertension. High Cholesterol. Pulmonary: No daytime asthma symptoms and no chronic cough. No wheezing. Gastrointestinal: Heartburn. No abdominal pain. No Indigestion, no Peptic Ulcer, no GI Stomach Bleed, and no Ulcers. Acid Reflux. Endocrine: No hot flashes, no muscle weakness, no Diabetes, no Hypothyroid, and no Hyperthyroid. Hematologic: No easy bleeding. A tendency for easy bruising. No Anemia. Musculoskeletal: Arthritis and lower back pain. No soft tissue swelling. Pain localized to one or more joints. Neurological: Dizziness. No convulsions and no numbness. Psychological: Anxiety. No emotional lability. Depression. No insomnia. Crying for no reason. Skin: No dry skin. No Ulcers. Scars Skin Cancer. No rash. Allergic and Immunologic: Complaint of seasonal allergic reaction. Mental Status Includes: Mental Status from this encounter Description Anxiety Functional Status Includes: Functional Status from this encounter No Functional Status Recorded Physical Exam Includes: Physical Exam from this encounter Allergies Includes: Active Allergies Substance Type Reaction Onset Date Resolved Date Statu s Claritin Allergy 02/23/2024 Active Last Documented On 02/23/2024 12:01PM ; [facility] Note: Irregular Heartrate Encounters Encounter Provider Location Date Check-In Time Check-Out Time Diagnosis Physician Specified Yoel [facility] 02/23/20 24 11:52AM 12:23PM Overweight Insurance Includes: Active Insurance Policies Plan Name Member ID Group # Subscriber Relationship Effect glen Dates 1 - [facility] [id number] Mariann Higgins Self Clinical Notes Includes: Clinical Notes from this encounter No Clinical Notes Recorded
--- OUTSIDE RECORDS SUMMARY | 2024-02-29 11:29 | XMS_ITS ---
Author Organization [facility] , [facility] Address [address] [place] [address] Phone Care Team Providers Care Research Executive Name Role Phone Irasema England APRN Unavailable Sobia arlyn Batista MD, Yoel Vernon Unavailable [phone] Problems Includes: Active, inactive, and resolved Problems All Visits Onset Date Resolved Date Provider Condition S tatus Lower Back Pain 02/23/2024 Yoel Batista MD Act glen Last Documented On 4 11:49AM ; [facility] Plan of Treatment Findings Encounter Date Patient screened for future fall risk: documentation of any fall with injury in past year Physician Specified with Yoel Batista MD 02/23/2024 Last Documented On 4 12:34PM ; [facility] Pending Tests Order Diagnosis Results Due Ordering P rovider Therapy - Physical Therapy Lumbar Low back pain, unspecified 02/23/24 Yoel Batista MD Last Documented On 4 12:23PM ; [facility] Instructions to patient Lose weight Last Documented On 4 12:03PM ; [facility] Assessments Includes: Assessments for all patient encounters Findings Encounter Date Overweight Physician Specified with Yoel Batista MD 02/23/2024 Last Documented On 4 12:34PM ; [facility] Instructions Includes: Instructions for all patient encounters Instructions to patient Lose weight Last Documented On 4 12:03PM ; [facility] Medical Equipment - Implanted Devices Includes: Current and historical Devices No Medical Equipment Recorded Medications Includes: Current and historical Medications Current Medications (continue as prescribed) Bisoprolol Fumarate 5 MG Oral Tablet 02/23/2024 Prov ider: Diagnosis: Last Documented On 4 12:35PM By Inessa Guzman ; [facility] Tylenol 8 Hour Arthritis Domingo n 650 MG Oral Tablet Extended Release 02/23/2024 Provider: Diagnosis: Last Documented On 4 12:37PM By Inessa Guzman ; [facility] Cefdinir 300 MG Oral Capsule 02/21/2024 Provider: Diagnosis: Last Documented On 4 12:00PM By Inessa Guzman ; [facility] Benzonatate 100 MG Oral Capsule 02/17/2024 Provider: Diagnosis: Last Documented On 4 12:00PM By Inessa Guzman ; [facility] Atorvastatin Calcium 20 MG O ral Tablet 02/17/2024 Provider: Irasema caraballo APRN Diagnosis: Last Documented On 4 12:00PM By Inessa Guzman ; [facility] Pregabalin 150 MG Oral Capsule 02/11/2024 Provider: MOSES GOTTI MD Diagnosis: Last Documented On 4 12:00PM By Inessa Guzman ; [facility] Cetirizine HCl 10 MG Oral Tablet 02/03/2024 Provider : Irasema England APRN Diagnosis: Last Documented On 4 12:00PM By Inessa Guzman ; [facility] DULoxetine HCl 30 MG Oral Ca psule Delayed Release Particles 02/03/2024 Provider: Irasema England APRN Diagnosis: Last Documented On 4 12:00PM By Inessa Guzman ; [facility] traMADol HCl 50 MG Oral Tablet 02/02/2024 Provider: MOSES GOTTI MD Diagnosis: Last Documented On 4 12:00PM By Inessa Guzman ; [facility] Famotidine 20 MG Oral Tablet 02/02/2024 Provider: Irasema England APRN Diagnosis: Last Documented On 4 12:00PM By Inessa Guzman ; [facility] Eliquis 5 MG Oral Tablet 02/02/2024 Provider: Diagnosis: Last Documented On 4 12:00PM By Inessa Guzman ; [facility] busPIRone HCl 5 MG Oral Tablet 01/30/2024 Provider: Irasema England APRN Diagnosis: Last Documented On 4 12:00PM By Inessa Guzman ; [facility] Methocarbamol 500 MG Oral Tablet 01/26/2024 Provider : Irasema England APRN Diagnosis: Last Documented On 4 12:00PM By Inessa Guzman ; [facility] rOPINIRole HCl 1 MG Oral Tablet 01/23/2024 Provider: Irasema England APRN Diagnosis: Last Documented On 4 12:00PM By Inessa Guzman ; [facility] Meloxicam 7.5 MG Oral Tablet 01/05/2024 Provider: Irasema England APRN Diagnosis: Last Documented On 4 12:00PM By Inessa Guzman ; [facility] Levothyroxine Sodium 75 MCG Oral Tablet 12/22/2023 Provider: Irasema caraballo APRN Diagnosis: Last Documented On 4 12:00PM By Inessa Guzman ; [facility] Lidocaine Pain Relief 4% External Patch 12/09/2023 P gladisder: Diagnosis: Last Documented On 4 12:00PM By Inessa Guzman ; [facility] Spironolactone 25 MG Oral Tablet 10/05/2023 Provider : Diagnosis: Last Documented On 4 12:36PM By Inessa Guzman ; [facility] Ketorolac Tromethamine 0.4% Ophthalmic Solution 06/06/2023 Provider: PRATEEK CASTAÑEDA MD Diagnosis: Last Documented On 4 12:00PM By Inessa Guzman ; [facility] Past Medications on file methylPREDNISolone 4 MG Oral Tablet Therapy Pack 01/30/2024 - 02/23/2024 Provider: Iraesma England APRN Diagnosis: Last Documented On 4 12:00PM By Inessa Guzman ; [facility] Medications Administered Includes: Administered Medications in patient's chart No Administered Medications Recorded Vital Signs Includes: Vital Signs from 02/28/2023 through 02/29/2024 Vital Name 02/23/2024 12:01P Height (in) 65 Weight (lb) 186.2 Body Mass Index 31 Body Surface Area 1.9 Pain Level 0 Note: lc Last Documented: On 02/23/2024 12:01P M ; [facility] Results Includes: Results from 02/28/2023 through 02/29/2024 No Results Recorded For Specified Dates History [...] No Review of Systems Recorded Mental Status Description Anxiety Functional Status No Functional Status Recorded Physical Exam Physical Exam not supported for this document type No Physical Exam Recorded Allergies Includes: Active, inactive, and resolved Allergies Substance Type Reaction Onset Date Resolved Date Statu s Claritin Allergy 02/23/2024 Active Last Documented On 02/23/2024 12:01PM ; [facility] Note: Irregular Heartrate Encounters Includes: Encounters from 02/28/2023 through 02/29/2024 Encounter Provider Location Date Check-In Time Check-Out Time Diagnosis Physician Specified Yoel Batista MD [facility] 02/23/20 24 11:52AM 12:23PM Overweight Insurance Includes: Active Insurance Policies Plan Name Member ID Group # Subscriber Relationship Effect glen Dates 1 - [facility] [id number] Mariann Mc Clinical Notes Includes: Signed Clinical Notes starting from 07/01/2022 No Clinical Notes Recorded
--- OUTSIDE RECORDS SUMMARY | 2024-02-29 11:29 | XMS_ITS ---
Care Plan - [facility], [facility] Created on: February 29, 2024 Mariann Higgins : 1950 Sex: Female Author Organization [facility], [facility] Address [address] [place] [address] Phone Care Team Providers Care Production Stage Manager Name Role Phone Irasema England APRN Unavailable Sobia arlyn Batista MD, Yoel Vernon Unavailable [phone]
[2024-02-29 12:05] VITALS: BP 112/81; PULSE 65; RESP 18; O2SAT 96; BMI 30.2
--- NOTE | 2024-02-29 12:10 | EXP.PAIN.SOA ---
[facility] Disclaimer: The information contained in this section may have been updated after the patient was seen, as this information can be updated by other users. Medical History Wheezing Cough Chest pressure History of COVID-19 Bronchitis Allergies History of cataract Hyperlipidemia Hypertension Edema Tonsillectomy planned Skin cancer Atrial fibrillation Falling episodes Daytime somnolence Abnormal EKG Restless sleeper Lumbar disc disease with radiculopathy Anxiety Headache Hypothyroidism Vitamin D deficiency Fibromyalgia Lumbar disc disease with radiculopathy Depression GERD (gastroesophageal reflux disease) Surgical History History of left knee replacement H/O tubal ligation History of surgery LEFT WRIST SURGERY - PLATE / SCREWS H/O adenoidectomy History of back surgery History of colonoscopy History of right knee joint replacement Family History Mother Family history of cervical cancer Father Family history of myocardial infarction Other Cancer Social History Smoking Status: Former smoker tobacco type: cigarettes packs per day: 1 years smoked: 4 smoking status stop date: 1997 second hand exposure: Yes alcohol intake: never substance use type: denies use current occupational status: retired Travel in the last 8 weeks: None housing: house number of children: 3 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 She does rate her pain today a 5 out of 10. She states she is still experiencing low back pain that is chronic but does also go down into her bilateral legs and feels like a lot of it has to do with her knees. Patient does describe it as an aching, throbbing sensation with numbness and tingling. She does state the pain interferes with her ability perform activities of daily living such as cooking and cleaning. Patient is interested in any help we may be able to provide. Patient is status post bilateral knee replacement. Patient is prescribed Lyrica and tramadol from her PCP. Her Jose has been reviewed and is appropriate. Review of Systems: General: No recent weight changes, no fever, no sleep disturbances Respiratory: No cough, no shortness of air, no recurring pulmonary infections Cardiovascular/peripheral vascular: No chest pain, no palpitations, no edema, no shortness of breath Gastrointestinal: No new onset incontinence, normal bowel movements reported Genitourinary: No new onset incontinence Musculoskeletal: Low back pain, leg pain Psychiatric: [Normal mood/affect] Neurological: [Denies weakness in extremities], [denies balance issues] Pain at rest (0-10 scale): 5 Objective Objective:: Physical Exam: General: Alert and oriented x3, no acute distress, pleasant and cooperative Lungs: Respirations even and unlabored, symmetrical chest expansion Eyes: PERRL Musculoskeletal: Flexion and extension of lumbar [spine] somewhat guarded secondary to pain, [antalgic gait noted] Neurological: Speech clear, no gross sensory deficit FINDINGS: There is normal alignment of the lumbar vertebral bodies. Vertebral body height is preserved. There is retrolisthesis of L2 on L3. The spinal cord ends at the level of L1. There is normal signal intensity within the substance of the distal spinal cord. No acute bone marrow edema or pathologic marrow replacement. No acute paraspinal abnormality is identified. L1-2: An annular bulge is present without facet osteoarthropathy or canal stenosis. No neural foraminal narrowing is present. L2-3: An annular bulge is present with facet osteoarthropathy and osteophytes. There is mild to moderate central canal stenosis, and severe bilateral neural foraminal narrowing. L3-4: An annular bulge is present with facet osteoarthropathy and osteophytes. There is moderate to severe bilateral neural foraminal narrowing. L4-5: An annular bulge is present with facet osteoarthropathy and osteophytes, with a superimposed central disc protrusion. There is mild canal stenosis and severe bilateral neural foraminal narrowing. L5-S1: An annular bulge is present with facet osteoarthropathy and osteophytes. There is moderate right greater than left neural foraminal narrowing. IMPRESSION: Multilevel lumbar degenerative change as described, with multilevel moderate to severe bilateral neural foraminal narrowing and mild canal stenosis at the L2-3 and L4-5 levels. Reviewed, Interpreted and Dictated by Maricruz Caro MD Transcribed by Rossy Brown Authenticated and [facility] Has patient had previous pain injection?: No Conservative treatment options previously tried: Home exercise plan Length of treatment: Longer than 6 weeks Meds Home Medications and Allergies Home Medications ?Medication ?Instructions ?Recorded ?Confirmed ?Type apixaban 5 mg tablet (Eliquis) 5 mg PO DAILY 02/17/24 02/29/24 History atorvastatin 20 mg tablet 20 mg PO DAILY 02/17/24 02/29/24 History benzonatate 100 mg capsule 100 mg PO TID PRN cough #30 caps 02/17/24 02/29/24 Rx buspirone 5 mg tablet 5 mg PO DAILY 02/17/24 02/29/24 History cetirizine 10 mg tablet 10 mg PO DAILY 02/17/24 02/29/24 History duloxetine 30 mg capsule,delayed 30 mg PO DAILY 02/17/24 02/29/24 History release famotidine 20 mg tablet 20 mg PO DAILY 02/17/24 02/29/24 History levothyroxine 75 mcg tablet 75 mcg PO DAILY 02/17/24 02/29/24 History pregabalin 150 mg capsule 150 mg PO DAILY 02/17/24 02/29/24 History ropinirole 1 mg tablet 1 mg PO DAILY 02/17/24 02/29/24 History tramadol 50 mg tablet 50 mg PO DAILY 02/17/24 02/29/24 History New Prescriptions to Start Prescriptions: Allergies Allergy/AdvReac Type Severity Reaction Status Date / Time loratadine [From Claritin] Allergy Other Verified 11/10/23 09:40 Assessment and Plan *Assessment and plan (1) Lumbar radiculopathy: Status: Acute Category: Medical Code(s): M54.16 - Radiculopathy, lumbar region (2) Degenerative joint disease (DJD) of lumbar spine: Status: Chronic Qualifiers: Spinal osteoarthritis complication: with radiculopathy Qualified Code(s): M47.26 - Other spondylosis with radiculopathy, lumbar region Category: Medical Code(s): M47.816 - Spondylosis without myelopathy or radiculopathy, lumbar region (3) Postlaminectomy syndrome: Status: Chronic Category: Medical Code(s): M96.1 - Postlaminectomy syndrome, not elsewhere classified (4) Spinal stenosis, lumbar region with neurogenic claudication: Status: Chronic Category: Medical Code(s): M48.062 - Spinal stenosis, lumbar region with neurogenic claudication Plan Patient is experiencing worsening pain throughout her low back and legs with limited range of motion. Patient has recently had updated lumbar imaging that did show more severe narrowing at the L4-L5 level. I did discuss with the patient that she may benefit from a lumbar epidural steroid injection. Risk and benefits were discussed with patient and she would like to proceed forward with this plan of care. Patient is currently on blood thinners written by Dr. St's office. We will reach out to his office to confirm she can stop this medication prior to this injection. Patient will return to clinic for an LESI L4-L5 under fluoroscopy. Patient has tried and failed conservative therapy including continued at home stretching exercise for longer than 6 weeks. Patient has been instructed to contact the clinic with any concerns before the next appointment. Dr. Dominguez has reviewed this note and agrees with this plan of care. This note was dictated using voice recognition software and make contain errors or omissions. All injections are used with Lidocaine or Bupivacaine and Depo Medrol.
== END 2024-02-29 23:59 | disposition home or self-care (01) ==
LOC: SC.PAIN 11:27
PROVIDERS: PCP Nurse Practitioner Family; Visit Provider Nurse Practitioner Family
DX: M47.26 Other spondylosis with radiculopathy, lumbar region; M96.1 Postlaminectomy syndrome, not elsewhere classified; M48.062 Spinal stenosis, lumbar region with neurogenic claudication; Z96.653 Presence of artificial knee joint, bilateral; Z87.891 Personal history of nicotine dependence; Z73.89 Other problems related to life management difficulty
CPT/HCPCS: 99212; G0463

== ENCOUNTER 2024-03-13 11:01 | Day surgery (SDC) | payer MEDICARE, SELFPAY ==
--- OUTSIDE RECORDS SUMMARY | 2024-03-13 11:04 | XMS_ITS ---
Care Plan - [facility] Created on: March 13, 2024 Mariann Higgins : 1950 Sex: Female Author Organization [facility] Address [address] [place] [address] Phone Care Team Providers Care Home Economics Extension Worker Name Role Phone Irasema England APRN Unavailable Sobia arlyn Batista MD, Yoel Vernon Unavailable [phone]
--- OUTSIDE RECORDS SUMMARY | 2024-03-13 11:04 | XMS_ITS ---
Author Organization [facility] Address [address] [place] [address] Phone Care Team Providers Care Pump Erector Name Role Phone Irasema England APRN Unavailable Sobia arlyn Batista MD, Yoel Vernon Unavailable [phone] Problems Includes: Active, inactive, and resolved Problems All Visits Onset Date Resolved Date Provider Condition S tatus Lower Back Pain 02/23/2024 Yoel Batista MD Act glen Last Documented On 4 11:49AM ; [facility] Plan of Treatment Findings Encounter Date Patient screened for future fall risk: documentation of any fall with injury in past year Physician Specified with Yoel Batista MD 02/23/2024 Last Documented On 4 12:34PM ; [facility] Pending Tests Order Diagnosis Results Due Ordering P rovider Therapy - Physical Therapy Lumbar Low back pain, unspecified 02/23/24 Yoel Batista MD Last Documented On 4 12:23PM ; [facility] Instructions to patient Lose weight Last Documented On 4 12:03PM ; [facility] Assessments Includes: Assessments for all patient encounters Findings Encounter Date Overweight Physician Specified with Yoel Batista MD 02/23/2024 Last Documented On 4 12:34PM ; [facility] Instructions Includes: Instructions for all patient encounters Instructions to patient Lose weight Last Documented On 4 12:03PM ; [facility] Medical Equipment - Implanted Devices Includes: Current and historical Devices No Medical Equipment Recorded Medications Includes: Current and historical Medications Current Medications (continue as prescribed) Bisoprolol Fumarate 5 MG Oral Tablet 02/23/2024 Prov ider: Diagnosis: Last Documented On 4 12:35PM By Inessa Guzman ; [facility] Tylenol 8 Hour Arthritis Domingo n 650 MG Oral Tablet Extended Release 02/23/2024 Provider: Diagnosis: Last Documented On 4 12:37PM By Inessa Guzman ; [facility] Cefdinir 300 MG Oral Capsule 02/21/2024 Provider: Diagnosis: Last Documented On 4 12:00PM By Inessa Guzman ; [facility] Benzonatate 100 MG Oral Capsule 02/17/2024 Provider: Diagnosis: Last Documented On 4 12:00PM By Inessa Guzman ; [facility] Atorvastatin Calcium 20 MG O ral Tablet 02/17/2024 Provider: Irasema caraballo APRN Diagnosis: Last Documented On 4 12:00PM By Inessa Guzman ; [facility] Pregabalin 150 MG Oral Capsule 02/11/2024 Provider: MOSES GOTTI MD Diagnosis: Last Documented On 4 12:00PM By Inessa Guzman ; [facility] Cetirizine HCl 10 MG Oral Tablet 02/03/2024 Provider : Irasema England APRN Diagnosis: Last Documented On 4 12:00PM By Inessa Gzuman ; [facility] DULoxetine HCl 30 MG Oral Ca psule Delayed Release Particles 02/03/2024 Provider: Irasema England APRN Diagnosis: Last Documented On 4 12:00PM By Inessa Guzman ; [facility] traMADol HCl 50 MG Oral Tablet 02/02/2024 Provider: MOSES GOTTI MD Diagnosis: Last Documented On 4 12:00PM By Inessa Guzman ; [facility] Famotidine 20 MG Oral Tablet 02/02/2024 Provider: Irasema England APRN Diagnosis: Last Documented On 4 12:00PM By Inessa Guzman ; [facility] Eliquis 5 MG Oral Tablet 02/02/2024 Provider: Diagnosis: Last Documented On 4 12:00PM By Inessa Guzman ; [facility] busPIRone HCl 5 MG Oral Tablet 01/30/2024 Provider: Irasema England APRN Diagnosis: Last Documented On 4 12:00PM By Inessa Guzman ; [facility] Methocarbamol 500 MG Oral Tablet 01/26/2024 Provider : Irasema England APRN Diagnosis: Last Documented On 4 12:00PM By Inessa Guzamn ; [facility] rOPINIRole HCl 1 MG Oral Tablet 01/23/2024 Provider: Irasema England APRN Diagnosis: Last Documented On 4 12:00PM By Inessa Guzman ; [facility] Meloxicam 7.5 MG Oral Tablet 01/05/2024 Provider: Irasema England APRN Diagnosis: Last Documented On 4 12:00PM By Inessa Guzman ; [facility] Levothyroxine Sodium 75 MCG Oral Tablet 12/22/2023 Provider: Irasema caraballo APRN Diagnosis: Last Documented On 4 12:00PM By Inessa Guzman ; [facility] Lidocaine Pain Relief 4% External Patch 12/09/2023 P gladisder: Diagnosis: Last Documented On 4 12:00PM By Inessa Guzman ; [facility] Spironolactone 25 MG Oral Tablet 10/05/2023 Provider : Diagnosis: Last Documented On 4 12:36PM By Inessa Guzman ; [facility] Ketorolac Tromethamine 0.4% Ophthalmic Solution 06/06/2023 Provider: PRATEEK CASTAÑEDA MD Diagnosis: Last Documented On 4 12:00PM By Inessa Guzman ; [facility] Past Medications on file methylPREDNISolone 4 MG Oral Tablet Therapy Pack 01/30/2024 - 02/23/2024 Provider: Irasema England APRN Diagnosis: Last Documented On 4 12:00PM By Inessa Guzman ; [facility] Medications Administered Includes: Administered Medications in patient's chart No Administered Medications Recorded Vital Signs Includes: Vital Signs from 03/13/2023 through 03/13/2024 Vital Name 02/23/2024 12:01P Height (in) 65 Weight (lb) 186.2 Body Mass Index 31 Body Surface Area 1.9 Pain Level 0 Note: lc Last Documented: On 02/23/2024 12:01P M ; [facility] Results Includes: Results from 03/13/2023 through 03/13/2024 No Results Recorded For Specified Dates History [...] Active Last Documented On 02/23/2024 12:01PM ; [facility] Note: Irregular Heartrate Encounters Includes: Encounters from 03/13/2023 through 03/13/2024 Encounter Provider Location Date Check-In Time Check-Out Time Diagnosis Physician Specified Yoel Batista MD [facility] 02/23/20 24 11:52AM 12:23PM Overweight Insurance Includes: Active Insurance Policies Plan Name Member ID Group # Subscriber Relationship Effect glen Dates 1 - [facility] [id number] Mariann Mc Clinical Notes Includes: Signed Clinical Notes starting from 07/01/2022 No Clinical Notes Recorded
--- OUTSIDE RECORDS SUMMARY | 2024-03-13 11:05 | XMS_ITS | Clinical Summary ---
Author Organization [facility] Address [address] [place] [address] Phone Care Team Providers Care Cabinet Finisher Name Role Phone Irasema England APRN Unavailable Sobia arlyn Batista MD, Yoel Vernon Unavailable [phone] Reason for Visit and Chief Complaint The Chief Complaint is: low back pain Problems Includes: Problems addressed during this encounter and other active Problems Current Visit Onset Date Resolved Date Provider Cayden yip Status Lower Back Pain 02/23/2024 Yoel Batista MD Act glen Last Documented On 11:49AM ; [facility] Plan of Treatment - Patient screened for future fall risk: documentation of any fall with injury in past year - Last Documented On 02/23/2024 12:34PM ; [facility] Fall Risk Assessment: This patient has been [...] - Last Documented On 02/23/2024 12:34PM ; [facility] Patient was seen by myself and Dr. Lester Rogers PA-C. Patient will follow up with us as needed there is no surgery needed for her. We would recommend she see Dr. Dominguez and talk about a spinal cord stimulator we will for a PT also. - Last Documented On 02/23/2024 12:34PM ; [facility] Pending Tests Order Diagnosis Results Due Ordering P rovider Therapy - Physical Therapy Lumbar Low back pain, unspecified 02/23/24 Yoel Batista MD Last Documented On 4 12:23PM ; [facility] Instructions to patient Lose weight Last Documented On 4 12:03PM ; [facility] Assessments Includes: Assessments from this encounter Findings - Overweight - Last Documented On 02/23/2024 12:34PM ; [facility] Lumbar spine MRIs show no new stenosis - Last Documented On 02/23/2024 12:34PM ; [facility] Instructions Includes: Instructions from this encounter Instructions to patient Lose weight Last Documented On 4 12:03PM ; [facility] Medical Equipment - Implanted Devices Includes: Current Devices No Medical Equipment Recorded Medications Includes: Medications discussed during this encounter and other current Medications Discontinued / Stopped on this date Irasema England APRN on 01/30/2024 methylPREDNISolone 4 MG Oral Tablet Therapy Pack Provider: Irasema caraballo APRN Diagnosis: Last Documented On 4 12:00PM By Inessa Guzman ; [facility] Current Medications (continue as prescribed) Bisoprolol Fumarate 5 MG Oral Tablet 02/23/2024 Prov ider: Diagnosis: Last Documented On 4 12:35PM By Inessa Guzman ; [facility] Tylenol 8 Hour Arthritis Domingo n 650 MG Oral Tablet Extended Release 02/23/2024 Provider: Diagnosis: Last Documented On 4 12:37PM By Inessa Guzman ; [facility] Cefdinir 300 MG Oral Capsule 02/21/2024 Provider: Diagnosis: Last Documented On 4 12:00PM By Inessa Guzman ; [facility] Benzonatate 100 MG Oral Capsule 02/17/2024 Provider: Diagnosis: Last Documented On 4 12:00PM By Inessa Guzman ; [facility] Atorvastatin Calcium 20 MG O ral Tablet 02/17/2024 Provider: Irasema caraballo APRN Diagnosis: Last Documented On 4 12:00PM By Inessa Guzman ; [facility] Pregabalin 150 MG Oral Capsule 02/11/2024 [...] On 4 12:00PM By Inessa Guzman ; [facility] Lidocaine Pain Relief 4% External Patch 12/09/2023 P gladisder: Diagnosis: Last Documented On 4 12:00PM By Inessa Guzman ; [facility] Spironolactone 25 MG Oral Tablet 10/05/2023 Provider : Diagnosis: Last Documented On 4 12:36PM By Inessa Guzman ; [facility] Ketorolac Tromethamine 0.4% Ophthalmic Solution 06/06/2023 Provider: PRATEEK CASTAÑEDA MD Diagnosis: Last Documented On 4 12:00PM By Inessa Guzman ; [facility] Medications Administered Includes: Administered Medications from this encounter No Administered Medications Recorded Vital Signs Includes: Vital Signs from this encounter Vital Name 02/23/2024 12:01P Height (in) 65 Weight (lb) 186.2 Body Mass Index 31 Body Surface Area 1.9 Pain Level 0 Note: lc Last Documented: On 02/23/2024 12:01P M ; [facility] Results Includes: Results discussed during this [...] 02/23/2024 Last Documented On 4 12:32PM ; [facility] No recent change in diet 02/23/2024 Last Documented On 4 12:32PM ; [facility] Not a current smoker. 02/23/2024 Last Documented On 4 12:32PM ; [facility] Not exercising regularly 02/23/2024 Last Documented On 4 12:32PM ; [facility] Not using alcohol 02/23/2024 Last Documented On 4 12:32PM ; [facility] Not using drugs 02/23/2024 Last Documented On 4 12:32PM ; [facility] Smoking Status Unknown Procedures and Surgical History Includes: Procedures from this encounter Procedures Code Diagnosis Performing Provider Service L ocation Service Date an MRI was performed 02/01/2024 [facility] [id number] Last Documented On 4 12:02PM ; [facility] Surgical History Last Updated History of Previous Fractures Wrist 02/2024 Last Documented On 4 12:32PM ; [facility] History of total knee arthroplasty Bilat eral 02/23/2024 Last Documented On 4 12:32PM ; [facility] Medical History Includes: Medical History addressed during this encounter Description Last Updated History of arthritis 02/23/2024 Last Documented On 4 12:32PM ; [facility] History of depression 02/23/2024 Last Documented On 4 12:32PM ; [facility] History of heart disease 02/23/2024 Last Documented On 4 12:32PM ; [facility] History of Heartburn / Acid Reflux 02/22 Last Documented On 4 12:32PM ; [facility] History of History of Blood Clots 2023 Last Documented On 4 12:32PM ; [facility] History of History of Cancer Skin 2023 Last Documented On 4 12:32PM ; [facility] History of Hypertension 02/23/2024 Last Documented On 4 12:32PM ; [facility] History of Thyroid Disease 02/23/2024 Last Documented On 4 12:32PM ; [facility] Family History Includes: Family History addressed during this encounter Description Last Updated Family history of cancer 02/23/2024 Last Documented On 4 12:32PM ; [facility] Family history of heart disease 02/23/20 24 Last Documented On 4 12:32PM ; [facility] Family history of rheumatoid arthritis 0 02/23/2024 Last Documented On 4 12:32PM ; [facility] Review of Systems Includes: Review of Systems [...] Active Last Documented On 02/23/2024 12:01PM ; [facility] Note: Irregular Heartrate Encounters Encounter Provider Location Date Check-In Time Check-Out Time Diagnosis [facility]ician [facility] 02/23/20 24 11:52AM 12:23PM Overweight Insurance Includes: Active Insurance Policies Plan Name Member ID Group # Subscriber Relationship Effect glen Dates 1 - [facility] [id number] Mariann Higgins Self Clinical Notes Includes: Clinical Notes from this encounter No Clinical Notes Recorded
[2024-03-13 11:19] VITALS: BP 135/66; PULSE 57; RESP 16; TEMP 36.6; O2SAT 94; BMI 30.2
--- NOTE | 2024-03-13 11:57 | EXP.PAIN.PRO ---
Procedure Date: 03/13/24 Time: 11:50 Anesthesiologist:: Crow Harp CRNA Complications:: None Pre-procedure Diagnosis:: Degenerative disc lumbar spine multilevels. Lumbar radiculopathy. Lumbar postlaminectomy syndrome. Post-procedure Diagnosis:: Same. Indications for Procedure:: Patient is a very pleasant 73-year-old female comes our clinic today for lumbar epidural steroid injection at the L4-5 level. Patient describes low lumbar back pain as constant, dull, aching. Patient also reports bilateral hip and leg radicular symptoms. She rates her pain 7/10. Procedure Details:: Procedure: Lumbar epidural steroid injection under fluoroscopy Informed consent was obtained and the risks and benefits of the procedure were explained to the patient. The patient was taken to the procedure room and noninvasive monitors placed, including noninvasive blood pressure cuff and pulse oximeter. The back was viewed using C-arm Fluoroscopy and prepped using Chloraprep as a cleansing solution and the L4-L5 interspace was palpated. Skin and subcutaneous tissues were anesthetized using lidocaine 1.5% and a 25-gauge needle. After this, an 18-gauge Touhy epidural needle was placed into the L4-L5 interspace and advanced using fluoroscopic guidance and loss of resistance to air until the epidural space was encountered. After confirmation of needle placement in the epidural space, with dye, a solution containing normal saline, 3 mL and Depo-Medrol 80 mg were incrementally injected into the lumbar epidural space. The patient tolerated the procedure well with no complications. The patient was observed in the Pain Clinic and then discharged home neurologically intact. Plan and Disposition:: Patient was discharged without incident.
[2024-03-13 11:58] VITALS: BP 152/68; PULSE 54; RESP 18; O2SAT 95
[2024-03-13] MEDS: methylPREDNISolone ACETATE 80MG/ML VIAL 80 MG (12:19)
[2024-03-13 12:20] VITALS: BP 137/44; PULSE 61; RESP 18; O2SAT 99
[2024-03-13 12:24] VITALS: BP 137/44; PULSE 61; RESP 18; O2SAT 99
== END 2024-03-13 12:00 | disposition home or self-care (01) ==
PROVIDERS: PCP Nurse Practitioner Family; Visit Provider Nurse Anesthetist, Certified Registered
DX: M51.16 Intervertebral disc disorders with radiculopathy, lumbar region (principal); M96.1 Postlaminectomy syndrome, not elsewhere classified
CPT/HCPCS: 62323; J1010

== ENCOUNTER 2024-04-09 11:46 | Outpatient (POV) | payer MEDICARE, MEDICAID, SELFPAY ==
[2024-04-09 11:50] VITALS: BP 120/48; PULSE 65; RESP 16; O2SAT 94; BMI 30.7
--- NOTE | 2024-04-09 11:54 | A.OFFVIS_ITS ---
[facility] Disclaimer: The information contained in this section may have been updated after the patient was seen, as this information can be updated by other users. Medical History Wheezing Cough Chest pressure History of COVID-19 Bronchitis Allergies History of cataract Hyperlipidemia Hypertension Edema Tonsillectomy planned Skin cancer Atrial fibrillation Falling episodes Daytime somnolence Abnormal EKG Restless sleeper Lumbar disc disease with radiculopathy Anxiety Headache Hypothyroidism Vitamin D deficiency Fibromyalgia Lumbar disc disease with radiculopathy Depression GERD (gastroesophageal reflux disease) Surgical History History of left knee replacement H/O tubal ligation History of surgery LEFT WRIST SURGERY - PLATE / SCREWS H/O adenoidectomy History of back surgery History of colonoscopy History of right knee joint replacement Family History Mother Family history of cervical cancer Father Family history of myocardial infarction Other Cancer Social History Smoking Status: Former smoker tobacco type: cigarettes packs per day: 1 years smoked: 4 smoking status stop date: 1997 second hand exposure: Yes alcohol intake: never substance use type: denies use current occupational status: other Travel in the last 8 weeks: None housing: house number of children: 3 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 She rates her pain today a 8 out of 10. Patient does state that she has had recent falls however is unsure what the ultimate cause was. Patient states that initially from the injection it did feel different when she got up off the table however she immediately had a fall the very next day. Patient states she was outside in the grass was wet and her feet just came out from under her. Patient does state that she feels like she has a lot of trouble here recently keeping her balance and does not feel like it is vertigo. Patient states the second time she fell was about 1 week from the initial injection. She states that she has been in bed and that she sleeps on the edge and she fell over on the side. Patient does state that she is got a follow-up appointment with primary care later on this afternoon. She is still experiencing low back pain however states it is hard to gauge how much improvement the injection did help due to the recent fall. Cameron penaloza is prescribed Lyrica and tramadol from her PCP. Her Jose has been reviewed and is appropriate. Review of Systems: General: No recent weight changes, no fever, no sleep disturbances Respiratory: No cough, no shortness of air, no recurring pulmonary infections Cardiovascular/peripheral vascular: No chest pain, no palpitations, no edema, no shortness of breath Gastrointestinal: No new onset incontinence, normal bowel movements reported Genitourinary: No new onset incontinence Musculoskeletal: Low back pain Psychiatric: [Normal mood/affect] Neurological: [Denies weakness in extremities], [denies balance issues] Pain at rest (0-10 scale): 8 Objective Objective:: Physical Exam: General: Alert and oriented x3, no acute distress, pleasant and cooperative Lungs: Respirations even and unlabored, symmetrical chest expansion Eyes: PERRL Musculoskeletal: Flexion and extension of lumbar [spine] somewhat guarded secondary to pain, [antalgic gait noted] Neurological: Speech clear, no gross sensory deficit Has patient had previous pain injection?: Yes Percent improvement in pain since last injection: Unsure Conservative treatment options previously tried: Home exercise plan Length of treatment: Longer than 6 weeks Meds Home Medications and Allergies Home Medications ?Medication ?Instructions ?Recorded ?Confirmed ?Type apixaban 5 mg tablet (Eliquis) 5 mg PO DAILY 02/17/24 03/13/24 History atorvastatin 20 mg tablet 20 mg PO DAILY 02/17/24 03/13/24 History benzonatate 100 mg capsule 100 mg PO TID PRN cough #30 caps 02/17/24 03/13/24 Rx buspirone 5 mg tablet 5 mg PO DAILY 02/17/24 03/13/24 History cetirizine 10 mg tablet 10 mg PO DAILY 02/17/24 03/13/24 History duloxetine 30 mg capsule,delayed 30 mg PO DAILY 02/17/24 03/13/24 History release famotidine 20 mg tablet 20 mg PO DAILY 02/17/24 03/13/24 History levothyroxine 75 mcg tablet 75 mcg PO DAILY 02/17/24 03/13/24 History pregabalin 150 mg capsule 150 mg PO DAILY 02/17/24 03/13/24 History ropinirole 1 mg tablet 1 mg PO DAILY 02/17/24 03/13/24 History tramadol 50 mg tablet 50 mg PO DAILY 02/17/24 03/13/24 History New Prescriptions to Start Prescriptions: Allergies Allergy/AdvReac Type Severity Reaction Status Date / Time loratadine [From Claritin] Allergy Other Verified 04/09/24 12:00 Assessment and Plan *Assessment and plan (1) Low back pain: Status: Acute Qualifiers: Back pain laterality: unspecified Chronicity: unspecified Sciatica presence: without sciatica Qualified Code(s): M54.50 - Low back pain, unspecified Category: Medical Code(s): M54.50 - Low back pain, unspecified (2) Lumbar radiculopathy: Status: Acute Category: Medical Code(s): M54.16 - Radiculopathy, lumbar region Plan Patient is unable to gauge to what extent the lumbar epidural helped due to an immediate fall at the very next day where she landed on her buttocks area increasing her pain. I did discuss with the patient that we can try other interventions however due to her having more balance related issues I highly recommend she follow-up with primary care and to have updated lab work and evaluation. Patient was prescribed compounded cream and she states that she did tried on her knees however she has not tried it on her back. I have counseled her to try it in this location and we will follow-up at next visit. Patient will return to clinic in 1 month for reevaluation of symptoms and plan of care. Patient has been instructed to contact the clinic with any concerns before the next appointment. Dr. Dominguez has reviewed this note and agrees with this plan of care. This note was dictated using voice recognition software and make contain errors or omissions. All injections are used with Lidocaine or Bupivacaine and Depo Medrol.
== END 2024-04-09 23:59 | disposition home or self-care (01) ==
LOC: SC.PAIN 11:48
PROVIDERS: PCP Nurse Practitioner Family; Visit Provider Nurse Practitioner Family
DX: M54.50 Low back pain, unspecified (principal); M54.16 Radiculopathy, lumbar region; Z96.653 Presence of artificial knee joint, bilateral; Z87.891 Personal history of nicotine dependence
CPT/HCPCS: 99212; G0463

== ENCOUNTER 2024-05-24 08:43 | Outpatient (POV) | payer MEDICARE, MEDICAID, SELFPAY ==
--- OUTSIDE RECORDS SUMMARY | 2024-05-24 08:45 | XMS_ITS | Clinical Summary ---
Author Organization [facility] Address [address] [place] [address] Phone Care Team Providers Care Para Professional Name Role Phone Irasema England APRN Unavailable Sobia arlyn Batista MD, Yoel Vernon Unavailable [phone] Reason for Visit and Chief Complaint The Chief Complaint is: low back pain Problems Includes: Problems addressed during this encounter and other active Problems Current Visit Onset Date Resolved Date Provider Cayden yip Status Lower Back Pain 02/23/2024 Yoel Batista MD Act glen Last Documented On 11:49AM ; [facility] Plan of Treatment - Patient screened for future fall risk: documentation of any fall with injury in past year - Last Documented On 02/23/2024 12:34PM ; [facility] Fall Risk Assessment: This patient [...] - Last Documented On 02/23/2024 12:34PM ; [facility] Patient was seen by myself and Dr. Lester Rogers PA-C. Patient will follow up with us as needed there is no surgery needed for her. We would recommend she see Dr. Dominguez and talk about a spinal cord stimulator we will for a PT also. - Last Documented On 02/23/2024 12:34PM ; [facility] Pending Tests Order Diagnosis Results Due Ordering P rovider Therapy - Physical Therapy Lumbar Low back pain, unspecified 02/23/24 Yoel Batista MD Last Documented On 4 12:23PM ; [facility] Instructions to patient Lose weight Last Documented On 4 12:03PM ; [facility] Assessments Includes: Assessments from this encounter Findings - Overweight - Last Documented On 02/23/2024 12:34PM ; [facility] Lumbar spine MRIs show no new stenosis - Last Documented On 02/23/2024 12:34PM ; [facility] Instructions Includes: Instructions from this encounter Instructions to patient Lose weight Last Documented On 4 12:03PM ; [facility] Medical Equipment - Implanted Devices Includes: Current Devices No Medical Equipment Recorded Medications Includes: Medications discussed during this encounter and other current Medications Discontinued / Stopped on this date Irasema England APRN on 01/30/2024 methylPREDNISolone 4 MG Oral Tablet Therapy Pack Provider: Irasema caraballo APRN Diagnosis: Last Documented On 4 12:00PM By Inessa Guzman ; [facility] Current Medications (continue as prescribed) Bisoprolol Fumarate 5 MG Oral Tablet 02/23/2024 Prov ider: Diagnosis: Last Documented On 4 12:35PM By Inessa Guzman ; [facility] Tylenol 8 Hour Arthritis Domingo n 650 MG Oral Tablet Extended Release 02/23/2024 Provider: Diagnosis: Last Documented On 4 12:37PM By Inessa Guzman ; [facility] Cefdinir 300 MG Oral Capsule 02/21/2024 Provider: Diagnosis: Last Documented On 4 12:00PM By Inessa Guzman ; [facility] Benzonatate 100 MG Oral Capsule 02/17/2024 Provider: Diagnosis: Last Documented On 4 12:00PM By Inessa Guzman ; [facility] Atorvastatin Calcium 20 MG O ral Tablet 02/17/2024 Provider: Irasema caraballo APRN Diagnosis: Last Documented On 4 12:00PM By Inessa Guzman ; [facility] Pregabalin 150 MG Oral Capsule 02/11/2024 Provider: [...] On 4 12:00PM By Inessa Guzman ; [facility] Lidocaine Pain Relief 4% External Patch 12/09/2023 P gladisder: Diagnosis: Last Documented On 4 12:00PM By Inessa Guzman ; [facility] Spironolactone 25 MG Oral Tablet 10/05/2023 Provider : Diagnosis: Last Documented On 4 12:36PM By Inessa Guzman ; [facility] Ketorolac Tromethamine 0.4% Ophthalmic Solution 06/06/2023 Provider: PRATEEK CASTAÑEDA MD Diagnosis: Last Documented On 4 12:00PM By Inessa Guzman ; [facility] Medications Administered Includes: Administered Medications from this encounter No Administered Medications Recorded Vital Signs Includes: Vital Signs from this encounter Vital Name 02/23/2024 12:01P Height (in) 65 Weight (lb) 186.2 Body Mass Index 31 Body Surface Area 1.9 Pain Level 0 Note: lc Last Documented: On 02/23/2024 12:01P M ; [facility] Results Includes: Results discussed during this encounter [...] 02/23/2024 Last Documented On 4 12:32PM ; [facility] No recent change in diet 02/23/2024 Last Documented On 4 12:32PM ; [facility] Not a current smoker. 02/23/2024 Last Documented On 4 12:32PM ; [facility] Not exercising regularly 02/23/2024 Last Documented On 4 12:32PM ; [facility] Not using alcohol 02/23/2024 Last Documented On 4 12:32PM ; [facility] Not using drugs 02/23/2024 Last Documented On 4 12:32PM ; [facility] Smoking Status Unknown Procedures and Surgical History Includes: Procedures from this encounter Procedures Code Diagnosis Performing Provider Service L ocation Service Date an MRI was performed 02/01/2024 [facility] [id number] Last Documented On 4 12:02PM ; [facility] Surgical History Last Updated History of Previous Fractures Wrist 02/2024 Last Documented On 4 12:32PM ; [facility] History of total knee arthroplasty Bilat eral 02/23/2024 Last Documented On 4 12:32PM ; [facility] Medical History Includes: Medical History addressed during this encounter Description Last Updated History of arthritis 02/23/2024 Last Documented On 4 12:32PM ; [facility] History of depression 02/23/2024 Last Documented On 4 12:32PM ; [facility] History of heart disease 02/23/2024 Last Documented On 4 12:32PM ; [facility] History of Heartburn / Acid Reflux 02/22 Last Documented On 4 12:32PM ; [facility] History of History of Blood Clots 2023 Last Documented On 4 12:32PM ; [facility] History of History of Cancer Skin 2023 Last Documented On 4 12:32PM ; [facility] History of Hypertension 02/23/2024 Last Documented On 4 12:32PM ; [facility] History of Thyroid Disease 02/23/2024 Last Documented On 4 12:32PM ; [facility] Family History Includes: Family History addressed during this encounter Description Last Updated Family history of cancer 02/23/2024 Last Documented On 4 12:32PM ; [facility] Family history of heart disease 02/23/20 24 Last Documented On 4 12:32PM ; [facility] Family history of rheumatoid arthritis 0 02/23/2024 Last Documented On 4 12:32PM ; [facility] Review of Systems Includes: Review [...] Active Last Documented On 02/23/2024 12:01PM ; [facility] Note: Irregular Heartrate Encounters Encounter Provider Location Date Check-In Time Check-Out Time Diagnosis Physician [facility] 02/23/20 24 11:52AM 12:23PM Overweight Insurance Includes: Active Insurance Policies Plan Name Member ID Group # Subscriber Relationship Effect glen Dates 1 - [facility] [id number] Mariann Higgins Self Clinical Notes Includes: Clinical Notes from this encounter No Clinical Notes Recorded
--- OUTSIDE RECORDS SUMMARY | 2024-05-24 08:45 | XMS_ITS ---
Author Organization [facility] Address [address] [place] [address] Phone Care Team Providers Care Counselling Psychologist Name Role Phone Irasema England APRN Unavailable Sobia arlyn Batista MD, Yoel Vernon Unavailable [phone] Problems Includes: Active, inactive, and resolved Problems All Visits Onset Date Resolved Date Provider Condition S tatus Lower Back Pain 02/23/2024 Yoel Batista MD Act glen Last Documented On 4 11:49AM ; [facility] Plan of Treatment Findings Encounter Date Patient screened for future fall risk: documentation of any fall with injury in past year Physician Specified with Yoel Batista MD 02/23/2024 Last Documented On 4 12:34PM ; [facility] Pending Tests Order Diagnosis Results Due Ordering P rovider Therapy - Physical Therapy Lumbar Low back pain, unspecified 02/23/24 Yoel Batista MD Last Documented On 4 12:23PM ; [facility] Instructions to patient Lose weight Last Documented On 4 12:03PM ; [facility] Assessments Includes: Assessments for all patient encounters Findings Encounter Date Overweight Physician Specified with Yoel Batista MD 02/23/2024 Last Documented On 4 12:34PM ; [facility] Instructions Includes: Instructions for all patient encounters Instructions to patient Lose weight Last Documented On 4 12:03PM ; [facility] Medical Equipment - Implanted Devices Includes: Current and historical Devices No Medical Equipment Recorded Medications Includes: Current and historical Medications Current Medications (continue as prescribed) Bisoprolol Fumarate 5 MG Oral Tablet 02/23/2024 Prov ider: Diagnosis: Last Documented On 4 12:35PM By Inessa Guzman ; [facility] Tylenol 8 Hour Arthritis Domingo n 650 MG Oral Tablet Extended Release 02/23/2024 Provider: Diagnosis: Last Documented On 4 12:37PM By Inessa Guzman ; [facility] Cefdinir 300 MG Oral Capsule 02/21/2024 Provider: Diagnosis: Last Documented On 4 12:00PM By Inessa Guzman ; [facility] Benzonatate 100 MG Oral Capsule 02/17/2024 Provider: Diagnosis: Last Documented On 4 12:00PM By Inessa Guzman ; [facility] Atorvastatin Calcium 20 MG O ral Tablet 02/17/2024 Provider: Irasema caraballo APRN Diagnosis: Last Documented On 4 12:00PM By Inessa Guzman ; [facility] Pregabalin 150 MG Oral Capsule 02/11/2024 Provider: MOSES GOTTI MD Diagnosis: Last Documented On 4 12:00PM By Inessa Guzman ; [facility] Cetirizine HCl 10 MG Oral Tablet 02/03/2024 Provider : Irasema England APRN Diagnosis: Last Documented On 4 12:00PM By Inessa Guzman ; [facility] DULoxetine HCl 30 MG Oral Ca psule Delayed Release Particles 02/03/2024 Provider: Irasema England APRN Diagnosis: Last Documented On 4 12:00PM By Inessa Guzman ; [facility] traMADol HCl 50 MG Oral Tablet 02/02/2024 Provider: MOSES GOTTI MD Diagnosis: Last Documented On 4 12:00PM By Inessa Guzman ; [facility] Famotidine 20 MG Oral Tablet 02/02/2024 Provider: Irasema England APRN Diagnosis: Last Documented On 4 12:00PM By Inessa Guzman ; [facility] Eliquis 5 MG Oral Tablet 02/02/2024 Provider: Diagnosis: Last Documented On 4 12:00PM By Inessa Guzman ; [facility] busPIRone HCl 5 MG Oral Tablet 01/30/2024 Provider: Irasema England APRN Diagnosis: Last Documented On 4 12:00PM By Inessa Guzman ; [facility] Methocarbamol 500 MG Oral Tablet 01/26/2024 Provider : Irasema England APRN Diagnosis: Last Documented On 4 12:00PM By Inessa Guzman ; [facility] rOPINIRole HCl 1 MG Oral Tablet 01/23/2024 Provider: Irasema England APRN Diagnosis: Last Documented On 4 12:00PM By Inessa Guzman ; [facility] Meloxicam 7.5 MG Oral Tablet 01/05/2024 Provider: Irasema England APRN Diagnosis: Last Documented On 4 12:00PM By Inessa Guzman ; [facility] Levothyroxine Sodium 75 MCG Oral Tablet 12/22/2023 Provider: Irasema caraballo APRN Diagnosis: Last Documented On 4 12:00PM By Inessa Guzman ; [facility] Lidocaine Pain Relief 4% External Patch 12/09/2023 P gladisder: Diagnosis: Last Documented On 4 12:00PM By Inessa Guzman ; [facility] Spironolactone 25 MG Oral Tablet 10/05/2023 Provider : Diagnosis: Last Documented On 4 12:36PM By Inessa Guzman ; [facility] Ketorolac Tromethamine 0.4% Ophthalmic Solution 06/06/2023 Provider: PRATEEK CASTAÑEDA MD Diagnosis: Last Documented On 4 12:00PM By Inessa Guzman ; [facility] Past Medications on file methylPREDNISolone 4 MG Oral Tablet Therapy Pack 01/30/2024 - 02/23/2024 Provider: Irasema England APRN Diagnosis: Last Documented On 4 12:00PM By Inessa Guzman ; [facility] Medications Administered Includes: Administered Medications in patient's chart No Administered Medications Recorded Vital Signs Includes: Vital Signs from 05/24/2023 through 05/24/2024 Vital Name 02/23/2024 12:01P Height (in) 65 Weight (lb) 186.2 Body Mass Index 31 Body Surface Area 1.9 Pain Level 0 Note: lc Last Documented: On 02/23/2024 12:01P M ; [facility] Results Includes: Results from 05/24/2023 through 05/24/2024 No Results Recorded For Specified Dates History [...] Active Last Documented On 02/23/2024 12:01PM ; [facility] Note: Irregular Heartrate Encounters Includes: Encounters from 05/24/2023 through 05/24/2024 Encounter Provider Location Date Check-In Time Check-Out Time Diagnosis Physician Specified Yoel Batista MD [facility] 02/23/20 24 11:52AM 12:23PM Overweight Insurance Includes: Active Insurance Policies Plan Name Member ID Group # Subscriber Relationship Effect glen Dates 1 - [facility] [id number] Mariann Mc Clinical Notes Includes: Signed Clinical Notes starting from 07/01/2022 No Clinical Notes Recorded
--- OUTSIDE RECORDS SUMMARY | 2024-05-24 08:45 | XMS_ITS ---
Care Plan - [facility] Created on: May 24, 2024 Mariann Higgins : 1950 Sex: Female Author Organization [facility] Address [address] [place] [address] Phone Care Team Providers Care Estimation Manager Name Role Phone Irasema England APRN Unavailable Sobia arlyn Batista MD, Yoel Vernon Unavailable [phone]
--- NOTE | 2024-05-24 08:54 | A.OFFVIS_ITS ---
[facility] Disclaimer: The information contained in this section may have been updated after the patient was seen, as this information can be updated by other users. Medical History Wheezing Cough Chest pressure History of COVID-19 Bronchitis Allergies History of cataract Hyperlipidemia Hypertension Edema Tonsillectomy planned Skin cancer Atrial fibrillation Falling episodes Daytime somnolence Abnormal EKG Restless sleeper Lumbar disc disease with radiculopathy Anxiety Headache Hypothyroidism Vitamin D deficiency Fibromyalgia Lumbar disc disease with radiculopathy Depression GERD (gastroesophageal reflux disease) Surgical History History of left knee replacement H/O tubal ligation History of surgery LEFT WRIST SURGERY - PLATE / SCREWS H/O adenoidectomy History of back surgery History of colonoscopy History of right knee joint replacement Family History Mother Family history of cervical cancer Father Family history of myocardial infarction Other Cancer Social History Smoking Status: Former smoker tobacco type: cigarettes packs per day: 1 years smoked: 4 smoking status stop date: 1997 second hand exposure: Yes alcohol intake: never substance use type: denies use current occupational status: other Travel in the last 8 weeks: None housing: house number of children: 3 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 Today she rates her pain a 9 out of 10. She denies any new trauma or injury. She does state that she continues to have significant pain in her low back and across her bilateral hips with some numbness and tingling in her upper thighs. Patient states this is pain has continued for several months and just seems to progressively worsen. She does state the pain is interfering with her ability perform activities of daily living such as cooking and cleaning. Patient did previously had a lumbar epidural back in February that did seem like it helped however she ended up having a fall the next day and that caused worsening pain. Patient does state that she has a history of vertigo and has tried medication for it with minimal improvement. She states that she is seeing ENT specialist for years due to chronic problems with her ears. Patient has tried and failed conservative therapy including continued at home stretching exercise for longer than 12 weeks. Patient is prescribed Lyrica and tramadol from her PCP. Her Jose has been reviewed and is appropriate. Review of Systems: General: No recent weight changes, no fever, no sleep disturbances Respiratory: No cough, no shortness of air, no recurring pulmonary infections Cardiovascular/peripheral vascular: No chest pain, no palpitations, no edema, no shortness of breath Gastrointestinal: No new onset incontinence, normal bowel movements reported Genitourinary: No new onset incontinence Musculoskeletal: Low back pain, bilateral hip pain, upper thigh pain Psychiatric: [Normal mood/affect] Neurological: [Denies weakness in extremities], [denies balance issues] Pain at rest (0-10 scale): 9 Objective Objective:: Physical Exam: General: Alert and oriented x3, no acute distress, pleasant and cooperative Lungs: Respirations even and unlabored, symmetrical chest expansion Eyes: PERRL Musculoskeletal: Flexion and extension of lumbar [spine] somewhat guarded secondary to pain, [antalgic gait noted] point tenderness along bilateral SIs with positive bilateral Rosita's, Lidia's, Gaenslen's, compression and distraction exam Neurological: Speech clear, no gross sensory deficit Has patient had previous pain injection?: No Conservative treatment options previously tried: Home exercise plan Length of treatment: Longer than 12 weeks Meds Home Medications and Allergies Home Medications ?Medication ?Instructions ?Recorded ?Confirmed ?Type apixaban 5 mg tablet (Eliquis) 5 mg PO DAILY 02/17/24 05/17/24 History atorvastatin 20 mg tablet 20 mg PO DAILY 02/17/24 05/17/24 History benzonatate 100 mg capsule 100 mg PO TID PRN cough #30 caps 02/17/24 05/17/24 Rx buspirone 5 mg tablet 5 mg PO DAILY 02/17/24 05/17/24 History cetirizine 10 mg tablet 10 mg PO DAILY 02/17/24 05/17/24 History famotidine 20 mg tablet 20 mg PO DAILY 02/17/24 05/17/24 History levothyroxine 75 mcg tablet 75 mcg PO DAILY 02/17/24 05/17/24 History pregabalin 150 mg capsule 150 mg PO DAILY 02/17/24 05/17/24 History ropinirole 1 mg tablet 1 mg PO DAILY 02/17/24 05/17/24 History tramadol 50 mg tablet 50 mg PO DAILY 02/17/24 05/17/24 History duloxetine 60 mg capsule,delayed 60 mg PO ONCE 05/17/24 05/17/24 History release New Prescriptions to Start Prescriptions: Allergies Allergy/AdvReac Type Severity Reaction Status Date / Time loratadine [From Claritin] Allergy Other Verified 05/17/24 13:00 Assessment and Plan *Assessment and plan (1) Degenerative joint disease (DJD) of lumbar spine: Status: Chronic Qualifiers: Spinal osteoarthritis complication: with radiculopathy Qualified Code(s): M47.26 - Other spondylosis with radiculopathy, lumbar region Category: Medical Code(s): M47.816 - Spondylosis without myelopathy or radiculopathy, lumbar region (2) Spinal stenosis, lumbar region with neurogenic claudication: Status: Chronic Category: Medical Code(s): M48.062 - Spinal stenosis, lumbar region with neurogenic claudication (3) Bilateral sacroiliitis: Status: Acute Category: Medical Code(s): M46.1 - Sacroiliitis, not elsewhere classified Plan Patient is experiencing significant pain in her low back and bilateral hips with limited range of motion and point tenderness along her bilateral SIs. Patient did also have positive bilateral Rosita's, Lidia's, Gaenslen's, compression and distraction exam. I did discuss with patient that I do believe she would benefit from bilateral SI injections. Risk and benefits were discussed with the patient and she would like to proceed forward with this plan of care. Patient has tried and failed conservative therapy including continued at home stretching exercise for longer than 12 weeks. Patient will be scheduled for bilateral SI injections under fluoroscopy. We did also discuss medication management however patient does have a history of A-fib and does see a almond blancher operator on a regular basis. I did [place] counsel the patient due to this it is not recommended for her to have any type of NSAID. Patient was counseled she can talk to her other physicians regarding her current tramadol and Lyrica prescriptions. Patient acknowledges understanding agrees with plan of care. Patient has been instructed to contact the clinic with any concerns before the next appointment. Dr. Dominguez has reviewed this note and agrees with this plan of care. This note was dictated using voice recognition software and make contain errors or omissions. All injections are used with Lidocaine or Bupivacaine and Depo Medrol.
[2024-05-24 09:00] VITALS: BP 99/68; PULSE 96; RESP 16; O2SAT 96; BMI 30.7
== END 2024-05-24 23:59 | disposition home or self-care (01) ==
LOC: SC.PAIN 08:44
PROVIDERS: PCP Nurse Practitioner Family; Visit Provider Nurse Practitioner Family
DX: M47.26 Other spondylosis with radiculopathy, lumbar region (principal); M48.062 Spinal stenosis, lumbar region with neurogenic claudication; M46.1 Sacroiliitis, not elsewhere classified; Z96.653 Presence of artificial knee joint, bilateral; Z87.891 Personal history of nicotine dependence; Z73.89 Other problems related to life management difficulty; Z79.01 Long term (current) use of anticoagulants
CPT/HCPCS: 99212; G0463

== ENCOUNTER 2024-05-28 08:52 | Outpatient (CLI) | payer MEDICARE, MEDICAID, SELFPAY ==
--- OUTSIDE RECORDS SUMMARY | 2024-05-28 08:54 | XMS_ITS ---
Author Organization [facility] , [facility] Address [address] [place] [address] Phone Care Team Providers Care Weapons Officer [employer] Name Role Phone Irasema England APRN Unavailable Sobia arlyn Batista MD, Yoel Vernon Unavailable [phone] Problems Includes: Active, inactive, and resolved Problems All Visits Onset Date Resolved Date Provider Condition S tatus Lower Back Pain 02/23/2024 Yoel Batista MD Act glen Last Documented On 4 11:49AM ; [facility], [facility] Plan of Treatment Findings Encounter Date Patient screened for future fall risk: documentation of any fall with injury in past year Physician Specified with Yoel Batista MD 02/23/2024 Last Documented On 4 12:34PM ; [facility] Pending Tests Order Diagnosis Results Due Ordering P rovider Therapy - Physical Therapy Lumbar Low back pain, unspecified 02/23/24 Yoel Batista MD Last Documented On 4 12:23PM ; [facility] Instructions to patient Lose weight Last Documented On 4 12:03PM ; [facility] Assessments Includes: Assessments for all patient encounters Findings Encounter Date Overweight Physician Specified with Yoel Batista MD 02/23/2024 Last Documented On 4 12:34PM ; [facility], [facility] Instructions Includes: Instructions for all patient encounters Instructions to patient Lose weight Last Documented On 4 12:03PM ; [facility] Medical Equipment - Implanted Devices Includes: Current and historical Devices No Medical Equipment Recorded Medications Includes: Current and historical Medications Current Medications (continue as prescribed) Bisoprolol Fumarate 5 MG Oral Tablet 02/23/2024 Prov ider: Diagnosis: Last Documented On 4 12:35PM By Inessa Guzman ; [facility] Tylenol 8 Hour Arthritis Domingo n 650 MG Oral Tablet Extended Release 02/23/2024 Provider: Diagnosis: Last Documented On 4 12:37PM By Inessa Guzman ; [facility] Cefdinir 300 MG Oral Capsule 02/21/2024 Provider: Diagnosis: Last Documented On 4 12:00PM By Inessa Guzman ; [facility] Benzonatate 100 MG Oral Capsule 02/17/2024 Provider: Diagnosis: Last Documented On 4 12:00PM By Inessa Guzman ; [facility] Atorvastatin Calcium 20 MG O ral Tablet 02/17/2024 Provider: Irasema caraballo APRN Diagnosis: Last Documented On 4 12:00PM By Inessa Guzman ; [facility] Pregabalin 150 MG Oral Capsule 02/11/2024 Provider: MOSES GOTTI MD Diagnosis: Last Documented On 4 12:00PM By Inessa Guzman ; [facility] Cetirizine HCl 10 MG Oral Tablet 02/03/2024 Provider : Irasema England APRN Diagnosis: Last Documented On 4 12:00PM By Inessa Guzman ; [facility] DULoxetine HCl 30 MG Oral Ca psule Delayed Release Particles 02/03/2024 Provider: Irasema England APRN Diagnosis: Last Documented On 4 12:00PM By Inessa Guzman ; [facility] traMADol HCl 50 MG Oral Tablet 02/02/2024 Provider: MOSES GOTTI MD Diagnosis: Last Documented On 4 12:00PM By Inessa Guzman ; [facility] Famotidine 20 MG Oral Tablet 02/02/2024 Provider: Irasema England APRN Diagnosis: Last Documented On 4 12:00PM By Inessa Guzman ; [facility] Eliquis 5 MG Oral Tablet 02/02/2024 Provider: Diagnosis: Last Documented On 4 12:00PM By Inessa Guzman ; [facility] busPIRone HCl 5 MG Oral Tablet 01/30/2024 Provider: Irasema England APRN Diagnosis: Last Documented On 4 12:00PM By Inessa Guzman ; [facility] Methocarbamol 500 MG Oral Tablet 01/26/2024 Provider : Irasema England APRN Diagnosis: Last Documented On 4 12:00PM By Inessa Guzman ; [facility] rOPINIRole HCl 1 MG Oral Tablet 01/23/2024 Provider: Irasema England APRN Diagnosis: Last Documented On 4 12:00PM By Inessa Guzman ; [facility] Meloxicam 7.5 MG Oral Tablet 01/05/2024 Provider: Irasema England APRN Diagnosis: Last Documented On 4 12:00PM By Inessa Guzman ; [facility] Levothyroxine Sodium 75 MCG Oral Tablet 12/22/2023 Provider: Irasema caraballo APRN Diagnosis: Last Documented On 4 12:00PM By Inessa Guzman ; [facility] Lidocaine Pain Relief 4% External Patch 12/09/2023 P gladisder: Diagnosis: Last Documented On 4 12:00PM By Inessa Guzman ; [facility] Spironolactone 25 MG Oral Tablet 10/05/2023 Provider : Diagnosis: Last Documented On 4 12:36PM By Inessa Guzman ; [facility] Ketorolac Tromethamine 0.4% Ophthalmic Solution 06/06/2023 Provider: PRATEEK CASTAÑEDA MD Diagnosis: Last Documented On 4 12:00PM By Inessa Guzman ; [facility] Past Medications on file methylPREDNISolone 4 MG Oral Tablet Therapy Pack 01/30/2024 - 02/23/2024 Provider: Irasema England APRN Diagnosis: Last Documented On 4 12:00PM By Inessa Guzman ; [facility] Medications Administered Includes: Administered Medications in patient's chart No Administered Medications Recorded Vital Signs Includes: Vital Signs from 05/28/2023 through 05/28/2024 Vital Name 02/23/2024 12:01P Height (in) 65 Weight (lb) 186.2 Body Mass Index 31 Body Surface Area 1.9 Pain Level 0 Note: lc Last Documented: On 02/23/2024 12:01P M ; [facility] Results Includes: Results from 05/28/2023 through 05/28/2024 No Results Recorded For Specified Dates History [...] Active Last Documented On 02/23/2024 12:01PM ; [facility] Note: Irregular Heartrate Encounters Includes: Encounters from 05/28/2023 through 05/28/2024 Encounter Provider Location Date Check-In Time Check-Out Time Diagnosis Physician Specified [facility]ista [facility] 02/23/20 24 11:52AM 12:23PM Overweight Insurance Includes: Active Insurance Policies Plan Name Member ID Group # Subscriber Relationship Effect glen Dates 1 - [facility] [id number] Mariann Mc Clinical Notes Includes: Signed Clinical Notes starting from 07/01/2022 No Clinical Notes Recorded
--- OUTSIDE RECORDS SUMMARY | 2024-05-28 08:54 | XMS_ITS | Clinical Summary ---
Author Organization [facility] , [facility] Address [address] [place] [address] Phone Care Team Providers Care Building And Construction Manager Name Role Phone Irasema England APRN Unavailable Sobia arlyn Batista MD, Yoel Vernon Unavailable [phone] Reason for Visit and Chief Complaint The Chief Complaint is: low back pain Problems Includes: Problems addressed during this encounter and other active Problems Current Visit Onset Date Resolved Date Provider Cayden yip Status Lower Back Pain 02/23/2024 Yoel Batista MD Act glen Last Documented On 11:49AM ; [facility] Plan of Treatment - Patient screened for future fall risk: documentation of any fall with injury in past year - Last Documented On 02/23/2024 12:34PM ; [facility] Fall Risk Assessment: This patient [...] - Last Documented On 02/23/2024 12:34PM ; [facility] Patient was seen by myself and Dr. Lester Rogers PA-C. Patient will follow up with us as needed there is no surgery needed for her. We would recommend she see Dr. Dominguez and talk about a spinal cord stimulator we will for a PT also. - Last Documented On 02/23/2024 12:34PM ; [facility] Pending Tests Order Diagnosis Results Due Ordering P rovider Therapy - Physical Therapy Lumbar Low back pain, unspecified 02/23/24 Yoel Batista MD Last Documented On 4 12:23PM ; [facility], [facility] Instructions to patient Lose weight Last Documented On 4 12:03PM ; [facility], [facility] Assessments Includes: Assessments from this encounter Findings - Overweight - Last Documented On 02/23/2024 12:34PM ; [facility], [facility] Lumbar spine MRIs show no new stenosis - Last Documented On 02/23/2024 12:34PM ; [facility], [facility] Instructions Includes: Instructions from this encounter Instructions to patient Lose weight Last Documented On 4 12:03PM ; [facility], [facility] Medical Equipment - Implanted Devices Includes: Current Devices No Medical Equipment Recorded Medications Includes: Medications discussed during this encounter and other current Medications Discontinued / Stopped on this date Irasema England APRN on 01/30/2024 methylPREDNISolone 4 MG Oral Tablet Therapy Pack Provider: Irasema caraballo APRN Diagnosis: Last Documented On 4 12:00PM By Inessa Guzman ; [facility], [facility] Current Medications (continue as prescribed) Bisoprolol Fumarate 5 MG Oral Tablet 02/23/2024 Prov ider: Diagnosis: Last Documented On 4 12:35PM By Inessa Guzman ; [facility] Tylenol 8 Hour Arthritis Domingo n 650 MG Oral Tablet Extended Release 02/23/2024 Provider: Diagnosis: Last Documented On 4 12:37PM By Inessa Guzman ; [facility] Cefdinir 300 MG Oral Capsule 02/21/2024 Provider: Diagnosis: Last Documented On 4 12:00PM By Inessa Guzman ; [facility] Benzonatate 100 MG Oral Capsule 02/17/2024 Provider: Diagnosis: Last Documented On 4 12:00PM By Inessa Guzman ; [facility], [facility] Atorvastatin Calcium 20 MG O ral Tablet 02/17/2024 Provider: Irasema caraballo APRN Diagnosis: Last Documented On 4 12:00PM By Inessa Guzman ; [facility], [facility] Pregabalin 150 MG Oral Capsule 02/11/2024 Provider: [...] On 4 12:00PM By Inessa Guzman ; [facility], [facility] Lidocaine Pain Relief 4% External Patch 12/09/2023 P gladisder: Diagnosis: Last Documented On 4 12:00PM By Inessa Guzman ; [facility], [facility] Spironolactone 25 MG Oral Tablet 10/05/2023 Provider : Diagnosis: Last Documented On 4 12:36PM By Inessa Guzman ; [facility] Ketorolac Tromethamine 0.4% Ophthalmic Solution 06/06/2023 Provider: PRATEEK CASTAÑEDA MD Diagnosis: Last Documented On 4 12:00PM By Inessa Guzman ; [facility] Medications Administered Includes: Administered Medications from this encounter No Administered Medications Recorded Vital Signs Includes: Vital Signs from this encounter Vital Name 02/23/2024 12:01P Height (in) 65 Weight (lb) 186.2 Body Mass Index 31 Body Surface Area 1.9 Pain Level 0 Note: lc Last Documented: On 02/23/2024 12:01P M ; [facility] Results Includes: Results discussed during this encounter [...] 02/23/2024 Last Documented On 4 12:32PM ; [facility], [facility] No recent change in diet 02/23/2024 Last Documented On 4 12:32PM ; [facility], [facility] Not a current smoker. 02/23/2024 Last Documented On 4 12:32PM ; [facility], [facility] Not exercising regularly 02/23/2024 Last Documented On 4 12:32PM ; [facility], [facility] Not using alcohol 02/23/2024 Last Documented On 4 12:32PM ; [facility], [facility] Not using drugs 02/23/2024 Last Documented On 4 12:32PM ; [facility], [facility] Smoking Status Unknown Procedures and Surgical History Includes: Procedures from this encounter Procedures Code Diagnosis Performing Provider Service L ocation Service Date an MRI was performed 02/01/2024 [facility] [id number] Last Documented On 4 12:02PM ; [facility], [facility] Surgical History Last Updated History of Previous Fractures Wrist 02/2024 Last Documented On 4 12:32PM ; [facility], [facility] History of total knee arthroplasty Bilat eral 02/23/2024 Last Documented On 4 12:32PM ; [facility], [facility] Medical History Includes: Medical History addressed during this encounter Description Last Updated History of arthritis 02/23/2024 Last Documented On 4 12:32PM ; [facility], [facility] History of depression 02/23/2024 Last Documented On 4 12:32PM ; [facility], [facility] History of heart disease 02/23/2024 Last Documented On 4 12:32PM ; [facility], [facility] History of Heartburn / Acid Reflux 02/22 Last Documented On 4 12:32PM ; [facility], [facility] History of History of Blood Clots 2023 Last Documented On 4 12:32PM ; [facility], [facility] History of History of Cancer Skin 2023 Last Documented On 4 12:32PM ; [facility] History of Hypertension 02/23/2024 Last Documented On 4 12:32PM ; [facility] History of Thyroid Disease 02/23/2024 Last Documented On 4 12:32PM ; [facility] Family History Includes: Family History addressed during this encounter Description Last Updated Family history of cancer 02/23/2024 Last Documented On 4 12:32PM ; [facility] Family history of heart disease 02/23/20 24 Last Documented On 4 12:32PM ; [facility] Family history of rheumatoid arthritis 0 02/23/2024 Last Documented On 4 12:32PM ; [facility] Review of Systems Includes: Review [...] Active Last Documented On 02/23/2024 12:01PM ; [facility] Note: Irregular Heartrate Encounters Encounter Provider Location Date Check-In Time Check-Out Time Diagnosis Physician Specified [facility] 02/23/20 24 11:52AM 12:23PM Overweight Insurance Includes: Active Insurance Policies Plan Name Member ID Group # Subscriber Relationship Effect glen Dates 1 - [facility] [id number] Mariann Higgins Self Clinical Notes Includes: Clinical Notes from this encounter No Clinical Notes Recorded
--- OUTSIDE RECORDS SUMMARY | 2024-05-28 08:54 | XMS_ITS ---
Care Plan - [facility], [facility] Created on: May 28, 2024 Mariann Higgins : 1950 Sex: Female Author Organization [facility], [facility] Address [address] [place] [address] Phone Care Team Providers Care Supervisor Parking Lot Name Role Phone Irasema England APRN Unavailable Sobia arlyn Batista MD, Yoel Vernon Unavailable [phone]
--- NOTE | 2024-05-28 08:57 | MM_ITS ---
PROCEDURE INFORMATION: Exam: MG Bilateral Screening 3D Mammography Exam date and time: 05/28/2024 8:47 AM Age: 74 years old Clinical indication: Screening examination. A maternal aunt and maternal great aunt had breast cancer. TECHNIQUE: Imaging protocol: Bilateral Screening tomosynthesis and 2D mammography including computer-aided detection (CAD) when performed. COMPARISON: 1. MG MM DIG SCREENING MAMM BI W/CAD 05/27/2021 3:24 PM 2. MG MM DIG SCREENING MAMM BI W/CAD 06/04/2020 7:57 AM FINDINGS: MAMMOGRAPHY: Breast composition: The breasts are heterogeneously dense, which may obscure small masses. Mass: No suspicious mass. Architectural distortion: None. Calcifications: No suspicious calcifications. Asymmetric density: None. Skin thickening: None. Axillary adenopathy: None. IMPRESSION: No mammographic evidence of malignancy. Annual screening is recommended unless otherwise clinically indicated. ASSESSMENT: BI-RADS Category 1: Negative.
--- NOTE | 2024-05-28 09:24 | XR_ITS ---
FINAL REPORT TECHNIQUE: Bone mineral density was calculated of the lumbar spine and hip. CLINICAL HISTORY: SCREENING COMPARISON: 01/06/2021 FINDINGS: Using L1-4, the bone mineral density of the spine is 1.125 g/cm2, corresponding to T-score of 0.7. Using the left hip, the bone mineral density of the femoral neck is 0.674 g/cm2, corresponding to a T-score of -1.6. Using the right hip, the bone mineral density of the femoral neck is 0.699 g/cm?, corresponding to a T-score of -1.4. NOTE: T-score: Standard deviation compared with peak bone mass of young adult mean. *Following the recommendations of the International Society of Bone densitometry, classification of hip BMD is based on the lower of two T-scores; total hip or femoral neck. IMPRESSION: Diminished bone mineral density of the bilateral hips consistent with low bone density. Normal bone mineral density of the lumbar spine. Reviewed, Interpreted and Dictated by Chan Torres III, MD Transcribed by Rossy Brown Authenticated and . [facility]
== END 2024-05-28 23:59 | disposition home or self-care (01) ==
LOC: RAD 08:52
PROVIDERS: PCP Nurse Practitioner Family; Visit Provider Nurse Practitioner Family
DX: Z12.31 Encounter for screening mammogram for malignant neoplasm of breast (principal); Z78.0 Asymptomatic menopausal state
CPT/HCPCS: 77063; 77067; 77080

== ENCOUNTER 2024-07-21 16:15 | Emergency (ER) | payer MEDICARE, MEDICAID, SELFPAY ==
[2024-07-21 17:50] VITALS: BP 131/71; PULSE 72; RESP 18; TEMP 36.7; O2SAT 98; BMI 28.9
--- NOTE | 2024-07-21 18:16 | ED_ITS ---
Discharge Plan Disposition Patient Disposition: Home, Self-Care Condition: Good Prescriptions Prescriptions: New lidocaine 4 % adhesive patch,medicated 1 patch topical DAILY PRN (Reason: pain) Qty: 10 0RF Rx Instructions: apply patch to left lower back, leave on for 12 hours then remove for 12 hours No Action levothyroxine 75 mcg tablet 75 mcg PO DAILY bisoprolol fumarate 5 mg tablet 5 mg PO DAILY duloxetine 30 mg capsule,delayed release(DR/EC) 30 mg PO DAILY duloxetine 60 mg capsule,delayed release(DR/EC) 60 mg PO DAILY pregabalin 150 mg capsule 150 mg PO DAILY Referrals Follow up/Referrals: Irasema England APRN [Primary Care Provider] - See instructions Activity Restrictions/Add. Instructions Additional Instructions/Restrictions: Use lidocaine patches as prescribed Warm soaks may help with pain DO stretches like discussed Follow up with your Family Doctor if no improvement Clinical Impressions Clinical Impression: Low back pain Qualifiers: Chronicity: unspecified Back pain laterality: left Sciatica presence: with sciatica Sciatica laterality: sciatica of left side Qualified Code(s): M54.42 - Lumbago with sciatica, left side Instructions Patient Instructions: DI for Low Back Pain, DI for Back Pain With Sciatica Print Language Print Language: Montenegrin Discharge ED Provider: Brenda Millard [facility] General Stated complaint: Lower back pain Mode of Arrival: Ambulatory Source of Information: Patient Limitations: No Limitations Time Seen by Provider: 07/21/24 18:16 Description of Symptoms (Recalled from Triage Doc. by RN): PATIENT C/O LEFT LOWER BACK PAIN THAT RADIATES INTO HIP THAT STARTED YESTERDAY HEENT Symptoms (Recalled from RN notes): No Resp Symptoms (Recalled from RN notes): No Skin Symptoms (Recalled from RN notes): No MS Symptoms (Recalled from RN notes): Yes Functional Status (Recalled from RN notes): WNL History of Present Illness Provider Complaint: Patient states that she has a hx of low back pain and sciatica States that she has been lifting pulling and tugging moving and yesterday she started with achy like pain in her lower back that goes into her left hip Denies falling denies fever denies urinary symptoms States today it wasnt any better and she was worried if she didnt get something it would get worse Related Data Home Medications ?Medication ?Instructions ?Recorded ?Confirmed bisoprolol fumarate 5 mg tablet 5 mg PO DAILY 07/21/24 07/21/24 duloxetine 30 mg capsule,delayed 30 mg PO DAILY 07/21/24 07/21/24 release duloxetine 60 mg capsule,delayed 60 mg PO DAILY 07/21/24 07/21/24 release levothyroxine 75 mcg tablet 75 mcg PO DAILY 07/21/24 07/21/24 pregabalin 150 mg capsule 150 mg PO DAILY 07/21/24 07/21/24 Previous Rx's ?Medication ?Instructions ?Recorded lidocaine 4 % topical patch 1 patch topical DAILY PRN pain #10 07/21/24 ea Allergies Allergy/AdvReac Type Severity Reaction Status Date / Time loratadine (From ClarVelociData) Allergy Other Verified 05/17/24 13:00 Worker's Comp Is this a Worker's Comp case?: No [facility] Disclaimer: The information contained in this section may have been updated after the patient was seen, as this information can be updated by other users. Medical History Wheezing Cough Chest pressure History of COVID-19 Bronchitis Allergies History of cataract Hyperlipidemia Hypertension Edema Tonsillectomy planned Skin cancer Atrial fibrillation Falling episodes Daytime somnolence Abnormal EKG Restless sleeper Lumbar disc disease with radiculopathy Anxiety Headache Hypothyroidism Vitamin D deficiency Fibromyalgia Lumbar disc disease with radiculopathy Depression GERD (gastroesophageal reflux disease) Surgical History History of left knee replacement H/O tubal ligation History of surgery LEFT WRIST SURGERY - PLATE / SCREWS H/O adenoidectomy History of back surgery History of colonoscopy History of right knee joint replacement Family History Mother Family history of cervical cancer Father Family history of myocardial infarction Other Cancer Social History Smoking Status: Former smoker tobacco type: cigarettes packs per day: 1 years smoked: 4 smoking status stop date: 1997 second hand exposure: Yes alcohol intake: never substance use type: denies use current occupational status: other Travel in the last 8 weeks: None housing: house number of children: 3 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 Have you lived/traveled outside [place] in past 30 days?: No Contact w/someone who lives/traveled outside US past 30 days?: No Exposure to someone with infectious disease in past 14 days?: No Do you have a fever (greater than 100.4 F or 38 C)?: No Have you tested positive for COVID-19: No Exposed to someone with COVID-19 in past 14 days?: No Do you have a sore throat?: No Do you have a cough?: No Do you have any weakness?: No Do you have any diarrhea?: No Are you experiencing any unusual bleeding?: No Do you have any muscle aches/pain?: No Do you have any abdominal pain?: No Are you experiencing loss of taste or smell?: No ROS Obtained: Yes All systems reviewed & no additional complaints except as documented and Yes Systems reviewed as appropriate & no additional complaints except as documented Constitutional Constitutional: Reports system reviewed and no additional complaints, except as documented and Reports as per HPI ENT Ears, Nose, Mouth, and Throat: Reports system reviewed and no additional complaints, except as documented and Reports as per HPI Cardiovascular Cardiovascular: Reports system reviewed and no additional complaints, except as documented and Reports as per HPI Respiratory Respiratory: Reports system reviewed and no additional complaints, except as documented and Reports as per HPI Gastrointestinal Gastrointestingal: Reports system reviewed and no additional complaints, except as documented and as per HPI Musculoskeletal Musculoskeletal: Reports system reviewed and no additional complaints, except as documented, Reports as per HPI and Reports back pain (going into left hip) Integumentary/Breasts Skin/Breast: Reports system reviewed and no additional complaints, except as documented and Reports as per HPI Physical Exam General General appearance: alert and in no apparent distress ENT ENT exam: Present mucous membranes moist Respiratory Respiratory exam: Present normal lung sounds bilaterally; Absent respiratory distress or wheezes Cardiovascular Cardiovascular exam: Present regular rate, normal rhythm and normal heart sounds Abdominal Exam Abdominal exam: Present soft and normal bowel sounds; Absent distention or tenderness Back Exam Back exam: Present tenderness and sciatic notch tenderness (L) Back 1 view image: 2 1. reports achy like pain going into her left buttock area like she has had before with sciatica Denies loss of control of bowel or bladder Neurological Exam Neurological exam: Present alert, oriented X3 and normal gait Medical Decision Making Medical Records Screening: Per USPSTF and CDC recommendations, given the prevalence of disease in our region, it is our hospital?s policy to screen for HIV and viral Hepatitis for all patients aged 18 and over and those with ongoing risk factors. Jose Inquiry Pt receiving controlled substance: No Jose was queried for this patient: No Vital Signs: 07/21/24 17:50 Temperature 98.1 F Temperature Source Oral Pulse Rate [Left Brachial] 72 Respiratory Rate 18 Blood Pressure [Left Arm] 131/71 Blood Pressure Mean [Left Arm] 91 Blood Pressure Source [Left Arm] Automatic Cuff Blood Pressure Position [Left Arm] Sitting 02 Sat by Pulse Oximetry 98 Oxygen Delivery Method Room Air Medical Decision Narrative: Discussed lumbar xray and patient declined Medication discussed with pharmacy
[2024-07-21] MEDS: KETOROLAC 30MG/ML VIAL 15 MG IM (18:35)
[2024-07-21] MEDS: METHYLPREDNISOLONE SOD SUCC 125MG VIAL 125 MG IM (18:35)
[2024-07-21 18:45] VITALS: BP 131/71; PULSE 72; RESP 18; TEMP 36.7; O2SAT 98
== END 2024-07-21 18:50 | disposition home or self-care (01) ==
PROVIDERS: Emergency Provider Nurse Practitioner; PCP Nurse Practitioner Family
DX: M54.42 Lumbago with sciatica, left side (principal)
CPT/HCPCS: 96372; 99213; G0381; J1885; J2919

== ENCOUNTER 2024-08-01 10:26 | Emergency (ER) | payer MEDICARE, MEDICAID, SELFPAY ==
[2024-08-01 10:39] VITALS: BP 148/79; PULSE 68; RESP 20; TEMP 36.6; O2SAT 97; BMI 28.4
--- NOTE | 2024-08-01 10:49 | ED_ITS ---
Discharge Plan Disposition Patient Disposition: Still a Patient Prescriptions Prescriptions: No Action levothyroxine 75 mcg tablet 75 mcg PO DAILY bisoprolol fumarate 5 mg tablet 5 mg PO DAILY duloxetine 30 mg capsule,delayed release(DR/EC) 30 mg PO DAILY duloxetine 60 mg capsule,delayed release(DR/EC) 60 mg PO DAILY pregabalin 150 mg capsule 150 mg PO DAILY lidocaine 4 % adhesive patch,medicated 1 patch topical DAILY PRN (Reason: pain) Qty: 10 0RF Rx Instructions: apply patch to left lower back, leave on for 12 hours then remove for 12 hours Referrals Follow up/Referrals: Irasema England APRN [Primary Care Provider] - See instructions Print Language Print Language: Romansh Discharge ED Provider: Anthony Torres [facility] [place] General Stated complaint: back and right hip pain, no accident Mode of Arrival: Ambulatory Source of Information: Patient Time Seen by Provider: 08/01/24 10:49 Description of Symptoms (Recalled from Triage Doc. by RN): back pain and right hip pain HEENT Symptoms (Recalled from RN notes): No Resp Symptoms (Recalled from RN notes): No Skin Symptoms (Recalled from RN notes): No MS Symptoms (Recalled from RN notes): Yes Functional Status (Recalled from RN notes): wnl History of Present Illness Provider Complaint: 74-year-old female presents for low back pain, flank, hip, groin and right lower side pain. Patient states when the pain started she had just bent down to put a mixer away and noticed the pain. Patient states couple weeks ago she had sciatica on the left side and this does not feel like what she had then. Related Data Home Medications ?Medication ?Instructions ?Recorded ?Confirmed bisoprolol fumarate 5 mg tablet 5 mg PO DAILY 07/21/24 07/21/24 duloxetine 30 mg capsule,delayed 30 mg PO DAILY 07/21/24 07/21/24 release duloxetine 60 mg capsule,delayed 60 mg PO DAILY 07/21/24 07/21/24 release levothyroxine 75 mcg tablet 75 mcg PO DAILY 07/21/24 07/21/24 pregabalin 150 mg capsule 150 mg PO DAILY 07/21/24 07/21/24 Previous Rx's ?Medication ?Instructions ?Recorded lidocaine 4 % topical patch 1 patch topical DAILY PRN pain #10 07/21/24 ea Allergies Allergy/AdvReac Type Severity Reaction Status Date / Time loratadine (From Claritin) Allergy Other Verified 05/17/24 13:00 Worker's Comp Is this a Worker's Comp case?: No [facility] Disclaimer: The information contained in this section may have been updated after the patient was seen, as this information can be updated by other users. Medical History (Reviewed 08/01/24 @ 11:00 by Bunny Lubin ([facility]), TRANSFER MACHINE OPERATOR) Wheezing Cough Chest pressure History of COVID-19 Bronchitis Allergies History of cataract Hyperlipidemia Hypertension Edema Tonsillectomy planned Skin cancer Atrial fibrillation Falling episodes Daytime somnolence Abnormal EKG Restless sleeper Lumbar disc disease with radiculopathy Anxiety Headache Hypothyroidism Vitamin D deficiency Fibromyalgia Lumbar disc disease with radiculopathy Depression GERD (gastroesophageal reflux disease) Surgical History (Reviewed 08/01/24 @ 11:00 by Bunny Lubin ([facility]), TRANSFER MACHINE OPERATOR) History of left knee replacement H/O tubal ligation History of surgery H/O adenoidectomy History of back surgery History of colonoscopy History of right knee joint replacement Family History (Reviewed 08/01/24 @ 11:00 by Bunny Lubin ([facility]), TRANSFER MACHINE OPERATOR) Family history of cervical cancer Mother Family history of myocardial infarction Father Cancer Social History (Reviewed 08/01/24 @ 11:00 by Bunny Lubin ([facility]), TRANSFER MACHINE OPERATOR) Smoking Status: Former smoker tobacco type: cigarettes packs per day: 1 years smoked: 4 smoking status stop date: 1997 second hand exposure: Yes alcohol intake: never substance use type: denies use current occupational status: other Travel in the last 8 weeks: None housing: house number of children: 3 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 Have you lived/traveled outside US in past 30 days?: No Contact w/someone who lives/traveled outside US past 30 days?: No Exposure to someone with infectious disease in past 14 days?: No Do you have a fever (greater than 100.4 F or 38 C)?: No Have you tested positive for COVID-19: No Exposed to someone with COVID-19 in past 14 days?: No Do you have a sore throat?: No Do you have a cough?: No Do you have any weakness?: No Do you have any diarrhea?: No Are you experiencing any unusual bleeding?: No Do you have any muscle aches/pain?: No Do you have any abdominal pain?: No Are you experiencing loss of taste or smell?: No ROS Obtained: Yes Systems reviewed as appropriate & no additional complaints except as documented Constitutional Constitutional: Reports system reviewed and no additional complaints, except as documented, Reports as per HPI and Reports difficulty sleeping Gastrointestinal Gastrointestingal: Reports system reviewed and no additional complaints, except as documented, as per HPI and abdominal pain Musculoskeletal Musculoskeletal: Reports system reviewed and no additional complaints, except as documented, Reports as per HPI, Reports back pain, Reports limited range of motion and Reports radiating pain into limb Physical Exam General General appearance: alert and in no apparent distress ENT ENT exam: Present normal exam Respiratory Respiratory exam: Present normal lung sounds bilaterally Cardiovascular Cardiovascular exam: Present regular rate and normal rhythm Abdominal Exam Abdominal exam: Present soft and tenderness (Right lower quad) Abdominal tenderness: Present RLQ Extremities Exam Extremities exam: Present normal inspection Neurological Exam Neurological exam: Present alert and oriented X3 Skin Skin exam: Present warm and intact Lymphatic Lymphatic Findings: no adenopathy Medical Decision Making Medical Records Medical records reviewed: Yes I reviewed the patient's medical records. Screening: Per USPSTF and CDC recommendations, given the prevalence of disease in our region, it is our hospital?s policy to screen for HIV and viral Hepatitis for all patients aged 18 and over and those with ongoing risk factors. Jose Inquiry Pt receiving controlled substance: No Jose was queried for this patient: No Vital Signs: 08/01/24 10:39 Temperature 97.9 F Temperature Source Oral Pulse Rate [Left Radial] 68 Respiratory Rate 20 Blood Pressure [Left Arm] 148/79 H Blood Pressure Mean [Left Arm] 102 02 Sat by Pulse Oximetry 97
[2024-08-01 10:52] VITALS: BP 159/76; PULSE 59; RESP 16; TEMP 36.7; O2SAT 97; BMI 28.4
[2024-08-01 11:21] LABS: Microscopic, Urine URINE MICROSCOPIC (MICROSCOPIC)
[2024-08-01 11:30] VITALS: BP 131/76; PULSE 60; O2SAT 98
[2024-08-01 11:33] LABS: Appearance,Urine CLEAR (Clear); Blood, Urine Negative (Negative); Color,Urine YELLOW (Yellow); Glucose,Urine (UA) Negative (Negative); Ketones,Urine Negative (Negative); Leukocyte Esterase,Urine TRACE (Negative); Nitrate,Urine Negative (Negative); Protein,Urine Negative (Negative); Specific Gravity, Urine >= 1.030 (1.005-1.030); Urobilinogen,Urine 0.2 EU/dl (0.2)
[2024-08-01 11:37] LABS: Bilirubin,Urine Negative (Negative)
[2024-08-01] MEDS: KETOROLAC 30MG/ML VIAL 15 MG IV (11:41)
[2024-08-01] MEDS: DEXAMETHASONE 4MG TABLET 10 MG PO (11:41)
--- NOTE | 2024-08-01 11:44 | ED_ITS ---
Discharge Plan Disposition Patient Disposition: Home, Self-Care Prescriptions Prescriptions: New prednisone 20 mg tablet 40 mg PO DAILY 5 Days Qty: 10 0RF No Action levothyroxine 75 mcg tablet 75 mcg PO DAILY bisoprolol fumarate 5 mg tablet 5 mg PO DAILY duloxetine 30 mg capsule,delayed release(DR/EC) 30 mg PO DAILY duloxetine 60 mg capsule,delayed release(DR/EC) 60 mg PO DAILY pregabalin 150 mg capsule 150 mg PO DAILY lidocaine 4 % adhesive patch,medicated 1 patch topical DAILY PRN (Reason: pain) Qty: 10 0RF Rx Instructions: apply patch to left lower back, leave on for 12 hours then remove for 12 hours Referrals Follow up/Referrals: Irasema England APRN [Primary Care Provider] - See instructions Brayden Dominguez MD [Staff Physician] - See instructions Activity Restrictions/Add. Instructions Additional Instructions/Restrictions: Call your family doctor to establish care for this visit to the emergency department and schedule follow-up within 48 hours to ensure improvement. If you have any worsening of your condition or any other concerning signs or symptoms, return to the emergency department or your primary care doctor for further evaluation. Clinical Impressions Clinical Impression: Lumbar radiculopathy, right Print Language Print Language: Estonian Discharge ED Provider: Anthony Torres General Adult HPI General Chief complaint: PAIN Stated complaint: back and right hip pain, no accident Time Seen by Provider: 08/01/24 10:49 Mode of Arrival: Wheelchair Source of Information: Patient Limitations: No Limitations Description of Symptoms (Recalled from ER Triage Doc. by RN): Reports back, right hip and right sided abdomen pain that started approx 3 days ago. States she was lifting a kitenmaid mixer when the pain started. States it just won't go away. History of Present Illness HPI narrative: Please note that above description of symptoms, in this electronic medical record under categorization of recalled from ER triage doctor by RN are r eflective of an initial nursing assessment, however, is not reflective of my full history and physical exam that was personally taken and clarified. Consequentially, this preceding description of symptoms, which may include the patient's categorized chief complaint in the EMR, do not reflect my personal clinical impression, and the ultimate description of history of present illness and patient stated complaints should be deferred to this section of the note. Unless stated otherwise or congruent with this section of the note, additional signs, symptoms, or incongruence should be interpreted as inaccurate with my clinical impression. Related Data Home Medications ?Medication ?Instructions ?Recorded ?Confirmed bisoprolol fumarate 5 mg tablet 5 mg PO DAILY 07/21/24 07/21/24 duloxetine 30 mg capsule,delayed 30 mg PO DAILY 07/21/24 07/21/24 release duloxetine 60 mg capsule,delayed 60 mg PO DAILY 07/21/24 07/21/24 release levothyroxine 75 mcg tablet 75 mcg PO DAILY 07/21/24 07/21/24 pregabalin 150 mg capsule 150 mg PO DAILY 07/21/24 07/21/24 Previous Rx's ?Medication ?Instructions ?Recorded lidocaine 4 % topical patch 1 patch topical DAILY PRN pain #10 07/21/24 ea prednisone 20 mg tablet 40 mg (2 x 20 mg) PO DAILY 5 days 08/01/24 #10 tabs Allergies Allergy/AdvReac Type Severity Reaction Status Date / Time loratadine (From Claritin) Allergy Other Verified 05/17/24 13:00 [facility] Disclaimer: The information contained in this section may have been updated after the patient was seen, as this information can be updated by other users. Medical History , PATIENT PORTAL CONCIERGE) Wheezing Cough Chest pressure History of COVID-19 Bronchitis Allergies History of cataract Hyperlipidemia Hypertension Edema Tonsillectomy planned Skin cancer Atrial fibrillation Falling episodes Daytime somnolence Abnormal EKG Restless sleeper Lumbar disc disease with radiculopathy Anxiety Headache Hypothyroidism Vitamin D deficiency Fibromyalgia Lumbar disc disease with radiculopathy Depression GERD (gastroesophageal reflux disease) Surgical History , PATIENT PORTAL CONCIERGE) History of left knee replacement H/O tubal ligation History of surgery H/O adenoidectomy History of back surgery History of colonoscopy History of right knee joint replacement Family History , PATIENT PORTAL CONCIERGE) Family history of cervical cancer Mother Family history of myocardial infarction Father Cancer Social History , PATIENT PORTAL CONCIERGE) Smoking Status: Never smoker years smoked: 4 smoking status stop date: 1997 second hand exposure: Yes alcohol intake: never substance use type: denies use current occupational status: other Travel in the last 8 weeks: None housing: house number of children: 3 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 Have you lived/traveled outside US in past 30 days?: No Contact w/someone who lives/traveled outside US past 30 days?: No Exposure to someone with infectious disease in past 14 days?: No Do you have a fever (greater than 100.4 F or 38 C)?: No Have you tested positive for COVID-19: No Exposed to someone with COVID-19 in past 14 days?: No Do you have a sore throat?: No Do you have a cough?: No Do you have any weakness?: No Do you have any diarrhea?: No Are you experiencing any unusual bleeding?: No Do you have any muscle aches/pain?: No Do you have any abdominal pain?: No Are you experiencing loss of taste or smell?: No Other Medical History Have you received the Flu Vaccine for this season: Yes Have you received the Pneumonia Vaccine: Yes ROS Obtained: Yes All systems reviewed & no additional complaints except as documented Physical Exam General General appearance: alert, in no apparent distress and obese Head Head exam: atraumatic and normocephalic Eye Eye exam: Present normal appearance, PERRL and EOMI Neck Neck exam: Present normal inspection, full ROM and trachea midline Respiratory Respiratory exam: Absent respiratory distress, wheezes, stridor, accessory muscle use or prolonged expiratory phase Cardiovascular Cardiovascular exam: Present other (Pulses equal symmetric in upper and lower extremities) Abdominal Exam Abdominal exam: Present soft; Absent distention, tenderness or pulsatile mass Extremities Exam Extremities exam: Absent edema Back Exam Back exam: Present tenderness and vertebral tenderness (midline lumbar spinal. Overlying previous surgical scar) Neurological Exam Neurological exam: Present alert, oriented X3 and CN II-XII intact; Absent motor sensory deficit Skin Skin exam: Present warm and dry; Absent diaphoresis or erythema Medical Decision Making Medical Records Medical records reviewed: Yes I reviewed the patient's medical records. Screening: Per USPSTF and CDC recommendations, given the prevalence of disease in our region, it is our hospital?s policy to screen for HIV and viral Hepatitis for a ll patients aged 18 and over and those with ongoing risk factors. Jose Inquiry Pt receiving controlled substance: No Jose was queried for this patient: No Vital Signs: 08/01/24 10:39 08/01/24 10:52 08/01/24 11:30 Temperature 97.9 F 98.1 F Temperature Source Oral Oral Pulse Rate 60 Pulse Rate [Left Radial] 68 59 L Respiratory Rate 20 16 Blood Pressure 131/76 Blood Pressure [Left Arm] 148/79 H Blood Pressure [Right Arm] 159/76 H Blood Pressure Mean [Left Arm] 102 Blood Pressure Mean [Right Arm] 103 Blood Pressure Source [Right Arm] Automatic Cuff Blood Pressure Position [Right Arm] Sitting 02 Sat by Pulse Oximetry 97 97 98 Oxygen Delivery Method Room Air Room Air 08/01/24 12:00 Temperature Temperature Source Pulse Rate 54 L Pulse Rate [Left Radial] Respiratory Rate Blood Pressure 122/65 Blood Pressure [Left Arm] Blood Pressure [Right Arm] Blood Pressure Mean [Left Arm] Blood Pressure Mean [Right Arm] Blood Pressure Source [Right Arm] Blood Pressure Position [Right Arm] 02 Sat by Pulse Oximetry 95 Oxygen Delivery Method Room Air Lab Data Lab Results 08/01/24 11:07: Urine Color Yellow, Urine Appearance Clear, Urine pH 6.0, Ur Specific [place] >= 1.030, Urine Protein Negative, Urine Glucose (UA) Negative, Urine Ketones Negative, Urine Blood Negative, Urine Nitrate Negative, Urine Bilirubin Negative, Urine Urobilinogen 0.2, Ur Leukocyte Esterase Trace, Urine RBC None, Urine WBC Occasional, Ur Squamous Epith Cells 3-5, Urine Bacteria Trace Orders (Tests/Meds): ED MEDICATIONS Discontinued Medications Generic Name Dose Route Start Last Admin Trade Name Lis PRN Reason Stop Dose Admin Dexamethasone 10 mg 08/01/24 11:17 08/01/24 11:41 Dexamethasone 4mg Tablet PO 08/01/24 11:18 10 mg ONCE ONE Administration Ketorolac Tromethamine 15 mg 08/01/24 11:17 08/01/24 11:41 Ketorolac 30mg/Ml Vial IV 08/01/24 11:18 15 mg ONCE ONE Administration ORDERS Category Date Time Status HIV Combo Stat Lab 08/01/24 11:13 Ordered Hepatitis C Ab Qual. W/ RFX Stat Lab 08/01/24 11:13 Ordered UA [Urinalysis and Microscopic] Stat Lab 08/01/24 11:07 Completed Medical Decision Narrative: 74-year-old female history of chronic back pain presenting with back and right sided hip pain. Patient states that this been getting worse over the last couple of days. She states that a few days prior to this, she began having pain in her right lower back, right buttock and down into her right leg and now it is intermittently radiating from her right lower back/right flank into her groin. 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 Still having bowel movements, no urinary symptoms, otherwise no complaints. History was obtained via conversation with patient. On arrival, patient hemodynamically stable, alert, oriented x4, appropriate, GCS 15, moving all extremities spontaneously, pupils equal and reactive to light. Full physical exam performed and significant for very well-appearing female no acute distress. Ambulatory with normal gait. Lower extremities without acute complaints. Abdomen soft, nontender, nondistended. She does have midline spinal tenderness in her lumbar spine, she states this is chronic and she has an overlying scar. Differential includes radiculopathy, neuropathy, among others. Patient was given Toradol IM, Decadron p.o. for symptomatic management and correction of underlying abnormalities. Workup independently interpreted and significant for nonactionable urinalysis. CT imaging of the lumbar spine was considered, but not deemed necessary. On reevaluation, results were relayed to patient with negative urinalysis. She states she actually feels much better after Toradol and Decadron. I feel this is most consistent with lumbar radiculopathy anyway and feel that CT imaging of the lumbar spine or abdomen would be unremarkable. Given patient presentation, workup, history, this most likely represents acute lumbar radiculopathy. Close return precautions discussed. Because patient at baseline without signs or symptoms of clinical decompensation, deemed appropriate for discharge. Results were relayed to patient who voiced understanding and were agreeable to outpatient management and follow up. I discussed my clinical impression with patient and answered all questions. At this time, the evidence for any other entities in the differential is insufficient to warrant any further testing or ED observation. This was explained as well. Advisory was given that persistent or worsening symptoms require further evaluation. I confirmed the understanding of this discussion. Land Degradation Analyst disclaimer Much of this encounter note is an electronic customer service representative teller spoken language to printed text. Electronic customer service representative teller of the spoken language may permit errors. Although I have reviewed the note, some errors may still exist. Critical Care Critical Care Time Critical Care Time: No
[2024-08-01 12:00] VITALS: BP 122/65; PULSE 54; O2SAT 95
[2024-08-01 12:07] LABS: Bacteria,Urine Trace /lpf; WBC,Urine Occasional #/hpf (0-3)
[2024-08-01 13:12] VITALS: BP 134/65; PULSE 56; RESP 16; TEMP 36.6; O2SAT 98
== END 2024-08-01 13:13 | disposition home or self-care (01) ==
LOC: UTC 10:30 → ER 10:50
PROVIDERS: Emergency Provider Emergency Medicine; PCP Nurse Practitioner Family
DX: M54.16 Radiculopathy, lumbar region (principal); M54.9 Dorsalgia, unspecified; M25.551 Pain in right hip; R10.9 Unspecified abdominal pain
CPT/HCPCS: 81001; 96374; 99283; J1885; J8540

== ENCOUNTER 2024-10-30 11:59 | Outpatient (CLI) | payer MEDICARE, MEDICAID, SELFPAY ==
--- NOTE | 2024-10-30 12:03 | XR_ITS ---
FINAL REPORT CLINICAL HISTORY: Left shoulder pain FINDINGS: 3 views of the left shoulder were obtained. There is no fracture or dislocation. There is moderate to severe degenerative joint disease at the glenohumeral joint. Soft tissues are unremarkable. IMPRESSION: Degenerative changes with no acute osseous abnormality of the left shoulder. Reviewed, Interpreted and Dictated by Maricruz Caro MD Transcribed by Julia Radford Authenticated and [facility]
== END 2024-10-30 23:59 | disposition home or self-care (01) ==
LOC: RAD 12:00
PROVIDERS: PCP Nurse Practitioner Family; Visit Provider Nurse Practitioner Family
DX: M25.512 Pain in left shoulder (principal)
CPT/HCPCS: 73030

== ENCOUNTER 2024-11-22 13:03 | Outpatient (CLI) | payer MEDICARE, MEDICAID, SELFPAY ==
--- NOTE | 2024-11-22 13:07 | XR_ITS ---
FINAL REPORT CLINICAL HISTORY: lt wrist pain - patient had surgery 5 years ago on left wrist and is experiencing pain that is getting worse FINDINGS: LEFT WRIST Three views were obtained. There is been ORIF of the distal radius fracture. The hardware is intact. No acute osseous abnormality is noted. There is multijoint degenerative disease. IMPRESSION: Postoperative changes of ORIF of the distal radius. No acute bony abnormality identified. Reviewed, Interpreted and Dictated by Maricruz Caro MD Transcribed by KOREY Nazario Authenticated and [facility]
== END 2024-11-22 23:59 | disposition home or self-care (01) ==
LOC: RAD 13:05
PROVIDERS: PCP Nurse Practitioner Family; Visit Provider Physician Assistant Surgical
DX: M25.532 Pain in left wrist (principal)
CPT/HCPCS: 73110

== ENCOUNTER 2025-01-03 14:21 | Outpatient (CLI) | payer MEDICARE, MEDICAID, SELFPAY ==
--- OUTSIDE RECORDS SUMMARY | 2025-01-03 14:32 | XMS_ITS | Clinical Summary ---
Author Organization [facility] Address [address] [place] [address] Care Team Providers Care Tower Director Name Role Phone Jorge He MD Primary Care Provider + [phone] Allergies No known active allergies Medications aspirin 325 MG tablet 06/27/2020 Active bisoprolol (Zebeta) 5 MG tablet Take 1 tablet twice daily 06/27/2020 Active cetirizine (ZyrTEC) 10 MG tablet TAKE 1 TABLET DAILY. 06/27/2020 Active famotidine (Pepcid) 20 MG tablet TAKE 1 TABLET DAILY DIRECTED. 06/27/2020 Active fluticasone (Flonase) 50 MCG/ACT nasal spray 06/27/2020 Active levothyroxine (Synthroid, Levoxyl) 75 MCG tablet TAKE 1 TABLET DAILY. 06/27/2020 Active pregabalin (Lyrica) 150 MG capsule TAKE 1 CAPSULE TWICE DAILY. 06/27/2020 Active meclizine (Antivert) 25 MG tablet 06/30/2020 Active ROPINIROLE HCL PO Take 1 tablet twice daily 06/30/2020 Active spironolactone (Aldactone) 25 MG tablet TAKE 1 TABLET DAILY. 06/27/2020 Active traMADol (Ultram) 50 MG tablet 07/01/2016 Active venlafaxine XR (Effoxor-XR) 150 MG 24 hr capsule TAKE 1 CAPSULE ONCE DAILY WITH FOOD. 06/27/2020 Active cholecalciferol (Cholecalcifero l) 250 MCG (79587 UT) capsule TAKE 1 CAPSULE Weekly 07/01/2020 Active Active Problems Problem Noted Date Diagnosed Date Benign essential HTN 07/01/2020 Vitamin D deficiency 07/01/2020 CKD (chronic kidney disease) stage 3, GFR 30-59 ml/min 06/02/2020 Degeneration, intervertebral disc, lumbar 2015 Lumbar facet arthropathy 07/01/2016 Spinal stenosis of lumbar region 07/01/2016 Afib 11/13/2015 Basal cell carcinoma of nose 11/13/2015 Distal radius fracture 09/16/2014 Family History Medical History Relation Name Comments Cardiac disorder Father Hypertension Father Kidney disease Mother Other cancer Mother Conversions - Other Other Family h istory unknown Relation Name Status Comments Father Mother Other Social History Tobacco Use Types Packs/Day Years Used Date Smoking Tobacco: Former Smokeless Tobacco: Never Alcohol Use Standard Drinks/Week Comments No 0 (1 standard drink = 0.6 oz pur e alcohol) Comments Unknown Sex and Gender Information Value Date Recorded Sex Assigned at Not on file Legal Sex Female 7:55 PM EDT Gender Identity Not on file Sexual Orientation Not on file Last Filed Vital Signs Vital Sign Reading Time Taken Comments Blood Pressure 127/41 06/30/2020 2:38 PM EST Pulse 60 06/30/2020 2:38 PM EST Temperature - - Respiratory Rate - - Oxygen Saturation - - Inhaled Oxygen Concentration - - Weight 85.7 kg (189 lb) 06/30/2020 2:38 PM EST Height 165.1 cm (5' 5 ) 06/30/2020 2:38 PM EST Body Mass Index 31.45 06/30/2020 2:38 PM EST Plan of Treatment Health Maintenance Due Date Last Done Comments [facility]-Bone Density Scan 1950 [facility]-Depression Screening 1950 [facility]-Hepatitis C Screening 1950 [facility]-Medicare Annual Wellness (AWV) 1950 [facility]-/Child/Adol SDOH Screenings 1950 [facility]- SDOH Screenings 1968 [facility]-Adult SDOH Screenings 1968 [facility]-DTaP,Tdap,and Td Vaccine s (1 - Tdap) 1969 [facility]-Zoster Vaccines (1 of 2) 1969 CT Colonography 1995 Colonoscopy 1995 FIT-DNA 1995 FIT 1995 FOBT 1995 Sigmoidoscopy 1995 [facility]-Colorectal Cancer Screening 1995 [facility]-Breast Cancer Screening 2000 [facility]-RSV Vaccine: 60+ Years o r (1 - Risk 60-74 years 1-dose series) 2010 [id number] Vaccine (3 - Moderna risk series) 10/08/2020 09/10/2020, 07/29/2020 [facility]-Pneumococcal Vaccine: 50 + Years (2 of 2 - PCV) 05/13/2021 05/13/2020 [facility]-Influenza Vaccine (Seas[place] n Ended) 2025 HPV Vaccines Aged Out No longer eligi ble based on patient's age to complete this topic [facility]-HIB Vaccines Aged Out No longer e ligible based on patient's age to complete this topic [facility]-Hepatitis A Vaccines Aged Out No longer eligible based on patient's age to complete this topic [facility]-IPV Vaccines Aged Out No longer e ligible based on patient's age to complete this topic [facility]-Rotavirus Vaccines Aged Out No lo nger eligible based on patient's age to complete this topic Insurance [employer] MEDICARE Care Teams Tower Director Relationship Specialty Start Date End Date Jorge He MD [address] [place] [address] PCP - General 11/28/20
[2025-01-03 14:41] LABS: Basophils % 0.5 % (0.1-2.0); Eosinophils # 0.2 Kmm3 (0.0-0.4); Eosinophils % 2.9 % (0.1-12.0); Hematocrit 43.5 % (37.0-47.0); Hemoglobin 14.3 g/dL (12.2-16.2); Immature Granulocytes # 0.03 10^3uL; Immature Granulocytes % 0.4 %; Lymphocytes # 1.9 K/mm3 (0.7-4.5); Lymphocytes % 24.8 % (10-50); Mean Corpuscular HGB Conc 32.9 g/dL (31.8-35.4); Mean Corpuscular Hemoglobin 30.2 pg (27.0-31.2); Mean Platelet Volume 9.1 fl (7.4-10.4); Monocytes # 0.6 K/mm3 (0.1-1.0); Monocytes % 7.9 % (1.7-9.3); Neutrophils # 4.8 K/mm3 (1.8-7.8); Neutrophils % 63.5 % (37.0-80.0); Nucleated Red Blood Cells # 0 10^3/uL; Nucleated Red Blood Cells % 0 %; Platelet Count 213 K/mm3 (142-424); Red Blood Count 4.73 M/mm3 (4.20-5.40); Red Cell Distribution Width 12.9 % (11.5-17.5); Red Cell Distribution Width-SD 43.2 fL; White Blood Count 7.5 K/mm3 (4.8-10.8)
[2025-01-03 15:05] LABS: Alanine Aminotransferase 19 U/L (12-78); Albumin Level 4.7 g/dl (3.5-5.0); Alkaline Phosphatase 101 U/L (38-126); Anion Gap 9.5 mEq/L (5-15); Aspartate Amino Transferase 22 U/L (14-36); Bilirubin,Direct 0.2 mg/dl (0.0-0.4); Bilirubin,Indirect 0.7 mg/dL (0.0-0.9); Bilirubin,Total 0.9 mg/dl (0.2-1.3); Bilirubin,Unconjugated 0.7 mg/dL (0.0-1.1); Blood Urea Nitrogen 18 mg/dl (7-17); Calcium 10.2 mg/dl (8.4-10.2); Carbon Dioxide 29 mmol/L (22.0-30.0); Chloride 104 mmol/L (98-107); Chol/HDL Ratio 2.9 (1-3.5); Cholesterol 162 mg/dl (140-200); Estimated Glomerular Filt Rate 54 ml/min (>60); GFR (African American) 66 ML/MIN (>60); Glucose 121 mg/dl (74-100); HDL Cholesterol 56 mg/dl (40-60); Magnesium 2.3 mg/dl (1.6-2.3); Potassium 4.5 mmoL/L (3.5-5.1); Sodium 138 mmol/L (136-145); Total Protein,Serum 7.2 g/dl (6.3-8.2); Triglycerides 108 mg/dl (30-150); VLDL Cholesterol 22 mg/dL (0-40)
[2025-01-03 15:16] LABS: Direct LDL Cholesterol 75.92 mg/dL (100-129)
[2025-01-03 15:21] LABS: Free T4 (Free Thyroxine) 1.34 ng/dl (0.78-2.19)
[2025-01-03 15:36] LABS: Thyroid Stimulating Hormone 1.34 uIU/mL (0.465-4.68)
== END 2025-01-03 23:59 | disposition home or self-care (01) ==
LOC: LAB 14:22
PROVIDERS: PCP Nurse Practitioner Family; Visit Provider Physician Assistant
DX: I48.0 Paroxysmal atrial fibrillation (principal); E78.5 Hyperlipidemia, unspecified; M79.7 Fibromyalgia; F32.A Depression, unspecified; K21.9 Gastro-esophageal reflux disease without esophagitis; E03.9 Hypothyroidism, unspecified; I10 Essential (primary) hypertension; Z86.73 Personal history of transient ischemic attack (TIA), and cerebral infarction without residual deficits
CPT/HCPCS: 36415; 80048; 80061; 80076; 83735; 84439; 84443; 85025

== ENCOUNTER 2025-02-14 11:56 | Emergency (ER) | payer MEDICARE, MEDICAID, SELFPAY ==
[2025-02-14] VITALS (7 sets, daily range): BP systolic 116–157; BP diastolic 62–92; PULSE 60–74; RESP 18; TEMP 36.6–36.8; O2SAT 95–97; BMI 29.9
--- OUTSIDE RECORDS SUMMARY | 2025-02-14 12:08 | XMS_ITS | Clinical Summary ---
Author Organization [facility] Address [address] [place] [address] Care Team Providers Care Building Repair Maintenance Supervisor Name Role Phone Jorge He MD Primary Care Provider + [phone] Allergies No known active allergies Medications aspirin [...] 06/27/2020 Active cholecalciferol (Cholecalcifero l) 250 MCG (79707 UT) capsule TAKE 1 CAPSULE Weekly 07/01/2020 [...] - Risk 60-74 years 1-dose series) 2010 [id number] Vaccine (3 - Moderna risk series) 10/08/2020 09/10/2020, 07/29/2020 [facility]-Pneumococcal Vaccine: 50 + Years (2 of 2 - PCV) 05/13/2021 05/13/2020 [facility]-Influenza Vaccine (#1) 2025 HPV Vaccines Aged Out No longer [...] this topic Insurance [employer] MEDICARE Care Teams Building Repair Maintenance Supervisor Relationship Specialty Start Date End Date oJrge He MD [address] [place] [address] [place] [address] PCP - General 11/28/20
--- NOTE | 2025-02-14 12:12 | HMH.EDGENADL ---
Discharge Plan Disposition Patient Disposition: Home, Self-Care Condition: Good Prescriptions Prescriptions: New ondansetron 4 mg tablet,disintegrating 4 mg PO Q6H PRN (Reason: nausea and vomiting) Qty: 10 0RF No Action atorvastatin 20 mg tablet 20 mg PO DAILY ropinirole 1 mg tablet 1 mg PO BID cetirizine 10 mg tablet 10 mg PO DAILY tramadol 50 mg tablet 50 mg PO BID hydrocortisone [Procto-Med HC] 2.5 % cream with perineal applicator 1 applic topical DAILY famotidine 20 mg tablet 20 mg PO DAILY fluticasone propionate 50 mcg/actuation spray,suspension 1 spray intranasal DAILY diclofenac sodium 1 % gel 2 g topical QID Qty: 100 2RF Rx Instructions: apply to single elbow, wrist or hand; for hand includes palm/fingers/back of hand buspirone 10 mg tablet PO bisoprolol fumarate 5 mg tablet 5 mg PO BID Qty: 60 11RF Eliquis 5 mg tablet 5 mg PO BID Qty: 60 2RF Sutab 1.479-0.188- 0.225 gram tablet See Rx Instructions PO PER PKG DIR Qty: 24 0RF Rx Instructions: PO PER PKG DIR levothyroxine 75 mcg tablet 75 mcg PO DAILY duloxetine 60 mg capsule,delayed release(DR/EC) 60 mg PO DAILY pregabalin 150 mg capsule 150 mg PO DAILY Referrals Follow up/Referrals: Irasema England APRN [Primary Care Provider, Medical] - See instructions Activity Restrictions/Add. Instructions Additional Instructions/Restrictions: Please return to the emergency department with any worsening signs or symptoms, please use your antinausea medicine as needed, please follow-up with your primary care doctor in the upcoming days/weeks. Clinical Impressions Clinical Impression: Colitis Instructions Patient Instructions: DI for Colitis Print Language Print Language: Malay Discharge ED Provider: Fransico Johns General Adult HPI <KOREY Sims - Last Filed: 02/14/25 15:12> General Chief complaint: Weakness Stated complaint: low blood pressure, dizzy, weak Time Seen by Provider: 02/14/25 12:12 Mode of Arrival: Ambulatory Source of Information: Patient Limitations: No Limitations History of Present Illness HPI narrative: 74-year-old female presents the emergency department at the recommendation of urgent care treatment facility for low blood pressure , patient is unsure of how low , the blood pressure reading was at the [facility]. Thus prompted her emergency department visit. Patient admits to fatigue generalized weakness, episodes of diarrhea since last night, as well as nausea, patient states that she got overheated , yesterday, patient states she was out of town and did a lot of walking around , which is not common for her. Denies any fever chills chest pain, admit to some lightheadedness, denies any overt presyncopal or syncopal event, denies any shortness of breath, denies any overt abdominal pain described as abdominal cramping, denies any constipation, urinary type symptomatology, denies any melena hematochezia hematemesis or hemoptysis. Patient is a former smoker, also most of former alcohol use, denies any other drug use. Initial triage vitals are unremarkable, blood pressure within normal limits, other past medical history is consistent with atrial fibrillation on anticoagulation therapy with Eliquis, osteoarthritis, degenerative disease of the lumbar spine, stenosis, CKD stage III, history of PE, GERD, hypertension, RLS, varicosity, anxiety, hypothyroidism, vitamin D deficiency, fibromyalgia, MDD. Onset (ago): hour(s) Related Data Home Medications ?Medication ?Instructions ?Recorded ?Confirmed duloxetine 60 mg capsule,delayed 60 mg PO DAILY 07/21/24 02/14/25 release levothyroxine 75 mcg tablet 75 mcg PO DAILY 07/21/24 02/14/25 pregabalin 150 mg capsule 150 mg PO DAILY 07/21/24 02/14/25 atorvastatin 20 mg tablet 20 mg PO DAILY 01/03/25 02/14/25 cetirizine 10 mg tablet 10 mg PO DAILY 01/03/25 02/14/25 famotidine 20 mg tablet 20 mg PO DAILY 01/03/25 02/14/25 fluticasone propionate 50 1 spray intranasal DAILY 01/03/25 02/14/25 mcg/actuation nasal spray,suspension hydrocortisone 2.5 % topical cream 1 applic topical DAILY 01/03/25 02/14/25 with perineal applicator (Procto-Med ) ropinirole 1 mg tablet 1 mg PO BID 01/03/25 02/14/25 tramadol 50 mg tablet 50 mg PO BID 01/03/25 02/14/25 buspirone 10 mg tablet mg PO 02/14/25 02/14/25 Previous Rx's ?Medication ?Instructions ?Recorded bisoprolol fumarate 5 mg tablet 5 mg PO BID #60 tabs 10/18/24 diclofenac sodium 1 % topical gel 2 g topical QID #100 grams 11/22/24 apixaban 5 mg tablet (Eliquis) 5 mg PO BID #60 tabs 12/11/24 sodium sul 1.479 gram-potas ch See Rx Instructions PO PER PKG DIR 01/24/25 0.188 gram-magnes sul 0.225 gram #24 tabs tablet (Sutab) ondansetron 4 mg disintegrating 4 mg PO Q6H PRN nausea and 02/14/25 tablet vomiting #10 tabs Allergies Allergy/AdvReac Type Severity Reaction Status Date / Time loratadine (From Claritin) Allergy Other Verified 02/14/25 11:11 [facility] <KOREY Sims - Last Filed: 02/14/25 15:12> [facility] Disclaimer: The information contained in this section may have been updated after the patient was seen, as this information can be updated by other users. Medical History Wheezing Cough Chest pressure History of COVID-19 Bronchitis Allergies History of cataract Hyperlipidemia Hypertension Edema Tonsillectomy planned Skin cancer Atrial fibrillation Falling episodes Daytime somnolence Abnormal EKG Restless sleeper Lumbar disc disease with radiculopathy Anxiety Headache Hypothyroidism Vitamin D deficiency Fibromyalgia Lumbar disc disease with radiculopathy Depression GERD (gastroesophageal reflux disease) Surgical History History of left knee replacement H/O tubal ligation History of surgery LEFT WRIST SURGERY - PLATE / SCREWS H/O adenoidectomy History of back surgery History of colonoscopy History of right knee joint replacement Family History Mother Family history of cervical cancer Father Family history of myocardial infarction Other Cancer Social History Smoking Status: Never smoker years smoked: 4 smoking status stop date: 1997 second hand exposure: Yes alcohol intake: never substance use type: denies use current occupational status: retired Travel in the last 8 weeks?: None housing: house number of children: 3 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 Have you lived/traveled outside [place] in past 30 days?: No Contact w/someone who lives/traveled outside US past 30 days?: No Exposure to someone with infectious disease in past 14 days?: No Do you have a fever (greater than 100.4 F or 38 C)?: No Have you tested positive for COVID-19?: No Exposed to someone with COVID-19 in past 14 days?: No Do you have a sore throat?: No Do you have a cough?: No Do you have any weakness?: Yes Do you have any diarrhea?: No Are you experiencing any unusual bleeding?: No Do you have any muscle aches/pain?: No Do you have any abdominal pain?: No Are you experiencing loss of taste or smell?: No Other Medical History Have you received the Flu Vaccine for this season: Yes Have you received the Pneumonia Vaccine: Yes <KOREY Sims - Last Filed: 02/14/25 15:12> ROS Obtained: Yes All systems reviewed & no additional complaints except as documented Physical Exam <KOREY Sims - Last Filed: 02/14/25 15:12> General General appearance: alert and in no apparent distress Head Head exam: atraumatic and normocephalic Eye Eye exam: Present PERRL and EOMI ENT ENT exam: Present mucous membranes moist Neck Neck exam: Present normal inspection Chest Chest inspection: Present normal inspection and symmetric chest wall rise Respiratory Respiratory exam: Present normal lung sounds bilaterally; Absent respiratory distress Cardiovascular Cardiovascular exam: Present regular rate and normal rhythm Abdominal Exam Abdominal exam: Present soft; Absent tenderness Extremities Exam Extremities exam: Present normal inspection Neurological Exam Neurological exam: Present alert, oriented X3 and other (Ambulates unassisted, global weakness noted, no focal neurological deficit) Psychiatric Psychiatric exam: Present normal affect Skin Skin exam: Present warm and dry Medical Decision Making <KOREY Sims - Last Filed: 02/14/25 15:12> Medical Records Medical records reviewed: Yes I reviewed the patient's medical records. Screening: Per USPSTF and CDC recommendations, given the prevalence of disease in our region, it is our hospital?s policy to screen for HIV and viral Hepatitis for all patients aged 18 and over and those with ongoing risk factors. Jose Inquiry Pt receiving controlled substance: No Jose was queried for this patient: No Vital Signs: 02/14/25 12:09 02/14/25 12:28 02/14/25 12:45 Temperature 97.9 F Temperature Source Oral Pulse Rate 60 63 Pulse Rate [Right Radial] 64 Respiratory Rate 18 Blood Pressure 128/62 130/75 Blood Pressure [Right Arm] 143/75 H Blood Pressure Mean Blood Pressure Mean [Right Arm] 97 Blood Pressure Source [Right Arm] Automatic Cuff Blood Pressure Position [Right Arm] Supine 02 Sat by Pulse Oximetry 95 96 95 Oxygen Delivery Method Room Air 02/14/25 13:01 02/14/25 13:31 02/14/25 14:00 Temperature Temperature Source Pulse Rate 71 65 74 Pulse Rate [Right Radial] Respiratory Rate Blood Pressure 116/92 H 157/75 H 129/77 Blood Pressure [Right Arm] Blood Pressure Mean 94 Blood Pressure Mean [Right Arm] Blood Pressure Source [Right Arm] Blood Pressure Position [Right Arm] 02 Sat by Pulse Oximetry 95 96 97 Oxygen Delivery Method 02/14/25 15:22 Temperature 98.2 F Temperature Source Pulse Rate 74 Pulse Rate [Right Radial] Respiratory Rate 18 Blood Pressure 129/77 Blood Pressure [Right Arm] Blood Pressure Mean Blood Pressure Mean [Right Arm] Blood Pressure Source [Right Arm] Blood Pressure Position [Right Arm] 02 Sat by Pulse Oximetry Oxygen Delivery Method Lab Data Lab results reviewed: Yes I reviewed the patient's lab results. Lab Results 02/14/25 12:04: Urine Color Yellow, Urine Appearance Clear, Urine pH 5.5, Ur Specific Huddy 1.025, Urine Protein Negative, Urine Glucose (UA) Negative, Urine Ketones Negative, Urine Blood Negative, Urine Nitrate Negative, Urine Bilirubin Negative, Urine Urobilinogen 0.2, Ur Leukocyte Esterase Negative, Urine RBC None, Urine WBC Occasional, Ur Squamous Epith Cells Occasional, Urine Bacteria Trace 02/14/25 12:15: WBC 6.0, RBC 4.48, Hgb 14.2, Hct 41.7, MCV 93.1, MCH 31.7 H, MCHC 34.1, RDW 13.3, Plt Count 179, MPV 9.4, Neut % (Auto) 64.9, Lymph % (Auto) 18.6, Heard % (Auto) 11.0 H, Eos % (Auto) 4.7, Baso % (Auto) 0.5, Neut # (Auto) 3.9, Lymph # (Auto) 1.1, Heard # (Auto) 0.7, Eos # (Auto) 0.3, Baso # (Auto) 0.0, Sodium 137, Potassium 4.3, Chloride 101, Carbon Dioxide 29, Anion Gap 11.3, BUN 17, Creatinine 0.90, Estimated Creat Clear 64, Estimated GFR 61, Est GFR ( Amer) 74, Glucose 128 H, Calcium 10.0, Magnesium 2.1, Total Bilirubin 1.1, AST 28, ALT 22, Alkaline Phosphatase 103, Troponin I < 0.01, NT-Pro-B Natriuret Pep 455 H, Total Protein 7.6, Albumin 4.1, Globulin 3.5 H, Albumin/Globulin Ratio 1.2, Lipase 75, HCV Ab FABIAN w/Rflx PCR Qn Negative, HIV Ag/Ab Combo Qual Negative 02/14/25 12:48: Lactate 1.3 02/14/25 12:15 02/14/25 12:15 Orders (Tests/Meds): ED MEDICATIONS Discontinued Medications Generic Name Dose Route Start Last Admin Trade Name Freq PRN Reason Stop Dose Admin Lactated Ringer's 1,000 mls @ 999 mls/hr 02/14/25 12:21 02/14/25 12:25 Lactated Ringer's 1000 Ml Bag IV 02/14/25 13:21 999 mls/hr .Q1H1M ONE Administration Iopamidol 75 ml 02/14/25 13:16 02/14/25 13:17 Iopamidol-370 (76%);100ml Bottle IV 02/14/25 13:17 75 ml ONCE ONE Administration Ondansetron HCl 4 mg 02/14/25 12:21 02/14/25 12:25 Ondansetron 4mg/2ml Vial IV 02/14/25 12:22 4 mg ONCE ONE Administration Sodium Chloride 10 ml 02/14/25 13:16 02/14/25 13:17 Sodium Chloride 0.9% 10ml Syr (Rad Only) IV 03/16/25 13:15 10 ml NEEDED PRN Administration Maintain IV Site ORDERS Category Date Time Status CT abdomen pelvis w con Stat Cat Scan 02/14/25 12:18 Completed XR chest portable Stat Exams 02/14/25 12:18 Completed Complete Blood Count Auto Diff Stat Lab 02/14/25 12:15 Completed Comprehensive Metabolic Panel Stat Lab 02/14/25 12:15 Completed HIV Combo Stat Lab 02/14/25 12:15 Completed Hepatitis C Ab Qual. W/ RFX Stat Lab 02/14/25 12:15 Completed Lactic Acid Stat Lab 02/14/25 12:48 Completed Lipase Stat Lab 02/14/25 12:15 Completed Magnesium Stat Lab 02/14/25 12:15 Completed NT Pro Brain Natriuretic Pep. Stat Lab 02/14/25 12:15 Completed Troponin I Stat Lab 02/14/25 12:15 Completed Urinalysis and Microscopic Stat Lab 02/14/25 12:04 Completed Medical Decision Narrative: 74-year-old female presents emergency department with multiple complaints, see HPI for detail past medical history, differential diagnosis include but not limited to, ACS, cardiac arrhythmia, electrolyte disturbance, hypovolemia, acute kidney injury, gastroenteritis, colitis, ileitis, diverticulitis, pancreatitis, acute UTI, acute pyelonephritis, among others. I discussed this patient's case with the attending physician Dr. Johns Will obtain basic laboratory studies, lactic acid level, lipase level, magnesium level, proBNP, troponin, UA, will obtain CXR, EKG, and CT ab pelvis with contrast for further evaluation and characterization, liter LR IV and 4 mg of Zofran for nausea. CBC is unremarkable CMP is notable for normal troponin at less than 0.01, proBNP is mildly elevated at 455, lipase the normal limits, otherwise unremarkable CMP. UA is unremarkable. No urine bacteria, no leukocyte esterase, no nitrites. Lactic acid level within normal limits. I reviewed the patient's chest x-ray along with the corresponding radiologic report, no acute process on portable exam. I reviewed the patient's CT abdomen pelvis with contrast along with the corresponding radiologic report, distal colitis, bilateral adrenal nodules which do not meet strict criteria for adenomas however in the absence of known malignancy adrenal nodules are usually benign. Reexamination of the patient at 3:05 PM, patient is resting comfortably in the bed, she has finished her IV fluids, no other acute complaints, patient has remained hemodynamically stable throughout her time in the emergency department, I discussed all results with the patient at the bedside, patient was given strict ED return precautions, will prescribe 4 mg p.o. Zofran as needed for nausea, recommend advance diet as tolerated, please follow-up with your PCP and other providers in the upcoming days. Patient voiced understanding and agreement to current treatment plan/discharge plan. <Fransico Johns MD - Last Filed: 02/14/25 18:35> Vital Signs: 02/14/25 12:09 02/14/25 12:28 02/14/25 12:45 Temperature 97.9 F Temperature Source Oral Pulse Rate 60 63 Pulse Rate [Right Radial] 64 Respiratory Rate 18 Blood Pressure 128/62 130/75 Blood Pressure [Right Arm] 143/75 H Blood Pressure Mean Blood Pressure Mean [Right Arm] 97 Blood Pressure Source [Right Arm] Automatic Cuff Blood Pressure Position [Right Arm] Supine 02 Sat by Pulse Oximetry 95 96 95 Oxygen Delivery Method Room Air 02/14/25 13:01 02/14/25 13:31 02/14/25 14:00 Temperature Temperature Source Pulse Rate 71 65 74 Pulse Rate [Right Radial] Respiratory Rate Blood Pressure 116/92 H 157/75 H 129/77 Blood Pressure [Right Arm] Blood Pressure Mean 94 Blood Pressure Mean [Right Arm] Blood Pressure Source [Right Arm] Blood Pressure Position [Right Arm] 02 Sat by Pulse Oximetry 95 96 97 Oxygen Delivery Method 02/14/25 15:22 Temperature 98.2 F Temperature Source Pulse Rate 74 Pulse Rate [Right Radial] Respiratory Rate 18 Blood Pressure 129/77 Blood Pressure [Right Arm] Blood Pressure Mean Blood Pressure Mean [Right Arm] Blood Pressure Source [Right Arm] Blood Pressure Position [Right Arm] 02 Sat by Pulse Oximetry Oxygen Delivery Method Lab Data Lab Results 02/14/25 12:04: Urine Color Yellow, Urine Appearance Clear, Urine pH 5.5, Ur Specific Huddy 1.025, Urine Protein Negative, Urine Glucose (UA) Negative, Urine Ketones Negative, Urine Blood Negative, Urine Nitrate Negative, Urine Bilirubin Negative, Urine Urobilinogen 0.2, Ur Leukocyte Esterase Negative, Urine RBC None, Urine WBC Occasional, Ur Squamous Epith Cells Occasional, Urine Bacteria Trace 02/14/25 12:15: WBC 6.0, RBC 4.48, Hgb 14.2, Hct 41.7, MCV 93.1, MCH 31.7 H, MCHC 34.1, RDW 13.3, Plt Count 179, MPV 9.4, Neut % (Auto) 64.9, Lymph % (Auto) 18.6, Heard % (Auto) 11.0 H, Eos % (Auto) 4.7, Baso % (Auto) 0.5, Neut # (Auto) 3.9, Lymph # (Auto) 1.1, Heard # (Auto) 0.7, Eos # (Auto) 0.3, Baso # (Auto) 0.0, Sodium 137, Potassium 4.3, Chloride 101, Carbon Dioxide 29, Anion Gap 11.3, BUN 17, Creatinine 0.90, Estimated Creat Clear 64, Estimated GFR 61, Est GFR ( Amer) 74, Glucose 128 H, Calcium 10.0, Magnesium 2.1, Total Bilirubin 1.1, AST 28, ALT 22, Alkaline Phosphatase 103, Troponin I < 0.01, NT-Pro-B Natriuret Pep 455 H, Total Protein 7.6, Albumin 4.1, Globulin 3.5 H, Albumin/Globulin Ratio 1.2, Lipase 75, HCV Ab FABIAN w/Rflx PCR Qn Negative, HIV Ag/Ab Combo Qual Negative 02/14/25 12:48: Lactate 1.3 Orders (Tests/Meds): ED MEDICATIONS Discontinued Medications Generic Name Dose Route Start Last Admin Trade Name Freq PRN Reason Stop Dose Admin Lactated Ringer's 1,000 mls @ 999 mls/hr 02/14/25 12:21 02/14/25 12:25 Lactated Ringer's 1000 Ml Bag IV 02/14/25 13:21 999 mls/hr .Q1H1M ONE Administration Iopamidol 75 ml 02/14/25 13:16 02/14/25 13:17 Iopamidol-370 (76%);100ml Bottle IV 02/14/25 13:17 75 ml ONCE ONE Administration Ondansetron HCl 4 mg 02/14/25 12:21 02/14/25 12:25 Ondansetron 4mg/2ml Vial IV 02/14/25 12:22 4 mg ONCE ONE Administration Sodium Chloride 10 ml 02/14/25 13:16 02/14/25 13:17 Sodium Chloride 0.9% 10ml Syr (Rad Only) IV 03/16/25 13:15 10 ml NEEDED PRN Administration Maintain IV Site ORDERS Category Date Time Status CT abdomen pelvis w con Stat Cat Scan 02/14/25 12:18 Completed XR chest portable Stat Exams 02/14/25 12:18 Completed Complete Blood Count Auto Diff Stat Lab 02/14/25 12:15 Completed Comprehensive Metabolic Panel Stat Lab 02/14/25 12:15 Completed HIV Combo Stat Lab 02/14/25 12:15 Completed Hepatitis C Ab Qual. W/ RFX Stat Lab 02/14/25 12:15 Completed Lactic Acid Stat Lab 02/14/25 12:48 Completed Lipase Stat Lab 02/14/25 12:15 Completed Magnesium Stat Lab 02/14/25 12:15 Completed NT Pro Brain Natriuretic Pep. Stat Lab 02/14/25 12:15 Completed Troponin I Stat Lab 02/14/25 12:15 Completed Urinalysis and Microscopic Stat Lab 02/14/25 12:04 Completed Medical Decision Narrative: 74-year-old female presents emergency department with multiple complaints, see HPI for detail past medical history, differential diagnosis include but not limited to, ACS, cardiac arrhythmia, electrolyte disturbance, hypovolemia, acute kidney injury, gastroenteritis, colitis, ileitis, diverticulitis, pancreatitis, acute UTI, acute pyelonephritis, among others. I discussed this patient's case with the attending physician Dr. Johns Will obtain basic laboratory studies, lactic acid level, lipase level, magnesium level, proBNP, troponin, UA, will obtain CXR, EKG, and CT ab pelvis with contrast for further evaluation and characterization, liter LR IV and 4 mg of Zofran for nausea. CBC is unremarkable CMP is notable for normal troponin at less than 0.01, proBNP is mildly elevated at 455, lipase the normal limits, otherwise unremarkable CMP. UA is unremarkable. No urine bacteria, no leukocyte esterase, no nitrites. Lactic acid level within normal limits. I reviewed the patient's chest x-ray along with the corresponding radiologic report, no acute process on portable exam. I reviewed the patient's CT abdomen pelvis with contrast along with the corresponding radiologic report, distal colitis, bilateral adrenal nodules which do not meet strict criteria for adenomas however in the absence of known malignancy adrenal nodules are usually benign. Reexamination of the patient at 3:05 PM, patient is resting comfortably in the bed, she has finished her IV fluids, no other acute complaints, patient has remained hemodynamically stable throughout her time in the emergency department, I discussed all results with the patient at the bedside, patient was given strict ED return precautions, will prescribe 4 mg p.o. Zofran as needed for nausea, recommend advance diet as tolerated, please follow-up with your PCP and other providers in the upcoming days. Patient voiced understanding and agreement to current treatment plan/discharge plan. I was consulted by the HANNAH, and we discussed the complexity of the problems being addressed. I approve the treatment and management plan for this patient's care in the emergency department, thus performing a substantive portion of the medical decision making. Fransico Johns MD Critical Care <KOREY Sims - Last Filed: 02/14/25 15:12> Critical Care Time Critical Care Time: No
--- NOTE | 2025-02-14 12:18 | XR_ITS ---
FINAL REPORT CLINICAL HISTORY: SOA COMPARISON: 09/26/2023 FINDINGS: A portable view of the chest is obtained. Cardiac and mediastinal silhouettes are normal. The lungs are clear. There is no pleural effusion or pneumothorax. IMPRESSION: No acute process on this portable exam. Reviewed, Interpreted and Dictated by Maricruz Caro MD Transcribed by Salina Santacruz Authenticated and . [facility]
--- NOTE | 2025-02-14 12:18 | CT_ITS ---
FINAL REPORT TECHNIQUE: Thin section axial images were obtained through the abdomen after intravenous contrast. Reconstruction images were obtained from the axial data. Exam was performed using dose reduction techniques. CLINICAL HISTORY: Diffuse ABD pain, diarrhea FINDINGS: The lung bases are clear. The liver is homogeneous. The gallbladder is present. There are bilateral adrenal nodules measuring 16 mm on the right and 13 mm on the left. These do not meet strict criteria for adenomas on this exam. The spleen and pancreas are unremarkable. There is no hydronephrosis or solid renal mass. Abdominal GI tract is without acute abnormality. There is no abdominal lymphadenopathy or ascites. The appendix is normal. There is long segment distal colon wall thickening, favor colitis. The uterus is unremarkable for age. There is no pelvic lymphadenopathy or ascites. No acute osseous abnormalities identified. IMPRESSION: Distal colitis. Bilateral adrenal nodules which do not meet strict criteria for adenomas however in the absence of known malignancy, adrenal nodules are usually benign. Reviewed, Interpreted and Dictated by Maricruz Caro MD Transcribed by Salina Santacruz Authenticated and [facility]
[2025-02-14 12:24] LABS: Microscopic, Urine URINE MICROSCOPIC (MICROSCOPIC)
[2025-02-14] MEDS: ONDANSETRON 4MG/2ML VIAL 4 MG IV (12:25)
[2025-02-14] MEDS: LACTATED RINGERS 1000ML 1,000 ML 999 ML IV (12:25)
--- NOTE | 2025-02-14 12:26 | ECG_ITS ---
APPROVED REPORT Exam: Resting ECG HR:60 bpm ECG Measurements Heart Rate 60 AXES CA 194 P 50 QRSd 101 QRS -10 QT 416 T 55 QTc 418 Conclusion SINUS RHYTHM MINIMAL ST DEPRESSION [0.025+ mV ST DEPRESSION] BORDERLINE ECG UNCONFIRMED REPORT Normal sinus rhythm. Isolated ST depressions in lead III and mild ST depressions in V2. These are nonspecific. Isolated ST elevation in lead I no T wave inversions. Electronically signed by : KOLBY JACQUES, 02/14/2025 16:17:17
[2025-02-14 12:28] LABS: Albumin Level 4.1 g/dl (3.5-5.0); Chloride 101 mmol/L (98-107)
[2025-02-14 12:29] LABS: Potassium 4.3 mmoL/L (3.5-5.1); Sodium 137 mmol/L (136-145)
[2025-02-14 12:31] LABS: Alanine Aminotransferase 22 U/L (12-78); Anion Gap 11.3 mEq/L (5-15); Aspartate Amino Transferase 28 U/L (14-36); Blood Urea Nitrogen 17 mg/dl (7-17); Carbon Dioxide 29 mmol/L (22.0-30.0); Creatinine Clearance Estimated 64 mL/min (50-200); Creatinine,Serum 0.90 mg/dl (0.52-1.04); Estimated Glomerular Filt Rate 61 ml/min (>60); GFR (African American) 74 ML/MIN (>60)
[2025-02-14 12:32] LABS: Albumin/Globulin Ratio 1.2 (1.1-1.8); Alkaline Phosphatase 103 U/L (38-126); Bilirubin,Total 1.1 mg/dl (0.2-1.3); Calcium 10.0 mg/dl (8.4-10.2); Globulin 3.5 g/dL (1.3-3.2); Glucose 128 mg/dl (74-100); Lipase 75 U/L (23-300); Magnesium 2.1 mg/dl (1.6-2.3); Total Protein,Serum 7.6 g/dl (6.3-8.2)
[2025-02-14 12:36] LABS: Hematocrit 41.7 % (37.0-47.0); Hemoglobin 14.2 g/dL (12.2-16.2); Immature Granulocytes % 0.3 %; Mean Corpuscular HGB Conc 34.1 g/dL (31.8-35.4); Mean Corpuscular Hemoglobin 31.7 pg (27.0-31.2); Mean Corpuscular Volume 93.1 fl (81-99); Nucleated Red Blood Cells % 0 %; Platelet Count 179 K/mm3 (142-424); Red Blood Count 4.48 M/mm3 (4.20-5.40); Red Cell Distribution Width-SD 45.1 fL; White Blood Count 6.0 K/mm3 (4.8-10.8)
[2025-02-14 12:42] LABS: NT Pro Brain Natriuretic Pep. 455 pg/mL (0-125)
[2025-02-14 12:48] LABS: Bilirubin,Urine Negative (Negative); Color,Urine YELLOW (Yellow); Glucose,Urine (UA) Negative (Negative); Ketones,Urine Negative (Negative); Leukocyte Esterase,Urine Negative (Negative); PH,Urine 5.5 (5.0-8.5); Protein,Urine Negative (Negative); Specific Gravity, Urine 1.025 (1.005-1.030); Urobilinogen,Urine 0.2 EU/dl (0.2)
[2025-02-14 12:51] LABS: Troponin I < 0.01 ng/ml (0.00-0.034)
[2025-02-14 13:00] LABS: Bacteria,Urine Trace /lpf; Squamous Epithelial Cell,Urine Occasional #/hpf (0-5); WBC,Urine Occasional #/hpf (0-3)
[2025-02-14] MEDS: SODIUM CHLORIDE 0.9% 10ML SYR (RAD ONLY) 10 ML IV (13:17)
[2025-02-14] MEDS: IOPAMIDOL-370 (76%);100ML BOTTLE 75 ML IV (13:17)
[2025-02-14 13:33] LABS: Hepatitis C Ab Qual. W/ RFX NEGATIVE (Negative)
== END 2025-02-14 15:24 | disposition home or self-care (01) ==
PROVIDERS: Physician Assistant; Emergency Provider Student in an Organized Health Care Education/Training Program; PCP Nurse Practitioner Family
DX: R10.84 Generalized abdominal pain (principal); K52.9 Noninfective gastroenteritis and colitis, unspecified; E78.5 Hyperlipidemia, unspecified; I48.91 Unspecified atrial fibrillation; K21.9 Gastro-esophageal reflux disease without esophagitis
CPT/HCPCS: 71045; 74177; 80053; 81001; 83605; 83690; 83735; 83880; 84484; 85025; 86803; 87389; 93005; 96361; 96374; 99285; J2405; J7120; Q9967

== ENCOUNTER 2025-03-04 15:17 | Outpatient (POV) | payer MEDICARE, MEDICAID, SELFPAY ==
--- OUTSIDE RECORDS SUMMARY | 2025-03-04 15:20 | XMS_ITS | Clinical Summary ---
Author Organization [facility] Address [address] [place] [address] Care Team Providers Care Rock Contractor Name Role Phone Jorge He MD Primary Care Provider + [phone] Allergies No known active allergies Medications aspirin [...] 06/27/2020 Active cholecalciferol (Cholecalcifero l) 250 MCG (62242 UT) capsule TAKE 1 CAPSULE Weekly 07/01/2020 [...] Screening 1950 [facility]-Medicare Annual Wellness (AWV) 1950 [facility]-Infant/Child/Adol SDOH Screenings 1950 [facility]- SDOH Screenings 1968 [facility]-Adult SDOH Screenings 1968 [facility]-DTaP,Tdap,and Td Vaccine s (1 - Tdap) 1969 [facility]-Zoster Vaccines (1 of 2) 1969 CT Colonography 1995 Colonoscopy 1995 FIT-DNA 1995 FIT 1995 FOBT 1995 Sigmoidoscopy 1995 [facility]-Colorectal Cancer Screening 1995 [facility]-Breast Cancer Screening 2000 [facility]-RSV Vaccine: 60+ Years o r (1 - Risk 60-74 years 1-dose series) 2010 [id number]-15 Vaccine (3 - Moderna risk series) 10/08/2020 [...] this topic Insurance [employer] MEDICARE Care Teams Rock Contractor Relationship Specialty Start Date End Date Jorge He MD [address] [place] [address] [place] [address] PCP - General 11/28/20
--- NOTE | 2025-03-04 15:47 | EXP.PAIN.SOA ---
[facility] Disclaimer: The information contained in this section may have been updated after the patient was seen, as this information can be updated by other users. Medical History Wheezing Cough Chest pressure History of COVID-19 Bronchitis Allergies History of cataract Hyperlipidemia Hypertension Edema Tonsillectomy planned Skin cancer Atrial fibrillation Falling episodes Daytime somnolence Abnormal EKG Restless sleeper Lumbar disc disease with radiculopathy Anxiety Headache Hypothyroidism Vitamin D deficiency Fibromyalgia Lumbar disc disease with radiculopathy Depression GERD (gastroesophageal reflux disease) Surgical History History of left knee replacement H/O tubal ligation History of surgery LEFT WRIST SURGERY - PLATE / SCREWS H/O adenoidectomy History of back surgery History of colonoscopy History of right knee joint replacement Family History Mother Family history of cervical cancer Father Family history of myocardial infarction Other Cancer Social History Smoking Status: Never smoker years smoked: 4 smoking status stop date: 1997 second hand exposure: Yes alcohol intake: never substance use type: denies use current occupational status: retired Travel in the last 8 weeks?: None housing: house number of children: 3 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 Patient does rated her pain as a 7 out of 10. Patient denies any new falls or injuries. She does state if it is still that same time we saw her last for May. Patient states it is all across her low back and into her hips. Patient denies any continuous symptoms into her legs. Patient states that it is just worse with certain positions and that it does interfere with her ability perform activities of daily living such as cooking and cleaning. Patient does state today that she is interested in doing injections for this pain as she has a lot of difficulty doing even light housework. Patient does describe it as a deep achy sensation. Patient was prescribed compounded cream from our office in the past however states that she is out of this prescription and would like additional. Her Jose has been reviewed and is appropriate. Review of Systems: General: No recent weight changes, no fever, no sleep disturbances Respiratory: No cough, no shortness of air, no recurring pulmonary infections Cardiovascular/peripheral vascular: No chest pain, no palpitations, no edema, no shortness of breath Gastrointestinal: No new onset incontinence, normal bowel movements reported Genitourinary: No new onset incontinence Musculoskeletal: Low back pain, bilateral hip pain Psychiatric: [Normal mood/affect] Neurological: [Denies weakness in extremities], [denies balance issues] Pain at rest (0-10 scale): 7 Objective Objective:: Physical Exam: General: Alert and oriented x3, no acute distress, pleasant and cooperative Lungs: Respirations even and unlabored, symmetrical chest expansion Eyes: PERRL Musculoskeletal: Flexion and extension of lumbar [spine] somewhat guarded secondary to pain, [antalgic gait noted] point tenderness along bilateral SIs with positive bilateral Rosita's, Lidia's, Gaenslen's, compression and distraction exam Neurological: Speech clear, no gross sensory deficit Has patient had previous pain injection?: No Conservative treatment options previously tried: Home exercise plan Length of treatment: Longer than 12-week Meds Home Medications and Allergies Home Medications ?Medication ?Instructions ?Recorded ?Confirmed ?Type duloxetine 60 mg capsule,delayed 60 mg PO DAILY 07/21/24 02/14/25 History release levothyroxine 75 mcg tablet 75 mcg PO DAILY 07/21/24 02/14/25 History pregabalin 150 mg capsule 150 mg PO DAILY 07/21/24 02/14/25 History bisoprolol fumarate 5 mg tablet 5 mg PO BID #60 tabs 10/18/24 02/14/25 Rx diclofenac sodium 1 % topical gel 2 g topical QID #100 grams 11/22/24 02/14/25 Rx apixaban 5 mg tablet (Eliquis) 5 mg PO BID #60 tabs 12/11/24 02/14/25 Rx atorvastatin 20 mg tablet 20 mg PO DAILY 01/03/25 02/14/25 History cetirizine 10 mg tablet 10 mg PO DAILY 01/03/25 02/14/25 History famotidine 20 mg tablet 20 mg PO DAILY 01/03/25 02/14/25 History fluticasone propionate 50 1 spray intranasal DAILY 01/03/25 02/14/25 History mcg/actuation nasal spray,suspension hydrocortisone 2.5 % topical cream 1 applic topical DAILY 01/03/25 02/14/25 History with perineal applicator (Procto-Med HC) ropinirole 1 mg tablet 1 mg PO BID 01/03/25 02/14/25 History tramadol 50 mg tablet 50 mg PO BID 01/03/25 02/14/25 History sodium sul 1.479 gram-potas ch See Rx Instructions PO PER PKG DIR 01/24/25 02/14/25 Rx 0.188 gram-magnes sul 0.225 gram #24 tabs tablet (Sutab) buspirone 10 mg tablet mg PO 02/14/25 02/14/25 History ondansetron 4 mg disintegrating 4 mg PO Q6H PRN nausea and 02/14/25 Rx tablet vomiting #10 tabs New Prescriptions to Start Prescriptions: Allergies Allergy/AdvReac Type Severity Reaction Status Date / Time loratadine (From Claritin) Allergy Other Verified 02/14/25 11:11 Assessment and Plan *Assessment and plan (1) Low back pain: Status: Acute Qualifiers: Back pain laterality: left Chronicity: unspecified Sciatica laterality: sciatica of left side Sciatica presence: with sciatica Qualified Code(s): M54.42 - Lumbago with sciatica, left side Category: Medical Code(s): M54.50 - Low back pain, unspecified (2) Bilateral sacroiliitis: Status: Acute Category: Medical Code(s): M46.1 - Sacroiliitis, not elsewhere classified Plan Patient is experiencing worsening pain along the low back and bilateral hips. They did have limited range of motion of the lumbar spine along with point tenderness along bilateral SI joints and a positive bilateral Rosita's, Lidia's, Gaenslen's, compression and distraction exam. I did discuss with the patient that I do believe they would benefit from bilateral SI injections. Risk and benefits were discussed with the patient and they would like to proceed forward with this option. Patient has tried and failed conservative therapy. Patient has been actively doing conservative treatment including oral medication, heat and ice, topicals, at home exercising and stretching for longer than 12 weeks. Patient is having to adjust their activity based off the increased pain resulting in activity modification. I do believe the patient would benefit from SI injection. If the patient does get significant relief following these injections we will see in the future if they would benefit from a second set with the possibility of SI fusion at a later date. This will be a diagnostic injection with less than 1 mL solution to be injected. Patient will be scheduled for bilateral SI injections under fluoroscopy. I will also reorder the compounded cream for her. Patient has been instructed to contact the clinic with any concerns before the next appointment. Dr. Dominguez has reviewed this note and agrees with this plan of care. This note was dictated using voice recognition software and make contain errors or omissions. All injections are used with Lidocaine or Bupivacaine and dexamethasone unless diagnostic in which no steroids were injected.
[2025-03-05 09:16] VITALS: BP 109/68; PULSE 65; RESP 18; O2SAT 97; BMI 31.6
== END 2025-03-04 23:59 | disposition home or self-care (01) ==
PROVIDERS: PCP Nurse Practitioner Family; Visit Provider Nurse Practitioner Family
DX: M54.42 Lumbago with sciatica, left side (principal); M46.1 Sacroiliitis, not elsewhere classified

== ENCOUNTER 2025-03-19 10:20 | Day surgery (SDC) | payer MEDICARE, MEDICAID, SELFPAY ==
[2025-02-04 11:01] VITALS: BMI 29.9
[2025-02-12 11:26] VITALS: BMI 29.9
[2025-03-13 15:51] VITALS: BMI 31.6
[2025-03-19] VITALS (8 sets, daily range): BP systolic 101–129; BP diastolic 56–81; PULSE 56–65; RESP 18; TEMP 36.1–36.2; O2SAT 95–99
--- NOTE | 2025-03-19 10:41 | EXP.GEN.HP ---
HPI HPI HPI: This is a 74-year-old female who presents for screening colonoscopy. She is uncertain with regard to prior colonoscopy results but states that she had one quite a few years ago and. [facility] Disclaimer: The information contained in this section may have been updated after the patient was seen, as this information can be updated by other users. Medical History Wheezing Cough Chest pressure History of COVID-19 Bronchitis Allergies History of cataract Hyperlipidemia Hypertension Edema Tonsillectomy planned Skin cancer Atrial fibrillation Falling episodes Daytime somnolence Abnormal EKG Restless sleeper Lumbar disc disease with radiculopathy Anxiety Headache Hypothyroidism Vitamin D deficiency Fibromyalgia Lumbar disc disease with radiculopathy Depression GERD (gastroesophageal reflux disease) Surgical History History of left knee replacement H/O tubal ligation History of surgery LEFT WRIST SURGERY - PLATE / SCREWS H/O adenoidectomy History of back surgery History of colonoscopy History of right knee joint replacement Family History Family history of cervical cancer Mother Family history of myocardial infarction Father Brother Sister Cancer Social History Smoking Status: Never smoker years smoked: 4 smoking status stop date: 1997 second hand exposure: Yes alcohol intake: never substance use type: denies use current occupational status: retired Travel in the last 8 weeks?: None housing: house number of children: 3 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 Have you lived/traveled outside US in past 30 days?: No Contact w/someone who lives/traveled outside US past 30 days?: No Exposure to someone with infectious disease in past 14 days?: No Do you have a fever (greater than 100.4 F or 38 C)?: No Have you tested positive for COVID-19?: No Exposed to someone with COVID-19 in past 14 days?: No Do you have a sore throat?: No Do you have a cough?: No Do you have any weakness?: No Are you experiencing any nausea/vomitting?: No Do you have any diarrhea?: No Are you experiencing any unusual bleeding?: No Do you have any muscle aches/pain?: No Do you have any abdominal pain?: No Are you experiencing loss of taste or smell?: No Other Medical History Have you received the Flu Vaccine for this season: Yes Have you received the Pneumonia Vaccine: Yes Review of Systems Review of Systems Review of systems:: pertinent systems reviewed and negative unless documented below Meds Home Medications and Allergies Home Medications ?Medication ?Instructions ?Recorded ?Confirmed ?Type duloxetine 60 mg capsule,delayed 60 mg PO DAILY 07/21/24 03/19/25 History release levothyroxine 75 mcg tablet 75 mcg PO DAILY 07/21/24 03/19/25 History pregabalin 150 mg capsule 150 mg PO BID 07/21/24 03/19/25 History bisoprolol fumarate 5 mg tablet 5 mg PO BID #60 tabs 10/18/24 03/19/25 Rx diclofenac sodium 1 % topical gel 2 g topical QID #100 grams 11/22/24 03/19/25 Rx apixaban 5 mg tablet (Eliquis) 5 mg PO BID #60 tabs 12/11/24 03/19/25 Rx atorvastatin 20 mg tablet 20 mg PO DAILY 01/03/25 03/19/25 History cetirizine 10 mg tablet 10 mg PO DAILY 01/03/25 03/19/25 History famotidine 20 mg tablet 20 mg PO DAILY 01/03/25 03/19/25 History fluticasone propionate 50 1 spray intranasal DAILY 01/03/25 03/19/25 History mcg/actuation nasal spray,suspension hydrocortisone 2.5 % topical cream 1 applic topical DAILY 01/03/25 03/19/25 History with perineal applicator (Procto-Med ) ropinirole 1 mg tablet 1 mg PO BID 01/03/25 03/19/25 History tramadol 50 mg tablet 50 mg PO BID 01/03/25 03/19/25 History sodium sul 1.479 gram-potas ch See Rx Instructions PO PER PKG DIR 01/24/25 03/19/25 Rx 0.188 gram-magnes sul 0.225 gram #24 tabs tablet (Sutab) buspirone 10 mg tablet 10 mg PO DIRECTED MOOD 02/14/25 03/19/25 History ondansetron 4 mg disintegrating 4 mg PO Q6H PRN nausea and 02/14/25 03/19/25 Rx tablet vomiting #10 tabs New Prescriptions to Start Prescriptions: Allergies Allergy/AdvReac Type Severity Reaction Status Date / Time loratadine (From Claritin) Allergy Other Verified 03/19/25 10:38 Exam Constitutional Constitutional: no acute distress *Routine HEENT Exam Head: Present normocephalic Eye: Present EOMI ENT: Present mucous membranes moist *Routine Neck Exam Neck: Present full ROM *Routine Respiratory Exam Respiratory: Absent respiratory distress *Routine Cardiovascular Exam Cardiovascular: Absent tachycardia *Routine Abdominal Exam Abdominal: Present soft *Routine Rectal Exam Rectal:: deferred *Routine Genitalia Exam Genitalia:: deferred *Routine Extremities Exam Extremities: Present full ROM *Routine Skin Exam Skin: Absent erythema *Routine Neurological Exam Neurological: Present alert Assessment and Plan *Assessment and plan (1) Encounter for screening colonoscopy: Status: Acute Category: Medical Code(s): Z12.11 - Encounter for screening for malignant neoplasm of colon Plan: Colonoscopy today I have discussed the risks and benefits including, but not limited to: Bleeding Infection Damage to surrounding tissue Inherent risks of sedation The patient agrees to proceed.
--- NOTE | 2025-03-19 10:46 | P.PNANES_ITS ---
[facility] Disclaimer: The information contained in this section may have been updated after the patient was seen, as this information can be updated by other users. Medical History Wheezing Cough Chest pressure History of COVID-19 Bronchitis Allergies History of cataract Hyperlipidemia Hypertension Edema Tonsillectomy planned Skin cancer Atrial fibrillation Falling episodes Daytime somnolence Abnormal EKG Restless sleeper Lumbar disc disease with radiculopathy Anxiety Headache Hypothyroidism Vitamin D deficiency Fibromyalgia Lumbar disc disease with radiculopathy Depression GERD (gastroesophageal reflux disease) Surgical History History of left knee replacement H/O tubal ligation History of surgery LEFT WRIST SURGERY - PLATE / SCREWS H/O adenoidectomy History of back surgery History of colonoscopy History of right knee joint replacement Family History Mother Family history of cervical cancer Father Family history of myocardial infarction Brother Family history of myocardial infarction Sister Family history of myocardial infarction Other Cancer Social History Smoking Status: Never smoker years smoked: 4 smoking status stop date: 1997 second hand exposure: Yes alcohol intake: never substance use type: denies use current occupational status: retired Travel in the last 8 weeks?: None housing: house 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 of children: 3 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 Have you lived/traveled outside US in past 30 days?: No Contact w/someone who lives/traveled outside US past 30 days?: No Exposure to someone with infectious disease in past 14 days?: No Do you have a fever (greater than 100.4 F or 38 C)?: No Have you tested positive for COVID-19?: No Exposed to someone with COVID-19 in past 14 days?: No Do you have a sore throat?: No Do you have a cough?: No Do you have any weakness?: No Are you experiencing any nausea/vomitting?: No Do you have any diarrhea?: No Are you experiencing any unusual bleeding?: No Do you have any muscle aches/pain?: No Do you have any abdominal pain?: No Are you experiencing loss of taste or smell?: No [facility] Anesthesia Checklist Patient Identification Patient Identification: Arm Band and Family Structural Data Admitted From: Home Planned Operative Procedure/s: Colonoscopy Consent for Planned Operative Procedure(s) Verified: Yes Verified Documents: Surgical Consent, History and Physical and Cardiac Clearance NPO Status Verified Time NPO: 00:00 Additional verifications Patient : No Anesthesia Reactions: No Hx Blood Transfusions: No Blood Transfusion Reaction: No Cephalosporin Allergy: No Previous Colonoscopy: Yes Airway Assessment Mallampati Score:: Class III C-Spine Mobility Assessed: Yes TMJ Mobility Assessed: Yes Dentition: Edentulous Neurological Assessment Level of Consciousness: Awake, Alert, Appropriate and Follows Commands Hx Seizures: No Numbness or tingling in extremities: No Anesthesia Plan Anesthesia Risk discussed: Yes ASA Class: III Anesthesia Type: MAC Preoperative Comments Pre-Operative Comments: Stage 3 renal failure. acid reflux. Chronic atria fib. advanced age.
[2025-03-19] MEDS: LACTATED RINGERS 1000ML 1,000 ML 50 ML IV (10:50)
--- NOTE | 2025-03-19 10:55 | HMH.SCOPE ---
Procedure: Date: 03/19/25 Patient Date of :: 1950 Procedure Performed:: Colonoscopy with polypectomy Indications:: Screening Performing Provider:: Mathew Henderson MD Referring Provider:: . Sedation:: Monitored anesthesia care Procedure:: After informed consent was obtained the patient was taken to the endoscopy suite. Sedation ensued after the patient was transferred to the left lateral decubitus position. Pulse, blood pressure, and oxygen saturation were monitored throughout the procedure. Digital rectal exam revealed no significant abnormality. The colonoscope was placed in position. The entire colon was evaluated. The colonoscope was carefully removed and the patient was transferred to recovery in stable condition. Please see findings and specimens below for detail. Findings:: Bowel preparation moderate to poor Profound spasticity/lack of relaxation Severe tortuosity Right colon polyp Specimens:: Right colon polyp (cold snare) Recommendations:: Timing of repeat colonoscopy is pending pathology will likely be around 1-2 years secondary to moderate to poor bowel preparation, spasticity, and lack of relaxation. Complications:: No immediate Estimated blood obtained (mL): 1 Colonoscopy Component Colonoscopy Component Was a colonoscopy performed during today's procedure?: Yes Recommended follow up colonoscopy of at least 10 years?: No If no, follow up colonoscopy recommended in ___ years?: (See above) Reason for not recommending >/= 10 yr follow-up interval?: (See above)
== END 2025-03-19 13:30 | disposition home or self-care (01) ==
PROVIDERS: PCP Nurse Practitioner Family; Visit Provider Surgery
PROC: 0DJD8ZZ Inspection of Lower Intestinal Tract, Via Natural or Artificial Opening Endoscopic (ICD-10-PCS; CPT 45385; principal; 2025-03-19 12:00)
DX: Z12.11 Encounter for screening for malignant neoplasm of colon (principal); D12.2 Benign neoplasm of ascending colon; F41.9 Anxiety disorder, unspecified; I48.91 Unspecified atrial fibrillation; F32.A Depression, unspecified; M79.7 Fibromyalgia; K21.9 Gastro-esophageal reflux disease without esophagitis; Z86.16 Personal history of COVID-19; E78.5 Hyperlipidemia, unspecified; I10 Essential (primary) hypertension; E03.9 Hypothyroidism, unspecified; Z85.828 Personal history of other malignant neoplasm of skin; Z88.8 Allergy status to other drugs, medicaments and biological substances; Z79.890 Hormone replacement therapy; Z79.899 Other long term (current) drug therapy
CPT/HCPCS: 45385; J2003; J2704; J7120

== ENCOUNTER 2025-04-09 14:49 | Day surgery (SDC) | payer MEDICARE, SELFPAY ==
[2025-04-09 14:52] VITALS: BP 121/70; PULSE 57; RESP 16; O2SAT 96; BMI 31.6
[2025-04-09] MEDS: LIDOCAINE 1% 5ML PF VIAL 5 ML (15:02)
[2025-04-09 15:03] VITALS: BP 121/70; PULSE 57; RESP 18; O2SAT 96
--- NOTE | 2025-04-09 15:03 | P.PCN_ITS ---
Procedure Date: 04/09/25 Time: 15:00 Anesthesiologist:: Pablito Harp CRNA Complications:: None Pre-procedure Diagnosis:: Bilateral sacroiliitis Post-procedure Diagnosis:: Same Indications for Procedure:: Patient is a very pleasant 75-year-old female that comes our clinic today for bi lateral diagnostic sacroiliac joint injections of local anesthetic. Patient describes low lumbar back pain off the midline bilaterally. Bilateral posterior hip pain. Difficulty with ambulation. Difficulty with standing due to the pain. She rates her pain 7/10. Procedure Details:: Procedure: Bilateral sacroiliac joint injections under fluoroscopy Informed consent was obtained and the risks and benefits of the procedure were explained to the patient.~ The patient was taken to the procedure room and noninvasive monitors were placed including a noninvasive blood pressure cuff and pulse oximeter.~ The patient was placed prone on the procedure table. Both hips were cleansed using Betadine as a cleansing solution. C-arm fluoroscopy was used to view the right sacroiliac joint.~ The skin and subcutaneous tissues were anesthetized using lidocaine 1.5% and a 25-gauge needle.~ After this, a 22-gauge spinal needle was inserted under fluoroscopic guidance into the inferior aspect of the right sacroiliac joint.~ Omnipaque dye was injected and good spread was seen throughout the joint.~ After this, approximately 5 mL of bupivacaine, 0.25% was incrementally injected into the right sacroiliac joint. We then moved to the left sacroiliac joint.~ The skin and subcutaneous tissues were anesthetized using lidocaine 1.5% and a 25-gauge needle.~ After this, a 22- gauge spinal needle was inserted under fluoroscopic guidance into the inferior aspect of the left sacroiliac joint.~ Omnipaque dye was injected and good spread was seen throughout the joint. After this, approximately 5 mL of bupivacaine, 0.25% was incrementally injected into the left sacroiliac joint.~ The patient tolerated the procedure well with no complications. The patient was observed in the Pain Clinic and then was discharged home neurologically intact. Plan and Disposition:: Patient was discharged without incident.
[2025-04-09 15:04] VITALS: BP 121/70; PULSE 57; RESP 18; O2SAT 96
[2025-04-09 15:08] VITALS: BP 123/65; PULSE 61; RESP 16; O2SAT 95
== END 2025-04-09 15:10 | disposition home or self-care (01) ==
PROVIDERS: PCP Nurse Practitioner Family; Visit Provider Nurse Anesthetist, Certified Registered
DX: M46.1 Sacroiliitis, not elsewhere classified (principal); I10 Essential (primary) hypertension; E78.5 Hyperlipidemia, unspecified; F41.9 Anxiety disorder, unspecified; I48.91 Unspecified atrial fibrillation; K21.9 Gastro-esophageal reflux disease without esophagitis; E03.9 Hypothyroidism, unspecified; Z88.8 Allergy status to other drugs, medicaments and biological substances; Z79.01 Long term (current) use of anticoagulants; Z79.890 Hormone replacement therapy; Z79.899 Other long term (current) drug therapy
CPT/HCPCS: 64450; J2003

== ENCOUNTER 2025-05-06 12:05 | Outpatient (CLI) | payer MEDICARE, SELFPAY ==
--- NOTE | 2025-05-06 12:10 | XR_ITS ---
FINAL REPORT CLINICAL HISTORY: ACUTE TRAUMATIC PAIN, fall COMPARISON: None FINDINGS: SINGLE VIEW PELVIS: A single view of the pelvis was obtained. There is no acute fracture or dislocation. Mild degenerative changes of the bilateral hips. Soft tissues are unremarkable. IMPRESSION: No acute bony abnormality. Reviewed, Interpreted and Dictated by Khoa Phillips MD Transcribed by Zenobia Castillo Authenticated and [facility]
--- NOTE | 2025-05-06 12:10 | XR_ITS ---
FINAL REPORT CLINICAL HISTORY: fall COMPARISON: None FINDINGS: LUMBOSACRAL SPINE SERIES Five views of the lumbosacral spine were obtained. There is no fracture present. There is no malalignment. Moderate diffuse degenerative disc disease and spondylosis. Facet arthropathy is noted. IMPRESSION: Moderate degenerative changes without acute process. Reviewed, Interpreted and Dictated by Khoa Phillips MD Transcribed by Zenobia Castillo Authenticated and [facility]
--- OUTSIDE RECORDS SUMMARY | 2025-05-06 12:10 | XMS_ITS | Clinical Summary ---
Author Organization [facility] Address [address] [place] [address] Care Team Providers Care Collision Center Manager Name Role Phone Jorge He MD Primary Care Provider + [phone] Allergies No known active allergies Medications aspirin [...] 06/27/2020 Active cholecalciferol (Cholecalcifero l) 250 MCG (42389 UT) capsule TAKE 1 CAPSULE Weekly 07/01/2020 [...] 1995 Sigmoidoscopy 1995 [facility]-Colorectal Cancer Screening 1995 [id number] Vaccine (3 - Moderna risk series) 10/08/2020 09/10/2020, 07/29/2020 [facility]-Pneumococcal Vaccine: 50 + Years (2 of 2 - PCV) 05/13/2021 05/13/2020 [facility]-Influenza Vaccine (#1) 2025 [facility]-RSV Vaccine: 60+ Years o r (1 - 1-dose 75+ series) 2025 HPV Vaccines Aged Out No longer [...] this topic Insurance [employer] MEDICARE Care Teams Collision Center Manager Relationship Specialty Start Date End Date Jorge He MD [address] [place] [address] PCP - General 11/28/20
== END 2025-05-06 23:59 | disposition home or self-care (01) ==
LOC: RAD 12:06
PROVIDERS: PCP Nurse Practitioner Family; Visit Provider Nurse Practitioner Family
DX: M47.817 Spondylosis without myelopathy or radiculopathy, lumbosacral region (principal); G89.11 Acute pain due to trauma
CPT/HCPCS: 72110; 72170